=== PATIENT | male | born 1950 | race Caucasian/White ===

== ENCOUNTER 2016-10-14 14:24 | Inpatient (IN) | payer MEDICARE ==
[2016-10-14] MEDS ORDERED: NITROGLYCERIN SL TABS 0.4 MG TAB SUBLINGUAL STA ×3 (14:37)
[2016-10-14] MEDS ORDERED: ASPIRIN 81 MG CHEW PO STA (14:37)
--- NOTE | 2016-10-14 14:46 | ED ---
General Adult HPI - General Stated complaint: Chest Pain Time Seen by Provider: 10/14/16 14:26 Source: patient, EMS, RN notes reviewed Mode of arrival: EMS Limitations: no limitations - History of Present Illness Initial comments: Patient is a pleasant 58-year-old male presenting to the emergency department for chest discomfort. Onset of symptoms was during mowing the lawn. Patient has complaints of pressure in his chest without radiation. Patient does have some associated dyspnea and diaphoresis. No nausea vomiting. Symptoms are similar to previous cardiac problems. Discomfort was 9 or 10/10 and has improved to 7/10 with one nitroglycerin by EMS. - Related Data Home Medications Medication Instructions Recorded Confirmed Allopurinol [Zyloprim] 100 mg PO QAM 11/07/13 10/14/16 FLUoxetine HCL [PROzac] 20 mg PO QAM 11/07/13 10/14/16 Pantoprazole Sodium 40 mg PO QAM 11/07/13 10/14/16 Primidone [Mysoline] 50 mg PO TID 11/07/13 10/14/16 Topiramate [Topamax] 100 mg PO 11/07/13 10/14/16 Pioglitazone [Actos] 30 mg PO QAM 10/19/15 10/14/16 Isosorbide Mononitrate ER [Imdur] 30 mg PO QAM 01/02/16 10/14/16 Insulin NPH Hum/Reg Insulin Hm 10 unit SQ BID 01/24/16 10/14/16 [NovoLIN 70-30 100 UNIT/ML VIAL] Ascorbic Acid [Vitamin C] 1,000 mg PO QAM 05/25/16 10/14/16 [place]-3 Fatty Acids/Fish Oil [Fish 1 cap PO DAILY 05/25/16 10/14/16 Oil 1,000 mg Softgel] Clopidogrel [Plavix] 75 mg PO DAILY 10/14/16 10/14/16 Cyclobenzaprine [Flexeril] 5 mg PO BID 10/14/16 10/14/16 Famotidine [Pepcid] 20 mg PO HS 10/14/16 10/14/16 Gabapentin [Neurontin] 400 mg PO QID 10/14/16 10/14/16 Metoprolol Tartrate [Lopressor] 12.5 mg PO HS 10/14/16 10/14/16 Metoprolol Tartrate [Lopressor] 25 mg PO QAM 10/14/16 10/14/16 Multivitamins, Thera [Multivitamin 1 tab PO DAILY 10/14/16 10/14/16 (formulary)] buPROPion [Wellbutrin] 100 mg PO BID 10/14/16 10/14/16 metFORMIN HCL 1,000 mg PO BID 10/14/16 10/14/16 Previous Rx's Medication Instructions Recorded Aspirin EC [Ecotrin Low Dose] 81 mg PO DAILY #30 tablet. 10/21/15 Allergies Allergy/AdvReac Type Severity Reaction Status Date / Time No Known Allergies Allergy Verified 10/14/16 14:47 Review of Systems ROS Statement: Those systems with pertinent positive or pertinent negative responses have been documented in the HPI. ROS Other: All systems not noted in ROS Statement are negative. Constitutional: Denies: fever Eyes: Denies: eye pain ENT: Denies: ear pain Respiratory: Reports: dyspnea. Denies: cough Cardiovascular: Reports: chest pain Endocrine: Denies: fatigue Gastrointestinal: Denies: abdominal pain Genitourinary: Denies: dysuria Musculoskeletal: Denies: back pain Skin: Denies: rash Neurological: Denies: headache Past Medical History Past Medical History: Coronary Artery Disease (CAD), Chest Pain / Angina, Diabetes Mellitus, GERD/Reflux, GI Bleed, Hyperlipidemia, Hypertension, Myocardial Infarction ([place]), Musculoskeletal Disorder, Osteoarthritis (OA), Skin Disorder Additional Past Medical History / Comment(s): . HX OF BACK PROBLEMS. TREMORS RT ARM. SPINAL stenosis of lumbar region with radiculopathy.HIATAL HERNIA, SPORIASES, ,,GOUT Last Myocardial Infarction Date:: OCTOBER 2015 History of Any Multi-Drug Resistant Organisms: None Reported Past Surgical History: Back Surgery, Coronary Bypass/CABG, Heart Catheterization , Heart Catheterization With Stent, Hernia Repair, Orthopedic Surgery Additional Past Surgical History / Comment(s): REPAIR STOMACH ULCER 10/2012; ORIF LT ANKLE; REPAIR RT 5TH FINGER D/T TRAUMA; PAIN PROC X2; HERNIA SURG X5 - 1 UMB, 1 HIATAL, 3 INGUINAL; CABG X1, 6-2014 had posterior lateral decompression and fusion, transforaminal lumbar interbody fusion L4-L5.LT ROTATOR CUFF REPAIR,EGD/COLONOSCOPY,NERVE BLOCK. 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 Smoking Status: Former smoker Past Alcohol Use History: None Reported Additional Past Alcohol Use History / Comment(s): STARTED SMOKING AT AGE 14, SMOKED 1-2 PPD, QUIT 1989 Past Drug Use History: None Reported - Past Family History Father Additional Family Medical History / Comment(s): BRAIN TUMOR Mother Family Medical History: Myocardial Infarction ([place]) Additional Family Medical History / Comment(s): FROM [place] AGE 70 General Exam Limitations: no limitations General appearance: alert, in no apparent distress Head exam: Present: atraumatic Eye exam: Present: normal appearance, PERRL ENT exam: Present: normal oropharynx Neck exam: Present: normal inspection Respiratory exam: Present: normal lung sounds bilaterally. Absent: chest wall tenderness Cardiovascular Exam: Present: regular rate, normal rhythm Expanded Peripheral pulses: 2+: Radial (R), Radial (L), Dorsalis Pedis (R), Dorsalis Pedis (L) GI/Abdominal exam: Present: soft. Absent: tenderness Extremities exam: Present: normal inspection. Absent: pedal edema, calf tenderness Neurological exam: Present: alert Psychiatric exam: Present: normal affect, normal mood Skin exam: Absent: rash Course Vital Signs 10/14/16 10/14/16 14:32 15:05 Temperature 97.8 F Pulse Rate 68 64 Respiratory 18 16 Rate Blood Pressure 110/59 131/62 O2 Sat by Pulse 99 98 Oximetry EKG Findings - EKG Comments: EKG Findings:: Normal sinus rhythm at 65. NV 164. QRS 170. QT 452. QTC 470. Normal axis. Right bundle branch block. Nonspecific ST-T. Inferior T wave inversion. Previous EKG dated 05/26/2016 reviewed. Medical Decision Making - Medical Decision Making Patient reexamined and resting comfortably in bed. Patient states discomfort is starting to increase again and nitroglycerin drip will be provided. Case was discussed in detail with Dr. Tang who is familiar with this patient and will admit for Dr. Garza. Admission orders written. IV heparin started. Cardiology will be consult. - Lab Data Result diagrams: 10/14/16 14:44 10/14/16 14:44 Lab Results 10/14/16 10/14/1610/14/17 Range/Units 14:44 14:44 14:44 WBC 6.4 (3.8-10.6) k/uL RBC 4.37 (4.30-5.90) m/uL Hgb 13.2 (13.0-17.5) gm/dL Hct 40.1 (39.0-53.0) % MCV 91.9 (80.0-100.0) fL MCH 30.1 (25.0-35.0) pg MCHC 32.8 (31.0-37.0) g/dL RDW 13.4 (11.5-15.5) % Plt Count 175 (150-450) k/uL Neutrophils % 60 % Lymphocytes % 27 % Monocytes % 5 % Eosinophils % 4 % Basophils % 0 % Neutrophils # 3.8 (1.3-7.7) k/uL Lymphocytes # 1.7 (1.0-4.8) k/uL Monocytes # 0.3 (0-1.0) k/uL Eosinophils # 0.3 (0-0.7) k/uL Basophils # 0.0 (0-0.2) k/uL PT (9.0-12.0) sec INR (<1.1) APTT (22.0-30.0) sec Sodium 142 (137-145) mmol/L Potassium 3.7 (3.5-5.1) mmol/L Chloride 107 (98-107) mmol/L Carbon Dioxide 25 (22-30) mmol/L Anion Gap 10 mmol/L BUN 15 (9-20) mg/dL Creatinine 1.10 (0.66-1.25) mg/dL Est GFR (MDRD) Af Amer >60 (>60 ml/min/1.73 sqM) Est GFR (MDRD) Non-Af >60 (>60 ml/min/1.73 sqM) Glucose 72 L (74-99) mg/dL Calcium 9.0 (8.4-10.2) mg/dL Magnesium 1.7 (1.6-2.3) mg/dL Total Bilirubin 0.3 (0.2-1.3) mg/dL AST 21 (17-59) U/L ALT 23 (21-72) U/L Alkaline Phosphatase 55 (38-126) U/L Total Creatine Kinase 113 (55-170) U/L CK-MB (CK-2) 2.4 (0.0-2.4) ng/mL CK-MB (CK-2) Rel Index 2.1 Troponin I <0.012 (0.000-0.034) ng/mL Total Protein 6.8 (6.3-8.2) g/dL Albumin 4.0 (3.5-5.0) g/dL 10/14/16 Range/Units 14:44 WBC (3.8-10.6) k/uL RBC (4.30-5.90) m/uL Hgb (13.0-17.5) gm/dL Hct (39.0-53.0) % MCV (80.0-100.0) fL MCH (25.0-35.0) pg MCHC (31.0-37.0) g/dL RDW (11.5-15.5) % Plt Count (150-450) k/uL Neutrophils % % Lymphocytes % % Monocytes % % Eosinophils % % Basophils % % Neutrophils # (1.3-7.7) k/uL Lymphocytes # (1.0-4.8) k/uL Monocytes # (0-1.0) k/uL Eosinophils # (0-0.7) k/uL Basophils # (0-0.2) k/uL PT 10.7 (9.0-12.0) sec INR 1.1 (<1.1) APTT 23.7 (22.0-30.0) sec Sodium (137-145) mmol/L Potassium (3.5-5.1) mmol/L Chloride (98-107) mmol/L Carbon Dioxide (22-30) mmol/L Anion Gap mmol/L BUN (9-20) mg/dL Creatinine (0.66-1.25) mg/dL Est GFR (MDRD) Af Amer (>60 ml/min/1.73 sqM) Est GFR (MDRD) Non-Af (>60 ml/min/1.73 sqM) Glucose (74-99) mg/dL Calcium (8.4-10.2) mg/dL Magnesium (1.6-2.3) mg/dL Total Bilirubin (0.2-1.3) mg/dL AST (17-59) U/L ALT (21-72) U/L Alkaline Phosphatase (38-126) U/L Total Creatine Kinase (55-170) U/L CK-MB (CK-2) (0.0-2.4) ng/mL CK-MB (CK-2) Rel Index Troponin I (0.000-0.034) ng/mL Total Protein (6.3-8.2) g/dL Albumin (3.5-5.0) g/dL - Radiology Data Radiology results: image reviewed (Chest x-ray shows stable mild cardiomegaly and chronic changes.) Critical Care Time Critical Care Time: Yes Total Critical Care Time: 33 Disposition Clinical Impression: Unstable angina pectoris Disposition: ADMITTED IP TO THIS [facility] Condition: Serious Time of Disposition: 15:43
[2016-10-14 14:56] LABS: Basophils % (A) 0 %; CH 29.5; CHCM 32.2; Eosinophils # (A) 0.3 k/uL (0-0.7); Eosinophils % (A) 4 %; HCT 40.1 % (39.0-53.0); HDW 2.33; HGB 13.2 gm/dL (13.0-17.5); Luc # (Auto) 0.21; Luc % (Auto) 3; Lymphocytes # (A) 1.7 k/uL (1.0-4.8); Lymphocytes % (A) 27 %; MCH 30.1 pg (25.0-35.0); MCHC 32.8 g/dL (31.0-37.0); MCV 91.9 fL (80.0-100.0); Mean Platelet Volume 7.5; Monocytes # (A) 0.3 k/uL (0-1.0); Monocytes % (A) 5 %; Neutrophils # (A) 3.8 k/uL (1.3-7.7); Neutrophils % (A) 60 %; RBC 4.37 m/uL (4.30-5.90); RDW 13.4 % (11.5-15.5); WBC 6.4 k/uL (3.8-10.6); WBC (Perox) 6.63
[2016-10-14] MEDS ORDERED: MORPHINE SULFATE 4 MG/ML SYRINGE IVP STA (14:58)
[2016-10-14 15:07] LABS: INR 1.1 (<1.1); Partial Thromboplastin Time 23.7 sec (22.0-30.0); Prothrombin Time 10.7 sec (9.0-12.0)
[2016-10-14 15:11] LABS: ALT 23 U/L (21-72); AST 21 U/L (17-59); Alkaline Phosphatase 55 U/L (38-126); Anion Gap 10 mmol/L; Blood Urea Nitrogen 15 mg/dL (9-20); Carbon Dioxide 25 mmol/L (22-30); Chloride 107 mmol/L (98-107); Glucose 72 mg/dL (74-99); Magnesium 1.7 mg/dL (1.6-2.3); Non-African American GFR(MDRD) >60 (>60 ml/min/1.73 sqM); Potassium 3.7 mmol/L (3.5-5.1); Sodium 142 mmol/L (137-145); Total Bilirubin 0.3 mg/dL (0.2-1.3); Total Protein 6.8 g/dL (6.3-8.2)
[2016-10-14 15:21] LABS: Creatine Kinase 113 U/L (55-170)
--- NOTE | 2016-10-14 15:27 | XR ---
EXAMINATION TYPE: XR chest 1V portable DATE OF EXAM: 10/14/2016 3:17 PM Comparison: 05/25/2016 Clinical History: 66-year-old male with chest pain Findings: The heart is mildly enlarged. Median sternotomy wires are present with post-CABG clips in the mediast inum. Mild interstitial prominence likely chronic senescent change. No consolidation or pleural effus ion. Impression: Stable mild cardiomegaly and chronic changes. No acute process seen.
[2016-10-14 15:34] LABS: Creatine Kinase MB 2.4 ng/mL (0.0-2.4); Troponin I <0.012 ng/mL (0.000-0.034)
[2016-10-14] MEDS ORDERED: NITROGLYCERIN-D5W PMX 50 MG in DEXTROSE/WATER 1 250ML.BAG IV ONE (15:41)
[2016-10-14] MEDS ORDERED: HEPARIN SODIUM,PORCINE 5,000 UNIT/ML 1 ML VIAL IV ONE (15:44)
[2016-10-14] MEDS: HEPARIN SODIUM,PORCINE/D5W PMX 25,000 UNIT in DEXTROSE/WATER 1 500ML.BAG IV SCH (16:05)
[2016-10-14 20:52] LABS: Creatine Kinase 111 U/L (55-170)
[2016-10-14 20:59] LABS: Glucose,Whole Blood 180 mg/dL (75-99)
[2016-10-14 21:02] LABS: Creatine Kinase MB 2.3 ng/mL (0.0-2.4); Troponin I <0.012 ng/mL (0.000-0.034)
[2016-10-14] MEDS ORDERED: FAMOTIDINE 20 MG TAB PO SCH (21:15)
[2016-10-14] MEDS: MORPHINE SULFATE 2 MG/ML SYRINGE IVP PRN (21:31)
--- NOTE | 2016-10-14 21:49 | XR ---
EXAMINATION TYPE: XR chest 1V portable DATE OF EXAM: 10/14/2016 9:23 PM COMPARISON: 10/14/2016 HISTORY: Pain TECHNIQUE: Single frontal view of the chest is obtained. FINDINGS: Sternal sutures noted. EKG leads. There is no focal air space opacity, pleural effusion, o r pneumothorax seen. The cardiac silhouette size is within normal limits. The osseous structures a re intact. IMPRESSION: No acute process.
[2016-10-14 22:03] LABS: Anion Gap 12 mmol/L; Blood Urea Nitrogen 14 mg/dL (9-20); Calcium 9.3 mg/dL (8.4-10.2); Carbon Dioxide 25 mmol/L (22-30); Chloride 101 mmol/L (98-107); Glucose 169 mg/dL (74-99); Magnesium 1.8 mg/dL (1.6-2.3); Non-African American GFR(MDRD) >60 (>60 ml/min/1.73 sqM); Potassium 3.8 mmol/L (3.5-5.1); Sodium 138 mmol/L (137-145)
[2016-10-14] MEDS: CYCLOBENZAPRINE 5 MG TAB PO SCH (22:21)
[2016-10-14] MEDS: GABAPENTIN 400 MG CAP PO SCH (22:21)
[2016-10-14] MEDS: PRIMIDONE 50 MG TAB PO SCH (22:22)
[2016-10-14] MEDS: TOPIRAMATE 100 MG TAB PO SCH (22:22)
[2016-10-14] MEDS: METOPROLOL TARTRATE 25 MG TAB PO SCH (22:24)
[2016-10-14] MEDS ORDERED: ACETAMINOPHEN TAB 325 MG TAB PO PRN (22:28)
[2016-10-14] MEDS ORDERED: INSULIN NPH/REG INSULIN 70/30 300 UNIT/3 ML VIAL SQ SCH (22:30)
[2016-10-14] MEDS: HYDROmorphone 1 MG/ML 1 ML SYRINGE IVP PRN (23:35)
[2016-10-15] MEDS: HEPARIN SODIUM,PORCINE 5,000 UNIT/ML 1 ML VIAL IV PRN ×2 (01:47→14:04)
[2016-10-15 04:25] LABS: Mean Platelet Volume 7.4
[2016-10-15 04:35] LABS: Cholesterol 167 mg/dL (<200); HDL Cholesterol 51 mg/dL (40-60); Triglycerides 62 mg/dL (<150)
[2016-10-15 05:01] LABS: Creatine Kinase 101 U/L (55-170)
[2016-10-15 05:15] LABS: Creatine Kinase MB 2.1 ng/mL (0.0-2.4); Troponin I <0.012 ng/mL (0.000-0.034)
[2016-10-15] MEDS: MORPHINE SULFATE 2 MG/ML SYRINGE IVP PRN ×3 (05:50→16:10)
[2016-10-15 06:10] LABS: Glucose,Whole Blood 55 mg/dL (75-99)
[2016-10-15 06:26] LABS: Glucose,Whole Blood 74 mg/dL (75-99)
[2016-10-15] MEDS: PANTOPRAZOLE 40 MG TABLET PO SCH (06:31)
[2016-10-15] MEDS: INSULIN LISPRO (humaLOG) 300 UNIT/3 ML VIAL SQ SCH ×4 (06:31→21:21)
[2016-10-15 07:09] LABS: Glucose,Whole Blood 90 mg/dL (75-99)
[2016-10-15] MEDS ORDERED: metFORMIN 500 MG TAB PO SCH (07:30)
--- NOTE | 2016-10-15 08:27 | P.CRDCN ---
History of Present Illness Consult date: 10/15/16 Requesting physician: Tisha Tang Consult reason: chest pain Chief complaint: Chest pain History of present illness: This is a pleasant 58-year-old gentleman who follows with Dr. Taylor Jiménez in the office. He has a known history of coronary artery disease with prior bypass surgery, single vessel to the RCA. Subsequent to that patient also underwent angioplasty and stenting of the SVG to the RCA in October 2015 with multiple stents at that time, subsequent to that in May of the same year he again underwent stenting of the SVG to the RCA. She also has history of diabetes, hypertension, hyperlipidemia, family history of premature coronary artery disease. He presents to the hospital on this occasion with symptoms of midsternal chest pressure and heaviness. Patient states he had just cut his lawn when the symptoms started. It reminded him of his prior chest discomfort when he had his stents placed. Overall he states he's been doing fairly well at home. Blood pressure on arrival here 110/60 with a heart rate in the 60s. Temperature is 90.7 point 80s 99% on room air. White Blood cell count 6.4, hemoglobin 13.2, potassium 3.8, BUN 14, creatinine 1.0. Troponins 3 have been negative. EKG shows normal sinus rhythm with a right bundle branch block pattern and nonspecific ST-T wave changes, similar to prior EKGs. At the time of my examination this morning, patient is currently on IV heparin and nitroglycerin drips, denies any chest pain at present. Past Medical History Past Medical History: Coronary Artery Disease (CAD), Chest Pain / Angina, Diabetes Mellitus, GERD/Reflux, GI Bleed, Hyperlipidemia, Hypertension, Myocardial Infarction ([place]), Musculoskeletal Disorder, Osteoarthritis (OA), Skin Disorder Additional Past Medical History / Comment(s): . HX OF BACK PROBLEMS. TREMORS RT ARM. SPINAL stenosis of lumbar region with radiculopathy.HIATAL HERNIA, SPORIASES, ,,GOUT Last Myocardial Infarction Date:: OCTOBER 2015 History of Any Multi-Drug Resistant Organisms: None Reported Past Surgical History: Back Surgery, Coronary Bypass/CABG, Heart Catheterization , Heart Catheterization With Stent, Hernia Repair, Orthopedic Surgery Additional Past Surgical History / Comment(s): REPAIR STOMACH ULCER 10/2012; ORIF LT ANKLE; REPAIR RT 5TH FINGER D/T TRAUMA; PAIN PROC X2; HERNIA SURG X5 - 1 UMB, 1 HIATAL, 3 INGUINAL; CABG X1, 6-2014 had posterior lateral decompression and fusion, transforaminal lumbar interbody fusion L4-L5.LT ROTATOR CUFF REPAIR,EGD/COLONOSCOPY,NERVE BLOCK. 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 Smoking Status: Former smoker Past Alcohol Use History: None Reported Additional Past Alcohol Use History / Comment(s): STARTED SMOKING AT AGE 14, SMOKED 1-2 PPD, QUIT 1989 Past Drug Use History: None Reported - Past Family History Father Additional Family Medical History / Comment(s): BRAIN TUMOR Mother Family Medical History: Myocardial Infarction ([place]) Additional Family Medical History / Comment(s): FROM [place] AGE 70 Medications and Allergies Home Medications Medication Instructions Recorded Confirmed Type Allopurinol [Zyloprim] 100 mg PO QAM 11/07/13 10/14/16 History FLUoxetine HCL [PROzac] 20 mg PO QAM 11/07/13 10/14/16 History Pantoprazole Sodium 40 mg PO QAM 11/07/13 10/14/16 History Primidone [Mysoline] 50 mg PO TID 11/07/13 10/14/16 History Topiramate [Topamax] 100 mg PO HS 11/07/13 10/14/16 History Pioglitazone [Actos] 30 mg PO QAM 10/19/15 10/14/16 History Isosorbide Mononitrate ER [Imdur] 30 mg PO QAM 01/02/16 10/14/16 History Insulin NPH Hum/Reg Insulin Hm 10 unit SQ BID 01/24/16 10/14/16 History [NovoLIN 70-30 100 UNIT/ML VIAL] Ascorbic Acid [Vitamin C] 1,000 mg PO QAM 05/25/16 10/14/16 History [place]-3 Fatty Acids/Fish Oil [Fish 1 cap PO DAILY 05/25/16 10/14/16 History Oil 1,000 mg Softgel] Clopidogrel [Plavix] 75 mg PO DAILY 10/14/16 10/14/16 History Cyclobenzaprine [Flexeril] 5 mg PO BID 10/14/16 10/14/16 History Famotidine [Pepcid] 20 mg PO HS 10/14/16 10/14/16 History Gabapentin [Neurontin] 400 mg PO QID 10/14/16 10/14/16 History Isosorbide Mononitrate ER [Imdur] 60 mg PO HS 10/14/16 10/14/16 History Metoprolol Tartrate [Lopressor] 12.5 mg PO HS 10/14/16 10/14/16 History Metoprolol Tartrate [Lopressor] 25 mg PO QAM 10/14/16 10/14/16 History Multivitamins, Thera [Multivitamin 1 tab PO DAILY 10/14/16 10/14/16 History (formulary)] buPROPion [Wellbutrin] 100 mg PO BID 10/14/16 10/14/16 History metFORMIN HCL 1,000 mg PO BID 10/14/16 10/14/16 History Allergies Allergy/AdvReac Type Severity Reaction Status Date / Time No Known Allergies Allergy Verified 10/14/16 14:47 Physical Exam Vitals: Vital Signs Temp Pulse Pulse Resp BP BP Pulse Ox 10/15/16 07:40 97.5 F L 56 L 18 103/65 96 10/15/16 04:00 97.2 F L 55 L 16 101/57 96 10/14/16 23:45 61 115/53 97 10/14/16 23:30 64 18 117/69 97 10/14/16 22:56 61 20 147/76 97 10/14/16 22:36 67 20 140/85 97 10/14/16 22:16 62 22 148/77 98 10/14/16 21:46 67 22 161/81 99 10/14/16 21:36 65 22 159/85 100 10/14/16 21:26 64 24 153/88 99 10/14/16 21:16 62 22 141/79 100 10/14/16 21:06 28 H 180/92 100 10/14/16 20:56 181/128 10/14/16 20:22 97.1 F L 60 18 143/84 95 10/14/16 19:49 97.9 F 76 18 127/75 99 10/14/16 16:53 64 16 134/72 98 10/14/16 16:07 57 L 16 121/66 98 Intake and Output 10/14/16 10/15/16 10/15/16 22:59 06:59 14:59 Intake Total 418.553 Output Total 500 Balance -81.447 Intake: Intake, IV Titration 418.553 Amount Heparin Sodium,Porcine/ 298.553 D5w Pmx 25,000 unit In Dextrose/Water 1 500ml. bag @ 10 UNITS/KG/HR 19. 95 mls/hr IV .Q24H [facility] Rx #:[id number] Nitroglycerin-D5w Pmx 50 120 mg In Dextrose/Water 1 250ml.bag @ 20 MCG/MIN 6 mls/hr IV .Q24H ONE Rx#: [id number] Output: Urine 500 Other: Weight 100.3 kg 97.7 kg PHYSICAL EXAMINATION: HEENT: Head is atraumatic, normocephalic. Pupils equal, round. Neck is supple. There is no elevated jugular venous pressure. HEART EXAMINATION: Heart S1, S2 normal. No murmur or gallop heard. CHEST EXAMINATION: Lungs are clear to auscultation and precussion. No chest wall tenderness is noted on palpation or with deep breathing. ABDOMEN: Soft, nontender. Bowel sounds are heard. No organomegaly noted. EXTREMITIES: 2+ peripheral pulses with no evidence of peripheral edema and no calf tenderness noted. NEUROLOGIC patient is awake, alert and oriented -3. . Results 10/15/16 03:54 10/14/16 21:11 Cardiac Enzymes 10/14/16 10/14/16 10/15/16 Range/Units 20:11 21:11 03:54 CK-MB (CK-2) 2.3 2.1 (0.0-2.4) ng/mL Troponin I <0.012 <0.012 <0.012 (0.000-0.034) ng/mL Coagulation 10/14/16 10/15/16 Range/Units 21:11 03:54 APTT 37.1 H 129.8 H* (22.0-30.0) sec Lipids 10/15/16 Range/Units 03:54 Triglycerides 62 (<150) mg/dL Cholesterol 167 (<200) mg/dL HDL Cholesterol 51 (40-60) mg/dL CBC 10/15/16 Range/Units 03:54 Plt Count 171 (150-450) k/uL Comprehensive Metabolic Panel 10/14/16 Range/Units 21:11 Sodium 138 (137-145) mmol/L Potassium 3.8 (3.5-5.1) mmol/L Chloride 101 (98-107) mmol/L Carbon Dioxide 25 (22-30) mmol/L BUN 14 (9-20) mg/dL Creatinine 1.06 (0.66-1.25) mg/dL Glucose 169 H (74-99) mg/dL Calcium 9.3 (8.4-10.2) mg/dL Current Medications Generic Name Dose Route Start Last Admin Trade Name Freq PRN Reason Stop Dose Admin Acetaminophen 650 mg 10/14/16 22:28 10/15/16 05:00 Tylenol Tab PO 650 mg Q6HR PRN Administration Mild to Moderate Pain Allopurinol 100 mg 10/15/16 09:00 Zyloprim PO QAM [facility] Ascorbic Acid 1,000 mg 10/15/16 09:00 Vitamin C PO QAM [facility] Aspirin 325 mg 10/15/16 09:00 Aspirin PO DAILY [facility] Bupropion HCl 100 mg 10/15/16 09:00 Wellbutrin PO BID [facility] Clopidogrel Bisulfate 75 mg 10/15/16 09:00 Plavix PO DAILY [facility] Cyclobenzaprine HCl 5 mg 10/14/16 21:15 10/14/16 22:21 Flexeril PO 5 mg BID [facility] Administration Famotidine 20 mg 10/14/16 21:15 10/14/16 22:21 Pepcid PO 20 mg HS [facility] Administration Fluoxetine HCl 20 mg 10/15/16 09:00 Prozac PO QAM [facility] Gabapentin 400 mg 10/14/16 22:00 10/14/16 22:21 Neurontin PO 400 mg QID [facility] Administration Heparin Sodium (Porcine) 0 unit 10/14/16 15:44 10/15/16 01:47 Heparin IV 4,000 unit Q6HR PRN Administration Low PTT Protocol Hydromorphone HCl 0.5 mg 10/14/16 23:06 10/14/16 23:35 Dilaudid IVP 0.5 mg Q4HR PRN Administration Moderate to Severe Pain Nitroglycerin/Dextrose 50 mg/ 250 mls @ 6 mls/hr 10/14/16 15:41 10/14/16 16: 04 IV Solution IV 10/15/16 15:40 10 mcg/min .Q24H ONE 3 mls/hr Protocol Administration 20 MCG/MIN Heparin Sodium/Dextrose 25,000 500 mls @ 19.95 mls/hr 10/14/16 15:45 05:51 unit/ IV Solution IV 9.98 units/kg/hr .Q24H [facility] 19.91 mls/hr Protocol Titration 10 UNITS/KG/HR Insulin Human Isoph/Insulin Regular 30 unit 10/14/16 22:30 10/14/16 23:36 Humulin 70/30 Vial SQ 30 unit HS [facility] Administration Insulin Human Lispro 0 unit 10/15/16 07:30 10/15/16 06:31 Humalog SQ Not Given ACHS [facility] Protocol Isosorbide Mononitrate 30 mg 10/15/16 09:00 Imdur PO QAM [facility] Metformin HCl 1,000 mg 10/15/16 07:30 10/15/16 06:31 Glucophage PO Not Given BID-W/MEALS [facility] Metoprolol Tartrate 25 mg 10/14/16 21:15 10/14/16 22:24 Lopressor PO 25 mg BID [facility] Administration Morphine Sulfate 2 mg 10/14/16 20:20 10/15/16 05:50 Morphine Sulfate (Inj) IVP 2 mg Q2H PRN Administration Pain/Discomfort Multivitamins 1 each 10/15/16 09:00 Theragran PO DAILY [facility] Pantoprazole Sodium 40 mg 10/15/16 07:30 10/15/16 06:31 Protonix PO Not Given AC-BRKFST [facility] Pioglitazone HCl 30 mg 10/15/16 09:00 Actos PO QAM [facility] Primidone 50 mg 10/14/16 22:00 10/14/16 22:22 Mysoline PO 50 mg TID [facility] Administration Topiramate 100 mg 10/14/16 21:15 10/14/16 22:22 Topamax PO 100 mg HS [facility] Administration Intake and Output 10/14/16 10/15/16 10/15/16 22:59 06:59 14:59 Intake Total 418.553 Output Total 500 Balance -81.447 Intake: Intake, IV Titration 418.553 Amount Heparin Sodium,Porcine/ 298.553 D5w Pmx 25,000 unit In Dextrose/Water 1 500ml. bag @ 10 UNITS/KG/HR 19. 95 mls/hr IV .Q24H [facility] Rx #:[id number] Nitroglycerin-D5w Pmx 50 120 mg In Dextrose/Water 1 250ml.bag @ 20 MCG/MIN 6 mls/hr IV .Q24H ONE Rx#: [id number] Output: Urine 500 Other: Weight 100.3 kg 97.7 kg 10/15/16 03:54 10/14/16 21:11 EKG Interpretations (text) EEG shows normal sinus rhythm with a right bundle branch block pattern and nods ST-T wave changes. Assessment and Plan Plan: Assessment and plan #1 chest discomfort suggestive of unstable angina. Troponins 3 negative. EKG shows normal sinus rhythm with right bundle branch block pattern and nonspecific ST-T wave changes. #2 known history of coronary artery disease with prior single-vessel bypass to the right coronary artery. Subsequent to that in October of last year he underwent multiple stent placements of that vein graft and again in May underwent 2 stent placements of the vein graft to the RCA. #3 hypertension #4 hyperlipidemia Number 5 diabetes #6 family history of premature coronary artery disease Plan We will repeat an echocardiogram with Doppler study. Continue IV heparin and nitroglycerin along with aspirin, Plavix, metoprolol tartrate, we will also add a small dose of SHANE inhibitor to the patient's medication regime. Patient has been advised to undergo cardiac catheterization for more definitive diagnosis, the risks and the benefits were explained to the patient in detail. This will be performed by Dr. RAY Jiménez, further recommendations will be based on these findings and the patient's clinical course. DNP note has been reviewed, I agree with a documented findings and plan of care. Patient was seen and examined.
[2016-10-15] MEDS ORDERED: NITROGLYCERIN SL TABS 0.4 MG TAB SUBLINGUAL PRN (08:44)
[2016-10-15] MEDS ORDERED: ALPRAZolam 0.5 MG TAB PO PRN (08:44)
[2016-10-15] MEDS ORDERED: SODIUM CHLORIDE 0.9% 1,000 ML in EMPTY BAG 1 BAG IV ONE (08:44)
[2016-10-15] MEDS ORDERED: ALPRAZolam 0.25 MG TAB PO PRN (08:44)
[2016-10-15] MEDS ORDERED: NON-FORMULARY DRUG (Omega-3 Fatty Acids/Fish Oil [Fish Oil 1,000 Mg Softgel] 1 CAP) PO SCH (09:00)
[2016-10-15] MEDS ORDERED: ASPIRIN 81 MG CHEW PO SCH (09:00)
[2016-10-15] MEDS: CYCLOBENZAPRINE 5 MG TAB PO SCH ×2 (09:14→21:01)
[2016-10-15] MEDS: ASCORBIC ACID 500 MG TAB PO SCH (09:15)
[2016-10-15] MEDS: ALLOPURINOL 100 MG TAB PO SCH (09:15)
[2016-10-15] MEDS: METOPROLOL TARTRATE 25 MG TAB PO SCH ×2 (09:15→21:02)
[2016-10-15] MEDS: CLOPIDOGREL 75 MG TAB PO SCH (09:15)
[2016-10-15] MEDS: buPROPion 100 MG TAB PO SCH ×2 (09:16→21:01)
[2016-10-15] MEDS: FLUoxetine HCL 20 MG CAP PO SCH (09:16)
[2016-10-15] MEDS: PRIMIDONE 50 MG TAB PO SCH ×3 (09:16→21:02)
[2016-10-15] MEDS: ISOSORBIDE MONONITRATE ER 30 MG TAB.ER.24H PO SCH (09:17)
[2016-10-15] MEDS: GABAPENTIN 400 MG CAP PO SCH ×4 (09:17→21:01)
[2016-10-15] MEDS: ASPIRIN 325 MG TAB PO SCH (09:17)
[2016-10-15] MEDS: PIOGLITAZONE 30 MG TAB PO SCH (09:18)
[2016-10-15] MEDS: MULTIVITAMINS, THERA 1 EACH TAB PO SCH (09:18)
[2016-10-15] MEDS: HEPARIN SODIUM,PORCINE/D5W PMX 25,000 UNIT in DEXTROSE/WATER 1 500ML.BAG IV SCH (09:43)
[2016-10-15 10:44] LABS: Hemoglobin A1C 10.8 % (4.2-6.1)
--- NOTE | 2016-10-15 10:45 | P.HPIM ---
History of Present Illness H&P Date: 10/15/16 Chief Complaint: Chest pain This is a 66-year-old male, patient of [facility]. He has a known past medical history of myocardial infarction, coronary artery disease with previous cardiac stenting and CABG. Last cardiac stents were placed in May 2016. He also has a history of diabetes mellitus, hypertension, hyperlipidemia and depression. Patient reports that yesterday he was working out in the yard he was pulling down some blinds and started to cut his grass. He surgery experience chest pain in the center of his chest that radiated up into both shoulders and into his neck. He was also having shortness of breath and sweating. He became concerned that he was having another heart attack. He' s had symptoms similar to this in the past. Came into the emergency room for further evaluation. Troponins were negative 3 sets EKG showing a right bundle branch block and nonspecific ST changes. Chest x-ray was negative. He was admitted to telemetry floor. Cardiology consulted. And they're planning to proceed with heart catheterization tomorrow. Patient is currently on IV heparin and nitro glycerin drip. It appears patient did have an episode of unresponsiveness yesterday possibly related to the nitroglycerin drip. And recovered spontaneously. Patient is currently alert and awake. Review of Systems Please refer to HPI otherwise unremarkable Past Medical History Past Medical History: Coronary Artery Disease (CAD), Chest Pain / Angina, Diabetes Mellitus, GERD/Reflux, GI Bleed, Hyperlipidemia, Hypertension, Myocardial Infarction (ME), Musculoskeletal Disorder, Osteoarthritis (OA), Skin Disorder Additional Past Medical History / Comment(s): . HX OF BACK PROBLEMS. TREMORS RT ARM. SPINAL stenosis of lumbar region with radiculopathy.HIATAL HERNIA, SPORIASES, ,,GOUT Last Myocardial Infarction Date:: OCTOBER 2015 History of Any Multi-Drug Resistant Organisms: None Reported Past Surgical History: Back Surgery, Coronary Bypass/CABG, Heart Catheterization , Heart Catheterization With Stent, Hernia Repair, Orthopedic Surgery Additional Past Surgical History / Comment(s): REPAIR STOMACH ULCER 10/2012; ORIF LT ANKLE; REPAIR RT 5TH FINGER D/T TRAUMA; PAIN PROC X2; HERNIA SURG X5 - 1 UMB, 1 HIATAL, 3 INGUINAL; CABG X1, 6-2013 had posterior lateral decompression and fusion, transforaminal lumbar interbody fusion L4-L5.LT ROTATOR CUFF REPAIR,EGD/COLONOSCOPY,NERVE BLOCK. 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 Smoking Status: Former smoker Past Alcohol Use History: None Reported Additional Past Alcohol Use History / Comment(s): STARTED SMOKING AT AGE 14, SMOKED 1-2 PPD, QUIT 1989 Past Drug Use History: None Reported - Past Family History Father Additional Family Medical History / Comment(s): BRAIN TUMOR Mother Family Medical History: Myocardial Infarction (ME) Additional Family Medical History / Comment(s): FROM ME AGE 70 Medications and Allergies Home Medications Medication Instructions Recorded Confirmed Type Allopurinol [Zyloprim] 100 mg PO QAM 11/07/13 10/14/16 History FLUoxetine HCL [PROzac] 20 mg PO QAM 11/07/13 10/14/16 History Pantoprazole Sodium 40 mg PO QAM 11/07/13 10/14/16 History Primidone [Mysoline] 50 mg PO TID 11/07/13 10/14/16 History Topiramate [Topamax] 100 mg PO HS 11/07/13 10/14/16 History Pioglitazone [Actos] 30 mg PO QAM 10/19/15 10/14/16 History Isosorbide Mononitrate ER [Imdur] 30 mg PO QAM 01/02/16 10/14/16 History Insulin NPH Hum/Reg Insulin Hm 10 unit SQ BID 01/24/16 10/14/16 History [NovoLIN 70-30 100 UNIT/ML VIAL] Ascorbic Acid [Vitamin C] 1,000 mg PO QAM 05/25/16 10/14/16 History [place]-3 Fatty Acids/Fish Oil [Fish 1 cap PO DAILY 05/25/16 10/14/16 History Oil 1,000 mg Softgel] Clopidogrel [Plavix] 75 mg PO DAILY 10/14/16 10/14/16 History Cyclobenzaprine [Flexeril] 5 mg PO BID 10/14/16 10/14/16 History Famotidine [Pepcid] 20 mg PO HS 10/14/16 10/14/16 History Gabapentin [Neurontin] 400 mg PO QID 10/14/16 10/14/16 History Isosorbide Mononitrate ER [Imdur] 60 mg PO HS 10/14/16 10/14/16 History Metoprolol Tartrate [Lopressor] 12.5 mg PO HS 10/14/16 10/14/16 History Metoprolol Tartrate [Lopressor] 25 mg PO QAM 10/14/16 10/14/16 History Multivitamins, Thera [Multivitamin 1 tab PO DAILY 10/14/16 10/14/16 History (formulary)] buPROPion [Wellbutrin] 100 mg PO BID 10/14/16 10/14/16 History metFORMIN HCL 1,000 mg PO BID 10/14/16 10/14/16 History Allergies Allergy/AdvReac Type Severity Reaction Status Date / Time No Known Allergies Allergy Verified 10/14/16 14:47 Physical Exam Vitals: Vital Signs Temp Pulse Pulse Resp BP BP Pulse Ox 10/15/16 08:00 56 L 18 10/15/16 07:40 97.5 F L 56 L 18 103/65 96 10/15/16 04:00 97.2 F L 55 L 16 101/57 96 10/14/16 23:45 61 115/53 97 10/14/16 23:30 64 18 117/69 97 10/14/16 22:56 61 20 147/76 97 10/14/16 22:36 67 20 140/85 97 10/14/16 22:16 62 22 148/77 98 10/14/16 21:46 67 22 161/81 99 10/14/16 21:36 65 22 159/85 100 10/14/16 21:26 64 24 153/88 99 10/14/16 21:16 62 22 141/79 100 10/14/16 21:06 28 H 180/92 100 10/14/16 20:56 181/128 10/14/16 20:22 97.1 F L 60 18 143/84 95 10/14/16 19:49 97.9 F 76 18 127/75 99 10/14/16 16:53 64 16 134/72 98 10/14/16 16:07 57 L 16 121/66 98 Intake and Output 10/14/16 10/15/16 10/15/16 22:59 06:59 14:59 Intake Total 418.553 76.985 Output Total 500 Balance -81.447 76.985 Intake: Intake, IV Titration 418.553 76.985 Amount Heparin Sodium,Porcine/ 298.553 76.985 D5w Pmx 25,000 unit In Dextrose/Water 1 500ml. bag @ 10 UNITS/KG/HR 19. 95 mls/hr IV .Q24H [facility] Rx #:[id number] Nitroglycerin-D5w Pmx 50 120 mg In Dextrose/Water 1 250ml.bag @ 20 MCG/MIN 6 mls/hr IV .Q24H [facility] Rx#: [id number] Output: Urine 500 Other: Weight 100.3 kg 97.7 kg Head normocephalic Neck supple Lungs clear to auscultation bilaterally no wheezing or crackles Heart regular rate and rhythm S1-S2, no rub or gallop Abdomen is soft nontender nondistended positive bowel sounds no hepatosplenomegaly Extremities no edema Neuro alert and orientated to 3 Results CBC & Chem 7: 10/15/16 03:54 10/14/16 21:11 Labs: Abnormal Lab Results - Last 24 Hours (Table) 10/14/16 10/14/16 10/14/16 Range/Units 20:58 21:11 21:11 APTT 37.1 H (22.0-30.0) sec Glucose 169 H (74-99) mg/dL POC Glucose (mg/dL) 180 H (75-99) mg/dL LDL Cholesterol, Calc (0-99) mg/dL 10/15/16 10/15/16 10/15/16 Range/Units 03:54 03:54 06:08 APTT 129.8 H* (22.0-30.0) sec Glucose (74-99) mg/dL POC Glucose (mg/dL) 55 L (75-99) mg/dL LDL Cholesterol, Calc 104 H (0-99) mg/dL 10/15/16 Range/Units 06:25 APTT (22.0-30.0) sec Glucose (74-99) mg/dL POC Glucose (mg/dL) 74 L (75-99) mg/dL LDL Cholesterol, Calc (0-99) mg/dL Thrombosis Risk Factor Assmnt - Choose All That Apply Any of the Below Risk Factors Present?: Yes Each Factor Represents 1 point: Obesity (BMI >25) Other Risk Factors: Yes Each Risk Factor Represents 2 Points: Age 61-74 years Thrombosis Risk Factor Assessment Total Risk Factor Score: 3 Thrombosis Risk Factor Assessment Level: Moderate Risk Assessment and Plan Plan: 1. Chest pain: Troponins negative 3 sets. EKG showing a normal sinus rhythm with a right bundle branch block and nonspecific ST - T wave changes. Patient is currently on IV heparin and nitroglycerin drip. Evaluated by cardiology. They're planning to proceed with heart catheterization tomorrow. Cardiology is recommending continue with the aspirin, Plavix metoprolol and added an SHANE inhibitor. 2. History of coronary artery disease with prior coronary artery bypass graft 1 vessel. Recent stent placement in May 2016 had 2 stents placed 3. Essential hypertension 4. Hyperlipidemia 5. Diabetes mellitus type 2: Continue with home insulin and add sliding scale coverage. We'll hold metformin during hospital stay. Patient is usually on NovoLog 70/30 10 units in the morning and 30 units at night. He did have hypoglycemia with a blood sugar 55 this morning. He was nothing by mouth after midnight. We'll cut back on his evening insulin. Also discontinuing metformin. DVT prophylaxis IV heparin and GI prophylaxis Protonix Time with Patient: Greater than 30 (Greater than 50% of the total time spent in counseling and coordination of care.I performed an examination of the patient and discussed their management with the physician [employer] F[employer] Instructor. I have reviewed the Physician [employer] Instructor's notes and agree with the documented findings and plan of care)
[2016-10-15 11:39] LABS: Glucose,Whole Blood 147 mg/dL (75-99)
[2016-10-15 14:43] VITALS: BMI 35.8
[2016-10-15] MEDS: NITROGLYCERIN-D5W PMX 50 MG in DEXTROSE/WATER 1 250ML.BAG IV SCH ×2 (16:18→19:36)
[2016-10-15 16:36] LABS: Glucose,Whole Blood 158 mg/dL (75-99)
[2016-10-15] MEDS: TOPIRAMATE 100 MG TAB PO SCH (21:01)
[2016-10-15 21:14] LABS: Glucose,Whole Blood 222 mg/dL (75-99)
[2016-10-15] MEDS: HYDROmorphone 1 MG/ML 1 ML SYRINGE IVP PRN (21:20)
[2016-10-15] MEDS: INSULIN NPH/REG INSULIN 70/30 300 UNIT/3 ML VIAL SQ SCH (21:22)
[2016-10-16] MEDS: ISOSORBIDE MONONITRATE ER 30 MG TAB.ER.24H PO SCH ×2 (04:27→09:24)
[2016-10-16] MEDS: METOPROLOL TARTRATE 25 MG TAB PO SCH ×2 (04:27→20:35)
[2016-10-16] MEDS: ASPIRIN 325 MG TAB PO SCH (04:27)
[2016-10-16] MEDS: CLOPIDOGREL 75 MG TAB PO SCH (04:27)
[2016-10-16] MEDS: HYDROmorphone 1 MG/ML 1 ML SYRINGE IVP PRN ×5 (04:36→22:55)
[2016-10-16 04:44] LABS: Glucose,Whole Blood 68 mg/dL (75-99)
[2016-10-16] MEDS ORDERED: DEXTROSE 50%-WATER 50 ML SYRINGE IVP ONE (04:46)
[2016-10-16] MEDS: PANTOPRAZOLE 40 MG TABLET PO SCH (04:50)
[2016-10-16] MEDS: INSULIN LISPRO (humaLOG) 300 UNIT/3 ML VIAL SQ SCH ×4 (04:50→21:54)
[2016-10-16 05:01] LABS: Basophils % (A) 1 %; CH 29.1; CHCM 31.3; Eosinophils # (A) 0.4 k/uL (0-0.7); Eosinophils % (A) 8 %; HCT 40.3 % (39.0-53.0); HDW 2.23; HGB 12.7 gm/dL (13.0-17.5); Luc # (Auto) 0.13; Luc % (Auto) 3; Lymphocytes # (A) 1.4 k/uL (1.0-4.8); Lymphocytes % (A) 32 %; MCH 29.4 pg (25.0-35.0); MCHC 31.5 g/dL (31.0-37.0); MCV 93.5 fL (80.0-100.0); Mean Platelet Volume 7.6; Monocytes # (A) 0.3 k/uL (0-1.0); Monocytes % (A) 7 %; Neutrophils # (A) 2.2 k/uL (1.3-7.7); Neutrophils % (A) 50 %; RBC 4.31 m/uL (4.30-5.90); RDW 13.3 % (11.5-15.5); WBC 4.4 k/uL (3.8-10.6); WBC (Perox) 4.48
[2016-10-16 05:18] LABS: ALT 25 U/L (21-72); AST 19 U/L (17-59); Alkaline Phosphatase 51 U/L (38-126); Anion Gap 8 mmol/L; Blood Urea Nitrogen 15 mg/dL (9-20); Calcium 8.7 mg/dL (8.4-10.2); Carbon Dioxide 27 mmol/L (22-30); Chloride 106 mmol/L (98-107); Glucose 55 mg/dL (74-99); Non-African American GFR(MDRD) >60 (>60 ml/min/1.73 sqM); Potassium 4.2 mmol/L (3.5-5.1); Sodium 141 mmol/L (137-145); Total Bilirubin 0.4 mg/dL (0.2-1.3); Total Protein 6.8 g/dL (6.3-8.2)
[2016-10-16 05:30] LABS: Glucose,Whole Blood 86 mg/dL (75-99)
[2016-10-16 06:33] LABS: Glucose,Whole Blood 96 mg/dL (75-99)
[2016-10-16] MEDS ORDERED: MIDAZOLAM 2 MG/2 ML VIAL IVP ONE (07:32)
[2016-10-16] MEDS ORDERED: diphenhydrAMINE 50 MG/ML 1 ML VIAL IVP ONE (07:33)
[2016-10-16] MEDS ORDERED: IV FLUID CONTINUATION 200 ML IV ONE (07:33)
[2016-10-16] MEDS ORDERED: LIDOCAINE 2% INJ 20 MG/ML SQ ONE ×2 (07:36→13:07)
[2016-10-16] MEDS ORDERED: BIVALIRUDIN BOLUS 250 MG/50 ML IV ONE ×2 (07:48→13:07)
[2016-10-16] MEDS ORDERED: BIVALIRUDIN 250 MG in SODIUM CHLORIDE 0.9% 50 ML IV ONE ×3 (07:48→13:08)
[2016-10-16] MEDS ORDERED: IOHEXOL 350 MG/ML 125ML BOTTLE INJ ONE ×2 (08:39→13:29)
[2016-10-16] MEDS ORDERED: CLOPIDOGREL 75 MG TAB PO ONE (08:40)
[2016-10-16] MEDS ORDERED: NITROGLYCERIN SL TABS 0.4 MG TAB SUBLINGUAL PRN ×2 (08:44→13:32)
[2016-10-16] MEDS ORDERED: ZOLPIDEM 5 MG TAB PO PRN ×2 (08:44→13:32)
[2016-10-16] MEDS ORDERED: MAG HYDROX/AL HYDROX/SIMETH 30 ML CUP PO PRN ×2 (08:44→13:32)
[2016-10-16] MEDS ORDERED: ATROPINE SULFATE 0.1 MG/ML 10ML SYRINGE IV PRN ×2 (08:44→13:32)
[2016-10-16] MEDS ORDERED: RX INFO: IV CONTRAST WAS GIVEN 1 EACH MISC MISCELLANE PRN ×2 (08:44→13:32)
[2016-10-16] MEDS ORDERED: SODIUM CHLORIDE 0.9% 1,000 ML IV SCH ×2 (08:45→13:45)
[2016-10-16] MEDS ORDERED: ONDANSETRON 4 MG/2 ML VIAL IVP PRN (09:15)
[2016-10-16] MEDS: MULTIVITAMINS, THERA 1 EACH TAB PO SCH (09:22)
[2016-10-16] MEDS: ASCORBIC ACID 500 MG TAB PO SCH (09:22)
[2016-10-16] MEDS: PIOGLITAZONE 30 MG TAB PO SCH (09:22)
[2016-10-16] MEDS: ALLOPURINOL 100 MG TAB PO SCH (09:23)
[2016-10-16] MEDS: GABAPENTIN 400 MG CAP PO SCH ×4 (09:23→20:35)
[2016-10-16] MEDS: FLUoxetine HCL 20 MG CAP PO SCH (09:23)
[2016-10-16] MEDS: buPROPion 100 MG TAB PO SCH ×2 (09:23→20:35)
[2016-10-16] MEDS: CYCLOBENZAPRINE 5 MG TAB PO SCH ×2 (09:23→20:35)
[2016-10-16] MEDS: PRIMIDONE 50 MG TAB PO SCH ×3 (09:24→20:35)
--- NOTE | 2016-10-16 10:41 | P.PN ---
Subjective Principal diagnosis: Acute coronary syndrome Patient is a 66-year-old male presenting to [facility] with chest pain, patient has a known history of coronary artery disease with history of previous coronary artery bypass graft surgery Objective - Vital Signs Vital signs: Vital Signs Temp 97.0 F L 10/16/16 04:16 Pulse 53 L 10/16/16 04:16 Resp 16 10/16/16 09:28 BP 145/77 10/16/16 09:46 Pulse Ox 94 L 10/16/16 09:28 Intake & Output 10/15/16 10/16/16 10/16/16 18:59 06:59 18:59 Intake Total 487.253 760 50 Output Total 200 Balance 287.253 760 50 Weight 97.7 kg 99.5 kg Intake: IV 50 Intake, IV Titration 189.253 760 Amount Heparin Sodium,Porcine/ 165.253 D5w Pmx 25,000 unit In Dextrose/Water 1 500ml. bag @ 10 UNITS/KG/HR 19. 95 mls/hr IV .Q24H [facility] Rx #:[id number] Nitroglycerin-D5w Pmx 50 24 mg In Dextrose/Water 1 250ml.bag @ 20 MCG/MIN 6 mls/hr IV .Q24H [facility] Rx#: [id number] Nitroglycerin-D5w Pmx 50 160 mg In Dextrose/Water 1 250ml.bag @ 20 MCG/MIN 6 mls/hr IV .Q24H [facility] Rx#: [id number] Sodium Chloride 0.9% 1, 600 000 ml In Empty Bag 1 bag @ 1 ML/KG/HR 97.7 mls/hr IV .[id number] [facility] Rx#: [id number] Oral 298 0 Output: Urine 200 Other: # Voids 1 - Exam In general patient is alert and oriented 3 in no apparent distress HEENT head normocephalic and atraumatic Neck is supple no JVD no goiter no lymphadenopathy Chest exam reveals tachypnea with scattered crackles in both lung sierra no wheezing Cardiac exam reveals Regular S1 and S2 regular rhythm no gallops no murmurs Abdomen is soft nontender no organomegaly Extremity exam reveals no edema no cyanosis or clubbing Neurological examination reveals no focal deficit Skin exam reveals diffuse psoriasis changes on elbows back and scalp - Labs CBC & Chem 7: 10/16/16 04:40 10/16/16 04:40 Labs: Abnormal Lab Results - Last 24 Hours (Table) 10/15/16 10/15/16 10/15/16 Range/Units 03:54 11:35 12:03 Hgb (13.0-17.5) gm/dL APTT 40.8 H (22.0-30.0) sec Glucose (74-99) mg/dL POC Glucose (mg/dL) 147 H (75-99) mg/dL Hemoglobin A1c 10.8 H (4.2-6.1) % 10/15/16 10/15/16 10/15/16 Range/Units 16:33 20:52 21:13 Hgb (13.0-17.5) gm/dL APTT 46.0 H (22.0-30.0) sec Glucose (74-99) mg/dL POC Glucose (mg/dL) 158 H 222 H (75-99) mg/dL Hemoglobin A1c (4.2-6.1) % 10/16/16 10/16/16 10/16/16 Range/Units 04:40 04:40 04:42 Hgb 12.7 L (13.0-17.5) gm/dL APTT (22.0-30.0) sec Glucose 55 L (74-99) mg/dL POC Glucose (mg/dL) 68 L (75-99) mg/dL Hemoglobin A1c (4.2-6.1) % Assessment and Plan Plan: 1. Chest pain: Troponins negative 3 sets. EKG showing a normal sinus rhythm with a right bundle branch block and nonspecific ST - T wave changes. Patient is currently on IV heparin and nitroglycerin drip. Evaluated by cardiology. Patient had heart catheterization today, there was a lesion in one of the saphenous graft that was not amenable to angioplasty and stent placement plan for cardiology is to try again to proceed with angioplasty and stent placement of this lesion with a different administrative representative. Cardiology is recommending continue with the aspirin, Plavix metoprolol and added an SHANE inhibitor. 2. History of coronary artery disease with prior coronary artery bypass graft 1 vessel. Recent stent placement in May 2016 had 2 stents placed 3. Essential hypertension 4. Hyperlipidemia 5. Diabetes mellitus type 2: Continue with home insulin and add sliding scale coverage. We'll hold metformin during hospital stay. Patient is usually on NovoLog 70/30 10 units in the morning and 30 units at night. He did have hypoglycemia with a blood sugar 55 this morning. He was nothing by mouth after midnight. We'll cut back on his evening insulin. Also discontinuing metformin.
[2016-10-16 11:49] LABS: Glucose,Whole Blood 92 mg/dL (75-99)
[2016-10-16] MEDS: CLOBETASOL PROP 0.05% CR 15GM TOPICAL SCH ×2 (12:03→20:36)
[2016-10-16] MEDS ORDERED: LIDOCAINE 2% INJ 20 MG/ML (20 ML MDV) ONE (12:41)
[2016-10-16] MEDS ORDERED: MIDAZOLAM 2 MG/2 ML VIAL ONE (12:41)
--- NOTE | 2016-10-16 12:51 | CC ---
DATE OF SERVICE: 10/16/2016 PROCEDURE: Coronary angiography and selective injection of vein grafts. PERFORMED BY: Dr. Ina Jiménez. CLINICAL INFORMATION: Mr. Dontrell Raymond is a 66-year-old gentleman with a history of hypertension, hyperlipidemia, CAD, previous stenting of RCA and eventually in 2003 had a single vein graft to the RCA performed at [facility]. Since then, I had seen the patient on and off. About a year ago, I performed stenting of the vein graft to the RCA, which was totally occluded in the setting of an acute inferior IL. Subsequently, I performed a recent stenting in May of last year of mid portion of the body of this vein graft to RCA and also the ostium. Both the sites were stented with a 3.25 caliber drug-eluting Xience stents. However, he comes in with symptoms suggestive of angina without troponin elevation, but the patient had pain at rest and therefore was advised cardiac catheterization. He was seen and evaluated by Dr. Krueger. The risks, benefits, options and rationale were explained to the patient and brought in for the procedure. PROCEDURE NOTE: Under strict aseptic precautions and local anesthesia, a 6 Portuguese introducer was placed in the right femoral artery. I used a standard right Shen catheter to perform selective injection of the right coronary artery and also the vein graft to the RCA. A standard left Shen catheter was used to perform selective coronary angiography of the left system. I then proceeded to perform intervention of the vein graft to the RCA where there was restenosis in the midportion, but the ostium appeared to be patent. Patient tolerated the procedure well. CARDIAC CATHETERIZATION FINDINGS: RIGHT CORONARY ARTERY: This vessel a dominant one totally occluded in the midportion without antegrade flow. LEFT MAIN CORONARY ARTERY: Short patent vessel that bifurcates into LAD and circumflex. No significant disease in the left main coronary artery. LEFT ANTERIOR DESCENDING CORONARY ARTERY: Fair caliber vessel extends along the anterior wall and supplies a fair amount of myocardium; gives off septal and diagonal branches, has minor irregularities, but no significant disease. LEFT POSTERIOR CIRCUMFLEX CORONARY ARTERY: Nondominant vessel; gives off 2 branches, overall a fair distribution, fair caliber and no significant disease. SAPHENOUS VEIN GRAFT TO THE RCA: This graft was stented by me in May at the ostium and midportion. This graft is widely patent at the ostium, but in the midportion there is a 70% eccentric area of narrowing within the stented segment and just proximal to it. Distal flow appears to be good. FINAL IMPRESSION: This patient has a restenosis within the body of the vein graft. Ostium of the vein graft is open. The RCA is totally occluded. Left system is free of significant disease. RECOMMENDATIONS: I recommend intervention of the RCA and proceeded to perform this in the same setting.
--- NOTE | 2016-10-16 12:59 | PTCA ---
DATE OF SERVICE: 10/16/2016 PROCEDURE: PTCA and stenting of vein graft to the RCA. PERFORMED BY: Dr. Ina Jiménez. CLINICAL INFORMATION: Mr. Dontrell Raymond presented to the hospital with unstable angina. He had stenting of ostium and body of the vein graft performed by me sometime in May of last year. There was a restenosis the body of the graft and following coronary angiography, I recommended intervention and performed the procedure in the same setting. PROCEDURE NOTE: The existing 6 Indonesian introducer in the right femoral artery was used to perform the procedure. I used standard right Shen type guide catheter of 6 Indonesian caliber to cannulate the RCA. I was not able to get a very good coaxial seating. However, a whisper wire was used to cross the lesion. I tried to advance a 3.25 caliber, 12 mm stent and as I was making an effort to advance this drug-eluting stent. This stent got dislodged from the balloon and remained in the proximal portion off the RCA. I realized this and slowly took the stent balloon out and advanced under fluoroscopic guidance, a 2.0 caliber, NC Euphora balloon of 12 mm length and I deployed this stent right in the proximal portion and at the ostium. High pressures were used. I then tried to advance another larger balloon to further expand the stent, but I had considerable difficulty. After some deliberation I took the wire out and changed it to a right bypass guide catheter. With this I had somewhat of a better seating, I used the same BMW wire and crossed the lesion. Wire was kept distally. I eventually used a 3.0 caliber, 8 mm long NC Euphora balloon and with this, I fully expanded the drug-eluting stent that was located in the proximal portion. The patient did not have chest pain. There was excellent flow in the proximal portion, but the distal lesion persisted. I then tried to advance to see if I could at least dilate the distal lesion but I had considerable difficulty. At this time, I explained to the patient that because of the nature of the ostial stent I was having difficulty advancing even a balloon. I will therefore abandoned the procedure and request Pati Quiroz to try the procedure this afternoon. Final injections revealed that there was excellent flow and the proximal stent was fully expanded with good flow. There was an area of haziness in the proximal stent, but the flow was excellent and the mid lesion of 60% to 70% seemed to be somewhat better as well with improved flow. Patient was asymptomatic. The sheath was sutured. He was sent to the room. He received 150 mg of Plavix and also received Angiomax bolus and infusion. I explained to the patient and that Dr. Krueger would make another attempt this afternoon. If it is not successful then I will see if we can transfer him to a tertiary facility. This was explained to the patient and and I also requested Dr. Krueger to perform the procedure this afternoon.
--- NOTE | 2016-10-16 13:02 | LTR ---
October 16, 2016 SHRUTI GONZALES DO RE: Dontrell Raymond Safia Dear Dr. Gonzales: Thank you for the opportunity to participate in the care of Mr. Raymond. Please find enclosed my detailed procedure note. This gentleman has a restenotic lesion in the mid portion of the body of the vein graft and I could not reach that because of the ostial stent. However, I deployed another stent in the ostium with a good result and I have requested Dr. Krueger to see if he can perform the procedure and perform a fresh attempt to see if he will be successful. Prognosis remains guarded and as you recall the graft is at least to 12 to 13 years old. Thank you for your referral and please call for questions. With kindest regards. Sincerely yours, TYLER EDGAR MD
[2016-10-16] MEDS ORDERED: MIDAZOLAM 2 MG/2 ML VIAL IV ONE (13:03)
[2016-10-16] MEDS ORDERED: niCARdipine Syringe (1,000 mcg/10 mL) INTRACORON ONE (13:22)
[2016-10-16] MEDS ORDERED: IV FLUID CONTINUATION 1,000 ML IV ONE (13:25)
--- NOTE | 2016-10-16 14:15 | PTCA ---
DATE OF SERVICE: 10/16/2016 PERFORMING PHYSICIAN: Chai Krueger MD, cadd technician. PROCEDURE PERFORMED: 1. Successful stenting of the mid SVG graft to the right coronary artery using 3.25 x 15 mm Promus Premier PAWAN with a good angiographic results. 2. Successful stenting of the ostial and proximal SVG graft to right coronary artery using 3.5 x 15 mm Promus Premier PAWAN with a good angiographic results. INDICATION: This is a pleasant 66-year-old gentleman who presented to the hospital with chest discomfort and was ruled in for acute non-STEMI. He underwent a heart catheterization earlier and that showed severe disease involving severe in-stent restenosis involving the ostial and mid SVG to RCA. APPROACH: Right common femoral artery. COMPLICATIONS: None. LEVEL OF SEDATION: Moderate with sedation length of 24 minutes. PROCEDURE DESCRIPTION: Please refer to diagnostic heart catheterization and intervention was performed by Dr. Ina Jiménez. The patient was brought to the cardiac mini lab operator. I exchanged the sheath into a new 1/0.35 wire. Subsequently anticoagulation was initiated using Angiomax. Then I did engage the SVG using multipurpose A2 guiding catheter. Wire it using a whisper wire. I was able to do direct stenting on that lesion in the midportion using 3.25 x 15 mm Promus Premier PAWAN, where the stent was positioned under fluoroscopy guidance and deployed under 12 atmospheres for 20 seconds. The following angiogram showed good results. For the lesion in the proximal and ostial/proximal portion, I did deploy 3.5 x 15 mm another Promus Premier PAWAN, where the stent again was positioned under fluoroscopy guidance and deployed under 12 atmospheres for 20 seconds. The following angiogram showed good angiographic result without perforation and without dissection. POSTPROCEDURE MANAGEMENT: 1. Dual antiplatelet therapy. 2. Risk factor modifications. 3. Will follow up with the patient.
[2016-10-16 17:12] LABS: Glucose,Whole Blood 161 mg/dL (75-99)
[2016-10-16] MEDS: TOPIRAMATE 100 MG TAB PO SCH (20:35)
[2016-10-16 21:49] LABS: Glucose,Whole Blood 236 mg/dL (75-99)
[2016-10-16] MEDS: INSULIN NPH/REG INSULIN 70/30 300 UNIT/3 ML VIAL SQ SCH (21:54)
[2016-10-17 06:01] LABS: Glucose,Whole Blood 143 mg/dL (75-99)
[2016-10-17] MEDS: PANTOPRAZOLE 40 MG TABLET PO SCH (06:39)
[2016-10-17] MEDS: INSULIN LISPRO (humaLOG) 300 UNIT/3 ML VIAL SQ SCH ×2 (06:39→12:01)
[2016-10-17 06:46] LABS: Basophils % (A) 1 %; CH 29.2; CHCM 31.2; Eosinophils # (A) 0.2 k/uL (0-0.7); Eosinophils % (A) 4 %; HCT 40.8 % (39.0-53.0); HDW 2.25; HGB 13.1 gm/dL (13.0-17.5); Luc # (Auto) 0.11; Luc % (Auto) 2; Lymphocytes # (A) 0.9 k/uL (1.0-4.8); Lymphocytes % (A) 16 %; MCH 30.2 pg (25.0-35.0); MCHC 32.1 g/dL (31.0-37.0); MCV 93.9 fL (80.0-100.0); Mean Platelet Volume 7.6; Monocytes # (A) 0.3 k/uL (0-1.0); Monocytes % (A) 6 %; Neutrophils # (A) 3.9 k/uL (1.3-7.7); Neutrophils % (A) 72 %; RBC 4.34 m/uL (4.30-5.90); RDW 13.3 % (11.5-15.5); WBC 5.5 k/uL (3.8-10.6); WBC (Perox) 5.87
[2016-10-17 07:05] LABS: ALT 23 U/L (21-72); AST 19 U/L (17-59); Alkaline Phosphatase 51 U/L (38-126); Anion Gap 9 mmol/L; Blood Urea Nitrogen 11 mg/dL (9-20); Calcium 8.9 mg/dL (8.4-10.2); Carbon Dioxide 27 mmol/L (22-30); Chloride 103 mmol/L (98-107); Glucose 136 mg/dL (74-99); Non-African American GFR(MDRD) >60 (>60 ml/min/1.73 sqM); Potassium 4.5 mmol/L (3.5-5.1); Sodium 139 mmol/L (137-145); Total Bilirubin 0.4 mg/dL (0.2-1.3); Total Protein 6.5 g/dL (6.3-8.2)
[2016-10-17] MEDS: ASCORBIC ACID 500 MG TAB PO SCH (08:12)
[2016-10-17] MEDS: ALLOPURINOL 100 MG TAB PO SCH (08:13)
[2016-10-17] MEDS: buPROPion 100 MG TAB PO SCH (08:13)
[2016-10-17] MEDS: CLOPIDOGREL 75 MG TAB PO SCH (08:14)
[2016-10-17] MEDS: CLOBETASOL PROP 0.05% CR 15GM TOPICAL SCH (08:14)
[2016-10-17] MEDS: FLUoxetine HCL 20 MG CAP PO SCH (08:14)
[2016-10-17] MEDS: GABAPENTIN 400 MG CAP PO SCH ×2 (08:15→12:00)
[2016-10-17] MEDS: CYCLOBENZAPRINE 5 MG TAB PO SCH (08:15)
[2016-10-17] MEDS: ISOSORBIDE MONONITRATE ER 30 MG TAB.ER.24H PO SCH (08:16)
[2016-10-17] MEDS: PRIMIDONE 50 MG TAB PO SCH (08:16)
[2016-10-17] MEDS: PIOGLITAZONE 30 MG TAB PO SCH (08:17)
[2016-10-17] MEDS: METOPROLOL TARTRATE 25 MG TAB PO SCH (08:17)
[2016-10-17] MEDS: MULTIVITAMINS, THERA 1 EACH TAB PO SCH (08:17)
[2016-10-17 08:52] VITALS: RESP 18
[2016-10-17] MEDS: MORPHINE SULFATE 2 MG/ML SYRINGE IVP PRN ×3 (08:53→14:20)
[2016-10-17] MEDS ORDERED: CLOPIDOGREL 75 MG TAB PO SCH (09:00)
[2016-10-17] MEDS ORDERED: ASPIRIN 81 MG CHEW PO SCH (09:00)
[2016-10-17 12:02] LABS: Glucose,Whole Blood 177 mg/dL (75-99)
--- NOTE | 2016-10-17 12:08 | P.PN ---
Subjective Principal diagnosis: NON-STEMI This is A pleasant 58-year-old gentleman who follows with Dr. RAY Jiménez in the office. He has a known history of prior bypass surgery, diabetes, hypertension , hyperlipidemia and family history of premature coronary artery disease. He presented to the hospital with chest discomfort. He was found to be positive for a non-ST elevated [place]. He underwent heart catheterization with Dr. RAY Jiménez yesterday showed severe disease involving restenosis to the ostial and mid SVG to the RCA. He subsequently underwent stenting of this lesion by Dr. Krueger. On examination today, patient is resting comfortably in bed. Denies complaints of shortness of breath, dizziness, chest discomfort, palpitations or edema. Objective - Vital Signs Vital signs: Vital Signs Temp 97.3 F L 10/17/16 08:00 Pulse 69 10/17/16 08:00 Resp 18 10/17/16 08:00 BP 128/70 10/17/16 08:00 Pulse Ox 93 L 10/17/16 08:00 Intake & Output 10/16/16 10/17/16 10/17/16 18:59 06:59 18:59 Intake Total 937 150 360 Output Total 700 1850 Balance 237 -1700 360 Weight 98.4 kg Intake: IV 177 150 Sodium Chloride 0.9% 1, 150 000 ml @ 75 mls/hr IV . [id number] SANDY Rx#:[id number] Intake, IV Titration 400 Amount Sodium Chloride 0.9% 1, 400 000 ml @ 75 mls/hr IV . [id number] SANDY Rx#:[id number] Oral 360 360 Output: Urine 700 1850 Other: Voiding Method Toilet Toilet Urinal Urinal - Exam PHYSICAL EXAMINATION: HEENT: Head is atraumatic, normocephalic. Pupils equal, round. Neck is supple. There is no elevated jugular venous pressure. HEART EXAMINATION: Heart sounds regular, S1 and S2 normal. No murmur or gallop heard. CHEST EXAMINATION: Lungs are clear to auscultation and precussion. No chest wall tenderness is noted on palpation or with deep breathing. ABDOMEN: Soft, nontender. Bowel sounds are heard. No organomegaly noted. EXTREMITIES: 2+ peripheral pulses with no evidence of peripheral edema and no calf tenderness noted. Right groin puncture site is soft without ecchymosis or hematoma. NEUROLOGIC patient is awake, alert and oriented x3. . - Labs CBC & Chem 7: 10/17/16 05:45 10/17/16 05:45 Labs: Abnormal Lab Results - Last 24 Hours (Table) 10/16/16 10/16/16 10/17/16 Range/Units 17:09 21:29 05:45 Plt Count 146 L (150-450) k/uL Lymphocytes # 0.9 L (1.0-4.8) k/uL Glucose (74-99) mg/dL POC Glucose (mg/dL) 161 H 236 H (75-99) mg/dL 10/17/16 10/17/16 Range/Units 05:45 05:59 Plt Count (150-450) k/uL Lymphocytes # (1.0-4.8) k/uL Glucose 136 H (74-99) mg/dL POC Glucose (mg/dL) 143 H (75-99) mg/dL Assessment and Plan Plan: Assessment and plan 1 non-STEMI that his post-PCI 2 hypertension #3 hyperlipidemia #4 diabetes Cardiac standpoint, patient is stable for discharge home today. He will follow- up with Dr. Néstor Jiménez in the office. He'll continue dual antiplatelet therapy with aspirin and Plavix. Continue metoprolol 25 mg by mouth twice a day , Imdur 30 mg by mouth daily. DRAFTER (CAD) ELECTRONIC note has been reviewed, I agree with a documented findings and plan of care. Patient was seen and examined.
[2016-10-17 12:29] VITALS: BP 111/63; PULSE 63; TEMP 98
--- NOTE | 2016-10-17 13:27 | P.DS ---
Providers Date of admission: 10/14/16 15:44 Expected date of discharge: 10/17/16 Attending physician: Tisha Tang Consults: 10/16/16 08:44 Consult Physician Routine Consulting Provider: Rick Lizama Consult Reason/Comments: Post Interventional patient Do you want consulting provider notified?: Already Contacted 10/16/16 13:32 Consult Physician Routine Consulting Provider: Rick Lizama Consult Reason/Comments: Post Interventional patient Do you want consulting provider notified?: Already Contacted Primary care physician: Argentina Madison Hospital Course: This is a 66-year-old male, patient of [facility]. He has a known past medical history of myocardial infarction, coronary artery disease with previous cardiac stenting and CABG. Last cardiac stents were placed in May 2016. He also has a history of diabetes mellitus, hypertension, hyperlipidemia and depression. Patient reports that yesterday he was working out in the yard he was pulling down some blinds and started to cut his grass. He surgery experience chest pain in the center of his chest that radiated up into both shoulders and into his neck. He was also having shortness of breath and sweating. He became concerned that he was having another heart attack. He' s had symptoms similar to this in the past. Came into the emergency room for further evaluation. Troponins were negative 3 sets EKG showing a right bundle branch block and nonspecific ST changes. Chest x-ray was negative. He was admitted to telemetry floor. Cardiology consulted. Patient was seen by cardiology he underwent cardiac catheterization and had evidence of significant stenosis in his graft he underwent angioplasty and stent placement Patient improved significantly he did not have any recurrence of his chest pain Was discharged home on 10/17/2016 He should be followed by cardiology in 1-2 weeks he should also be followed by his primary care physician Patient Condition at Discharge: Serious Plan - Discharge Summary Discharge Medication List Allopurinol [Zyloprim] 100 mg PO QAM 11/07/13 [History] FLUoxetine HCL [PROzac] 20 mg PO QAM 11/07/13 [History] Pantoprazole Sodium 40 mg PO QAM 11/07/13 [History] Primidone [Mysoline] 50 mg PO TID 11/07/13 [History] Topiramate [Topamax] 100 mg PO HS 11/07/13 [History] Pioglitazone [Actos] 30 mg PO QAM 05/07/16 [History] Aspirin EC [Ecotrin Low Dose] 81 mg PO DAILY #30 tablet. 10/21/15 [Rx] Isosorbide Mononitrate ER [Imdur] 30 mg PO QAM 01/02/16 [History] Ascorbic Acid [Vitamin C] 1,000 mg PO QAM 05/25/16 [History] [place]-3 Fatty Acids/Fish Oil [Fish Oil 1,000 mg Softgel] 1 cap PO DAILY [History] Clopidogrel [Plavix] 75 mg PO DAILY 10/14/16 [History] Cyclobenzaprine [Flexeril] 5 mg PO BID 10/14/16 [History] Gabapentin [Neurontin] 400 mg PO QID 10/14/16 [History] Isosorbide Mononitrate ER [Imdur] 60 mg PO HS 10/14/16 [History] Metoprolol Tartrate [Lopressor] 25 mg PO QAM 10/14/16 [History] Multivitamins, Thera [Multivitamin (formulary)] 1 tab PO DAILY 10/14/16 [History ] buPROPion [Wellbutrin] 100 mg PO BID 10/14/16 [History] metFORMIN HCL 1,000 mg PO BID 10/14/16 [History] Clobetasol Propionate [Temovate] 1 applic TOPICAL BID applic 10/17/16 [Rx] Insulin NPH/Reg Insulin 70/30 [humuLIN 70/30 VIAL] 30 unit SQ HS vial 10/17/16 [Rx] Follow up Appointment(s)/Referral(s): Kinsey Jiménez MD [STAFF PHYSICIAN] - 1 Week Argentina Garza DO [Primary Care Provider] - 1-2 days
[2016-10-17] MEDS ORDERED: CLOBETASOL PROP 0.05% OINT 15GM TOPICAL SCH (21:00)
== END 2016-10-17 14:58 | disposition home or self-care (01) | DRG 247 ==
LOC: EC 14:24 → 6SEL 15:44
PROVIDERS: ADMIT Internal Medicine; ATTEND Internal Medicine
PROC: 4A023N7 Measurement of Cardiac Sampling and Pressure, Left Heart, Percutaneous Approach (ICD-10-PCS; 2016-10-16)
PROC: B2111ZZ Fluoroscopy of Multiple Coronary Arteries using Low Osmolar Contrast (ICD-10-PCS; 2016-10-16)
PROC: B2121ZZ Fluoroscopy of Single Coronary Artery Bypass Graft using Low Osmolar Contrast (ICD-10-PCS; 2016-10-16)
PROC: 027034Z Dilation of Coronary Artery, One Artery with Drug-eluting Intraluminal Device, Percutaneous Approach (ICD-10-PCS; principal; 2016-10-16 07:30)
PROC: 027135Z Dilation of Coronary Artery, Two Arteries with Two Drug-eluting Intraluminal Devices, Percutaneous Approach (ICD-10-PCS; 2016-10-16 07:30)
DX: I25.110 Atherosclerotic heart disease of native coronary artery with unstable angina pectoris (principal); T82.855A Stenosis of coronary artery stent, initial encounter; E11.649 Type 2 diabetes mellitus with hypoglycemia without coma; I25.82 Chronic total occlusion of coronary artery; I25.710 Atherosclerosis of autologous vein coronary artery bypass graft(s) with unstable angina pectoris; E78.5 Hyperlipidemia, unspecified; F32.9 Major depressive disorder, single episode, unspecified; I10 Essential (primary) hypertension; I25.2 Old myocardial infarction; I45.10 Unspecified right bundle-branch block; K21.9 Gastro-esophageal reflux disease without esophagitis; M10.9 Gout, unspecified; M19.90 Unspecified osteoarthritis, unspecified site; R25.1 Tremor, unspecified; L40.9 Psoriasis, unspecified; Z79.02 Long term (current) use of antithrombotics/antiplatelets; Z79.82 Long term (current) use of aspirin; Z79.899 Other long term (current) drug therapy; Z79.4 Long term (current) use of insulin; Z87.891 Personal history of nicotine dependence; Z98.1 Arthrodesis status; Z82.49 Family history of ischemic heart disease and other diseases of the circulatory system; Y83.1 Surgical operation with implant of artificial internal device as the cause of abnormal reaction of the patient, or of later complication, without mention of misadventure at the time of the procedure
CPT/HCPCS: 36415; 71010; 80048; 80053; 80061; 82550; 82553; 83036; 83735; 84484; 85025; 85049; 85610; 85730; 93005; 93455; 96365; 96366; 96368; 96375; 96376; 99291

== ENCOUNTER 2017-09-30 10:49 | Observation (INO) | payer MEDICARE ==
[2017-09-30] MEDS ORDERED: HEPARIN SODIUM,PORCINE 5,000 UNIT/ML 1 ML VIAL IV STA (11:00)
[2017-09-30] MEDS ORDERED: HEPARIN SOD,PORK IN 0.45% NACL 25,000 UNIT in 0.45% NACL 1 500ML.BAG IV SCH (11:00)
[2017-09-30] MEDS ORDERED: NITROGLYCERIN OINT 1 INCH/GM PACKET TOPICAL STA (11:00)
[2017-09-30 11:29] LABS: Basophils % (A) 0 %; Eosinophils # (A) 0.2 k/uL (0-0.7); Eosinophils % (A) 3 %; HCT 41.6 % (39.0-53.0); Lymphocytes # (A) 1.3 k/uL (1.0-4.8); Lymphocytes % (A) 23 %; MCH 28.4 pg (25.0-35.0); MCHC 31.4 g/dL (31.0-37.0); MCV 90.7 fL (80.0-100.0); Mean Platelet Volume 8.1; Monocytes # (A) 0.2 k/uL (0-1.0); Monocytes % (A) 4 %; Neutrophils % (A) 70 %; Platelet Count 168 k/uL (150-450); RBC 4.59 m/uL (4.30-5.90); RDW 13.7 % (11.5-15.5); WBC 5.8 k/uL (3.8-10.6)
--- NOTE | 2017-09-30 11:31 | ED ---
Chest Pain HPI - General Chief Complaint: Chest Pain Stated Complaint: chest pain Time Seen by Provider: 09/30/17 10:49 Source: patient, RN notes reviewed Mode of arrival: EMS Limitations: no limitations - History of Present Illness Initial Comments: This is a 67-year-old male with a history of known heart disease history of multiple cats and cardiac stents who states he had the onset this morning of his typical chest pain that he had before his stents. He states he was at rest pain was 8/10 severity sharp pressure-like midsternal and nonradiating. Took to his own nitroglycerin took his aspirin today was also given additional aspirin by paramedics. Not much relief in the pain. He does seem to get worse with standing and moving. No cough fevers chills nausea vomiting sweats. He was noted have a glucose of 346 per paramedics. He is on a history of diabetes. No other modifying factors at this time. MD Complaint: chest pain - Related Data Home Medications Medication Instructions Recorded Confirmed Allopurinol [Zyloprim] 100 mg PO QAM 11/07/13 09/30/17 FLUoxetine HCL [PROzac] 20 mg PO QAM 11/07/13 09/30/17 Pantoprazole Sodium 40 mg PO QAM 11/07/13 09/30/17 Primidone [Mysoline] 50 mg PO TID 11/07/13 09/30/17 Topiramate [Topamax] 100 mg PO HS 11/07/13 09/30/17 Isosorbide Mononitrate ER [Imdur] 30 mg PO QAM 01/02/16 09/30/17 Ascorbic Acid [Vitamin C] 1,000 mg PO QAM 05/25/16 09/30/17 [place]-3 Fatty Acids/Fish Oil [Fish 1 cap PO DAILY 05/25/16 09/30/17 Oil 1,000 mg Softgel] Clopidogrel [Plavix] 75 mg PO DAILY 10/14/16 09/30/17 Cyclobenzaprine [Flexeril] 5 mg PO BID 10/14/16 09/30/17 Gabapentin [Neurontin] 400 mg PO QID 10/14/16 09/30/17 Metoprolol Tartrate [Lopressor] 25 mg PO QAM 10/14/16 09/30/17 Multivitamins, Thera [Multivitamin 1 tab PO DAILY 10/14/16 09/30/17 (formulary)] buPROPion [Wellbutrin] 100 mg PO BID 10/14/16 09/30/17 metFORMIN HCL 1,000 mg PO BID 10/14/16 09/30/17 Insulin NPH Hum/Reg Insulin Hm 20 unit SQ DAILY 07/12/17 09/30/17 [NovoLIN 70-30 100 UNIT/ML VIAL] Insulin NPH Hum/Reg Insulin Hm 24 unit SQ HS 07/12/17 09/30/17 [NovoLIN 70-30 100 UNIT/ML VIAL] Metoprolol Tartrate [Lopressor] 12.5 mg PO HS 07/12/17 09/30/17 Repaglinide [Prandin] 1 mg PO W/SUPPER 07/12/17 09/30/17 Clobetasol Propionate [Temovate 1 applic TOPICAL BID 09/30/17 09/30/17 0.05% Cream] FLUoxetine HCL [PROzac] 20 mg PO DAILY 09/30/17 09/30/17 HYDROcodone/APAP 10-325MG [Maple 1 tab PO TID 09/30/17 09/30/17 10-325] Isosorbide Mononitrate ER [Imdur] 60 mg PO QAM 09/30/17 09/30/17 Previous Rx's Medication Instructions Recorded Aspirin EC [Ecotrin Low Dose] 81 mg PO DAILY #30 tablet. 10/21/15 Nitroglycerin Sl Tabs [Nitrostat] 0.4 mg SUBLINGUAL Q5M PRN tab 07/14/17 Allergies Allergy/AdvReac Type Severity Reaction Status Date / Time No Known Allergies Allergy Verified 09/30/17 11:45 Review of Systems ROS Statement: Those systems with pertinent positive or pertinent negative responses have been documented in the HPI. ROS Other: All systems not noted in ROS Statement are negative. EKG Findings - EKG Results: EKG: interpreted by OCTAVIO, sinus rhythm (Sinus rhythm with a rate of 68. Interval 162 QRS 172 QT since QTC of 442/469 red bundle-branch block old inferior changes this is compared with EKG dated 07/12/17 which shows a similar configuration.) Past Medical History Past Medical History: Coronary Artery Disease (CAD), Chest Pain / Angina, Diabetes Mellitus, GERD/Reflux, GI Bleed, Hyperlipidemia, Hypertension, Myocardial Infarction (GA), Musculoskeletal Disorder, Osteoarthritis (OA), Skin Disorder Additional Past Medical History / Comment(s): . HX OF BACK PROBLEMS. TREMORS RT ARM. SPINAL stenosis of lumbar region with radiculopathy.HIATAL HERNIA, PSORIASIS,GOUT Last Myocardial Infarction Date:: OCTOBER 2015 History of Any Multi-Drug Resistant Organisms: None Reported Past Surgical History: Back Surgery, Coronary Bypass/CABG, Heart Catheterization , Heart Catheterization With Stent, Hernia Repair, Orthopedic Surgery Additional Past Surgical History / Comment(s): REPAIR STOMACH ULCER 10/2012; ORIF LT ANKLE; REPAIR RT 5TH FINGER D/T TRAUMA; PAIN PROC X2; HERNIA SURG X5 - 1 UMB, 1 HIATAL, 3 INGUINAL; CABG X1, 6-2013 had posterior lateral decompression and fusion, transforaminal lumbar interbody fusion L4-L5.LT ROTATOR CUFF REPAIR,EGD/COLONOSCOPY,NERVE BLOCK. 10 cardiac stents placed October 2015 Past Anesthesia/Blood Transfusion Reactions: No Reported Reaction Additional Past Anesthesia/Blood Transfusion Reaction / Comment(s): no blood transfusions before Date of Last Stent Placement:: OCTOBER 2015 Past Psychological History: Depression Smoking Status: Former smoker Past Alcohol Use History: None Reported Past Drug Use History: None Reported - Past Family History Father Additional Family Medical History / Comment(s): BRAIN TUMOR Mother Family Medical History: Myocardial Infarction ([place]) Additional Family Medical History / Comment(s): FROM [place] AGE 70 General Exam - General Exam Comments Initial Comments: This is a well-developed well-nourished awake alert oriented 3 male Limitations: no limitations General appearance: alert, anxious Head exam: Present: atraumatic, normocephalic, normal inspection Eye exam: Present: normal appearance, PERRL, EOMI. Absent: scleral icterus, conjunctival injection, periorbital swelling ENT exam: Present: normal exam, mucous membranes moist Neck exam: Present: normal inspection. Absent: tenderness, meningismus, lymphadenopathy Respiratory exam: Present: normal lung sounds bilaterally. Absent: respiratory distress, wheezes, rales, rhonchi, stridor Cardiovascular Exam: Present: regular rate, normal rhythm, normal heart sounds. Absent: systolic murmur, diastolic murmur, rubs, gallop, clicks GI/Abdominal exam: Present: soft, normal bowel sounds. Absent: distended, tenderness, guarding, rebound, rigid Extremities exam: Present: normal inspection, full ROM, normal capillary refill. Absent: tenderness, pedal edema, joint swelling, calf tenderness Back exam: Present: normal inspection Neurological exam: Present: alert, oriented X3, CN II-XII intact Psychiatric exam: Present: normal affect, normal mood Skin exam: Present: warm, dry, intact, normal color. Absent: rash Course Vital Signs 09/30/17 09/30/17 09/30/17 10:59 12:03 12:38 Temperature 98.3 F Pulse Rate 69 63 59 L Respiratory 18 18 18 Rate Blood Pressure 162/76 113/59 109/57 O2 Sat by Pulse 96 99 97 Oximetry 09/30/17 12:59 Temperature Pulse Rate 60 Respiratory 18 Rate Blood Pressure 109/63 O2 Sat by Pulse 97 Oximetry - Reevaluation(s) Reevaluation #1: 09/30/17 14:12 The patient initially did not get much response to the initial treatment with heparin and nitroglycerin he did get IV morphine which did help the pain considerably. Repeat EKG was done the patient which showed a sinus rhythm a 63 appear of 01 66 QRS was 70 QT since QTC of 460/478 red bundle-branch block inferior changes this is unchanged from the one done upon admission. Chest Pain MDM - MDM Imaging shows no definite acute findings. Patient does finally had pain relief and I did discuss the findings with him and his family he will be admitted for evaluation of chest pain. Case was discussed with Dr. Tang. Critical Care Time Critical Care Time: Yes Critical Care Time: 32 minutes of critical care time which includes monitoring the EMS run and discussed with paramedics history physical labs x-rays several reevaluation the patient response to therapy discussion with the admitting physician admission orders and documentation of the above. Disposition Clinical Impression: Unstable angina pectoris Disposition: ADMITTED IP TO THIS [facility] Condition: Stable Is patient prescribed a controlled substance at d/c from ED?: No Referrals: Argentina Garza DO [Primary Care Provider] - 1-2 days
[2017-09-30 11:43] LABS: ALT 25 U/L (21-72); AST 27 U/L (17-59); Albumin 4.2 g/dL (3.5-5.0); Alkaline Phosphatase 55 U/L (38-126); Amylase 38 U/L (30-110); Anion Gap 15 mmol/L; Blood Urea Nitrogen 17 mg/dL (9-20); Calcium 9.1 mg/dL (8.4-10.2); Carbon Dioxide 21 mmol/L (22-30); Chloride 103 mmol/L (98-107); Glucose 318 mg/dL (74-99); Lipase 59 U/L (23-300); Magnesium 1.7 mg/dL (1.6-2.3); Sodium 139 mmol/L (137-145); Total Bilirubin 0.4 mg/dL (0.2-1.3); Total Protein 6.8 g/dL (6.3-8.2)
[2017-09-30 11:45] LABS: INR 1.1 (<1.2); Partial Thromboplastin Time 23.8 sec (22.0-30.0); Prothrombin Time 10.8 sec (9.0-12.0)
[2017-09-30 11:46] LABS: Potassium 5.1 mmol/L (3.5-5.1)
[2017-09-30 11:55] LABS: Creatine Kinase 88 U/L (55-170)
--- NOTE | 2017-09-30 11:55 | XR ---
EXAMINATION TYPE: XR chest 2V DATE OF EXAM: 09/30/2017 COMPARISON: 07/12/2017 HISTORY: Shortness of breath TECHNIQUE: Frontal and lateral views of the chest are obtained. FINDINGS: Scattered senescent parenchymal changes noted. Hyperinflation compatible with COPD. No evidence for infiltrate. No evidence for atelectasis. Heart size is stable. Mediastinal structures are stable and grossly unremarkable. No evidence for hilar prominence. Degenerative changes dorsal spine. IMPRESSION: 1. No evidence for acute pulmonary disease.
[2017-09-30 12:07] LABS: Creatine Kinase MB 1.4 ng/mL (0.0-2.4); Troponin I <0.012 ng/mL (0.000-0.034)
[2017-09-30] MEDS ORDERED: MORPHINE SULFATE 4MG/4ML SYRG IVP STA (12:42)
[2017-09-30] MEDS: SODIUM CHLORIDE 0.9% 1,000 ML IV SCH (14:56)
[2017-09-30 15:11] LABS: Glucose,Whole Blood 104 mg/dL (75-99)
[2017-09-30] MEDS: REPAGLINIDE 1 MG TAB PO SCH (16:54)
[2017-09-30] MEDS: metFORMIN 500 MG TAB PO SCH (16:58)
[2017-09-30] MEDS: PRIMIDONE 50 MG TAB PO SCH ×2 (17:00→21:09)
[2017-09-30] MEDS: HYDROcodone/APAP 10-325MG 1 EACH TAB PO SCH ×2 (17:00→21:19)
[2017-09-30] MEDS: GABAPENTIN 400 MG CAP PO SCH ×2 (17:00→21:09)
[2017-09-30] MEDS: NITROGLYCERIN SL TABS 0.4 MG TAB SUBLINGUAL PRN (17:11)
[2017-09-30 17:31] LABS: Glucose,Whole Blood 170 mg/dL (75-99)
[2017-09-30] MEDS: INSULIN ASPART 100 UNIT/ML 1 ML 10 ML VIAL SQ SCH ×2 (18:29→21:22)
[2017-09-30 19:08] LABS: Creatine Kinase 84 U/L (55-170)
[2017-09-30 19:21] LABS: Creatine Kinase MB 1.4 ng/mL (0.0-2.4); Troponin I <0.012 ng/mL (0.000-0.034)
[2017-09-30] MEDS ORDERED: HEPARIN SODIUM,PORCINE 5,000 UNIT/ML 1 ML VIAL IV PRN (20:55)
[2017-09-30] MEDS: CLOBETASOL PROP 0.05% CR 15GM TOPICAL SCH (21:09)
[2017-09-30] MEDS: buPROPion 100 MG TAB PO SCH (21:09)
[2017-09-30] MEDS: CYCLOBENZAPRINE 5 MG TAB PO SCH (21:09)
[2017-09-30] MEDS: METOPROLOL TARTRATE 12.5 MG TAB PO SCH (21:09)
[2017-09-30] MEDS: TOPIRAMATE 100 MG TAB PO SCH (21:09)
[2017-09-30 21:21] LABS: Glucose,Whole Blood 106 mg/dL (75-99)
[2017-09-30] MEDS: INSULIN NPH/REG INSULIN 70/30 300 UNIT/3 ML VIAL SQ SCH (22:47)
[2017-09-30 23:18] LABS: Creatine Kinase 84 U/L (55-170)
[2017-09-30 23:31] LABS: Creatine Kinase MB 1.5 ng/mL (0.0-2.4); Troponin I <0.012 ng/mL (0.000-0.034)
[2017-10-01 04:42] LABS: Cholesterol 119 mg/dL (<200); HDL Cholesterol 44 mg/dL (40-60); LDL Cholesterol,Calculated 51 mg/dL (0-99); Triglycerides 120 mg/dL (<150)
[2017-10-01 07:09] LABS: Glucose,Whole Blood 143 mg/dL (75-99)
[2017-10-01] MEDS ORDERED: NON-FORMULARY DRUG (Omega-3 Fatty Acids/Fish Oil [Fish Oil 1,000 Mg Softgel] 1 CAP) PO SCH (09:00)
[2017-10-01] MEDS: METOPROLOL TARTRATE 25 MG TAB PO SCH (09:03)
[2017-10-01] MEDS: ALLOPURINOL 100 MG TAB PO SCH (09:03)
[2017-10-01] MEDS: CLOPIDOGREL 75 MG TAB PO SCH (09:03)
[2017-10-01] MEDS: metFORMIN 500 MG TAB PO SCH ×2 (09:03→18:01)
[2017-10-01] MEDS: FLUoxetine HCL 20 MG CAP PO SCH (09:03)
[2017-10-01] MEDS: GABAPENTIN 400 MG CAP PO SCH ×4 (09:04→20:48)
[2017-10-01] MEDS: ISOSORBIDE MONONITRATE ER 60 MG TAB.ER.24H PO SCH (09:04)
[2017-10-01] MEDS: CYCLOBENZAPRINE 5 MG TAB PO SCH ×2 (09:04→20:48)
[2017-10-01] MEDS: buPROPion 100 MG TAB PO SCH ×2 (09:04→20:48)
[2017-10-01] MEDS: PANTOPRAZOLE 40 MG TABLET PO SCH (09:04)
[2017-10-01] MEDS: PRIMIDONE 50 MG TAB PO SCH ×3 (09:04→20:48)
[2017-10-01] MEDS: HYDROcodone/APAP 10-325MG 1 EACH TAB PO SCH ×3 (09:09→20:48)
[2017-10-01] MEDS: ASPIRIN 325 MG TAB PO SCH (09:10)
[2017-10-01] MEDS: CLOBETASOL PROP 0.05% CR 15GM TOPICAL SCH ×2 (10:04→20:57)
[2017-10-01] MEDS: INSULIN ASPART 100 UNIT/ML 1 ML 10 ML VIAL SQ SCH ×4 (10:05→20:45)
--- NOTE | 2017-10-01 10:35 | CONS ---
CONSULTATION CHIEF COMPLAINT: Chest pain. Dontrell is a 67-year-old gentleman with history of coronary artery disease, status post CABG with venous graft to the right coronary artery and stenting of the venous graft to the right coronary artery, who comes in complaining of chest pain. He describes it as a left precordial pain, mild to moderate intensity came on at rest without diaphoresis, dizziness or syncope without clear-cut relieving or exacerbating factors. At the time of my evaluation this morning, he appears comfortable at rest. EKG does not reveal acute ischemic changes and cardiac enzymes have been negative. The patient had a cardiac catheterization in June of because of recurrent and ongoing episodes of chest discomfort that revealed patent venous graft to the right coronary artery and no significant obstructive disease involving the [place] circumflex coronary artery or the LAD. The patient was advised medical therapy. His baseline EKG shows sinus rhythm with right bundle branch block and evidence of prior inferior wall myocardial infarction. PAST MEDICAL HISTORY: Significant for coronary artery disease, status post CABG, [id number] diabetes, hypertension. MEDICATIONS: Current medications include metformin 1000 b.i.d., Topamax, Prandin, Mysoline, Protonix, Lopressor, Imdur, insulin, Neurontin, Prozac, Flexeril, Plavix, aspirin, and Zyloprim. ALLERGIES: There are no known drug allergies. FAMILY HISTORY: Negative for premature coronary artery disease. SOCIAL HISTORY: Negative for smoking, EtOH abuse, or drug abuse. REVIEW OF SYSTEMS: HEENT is unremarkable. CARDIAC: As described above. RESPIRATORY: Negative. GI: Negative. : Negative. ALLERGY/IMMUNOLOGY: Negative. SKIN: Negative. MUSCULOSKELETAL: Significant for arthritis. PSYCHOSOCIAL: Negative. ENDOCRINE: Negative. HEMATOLOGICAL: Negative. DERM: Negative. CONSTITUTIONAL: Negative. ONCOLOGICAL: Negative. Rest of the system review is not relevant. PHYSICAL EXAM: On exam, comfortable at rest. Vital signs are stable. There is no jugular venous distention. Carotid upstroke is normal. There is no bruit. Chest exam reveals good air entry bilaterally. Heart exam reveals first and second heart sounds. No gallop. No murmur. No rub. Abdomen is soft, nontender. Examination of extremities did not reveal any edema. Peripheral pulses are felt. LAB: Labs show an LDL cholesterol of 51. Troponins are negative. EKGs are as described above. I reviewed prior angiographic data. ASSESSMENT: 1. Precordial chest pain. 2. Coronary artery disease, status post coronary artery bypass grafting. 3. Hypertension. 4. Diabetes. PLAN: Patient's chest discomfort does not seem anginal. The patient is ruled out for myocardial infarction. He just had a cardiac catheterization within the last few months. The patient does not require any further cardiac evaluation at this time. Please ambulate him and if he is feeling well discharge him home and arrange follow up with Dr. Ina Jiménez. MMODL / IJN: [id number] /
[2017-10-01] MEDS: INSULIN NPH/REG INSULIN 70/30 300 UNIT/3 ML VIAL SQ SCH ×2 (10:48→20:51)
[2017-10-01 12:09] LABS: Glucose,Whole Blood 197 mg/dL (75-99)
[2017-10-01] MEDS: ASCORBIC ACID 500 MG TAB PO SCH (13:13)
[2017-10-01] MEDS: MULTIVITAMINS, THERA 1 EACH TAB PO SCH (13:13)
[2017-10-01] MEDS: NITROGLYCERIN SL TABS 0.4 MG TAB SUBLINGUAL PRN ×3 (14:36→20:42)
--- NOTE | 2017-10-01 14:50 | P.HPIM ---
History of Present Illness H&P Date: 10/01/17 Chief Complaint: Chest pain This is a 67-year-old male with a known history of myocardial infarction, coronary artery disease with previous CABG and multiple cardiac stents. Last heart catheterization was in June 2017 which showed a severe single-vessel coronary artery disease with chronic total occlusion of the RCA. Patent SVG graft to the RCA. And cardiology had recommended medical management at that time. Patient presents to the emergency room with complaints of chest pain in the center of his chest radiating to the left arm. The pain has been intermittent over the last couple a days lasting about 20 minutes. Pain does improve with the nitro. He has been nauseous and diaphoretic and having some shortness of breath. He has been admitted to the observation floor. Seen and evaluated by cardiology. Troponins were negative 3 sets. EKG shows a normal sinus rhythm with a right bundle branch block. Cardiology has cleared patient for discharge. However patient is concerned because he is still having the chest pain. He denies any cough, fever or chills or sweats. Denies any vomiting or bowel movement changes or urinary symptoms. We'll keep patient overnight to further evaluate his chest pain Review of Systems Please refer to HPI otherwise unremarkable Past Medical History Past Medical History: Coronary Artery Disease (CAD), Chest Pain / Angina, Diabetes Mellitus, GERD/Reflux, GI Bleed, Hyperlipidemia, Hypertension, Myocardial Infarction (AL), Musculoskeletal Disorder, Osteoarthritis (OA), Skin Disorder, Sleep Apnea/CPAP/BIPAP Additional Past Medical History / Comment(s): HX OF BACK PROBLEMS. TREMORS RT ARM. SPINAL stenosis of lumbar region with radiculopathy.HIATAL HERNIA,PSORIASIS ,GOUT, uses cpap machine Last Myocardial Infarction Date:: OCTOBER 2015 History of Any Multi-Drug Resistant Organisms: None Reported Past Surgical History: Back Surgery, Coronary Bypass/CABG, Heart Catheterization , Heart Catheterization With Stent, Hernia Repair, Orthopedic Surgery Additional Past Surgical History / Comment(s): REPAIR STOMACH ULCER 10/2012; ORIF LT ANKLE; REPAIR RT 5TH FINGER D/T TRAUMA; PAIN PROC X2; HERNIA SURG X5 - 1 UMB, 1 HIATAL, 3 INGUINAL; CABG X1, 6-2013 had posterior lateral decompression and fusion, transforaminal lumbar interbody fusion L4-L5.LT ROTATOR CUFF REPAIR,EGD/COLONOSCOPY,NERVE BLOCK. 10 cardiac stents placed October 2015 Past Anesthesia/Blood Transfusion Reactions: No Reported Reaction Additional Past Anesthesia/Blood Transfusion Reaction / Comment(s): no blood transfusions before Date of Last Stent Placement:: OCTOBER 2015 Smoking Status: Former smoker - Past Family History Father Additional Family Medical History / Comment(s): BRAIN TUMOR Mother Family Medical History: Myocardial Infarction ([place]) Additional Family Medical History / Comment(s): FROM [place] AGE 70 Medications and Allergies Home Medications Medication Instructions Recorded Confirmed Type Allopurinol [Zyloprim] 100 mg PO QAM 11/07/13 09/30/17 History FLUoxetine HCL [PROzac] 20 mg PO QAM 11/07/13 09/30/17 History Pantoprazole Sodium 40 mg PO QAM 11/07/13 09/30/17 History Primidone [Mysoline] 50 mg PO TID 11/07/13 09/30/17 History Topiramate [Topamax] 100 mg PO HS 11/07/13 09/30/17 History Aspirin EC [Ecotrin Low Dose] 81 mg PO DAILY #30 tablet. 10/21/15 09/30/17 Rx Isosorbide Mononitrate ER [Imdur] 30 mg PO QAM 01/02/16 09/30/17 History Ascorbic Acid [Vitamin C] 1,000 mg PO QAM 05/25/16 09/30/17 History [place]-3 Fatty Acids/Fish Oil [Fish 1 cap PO DAILY 05/25/16 09/30/17 History Oil 1,000 mg Softgel] Clopidogrel [Plavix] 75 mg PO DAILY 10/14/16 09/30/17 History Cyclobenzaprine [Flexeril] 5 mg PO BID 10/14/16 09/30/17 History Gabapentin [Neurontin] 400 mg PO QID 10/14/16 09/30/17 History Metoprolol Tartrate [Lopressor] 25 mg PO QAM 10/14/16 09/30/17 History Multivitamins, Thera [Multivitamin 1 tab PO DAILY 10/14/16 09/30/17 History (formulary)] buPROPion [Wellbutrin] 100 mg PO BID 10/14/16 09/30/17 History metFORMIN HCL 1,000 mg PO BID 10/14/16 09/30/17 History Insulin NPH Hum/Reg Insulin Hm 20 unit SQ DAILY 07/12/17 09/30/17 History [NovoLIN 70-30 100 UNIT/ML VIAL] Insulin NPH Hum/Reg Insulin Hm 24 unit SQ HS 07/12/17 09/30/17 History [NovoLIN 70-30 100 UNIT/ML VIAL] Metoprolol Tartrate [Lopressor] 12.5 mg PO HS 07/12/17 09/30/17 History Repaglinide [Prandin] 1 mg PO W/SUPPER 07/12/17 09/30/17 History Nitroglycerin Sl Tabs [Nitrostat] 0.4 mg SUBLINGUAL Q5M PRN tab 07/14/17 Rx Clobetasol Propionate [Temovate 1 applic TOPICAL BID 09/30/17 09/30/17 History 0.05% Cream] FLUoxetine HCL [PROzac] 20 mg PO DAILY 09/30/17 09/30/17 History HYDROcodone/APAP 10-325MG [[place] 1 tab PO TID 09/30/17 09/30/17 History 10-325] Isosorbide Mononitrate ER [Imdur] 60 mg PO QAM 09/30/17 09/30/17 History Allergies Allergy/AdvReac Type Severity Reaction Status Date / Time No Known Allergies Allergy Verified 09/30/17 11:45 Physical Exam Vitals: Vital Signs Temp Pulse Pulse Pulse Pulse Resp BP 10/01/17 14:36 70 55 L 61 10/01/17 14:34 61 10/01/17 12:00 70 55 L 18 10/01/17 11:30 98.6 F 55 L 18 10/01/17 08:00 70 66 18 10/01/17 07:35 98.1 F 66 18 10/01/17 04:00 98.1 F 70 17 10/01/17 03:18 18 10/01/17 00:00 98.1 F 59 L 18 09/30/17 20:00 97.8 F 63 18 09/30/17 16:00 97.7 F 57 L 16 09/30/17 14:55 62 18 131/73 BP Pulse Ox 10/01/17 14:36 10/01/17 14:34 145/69 10/01/17 12:00 10/01/17 11:30 103/59 95 10/01/17 08:00 10/01/17 07:35 137/82 98 04/20/18 04:00 111/62 93 L 10/01/17 03:18 10/01/17 00:00 116/61 94 L 09/30/17 20:00 119/70 96 09/30/17 16:00 187/89 97 09/30/17 14:55 98 Intake and Output 09/30/17 10/01/17 10/01/17 22:59 06:59 14:59 Intake Total 184 180 222 Balance 184 180 222 Intake: IV 180 Heparin Sod,Pork in 0.45% 100 NaCl 25,000 unit In 0.45 % NaCl 1 500ml.bag @ 9.8 UNITS/KG/HR 20 mls/hr IV .Q24H SANDY Rx#:[id number] Sodium Chloride 0.9% 1, 80 000 ml @ 20 mls/hr IV . Q24H SANDY Rx#:[id number] Intake, IV Titration 184 Amount Heparin Sod,Pork in 0.45% 184 NaCl 25,000 unit In 0.45 % NaCl 1 500ml.bag @ 9.8 UNITS/KG/HR 20 mls/hr IV .Q24H SANDY Rx#:[id number] Oral 222 Other: Voiding Method Toilet Toilet Toilet # Voids 3 Weight 104.9 kg Head normocephalic Neck supple Lungs clear to auscultation bilaterally no wheezing or crackles Heart regular rate and rhythm S1-S2, no rub or gallop Abdomen is soft nontender nondistended positive bowel sounds no hepatosplenomegaly Extremities no edema Neuro alert and orientated to 3 Results CBC & Chem 7: 09/30/17 11:05 09/30/17 11:05 Labs: Abnormal Lab Results - Last 24 Hours (Table) 09/30/17 09/30/17 09/30/17 Range/Units 15:10 17:29 18:37 APTT 40.3 H (22.0-30.0) sec POC Glucose (mg/dL) 104 H 170 H (75-99) mg/dL 09/30/17 10/01/17 10/01/17 Range/Units 21:20 04:09 06:55 APTT 57.2 H (22.0-30.0) sec POC Glucose (mg/dL) 106 H 143 H (75-99) mg/dL 04/20/18 Range/Units 12:07 APTT (22.0-30.0) sec POC Glucose (mg/dL) 197 H (75-99) mg/dL Assessment and Plan Assessment: 1. Chest pain: Acute coronary syndrome ruled out. Troponins are negative 3 sets. No acute changes on EKG. Patient seen evaluated by cardiology. Recent heart catheterization in June 2017 and at that time cardiology recommended medical management 2. Insulin-dependent diabetes mellitus 3. History of myocardial infarction, coronary artery disease with previous cardiac stents and coronary artery bypass graft 4. Essential hypertension Patient continues to have chest pain. We will continue to monitor him for another 24 hours Time with Patient: Greater than 30 (Greater than 50% of the total time spent in counseling and coordination of care.I performed an examination of the patient and discussed their management with the physician Cognos Developer. I have reviewed the Physician Cognos Developer's notes and agree with the documented findings and plan of care)
[2017-10-01 17:40] LABS: Glucose,Whole Blood 66 mg/dL (75-99)
[2017-10-01 17:52] LABS: Glucose,Whole Blood 95 mg/dL (75-99)
[2017-10-01] MEDS: REPAGLINIDE 1 MG TAB PO SCH (17:55)
[2017-10-01] MEDS: ENOXAPARIN 40 MG/0.4 ML SYRINGE SQ SCH (18:01)
[2017-10-01] MEDS: SODIUM CHLORIDE 0.9% 1,000 ML IV SCH (20:27)
[2017-10-01 20:36] LABS: Glucose,Whole Blood 194 mg/dL (75-99)
[2017-10-01] MEDS: TOPIRAMATE 100 MG TAB PO SCH (20:48)
[2017-10-01] MEDS: METOPROLOL TARTRATE 12.5 MG TAB PO SCH (20:48)
[2017-10-02 07:27] LABS: Albumin 4.1 g/dL (3.5-5.0); Calcium 9.2 mg/dL (8.4-10.2); Potassium 4.3 mmol/L (3.5-5.1); Total Bilirubin 0.2 mg/dL (0.2-1.3); Total Protein 6.7 g/dL (6.3-8.2)
[2017-10-02 07:30] LABS: Glucose,Whole Blood 98 mg/dL (75-99)
[2017-10-02] MEDS: NITROGLYCERIN SL TABS 0.4 MG TAB SUBLINGUAL PRN ×5 (07:44→23:32)
[2017-10-02] MEDS: HYDROcodone/APAP 10-325MG 1 EACH TAB PO SCH ×3 (07:52→20:32)
[2017-10-02 07:58] LABS: Basophils % (A) 1 %; Eosinophils # (A) 0.3 k/uL (0-0.7); Eosinophils % (A) 5 %; HCT 43.4 % (39.0-53.0); HGB 14.1 gm/dL (13.0-17.5); Lymphocytes # (A) 1.3 k/uL (1.0-4.8); Lymphocytes % (A) 23 %; MCH 29.4 pg (25.0-35.0); MCHC 32.4 g/dL (31.0-37.0); MCV 90.6 fL (80.0-100.0); Mean Platelet Volume 7.8; Monocytes # (A) 0.3 k/uL (0-1.0); Monocytes % (A) 5 %; Neutrophils # (A) 3.5 k/uL (1.3-7.7); Neutrophils % (A) 63 %; Platelet Count 180 k/uL (150-450); RBC 4.79 m/uL (4.30-5.90); RDW 13.5 % (11.5-15.5); WBC 5.5 k/uL (3.8-10.6)
[2017-10-02] MEDS: INSULIN ASPART 100 UNIT/ML 1 ML 10 ML VIAL SQ SCH ×4 (08:01→21:13)
[2017-10-02] MEDS: PRIMIDONE 50 MG TAB PO SCH ×3 (09:08→20:58)
[2017-10-02] MEDS: ALLOPURINOL 100 MG TAB PO SCH (09:08)
[2017-10-02] MEDS: ASPIRIN 325 MG TAB PO SCH (09:08)
[2017-10-02] MEDS: PANTOPRAZOLE 40 MG TABLET PO SCH (09:08)
[2017-10-02] MEDS: GABAPENTIN 400 MG CAP PO SCH ×4 (09:08→20:58)
[2017-10-02] MEDS: METOPROLOL TARTRATE 25 MG TAB PO SCH (09:08)
[2017-10-02] MEDS: CLOPIDOGREL 75 MG TAB PO SCH (09:08)
[2017-10-02] MEDS: buPROPion 100 MG TAB PO SCH ×2 (09:09→20:58)
[2017-10-02] MEDS: metFORMIN 500 MG TAB PO SCH ×2 (09:09→17:38)
[2017-10-02] MEDS: CYCLOBENZAPRINE 5 MG TAB PO SCH ×2 (09:09→20:58)
[2017-10-02] MEDS: ISOSORBIDE MONONITRATE ER 60 MG TAB.ER.24H PO SCH (09:09)
[2017-10-02] MEDS: ENOXAPARIN 40 MG/0.4 ML SYRINGE SQ SCH (09:09)
[2017-10-02] MEDS: FLUoxetine HCL 20 MG CAP PO SCH (09:09)
[2017-10-02] MEDS: INSULIN NPH/REG INSULIN 70/30 300 UNIT/3 ML VIAL SQ SCH ×2 (09:13→21:05)
[2017-10-02] MEDS: CLOBETASOL PROP 0.05% CR 15GM TOPICAL SCH ×2 (09:20→21:07)
--- NOTE | 2017-10-02 09:36 | PN ---
PROGRESS NOTE HISTORY: Mr. Raymond is a 67-year-old male with a known history of coronary disease status post coronary artery bypass grafting, who presented with symptoms of chest discomfort. He had some discomfort earlier this morning laying down but not when he got up and walked. He has underwent cardiac catheterization in June of this year that revealed no evidence of progression of disease with patent saphenous vein graft to the right coronary artery. He denies any dizziness or palpitation. He denies any syncope. He continued to be on aspirin once a day, Plavix 75 mg daily, insulin, isosorbide mononitrate 60 mg daily, metformin 1 g twice a day, metoprolol tartrate 25 in the morning, 12.5 in the afternoon, Mysoline and Prandin. PHYSICAL EXAMINATION: Blood pressure 117/60 with a heart in the 70s. LUNGS: Clear. Heart regular rate and rhythm S1, S2. No S3 with a systolic murmur. No diastolic murmur. No rub. ABDOMEN: Soft, nontender. EXTREMITIES: No edema. LAB DATA: Hemoglobin 14.1, BUN and creatinine 15, 1.06, and potassium 4.3. IMPRESSION: 1. Chest discomfort, atypical pattern for ischemic heart disease. Patient has underwent cardiac catheterization in June for similar symptoms with no evidence of progression of disease. 2. Status post coronary artery bypass grafting. 3. Hyperlipidemia. RECOMMENDATION: From the cardiac standpoint, he should be able to be discharged home today and followed as an outpatient. MMODL / IJN: [id number] /
[2017-10-02 11:51] LABS: Glucose,Whole Blood 154 mg/dL (75-99)
[2017-10-02] MEDS: ASCORBIC ACID 500 MG TAB PO SCH (12:36)
[2017-10-02] MEDS: MULTIVITAMINS, THERA 1 EACH TAB PO SCH (12:36)
--- NOTE | 2017-10-02 15:44 | P.PN ---
Subjective Progress Note Date: 10/02/17 This is a 67-year-old male with a known history of myocardial infarction, coronary artery disease with previous CABG and multiple cardiac stents. Last heart catheterization was in June 2017 which showed a severe single-vessel coronary artery disease with chronic total occlusion of the RCA. Patent SVG graft to the RCA. And cardiology had recommended medical management at that time. Patient presents to the emergency room with complaints of chest pain in the center of his chest radiating to the left arm. The pain has been intermittent over the last couple a days lasting about 20 minutes. Pain does improve with the nitro. He has been nauseous and diaphoretic and having some shortness of breath. He has been admitted to the observation floor. Seen and evaluated by cardiology. Troponins were negative 3 sets. EKG shows a normal sinus rhythm with a right bundle branch block. Cardiology has cleared patient for discharge. However patient is concerned because he is still having the chest pain. He denies any cough, fever or chills or sweats. Denies any vomiting or bowel movement changes or urinary symptoms. We'll keep patient overnight to further evaluate his chest pain. On 10/02/2017 patient was seen and examined he is alert and oriented 3, he is still complaining of episodes of chest pain, he denies any shortness of breath there is no cough no nausea or vomiting no abdominal pain and no urinary symptoms Objective - Vital Signs Vital signs: Vital Signs Temp 98.7 F 10/02/17 12:00 Pulse 61 10/02/17 12:00 Resp 16 10/02/17 13:00 BP 105/59 10/02/17 13:02 Pulse Ox 93 L 10/02/17 12:00 Intake & Output 10/01/17 10/02/17 10/02/17 18:59 06:59 18:59 Intake Total 722 Balance 722 Intake: Oral 722 Other: Voiding Method Toilet Toilet Toilet # Voids 3 2 3 - Exam Head normocephalic and atraumatic Neck supple no JVD no goiter Lungs clear to auscultation bilaterally no wheezing or crackles Heart regular rate and rhythm S1-S2, no rub or gallop Abdomen is soft nontender nondistended positive bowel sounds no hepatosplenomegaly Extremities no edema Neuro alert and orientated to 3 - Labs CBC & Chem 7: 10/02/17 06:46 10/02/17 06:46 Labs: Abnormal Lab Results - Last 24 Hours (Table) 10/01/17 10/01/17 10/02/17 Range/Units 17:28 20:30 06:46 Glucose 115 H (74-99) mg/dL POC Glucose (mg/dL) 66 L 194 H (75-99) mg/dL 10/02/17 Range/Units 11:49 Glucose (74-99) mg/dL POC Glucose (mg/dL) 154 H (75-99) mg/dL Assessment and Plan Plan: 1. Chest pain: Acute coronary syndrome ruled out. Troponins are negative 3 sets. No acute changes on EKG. Patient seen evaluated by cardiology. Recent heart catheterization in June 2017 and at that time cardiology recommended medical management. At this time patient is still having episodes of chest pain Will monitor for 24 more hours will check d-dimer if stable possible discharge to home tomorrow 2. Insulin-dependent diabetes mellitus 3. History of myocardial infarction, coronary artery disease with previous cardiac stents and coronary artery bypass graft 4. Essential hypertension Patient continues to have chest pain. We will continue to monitor him for another 24 hours
[2017-10-02 16:40] LABS: Glucose,Whole Blood 95 mg/dL (75-99)
[2017-10-02] MEDS: SODIUM CHLORIDE 0.9% 1,000 ML IV SCH ×2 (17:40→20:32)
[2017-10-02] MEDS: REPAGLINIDE 1 MG TAB PO SCH (17:41)
[2017-10-02] MEDS: METOPROLOL TARTRATE 12.5 MG TAB PO SCH (20:57)
[2017-10-02] MEDS: TOPIRAMATE 100 MG TAB PO SCH (20:58)
[2017-10-02] MEDS: ENOXAPARIN 100 MG/ML SYRINGE SQ SCH (20:58)
[2017-10-02 21:16] LABS: Glucose,Whole Blood 139 mg/dL (75-99)
[2017-10-03 07:11] LABS: Glucose,Whole Blood 138 mg/dL (75-99)
[2017-10-03 07:18] LABS: Basophils % (A) 0 %; Eosinophils # (A) 0.3 k/uL (0-0.7); Eosinophils % (A) 6 %; HCT 45.1 % (39.0-53.0); HGB 14.1 gm/dL (13.0-17.5); Lymphocytes # (A) 1.5 k/uL (1.0-4.8); Lymphocytes % (A) 28 %; MCH 28.6 pg (25.0-35.0); MCHC 31.3 g/dL (31.0-37.0); MCV 91.4 fL (80.0-100.0); Mean Platelet Volume 7.7; Monocytes # (A) 0.4 k/uL (0-1.0); Monocytes % (A) 7 %; Neutrophils # (A) 3.1 k/uL (1.3-7.7); Neutrophils % (A) 57 %; Platelet Count 186 k/uL (150-450); RBC 4.93 m/uL (4.30-5.90); RDW 13.6 % (11.5-15.5); WBC 5.4 k/uL (3.8-10.6)
[2017-10-03 07:41] LABS: ALT 27 U/L (21-72); AST 18 U/L (17-59); Alkaline Phosphatase 56 U/L (38-126); Anion Gap 13 mmol/L; Blood Urea Nitrogen 17 mg/dL (9-20); Calcium 8.7 mg/dL (8.4-10.2); Carbon Dioxide 27 mmol/L (22-30); Chloride 104 mmol/L (98-107); Glucose 117 mg/dL (74-99); Potassium 4.5 mmol/L (3.5-5.1); Sodium 144 mmol/L (137-145); Total Bilirubin 0.2 mg/dL (0.2-1.3); Total Protein 6.7 g/dL (6.3-8.2)
[2017-10-03] MEDS: PANTOPRAZOLE 40 MG TABLET PO SCH (08:36)
[2017-10-03] MEDS: metFORMIN 500 MG TAB PO SCH (08:36)
[2017-10-03] MEDS: ISOSORBIDE MONONITRATE ER 60 MG TAB.ER.24H PO SCH (08:36)
[2017-10-03] MEDS: GABAPENTIN 400 MG CAP PO SCH ×2 (08:36→12:32)
[2017-10-03] MEDS: METOPROLOL TARTRATE 25 MG TAB PO SCH (08:36)
[2017-10-03] MEDS: CLOPIDOGREL 75 MG TAB PO SCH (08:36)
[2017-10-03] MEDS: ASPIRIN 325 MG TAB PO SCH (08:37)
[2017-10-03] MEDS: buPROPion 100 MG TAB PO SCH (08:37)
[2017-10-03] MEDS: FLUoxetine HCL 20 MG CAP PO SCH (08:37)
[2017-10-03] MEDS: CYCLOBENZAPRINE 5 MG TAB PO SCH (08:37)
[2017-10-03] MEDS: ALLOPURINOL 100 MG TAB PO SCH (08:37)
[2017-10-03] MEDS: INSULIN NPH/REG INSULIN 70/30 300 UNIT/3 ML VIAL SQ SCH (08:37)
[2017-10-03] MEDS: ENOXAPARIN 100 MG/ML SYRINGE SQ SCH (08:41)
[2017-10-03] MEDS: CLOBETASOL PROP 0.05% CR 15GM TOPICAL SCH (08:41)
[2017-10-03] MEDS: INSULIN ASPART 100 UNIT/ML 1 ML 10 ML VIAL SQ SCH ×2 (08:42→12:26)
[2017-10-03 09:55] VITALS: TEMP 98
[2017-10-03] MEDS: SODIUM CHLORIDE 0.9% 1,000 ML IV SCH ×2 (10:03→14:54)
[2017-10-03] MEDS: HYDROcodone/APAP 10-325MG 1 EACH TAB PO SCH (10:06)
[2017-10-03 12:07] LABS: Glucose,Whole Blood 120 mg/dL (75-99)
[2017-10-03] MEDS: NITROGLYCERIN SL TABS 0.4 MG TAB SUBLINGUAL PRN (12:32)
[2017-10-03] MEDS: MULTIVITAMINS, THERA 1 EACH TAB PO SCH (12:32)
[2017-10-03] MEDS: ASCORBIC ACID 500 MG TAB PO SCH (12:32)
[2017-10-03] MEDS ORDERED: RX INFO: IV CONTRAST WAS GIVEN 1 EACH MISC MISCELLANE PRN (13:16)
[2017-10-03] MEDS: PRIMIDONE 50 MG TAB PO SCH ×2 (13:54→16:22)
--- NOTE | 2017-10-03 14:36 | CT ---
EXAMINATION TYPE: CT chest angio for PE DATE OF EXAM: 10/03/2017 COMPARISON: NONE HISTORY: Chest pain CT DLP: 556.4 mGycm CONTRAST: CT chest with contrast and 3D reconstruction with MIP imaging is performed with IV Contrast, patient injected with 72 mL of Isovue 370. Contrast-enhanced CT of the chest was performed through the course of the pulmonary arteries with collin g and mediastinal window settings submitted. 3D reconstruction with MIP imaging was also performed. PULMONARY ARTERIES: The pulmonary arteries and their major tributaries are patent. I do not see brenna dence for sizable filling defect to suggest pulmonary embolic process. LUNGS: The lungs are clear and free of infiltrate. No evidence for atelectasis. No pulmonary nodule or mass is detected. No pleural effusion. Mild subpleural interstitial changes. MEDIASTINUM: Thoracic aorta is of normal caliber,however, evaluation is limited given timing of the contrast bolus. If there is concern for thoracic aortic pathology consider JANIA. Correlate clinicall y . The heart is not enlarged. No evidence for mediastinal mass. No mediastinal lymph nodes greater than 1cm. HILAR STRUCTURES: No evidence for mass. No hilar lymph nodes greater than 1 cm. UPPER ABDOMEN: No significant abnormality is seen. IMPRESSION: 1. No evidence for Pulmonary embolism at this time.
[2017-10-03 16:31] VITALS: BP 131/68; PULSE 67; RESP 18
--- NOTE | 2017-10-03 16:47 | P.DS ---
Providers Date of admission: 09/30/17 14:34 Expected date of discharge: 10/03/17 Attending physician: Tisha Tang Consults: 09/30/17 14:22 Consult Physician Urgent Consulting Provider: Kinsey Jiménez Consult Reason/Comments: [place] Do you want consulting provider notified?: Yes Primary care physician: [place] Garza [facility] Course: Diagnoses on discharge 1. Chest pain: Acute coronary syndrome ruled out. Troponins are negative 3 sets. No acute changes on EKG. Patient seen evaluated by cardiology. Recent heart catheterization in June 2017 and at that time cardiology recommended medical management. At this time patient is still having episodes of chest pain Will monitor for 24 more hours will check d-dimer if stable possible discharge to home tomorrow 2. Insulin-dependent diabetes mellitus 3. History of myocardial infarction, coronary artery disease with previous cardiac stents and coronary artery bypass graft 4. Essential hypertension 5. Mild elevation in d-dimer with negative CT scan angiogram of the chest for pulmonary embolism Hospital course This is a 67-year-old male with a known history of myocardial infarction, coronary artery disease with previous CABG and multiple cardiac stents. Last heart catheterization was in June 2017 which showed a severe single-vessel coronary artery disease with chronic total occlusion of the RCA. Patent SVG graft to the RCA. And cardiology had recommended medical management at that time. Patient presents to the emergency room with complaints of chest pain in the center of his chest radiating to the left arm. The pain has been intermittent over the last couple a days lasting about 20 minutes. Pain does improve with the nitro. He has been nauseous and diaphoretic and having some shortness of breath. He has been admitted to the observation floor. Seen and evaluated by cardiology. Troponins were negative 3 sets. EKG shows a normal sinus rhythm with a right bundle branch block. Cardiology has cleared patient for discharge. However patient is concerned because he is still having the chest pain. He denies any cough, fever or chills or sweats. Denies any vomiting or bowel movement changes or urinary symptoms. We'll keep patient overnight to further evaluate his chest pain. On 10/02/2017 patient was seen and examined he is alert and oriented 3, he is still complaining of episodes of chest pain, he denies any shortness of breath there is no cough no nausea or vomiting no abdominal pain and no urinary symptoms. On 10/03/2017, patient was seen and examined he is alert and oriented 3 no new episodes of chest pain at this time, patient had elevated d-dimer yesterday, creatinine was 1.06, he received IV hydration creatinine today is 0.94 computed tomography scan angiogram of the chest was done and was negative for pulmonary embolism. Patient was cleared for discharge by cardiology. Patient is feeling better and is agreeable for discharge at this time. He should hold metformin for 48 hours and then resume metformin Patient Condition at Discharge: Stable Plan - Discharge Summary Discharge Rx Participant: Yes New Discharge Prescriptions: Continue FLUoxetine HCL [PROzac] 20 mg PO QAM Pantoprazole Sodium 40 mg PO QAM Allopurinol [Zyloprim] 100 mg PO QAM Topiramate [Topamax] 100 mg PO HS Primidone [Mysoline] 50 mg PO TID Aspirin EC [Ecotrin Low Dose] 81 mg PO DAILY #30 tablet. Isosorbide Mononitrate ER [Imdur] 30 mg PO QAM Ascorbic Acid [Vitamin C] 1,000 mg PO QAM [place]-3 Fatty Acids/Fish Oil [Fish Oil 1,000 mg Softgel] 1 cap PO DAILY buPROPion [Wellbutrin] 100 mg PO BID Multivitamins, Thera [Multivitamin (formulary)] 1 tab PO DAILY Cyclobenzaprine [Flexeril] 5 mg PO BID Clopidogrel [Plavix] 75 mg PO DAILY Metoprolol Tartrate [Lopressor] 25 mg PO QAM Gabapentin [Neurontin] 400 mg PO QID Insulin NPH Hum/Reg Insulin Hm [NovoLIN 70-30 100 UNIT/ML VIAL] 20 unit SQ DAILY Metoprolol Tartrate [Lopressor] 12.5 mg PO HS Repaglinide [Prandin] 1 mg PO W/SUPPER Insulin NPH Hum/Reg Insulin Hm [NovoLIN 70-30 100 UNIT/ML VIAL] 24 unit SQ HS Nitroglycerin Sl Tabs [Nitrostat] 0.4 mg SUBLINGUAL Q5M PRN tab PRN Reason: Chest Pain Clobetasol Propionate [Temovate 0.05% Cream] 1 applic TOPICAL BID FLUoxetine HCL [PROzac] 20 mg PO DAILY HYDROcodone/APAP 10-325MG [[place] 10-325] 1 tab PO TID Isosorbide Mononitrate ER [Imdur] 60 mg PO QAM Discontinued metFORMIN HCL 1,000 mg PO BID Discharge Medication List Allopurinol [Zyloprim] 100 mg PO QAM 11/07/13 [History] FLUoxetine HCL [PROzac] 20 mg PO QAM 11/07/13 [History] Pantoprazole Sodium 40 mg PO QAM 11/07/13 [History] Primidone [Mysoline] 50 mg PO TID 11/07/13 [History] Topiramate [Topamax] 100 mg PO HS 11/07/13 [History] Aspirin EC [Ecotrin Low Dose] 81 mg PO DAILY #30 tablet. 10/21/15 [Rx] Isosorbide Mononitrate ER [Imdur] 30 mg PO QAM 01/02/16 [History] Ascorbic Acid [Vitamin C] 1,000 mg PO QAM 05/25/16 [History] [place]-3 Fatty Acids/Fish Oil [Fish Oil 1,000 mg Softgel] 1 cap PO DAILY [History] Clopidogrel [Plavix] 75 mg PO DAILY 10/14/16 [History] Cyclobenzaprine [Flexeril] 5 mg PO BID 10/14/16 [History] Gabapentin [Neurontin] 400 mg PO QID 10/14/16 [History] Metoprolol Tartrate [Lopressor] 25 mg PO QAM 10/14/16 [History] Multivitamins, Thera [Multivitamin (formulary)] 1 tab PO DAILY 10/14/16 [History ] buPROPion [Wellbutrin] 100 mg PO BID 10/14/16 [History] Insulin NPH Hum/Reg Insulin Hm [NovoLIN 70-30 100 UNIT/ML VIAL] 20 unit SQ DAILY 07/12/17 [History] Insulin NPH Hum/Reg Insulin Hm [NovoLIN 70-30 100 UNIT/ML VIAL] 24 unit SQ HS [History] Metoprolol Tartrate [Lopressor] 12.5 mg PO HS 07/12/17 [History] Repaglinide [Prandin] 1 mg PO W/SUPPER 07/12/17 [History] Nitroglycerin Sl Tabs [Nitrostat] 0.4 mg SUBLINGUAL Q5M PRN tab 07/14/17 [Rx] Clobetasol Propionate [Temovate 0.05% Cream] 1 applic TOPICAL BID 09/30/17 [ History] FLUoxetine HCL [PROzac] 20 mg PO DAILY 09/30/17 [History] HYDROcodone/APAP 10-325MG [[place] 10-325] 1 tab PO TID 09/30/17 [History] Isosorbide Mononitrate ER [Imdur] 60 mg PO QAM 09/30/17 [History] Follow up Appointment(s)/Referral(s): Kinsey Jiménez MD [STAFF PHYSICIAN] - 1 Week (office will call patient with appointmenet ) Argentina Garza DO [Primary Care Provider] - 1-2 days
== END 2017-10-03 17:24 | disposition home or self-care (01) ==
LOC: EC 10:49 → 3OBS 14:34 → 3SUR 10-02 18:59
PROVIDERS: ADMIT Internal Medicine; ATTEND Internal Medicine
DX: R07.89 Other chest pain (principal); R79.89 Other specified abnormal findings of blood chemistry; R61 Generalized hyperhidrosis; R06.02 Shortness of breath; R11.0 Nausea; E11.9 Type 2 diabetes mellitus without complications; I25.119 Atherosclerotic heart disease of native coronary artery with unspecified angina pectoris; I25.82 Chronic total occlusion of coronary artery; I10 Essential (primary) hypertension; E78.5 Hyperlipidemia, unspecified; K21.9 Gastro-esophageal reflux disease without esophagitis; M19.90 Unspecified osteoarthritis, unspecified site; L40.9 Psoriasis, unspecified; M48.061 Spinal stenosis, lumbar region without neurogenic claudication; M54.16 Radiculopathy, lumbar region; M10.9 Gout, unspecified; G47.30 Sleep apnea, unspecified; Z99.89 Dependence on other enabling machines and devices; F32.9 Major depressive disorder, single episode, unspecified; Z79.4 Long term (current) use of insulin; Z79.82 Long term (current) use of aspirin; Z79.02 Long term (current) use of antithrombotics/antiplatelets; Z79.899 Other long term (current) drug therapy; I25.2 Old myocardial infarction; Z95.5 Presence of coronary angioplasty implant and graft; Z95.1 Presence of aortocoronary bypass graft; Z87.19 Personal history of other diseases of the digestive system; Z87.891 Personal history of nicotine dependence; Z82.49 Family history of ischemic heart disease and other diseases of the circulatory system; Z82.0 Family history of epilepsy and other diseases of the nervous system
CPT/HCPCS: 99291 ×2; 96365 ×2; 96366 ×6; 96375 ×2; 96376 ×2; 96361; 96372 ×3; 36415; 94760; 93005; 85379; 83880; 80061; 80053 ×3; 82150; 82550; 82553; 83690; 83735; 84484; 85025 ×3; 85610; 85730 ×2; 71046; 71275; G0378 ×4; J1644 ×2; J1650 ×4; Q9967; J2270

== ENCOUNTER 2018-01-27 12:11 | Inpatient (IN) | payer MEDICARE ==
[2018-01-27] MEDS ORDERED: NITROGLYCERIN SL TABS 0.4 MG TAB SUBLINGUAL STA ×3 (12:36)
[2018-01-27] MEDS ORDERED: ASPIRIN 81 MG PO STA (12:36)
--- NOTE | 2018-01-27 12:44 | ED ---
General Adult HPI - General Chief complaint: Chest Pain Stated complaint: Chest Pain Time Seen by Provider: 01/27/18 12:33 Source: patient, RN notes reviewed Mode of arrival: EMS Limitations: no limitations - History of Present Illness Initial comments: Patient is a pleasant 67-year-old male presenting to the emergency department complaining of chest discomfort. Onset of symptoms was yesterday evening. Symptoms worsened today with exertion. Discomfort is currently 6/10. Discomfort feels like pressure with some radiation towards the neck. Patient has had some associated dyspnea and diaphoresis however none at this time. No nausea. Patient does have a history of similar symptoms previously associated with previous cardiac disease. - Related Data Home Medications Medication Instructions Recorded Confirmed Allopurinol [Zyloprim] 100 mg PO DAILY 11/07/13 01/27/18 Pantoprazole Sodium 40 mg PO DAILY 11/07/13 01/27/18 Primidone [Mysoline] 50 mg PO TID 11/07/13 01/27/18 Topiramate [Topamax] 100 mg PO HS 11/07/13 01/27/18 Isosorbide Mononitrate ER [Imdur] 30 mg PO DAILY 01/02/16 01/27/18 Ascorbic Acid [Vitamin C] 1,000 mg PO QAM 05/25/16 01/27/18 [place]-3 Fatty Acids/Fish Oil [Fish 1 cap PO DAILY 05/25/16 01/27/18 Oil 1,000 mg Softgel] Clopidogrel [Plavix] 75 mg PO DAILY 10/14/16 01/27/18 Cyclobenzaprine [Flexeril] 5 mg PO BID 10/14/16 01/27/18 Gabapentin [Neurontin] 400 mg PO QID 10/14/16 01/27/18 Metoprolol Tartrate [Lopressor] 25 mg PO QAM 10/14/16 01/27/18 Multivitamins, Thera [Multivitamin 1 tab PO DAILY 10/14/16 01/27/18 (formulary)] buPROPion [Wellbutrin] 100 mg PO BID 10/14/16 01/27/18 Insulin NPH Hum/Reg Insulin Hm 10 unit SQ DAILY 07/12/17 01/27/18 [NovoLIN 70-30 100 UNIT/ML VIAL] Insulin NPH Hum/Reg Insulin Hm 26 unit SQ HS 07/12/17 01/27/18 [NovoLIN 70-30 100 UNIT/ML VIAL] Metoprolol Tartrate [Lopressor] 12.5 mg PO HS 07/12/17 01/27/18 Atorvastatin Calcium [Lipitor] 80 mg PO HS 01/27/18 01/27/18 DULoxetine HCL [Cymbalta] 60 mg PO DAILY 01/27/18 01/27/18 FLUoxetine HCL [PROzac] 40 mg PO DAILY 01/27/18 01/27/18 Famotidine [Pepcid] 20 mg PO HS 01/27/18 01/27/18 Pioglitazone [Actos] 30 mg PO DAILY 01/27/18 01/27/18 metFORMIN HCL 1,000 mg PO BID 01/27/18 01/27/18 Previous Rx's Medication Instructions Recorded Aspirin EC [Ecotrin Low Dose] 81 mg PO DAILY #30 tablet. 10/21/15 Nitroglycerin Sl Tabs [Nitrostat] 0.4 mg SUBLINGUAL Q5M PRN tab 07/14/17 Allergies Allergy/AdvReac Type Severity Reaction Status Date / Time No Known Allergies Allergy Verified 01/27/18 13:22 Review of Systems ROS Statement: Those systems with pertinent positive or pertinent negative responses have been documented in the HPI. ROS Other: All systems not noted in ROS Statement are negative. Constitutional: Denies: fever Eyes: Denies: eye pain ENT: Denies: ear pain Respiratory: Denies: cough Cardiovascular: Reports: chest pain Endocrine: Reports: fatigue Gastrointestinal: Denies: abdominal pain Genitourinary: Denies: dysuria Musculoskeletal: Denies: back pain Skin: Denies: rash Neurological: Denies: weakness Past Medical History Past Medical History: Coronary Artery Disease (CAD), Chest Pain / Angina, Diabetes Mellitus, GERD/Reflux, GI Bleed, Hyperlipidemia, Hypertension, Myocardial Infarction ([place]), Musculoskeletal Disorder, Osteoarthritis (OA), Skin Disorder, Sleep Apnea/CPAP/BIPAP Additional Past Medical History / Comment(s): HX OF BACK PROBLEMS. TREMORS RT ARM. SPINAL stenosis of lumbar region with radiculopathy.HIATAL HERNIA,PSORIASIS ,GOUT, uses cpap machine Last Myocardial Infarction Date:: OCTOBER 2015 History of Any Multi-Drug Resistant Organisms: None Reported Past Surgical History: Back Surgery, Coronary Bypass/CABG, Heart Catheterization , Heart Catheterization With Stent, Hernia Repair, Orthopedic Surgery Additional Past Surgical History / Comment(s): REPAIR STOMACH ULCER 10/2012; ORIF LT ANKLE; REPAIR RT 5TH FINGER D/T TRAUMA; PAIN PROC X2; HERNIA SURG X5 - 1 UMB, 1 HIATAL, 3 INGUINAL; CABG X1, 6-2013 had posterior lateral decompression and fusion, transforaminal lumbar interbody fusion L4-L5.LT ROTATOR CUFF REPAIR,EGD/COLONOSCOPY,NERVE BLOCK. 10 cardiac stents placed October 2015 Past Anesthesia/Blood Transfusion Reactions: No Reported Reaction Additional Past Anesthesia/Blood Transfusion Reaction / Comment(s): no blood transfusions before Date of Last Stent Placement:: OCTOBER 2015 Past Psychological History: Depression Smoking Status: Former smoker - Past Family History Father Additional Family Medical History / Comment(s): BRAIN TUMOR Mother Family Medical History: Myocardial Infarction ([place]) Additional Family Medical History / Comment(s): FROM [place] AGE 70 General Exam Limitations: no limitations General appearance: alert, in no apparent distress Head exam: Present: atraumatic Eye exam: Present: normal appearance, PERRL ENT exam: Present: normal oropharynx Neck exam: Present: normal inspection Respiratory exam: Present: normal lung sounds bilaterally. Absent: chest wall tenderness Cardiovascular Exam: Present: regular rate, normal rhythm Expanded Peripheral pulses: 2+: Radial (R), Radial (L), Dorsalis Pedis (R), Dorsalis Pedis (L) GI/Abdominal exam: Present: soft. Absent: tenderness Extremities exam: Present: normal inspection. Absent: pedal edema, calf tenderness Neurological exam: Present: alert Psychiatric exam: Present: normal affect, normal mood Skin exam: Present: normal color Course Vital Signs 01/27/18 01/27/18 01/27/18 12:19 13:27 13:38 Temperature 98.8 F Pulse Rate 64 55 L 61 Respiratory 18 16 16 Rate Blood Pressure 133/70 129/65 107/55 O2 Sat by Pulse 96 97 95 Oximetry EKG Findings - EKG Comments: EKG Findings:: Normal sinus rhythm at 64. SD 164. QRS 162. QT 4:30. QTC 443. Normal axis. Right bundle branch block. Inferior Q waves. T-wave inversion V1 through V5. Medical Decision Making - Medical Decision Making Patient reevaluated and resting comfortably in bed. Patient and family updated on results and plan. Case discussed in detail with Dr. Tang, who will admit for Dr. Garaz. - Lab Data Result diagrams: 01/27/18 12:26 01/27/18 12:26 Lab Results 01/27/18 01/27/18 01/27/18 Range/Units 12:26 12:26 12:26 WBC 5.2 (3.8-10.6) k/uL RBC 4.13 L (4.30-5.90) m/uL Hgb 12.4 L (13.0-17.5) gm/dL Hct 38.1 L (39.0-53.0) % MCV 92.2 (80.0-100.0) fL MCH 30.0 (25.0-35.0) pg MCHC 32.5 (31.0-37.0) g/dL RDW 13.9 (11.5-15.5) % Plt Count 181 (150-450) k/uL Neutrophils % 57 % Lymphocytes % 30 % Monocytes % 6 % Eosinophils % 5 % Basophils % 1 % Neutrophils # 3.0 (1.3-7.7) k/uL Lymphocytes # 1.6 (1.0-4.8) k/uL Monocytes # 0.3 (0-1.0) k/uL Eosinophils # 0.3 (0-0.7) k/uL Basophils # 0.0 (0-0.2) k/uL PT (9.0-12.0) sec INR (<1.2) APTT (22.0-30.0) sec Sodium 140 (137-145) mmol/L Potassium 4.6 (3.5-5.1) mmol/L Chloride 107 (98-107) mmol/L Carbon Dioxide 23 (22-30) mmol/L Anion Gap 10 mmol/L BUN 19 (9-20) mg/dL Creatinine 1.00 (0.66-1.25) mg/dL Est GFR (CKD-EPI)AfAm 88 (>60 ml/min/1.73 sqM) Est GFR (CKD-EPI)NonAf 77 (>60 ml/min/1.73 sqM) Glucose 199 H (74-99) mg/dL Calcium 8.8 (8.4-10.2) mg/dL Magnesium 1.6 (1.6-2.3) mg/dL Total Bilirubin 0.2 (0.2-1.3) mg/dL AST 18 (17-59) U/L ALT 31 (21-72) U/L Alkaline Phosphatase 66 (38-126) U/L Total Creatine Kinase 75 (55-170) U/L CK-MB (CK-2) 1.3 (0.0-2.4) ng/mL CK-MB (CK-2) Rel Index 1.7 Troponin I <0.012 (0.000-0.034) ng/mL Total Protein 6.3 (6.3-8.2) g/dL Albumin 3.7 (3.5-5.0) g/dL 01/27/18 Range/Units 12:26 WBC (3.8-10.6) k/uL RBC (4.30-5.90) m/uL Hgb (13.0-17.5) gm/dL Hct (39.0-53.0) % MCV (80.0-100.0) fL MCH (25.0-35.0) pg MCHC (31.0-37.0) g/dL RDW (11.5-15.5) % Plt Count (150-450) k/uL Neutrophils % % Lymphocytes % % Monocytes % % Eosinophils % % Basophils % % Neutrophils # (1.3-7.7) k/uL Lymphocytes # (1.0-4.8) k/uL Monocytes # (0-1.0) k/uL Eosinophils # (0-0.7) k/uL Basophils # (0-0.2) k/uL PT 10.9 (9.0-12.0) sec INR 1.1 (<1.2) APTT 23.9 (22.0-30.0) sec Sodium (137-145) mmol/L Potassium (3.5-5.1) mmol/L Chloride (98-107) mmol/L Carbon Dioxide (22-30) mmol/L Anion Gap mmol/L BUN (9-20) mg/dL Creatinine (0.66-1.25) mg/dL Est GFR (CKD-EPI)AfAm (>60 ml/min/1.73 sqM) Est GFR (CKD-EPI)NonAf (>60 ml/min/1.73 sqM) Glucose (74-99) mg/dL Calcium (8.4-10.2) mg/dL Magnesium (1.6-2.3) mg/dL Total Bilirubin (0.2-1.3) mg/dL AST (17-59) U/L ALT (21-72) U/L Alkaline Phosphatase (38-126) U/L Total Creatine Kinase (55-170) U/L CK-MB (CK-2) (0.0-2.4) ng/mL CK-MB (CK-2) Rel Index Troponin I (0.000-0.034) ng/mL Total Protein (6.3-8.2) g/dL Albumin (3.5-5.0) g/dL - Radiology Data Radiology results: image reviewed (Chest x-ray shows no acute process) Disposition Clinical Impression: Chest pain Disposition: ADMITTED IP TO THIS HOSP Is patient prescribed a controlled substance at d/c from ED?: No Referrals: Argentina Garza DO [Primary Care Provider] - 1-2 days Decision Time: 13:47
[2018-01-27 12:46] LABS: Basophils % (A) 1 %; Eosinophils # (A) 0.3 k/uL (0-0.7); Eosinophils % (A) 5 %; HCT 38.1 % (39.0-53.0); HGB 12.4 gm/dL (13.0-17.5); Lymphocytes # (A) 1.6 k/uL (1.0-4.8); Lymphocytes % (A) 30 %; MCHC 32.5 g/dL (31.0-37.0); MCV 92.2 fL (80.0-100.0); Mean Platelet Volume 7.3; Monocytes # (A) 0.3 k/uL (0-1.0); Monocytes % (A) 6 %; Neutrophils % (A) 57 %; Platelet Count 181 k/uL (150-450); RBC 4.13 m/uL (4.30-5.90); RDW 13.9 % (11.5-15.5); WBC 5.2 k/uL (3.8-10.6)
[2018-01-27 12:54] LABS: Albumin 3.7 g/dL (3.5-5.0); Calcium 8.8 mg/dL (8.4-10.2); Magnesium 1.6 mg/dL (1.6-2.3); Potassium 4.6 mmol/L (3.5-5.1); Total Bilirubin 0.2 mg/dL (0.2-1.3); Total Protein 6.3 g/dL (6.3-8.2)
[2018-01-27 12:57] LABS: INR 1.1 (<1.2); Partial Thromboplastin Time 23.9 sec (22.0-30.0); Prothrombin Time 10.9 sec (9.0-12.0)
[2018-01-27 13:15] LABS: Creatine Kinase 75 U/L (55-170)
--- NOTE | 2018-01-27 13:18 | XR ---
EXAMINATION TYPE: XR chest 2V DATE OF EXAM: 01/27/2018 COMPARISON: 09/30/2017 HISTORY: Chest pain TECHNIQUE: Frontal and lateral views of the chest are obtained. FINDINGS: There is no focal air space opacity, pleural effusion, or pneumothorax seen. Post CABG yandel nges of the chest are noted The cardiac silhouette size is upper limits of normal. Pulmonary hyper inflation and flattening of the diaphragms relates underlying COPD. The osseous structures are intact . Mild degenerative changes of the thoracic spine are again seen. IMPRESSION: Chronic changes with no acute cardiopulmonary process.
[2018-01-27 13:27] LABS: Creatine Kinase MB 1.3 ng/mL (0.0-2.4); Troponin I <0.012 ng/mL (0.000-0.034)
[2018-01-27] MEDS ORDERED: NITROGLYCERIN SL TABS 0.4 MG TAB SUBLINGUAL PRN (13:47)
--- NOTE | 2018-01-27 15:08 | P.HPIM ---
History of Present Illness H&P Date: 01/27/18 Chief Complaint: chest pain This is a 67-year-old patient of Dr. Garza. Patient presented to the emergency room with complaints of chest pain that has been occurring on and off since last night. Patient has a known past medical history of multiple MIs patient states he has had 12 stents in the past. Patient also has a past medical history of coronary artery bypass, chest pain, diabetes mellitus, GERD, GI bleed, hyperlipidemia, hypertension, musculoskeletal disorder, osteoporosis, skin disorder, sleep apnea, back surgery, hernia repair and depression. EKG completed in emergency room showing normal sinus rhythm with right bundle branch block inferior infarct age undetermined. Initial troponin level negative. Chest x-ray completed showing chronic changes with no acute cardiopulmonary process. Cardiology services have been consulted and serial troponins cardiac enzymes have been ordered. Patient states with the chest pain he also felt short of breath. Will order d-dimer. Patient denies nausea vomiting or diarrhea. Denies urinary frequency or burning. Review of Systems Please refer to HPI otherwise unremarkable Past Medical History Past Medical History: Coronary Artery Disease (CAD), Chest Pain / Angina, Diabetes Mellitus, GERD/Reflux, GI Bleed, Hyperlipidemia, Hypertension, Myocardial Infarction ([place]), Musculoskeletal Disorder, Osteoarthritis (OA), Skin Disorder, Sleep Apnea/CPAP/BIPAP Additional Past Medical History / Comment(s): HX OF BACK PROBLEMS. TREMORS RT ARM. SPINAL stenosis of lumbar region with radiculopathy.HIATAL HERNIA,PSORIASIS ,GOUT, uses cpap machine Last Myocardial Infarction Date:: OCTOBER 2015 History of Any Multi-Drug Resistant Organisms: None Reported Past Surgical History: Back Surgery, Coronary Bypass/CABG, Heart Catheterization , Heart Catheterization With Stent, Hernia Repair, Orthopedic Surgery Additional Past Surgical History / Comment(s): REPAIR STOMACH ULCER 10/2012; ORIF LT ANKLE; REPAIR RT 5TH FINGER D/T TRAUMA; PAIN PROC X2; HERNIA SURG X5 - 1 UMB, 1 HIATAL, 3 INGUINAL; CABG X1, 6-2013 had posterior lateral decompression and fusion, transforaminal lumbar interbody fusion L4-L5.LT ROTATOR CUFF REPAIR,EGD/COLONOSCOPY,NERVE BLOCK. 10 cardiac stents placed October 2015 Past Anesthesia/Blood Transfusion Reactions: No Reported Reaction Additional Past Anesthesia/Blood Transfusion Reaction / Comment(s): no blood transfusions before Date of Last Stent Placement:: OCTOBER 2015 Smoking Status: Former smoker - Past Family History Father Additional Family Medical History / Comment(s): BRAIN TUMOR Mother Family Medical History: Myocardial Infarction ([place]) Additional Family Medical History / Comment(s): FROM [place] AGE 70 Medications and Allergies Home Medications Medication Instructions Recorded Confirmed Type Allopurinol [Zyloprim] 100 mg PO DAILY 11/07/13 01/27/18 History Pantoprazole Sodium 40 mg PO DAILY 11/07/13 01/27/18 History Primidone [Mysoline] 50 mg PO TID 11/07/13 01/27/18 History Topiramate [Topamax] 100 mg PO HS 11/07/13 01/27/18 History Aspirin EC [Ecotrin Low Dose] 81 mg PO DAILY #30 tablet. 10/21/15 01/27/18 Rx Isosorbide Mononitrate ER [Imdur] 30 mg PO DAILY 01/02/16 01/27/18 History Ascorbic Acid [Vitamin C] 1,000 mg PO QAM 05/25/16 01/27/18 History [place]-3 Fatty Acids/Fish Oil [Fish 1 cap PO DAILY 05/25/16 01/27/18 History Oil 1,000 mg Softgel] Clopidogrel [Plavix] 75 mg PO DAILY 10/14/16 01/27/18 History Cyclobenzaprine [Flexeril] 5 mg PO BID 10/14/16 01/27/18 History Gabapentin [Neurontin] 400 mg PO QID 10/14/16 01/27/18 History Metoprolol Tartrate [Lopressor] 25 mg PO QAM 10/14/16 01/27/18 History Multivitamins, Thera [Multivitamin 1 tab PO DAILY 10/14/16 01/27/18 History (formulary)] buPROPion [Wellbutrin] 100 mg PO BID 10/14/16 01/27/18 History Insulin NPH Hum/Reg Insulin Hm 10 unit SQ DAILY 07/12/17 01/27/18 History [NovoLIN 70-30 100 UNIT/ML VIAL] Insulin NPH Hum/Reg Insulin Hm 26 unit SQ HS 07/12/17 01/27/18 History [NovoLIN 70-30 100 UNIT/ML VIAL] Metoprolol Tartrate [Lopressor] 12.5 mg PO HS 07/12/17 01/27/18 History Nitroglycerin Sl Tabs [Nitrostat] 0.4 mg SUBLINGUAL Q5M PRN tab 07/14/17 Rx Atorvastatin Calcium [Lipitor] 80 mg PO HS 01/27/18 01/27/18 History DULoxetine HCL [Cymbalta] 60 mg PO DAILY 01/27/18 01/27/18 History FLUoxetine HCL [PROzac] 40 mg PO DAILY 01/27/18 01/27/18 History Famotidine [Pepcid] 20 mg PO HS 01/27/18 01/27/18 History Pioglitazone [Actos] 30 mg PO DAILY 01/27/18 01/27/18 History metFORMIN HCL 1,000 mg PO BID 01/27/18 01/27/18 History Allergies Allergy/AdvReac Type Severity Reaction Status Date / Time No Known Allergies Allergy Verified 01/27/18 13:22 Physical Exam Vitals: Vital Signs Temp Pulse Resp BP Pulse Ox 01/27/18 14:48 56 L 18 139/68 97 01/27/18 13:38 61 16 107/55 95 01/27/18 13:27 55 L 16 129/65 97 01/27/18 12:19 98.8 F 64 18 133/70 96 Intake and Output 01/26/18 01/27/18 01/27/18 22:59 06:59 14:59 Other: Weight 104.326 kg Head normocephalic Neck supple Lungs clear to auscultation bilaterally no wheezing or crackles Heart regular rate and rhythm S1-S2, no rub or gallop Abdomen is soft nontender nondistended positive bowel sounds no hepatosplenomegaly Extremities no edema Neuro alert and orientated to 3 Results CBC & Chem 7: 01/27/18 12:26 01/27/18 12:26 Labs: Abnormal Lab Results - Last 24 Hours (Table) 01/27/18 01/27/18 Range/Units 12:26 12:26 RBC 4.13 L (4.30-5.90) m/uL Hgb 12.4 L (13.0-17.5) gm/dL Hct 38.1 L (39.0-53.0) % Glucose 199 H (74-99) mg/dL Assessment and Plan Assessment: 1. Chest pain. Patient has a known past extensive cardiac history including 12 stents. EKG completed emergency room sinus rhythm right bundle branch. Inferior infarct, age undetermined. Initial Troponin level negative. Cardiology services have been requested. Serial Troponins and cardiac enzymes have been ordered. 2. Shortness of breath. Chest x-ray showing chronic changes no acute cardiopulmonary process. D-dimer has been ordered 3. Insulin dependent diabetes mellitus. Home medications reordered 4. History of myocardial infarction, coronary artery disease with previous cardiac stents and coronary artery bypass graft. Patient maintained on Plavix 75mg and aspirin 81 mg 5. Essential hypertension. Home medications reordered. Set with parameters due to heart rate in 50s 6. History of GERD 7. History of hyperlipidemia 8. Depression. Patient states he takes Cymbalta Prozac and Wellbutrin. discussed with pharmacy GI prophylaxis Pepcid. DVT prophylaxis Plavix Time with Patient: Greater than 30 (Greater than 60% of the total time spent in counseling and coordination of care. I performed an examination of the patient and discussed their management with the Nurse Practitioner. I have reviewed the Nurse Practitioner's notes and agree with the documented findings and plan of care)
[2018-01-27] MEDS: PRIMIDONE 50 MG TAB PO SCH ×2 (18:27→20:47)
[2018-01-27 18:28] LABS: Creatine Kinase 81 U/L (55-170)
[2018-01-27 18:41] LABS: Creatine Kinase MB 1.4 ng/mL (0.0-2.4); Troponin I <0.012 ng/mL (0.000-0.034)
[2018-01-27] MEDS: NITROGLYCERIN OINT 1 INCH/GM PACKET TOPICAL SCH (18:50)
[2018-01-27] MEDS: GABAPENTIN 400 MG CAP PO SCH ×2 (18:55→20:47)
[2018-01-27 20:24] LABS: Glucose,Whole Blood 138 mg/dL (75-99)
[2018-01-27] MEDS: ATORVASTATIN 80 MG TAB PO SCH (20:44)
[2018-01-27] MEDS: CYCLOBENZAPRINE 5 MG TAB PO SCH (20:44)
[2018-01-27] MEDS: FAMOTIDINE 20 MG TAB PO SCH (20:45)
[2018-01-27] MEDS: buPROPion 100 MG TAB PO SCH (20:45)
[2018-01-27] MEDS: METOPROLOL TARTRATE 12.5 MG TAB PO SCH (20:46)
[2018-01-27] MEDS: metFORMIN 500 MG TAB PO SCH (20:46)
[2018-01-27] MEDS: TOPIRAMATE 100 MG TAB PO SCH (20:47)
[2018-01-27] MEDS: INSULIN NPH/REG INSULIN 70/30 300 UNIT/3 ML VIAL SQ SCH (20:48)
[2018-01-27] MEDS: MORPHINE SULFATE 2 MG/ML SYRINGE IVP PRN (22:23)
[2018-01-28 01:20] LABS: Creatine Kinase 78 U/L (55-170)
[2018-01-28] MEDS: NITROGLYCERIN OINT 1 INCH/GM PACKET TOPICAL SCH ×2 (01:23→05:52)
[2018-01-28 01:33] LABS: Creatine Kinase MB 1.4 ng/mL (0.0-2.4); Troponin I <0.012 ng/mL (0.000-0.034)
[2018-01-28] MEDS: MORPHINE SULFATE 2 MG/ML SYRINGE IVP PRN ×6 (06:24→22:50)
[2018-01-28 06:52] LABS: Glucose,Whole Blood 103 mg/dL (75-99)
[2018-01-28 06:53] LABS: Basophils % (A) 0 %; Eosinophils # (A) 0.3 k/uL (0-0.7); Eosinophils % (A) 5 %; HCT 42.1 % (39.0-53.0); HGB 13.3 gm/dL (13.0-17.5); Lymphocytes # (A) 1.4 k/uL (1.0-4.8); Lymphocytes % (A) 25 %; MCH 29.2 pg (25.0-35.0); MCHC 31.6 g/dL (31.0-37.0); MCV 92.2 fL (80.0-100.0); Mean Platelet Volume 7.7; Monocytes # (A) 0.3 k/uL (0-1.0); Monocytes % (A) 6 %; Neutrophils # (A) 3.6 k/uL (1.3-7.7); Neutrophils % (A) 62 %; Platelet Count 179 k/uL (150-450); RBC 4.57 m/uL (4.30-5.90); RDW 13.9 % (11.5-15.5); WBC 5.8 k/uL (3.8-10.6)
[2018-01-28 07:07] LABS: Calcium 9.2 mg/dL (8.4-10.2); Potassium 4.9 mmol/L (3.5-5.1); Total Bilirubin 0.2 mg/dL (0.2-1.3); Total Protein 6.8 g/dL (6.3-8.2)
[2018-01-28 07:33] VITALS: RESP 18
[2018-01-28] MEDS ORDERED: NON-FORMULARY DRUG (Omega-3 Fatty Acids/Fish Oil [Fish Oil 1,000 Mg Softgel] 1 CAP) PO SCH (09:00)
[2018-01-28] MEDS ORDERED: ASPIRIN 325 MG TAB PO SCH (09:00)
[2018-01-28] MEDS ORDERED: ISOSORBIDE MONONITRATE ER 30 MG TAB.ER.24H PO SCH (09:00)
[2018-01-28] MEDS: ASCORBIC ACID 500 MG TAB PO SCH (09:15)
[2018-01-28] MEDS: PANTOPRAZOLE 40 MG TABLET PO SCH (09:15)
[2018-01-28] MEDS: ALLOPURINOL 100 MG TAB PO SCH (09:15)
[2018-01-28] MEDS: PRIMIDONE 50 MG TAB PO SCH ×3 (09:16→20:27)
[2018-01-28] MEDS: CLOPIDOGREL 75 MG TAB PO SCH (09:16)
[2018-01-28] MEDS: ASPIRIN 81 MG PO SCH (09:16)
[2018-01-28] MEDS: GABAPENTIN 400 MG CAP PO SCH ×4 (09:16→20:26)
[2018-01-28] MEDS: ISOSORBIDE MONONITRATE ER 60 MG TAB.ER.24H PO SCH (09:16)
[2018-01-28] MEDS: CYCLOBENZAPRINE 5 MG TAB PO SCH ×2 (09:16→20:27)
[2018-01-28] MEDS: buPROPion 100 MG TAB PO SCH ×2 (09:16→20:27)
[2018-01-28] MEDS: DULoxetine HCL 60 MG CAPSULE.DR PO SCH (09:16)
[2018-01-28] MEDS: FLUoxetine HCL 20 MG CAP PO SCH (09:43)
[2018-01-28] MEDS: METOPROLOL TARTRATE 25 MG TAB PO SCH (09:44)
[2018-01-28] MEDS ORDERED: ALPRAZolam 0.5 MG TAB PO PRN (09:54)
[2018-01-28] MEDS ORDERED: SODIUM CHLORIDE 0.9% 1,000 ML in EMPTY BAG 1 BAG IV ONE (09:54)
[2018-01-28] MEDS ORDERED: ASPIRIN 325 MG TAB PO STA (09:54)
[2018-01-28] MEDS ORDERED: NITROGLYCERIN SL TABS 0.4 MG TAB SUBLINGUAL PRN (09:54)
[2018-01-28] MEDS ORDERED: ATORVASTATIN 80 MG TAB PO STA (09:54)
[2018-01-28] MEDS ORDERED: ALPRAZolam 0.25 MG TAB PO PRN (09:54)
[2018-01-28] MEDS: metFORMIN 500 MG TAB PO SCH (09:56)
--- NOTE | 2018-01-28 10:07 | P.CRDCN ---
History of Present Illness History of present illness: Mr. Art is a pleasant 67-year-old male past medical history significant for coronary artery disease s/p single vessel bypass graft with SVG- RCA, diabetes mellitus, hypertension, dyslipidemia, gastroesophageal reflux disease and sleep apnea. He follows with Dr. RAY Jiménez in the office. Most recent cardiac catheterization performed June 2016 reveals PMI SVG to RCA, patent stent to the OM, normal LAD, normal circumflex and normal diagonal branch. Prior to that 10/2016 he underwent stenting of his bypass graft in the midportion. He complains of heavy pressure sensation in the left precordial region with radiation through to the back and up into the left neck associated with shortness of breath, nausea and diaphoresis. He states yesterday he was quite active in the yard doing weed whacking and then he went shopping. The heaviness in his chest was getting progressively worse throughout the day. He states his symptoms feel similar to how he has felt in the past when he has needed angioplasty. EKG reveals right bundle branch block pattern with inferior Q-waves and later ST depression. No changes from previous EKG. Chest xray negative for an acute cardiopulmonary process. Laboratory data reviewed, hemoglobin 13.3, platelets 179, sodium 144, potassium 4.9, magnesium 1.6, cardiac enzymes negative 3, LDL 62 and creatinine 1.05, d- dimer 0.76. Current cardiac medications include aspirin 81 mg daily, atorvastatin 80 mg daily, Plavix 75 mg daily, Imdur 30 mg daily, Lopressor 25 mg in the a.m. and 12.5 mg at bedtime. He also takes [place], metformin, Wellbutrin, Topamax, primidone, Actos, insulin, Neurontin, Pepcid, Prozac, Cymbalta, Flexeril and allopurinol. Review of Systems At the time of my exam: CONSTITUTIONAL: Denies fever. Denies chills. EYES: Denies blurred vision. Denies vision changes. Denies eye pain. EARS, NOSE, MOUTH & THROAT: Denies headache. Denies sore throat. Denies ear pain. CARDIOVASCULAR: Complains of chest pain with radiation to left arm and neck. Denies shortness of breath. Denies orthopnea. Denies PND. Denies palpitations. RESPIRATORY: Denies cough. GASTROINTESTINAL: Denies abdominal pain. Denies diarrhea. Denies constipation. Denies nausea. Denies vomiting. MUSCULOSKELETAL: Denies myalgias. INTEGUMENTARY: Denies pruitis. Denies rash. NEUROLOGIC: Denies numbness. Denies tingling. Denies weakness. PSYCHIATRIC: Denies anxiety. Denies depression. ENDOCRINE: Denies fatigue. Denies weight change. Denies polydipsia. Denies polyurina. GENITOURINARY: Denies burning, hematuria or urgency with micturation. HEMATOLOGIC: Denies history of anemia. Denies bleeding. Past Medical History Past Medical History: Coronary Artery Disease (CAD), Chest Pain / Angina, Diabetes Mellitus, GERD/Reflux, GI Bleed, Hyperlipidemia, Hypertension, Myocardial Infarction ([place]), Musculoskeletal Disorder, Osteoarthritis (OA), Skin Disorder, Sleep Apnea/CPAP/BIPAP Additional Past Medical History / Comment(s): HX OF BACK PROBLEMS. TREMORS RT ARM. SPINAL stenosis of lumbar region with radiculopathy.HIATAL HERNIA,PSORIASIS ,GOUT, uses cpap machine Last Myocardial Infarction Date:: OCTOBER 2015 History of Any Multi-Drug Resistant Organisms: None Reported Past Surgical History: Back Surgery, Coronary Bypass/CABG, Heart Catheterization , Heart Catheterization With Stent, Hernia Repair, Orthopedic Surgery Additional Past Surgical History / Comment(s): REPAIR STOMACH ULCER 10/2012; ORIF LT ANKLE; REPAIR RT 5TH FINGER D/T TRAUMA; PAIN PROC X2; HERNIA SURG X5 - 1 UMB, 1 HIATAL, 3 INGUINAL; CABG X1, 6-2014 had posterior lateral decompression and fusion, transforaminal lumbar interbody fusion L4-L5.LT ROTATOR CUFF REPAIR,EGD/COLONOSCOPY,NERVE BLOCK. 10 cardiac stents placed October 2015 Past Anesthesia/Blood Transfusion Reactions: No Reported Reaction Additional Past Anesthesia/Blood Transfusion Reaction / Comment(s): no blood transfusions before Date of Last Stent Placement:: OCTOBER 2015 Smoking Status: Former smoker - Past Family History Father Additional Family Medical History / Comment(s): BRAIN TUMOR Mother Family Medical History: Myocardial Infarction ([place]) Additional Family Medical History / Comment(s): FROM [place] AGE 70 Medications and Allergies Home Medications Medication Instructions Recorded Confirmed Type Allopurinol [Zyloprim] 100 mg PO DAILY 11/07/13 01/27/18 History Pantoprazole Sodium 40 mg PO DAILY 11/07/13 01/27/18 History Primidone [Mysoline] 50 mg PO TID 11/07/13 01/27/18 History Topiramate [Topamax] 100 mg PO HS 11/07/13 01/27/18 History Aspirin EC [Ecotrin Low Dose] 81 mg PO DAILY #30 tablet. 10/21/15 01/27/18 Rx Isosorbide Mononitrate ER [Imdur] 30 mg PO DAILY 01/02/16 01/27/18 History Ascorbic Acid [Vitamin C] 1,000 mg PO QAM 05/25/16 01/27/18 History [place]-3 Fatty Acids/Fish Oil [Fish 1 cap PO DAILY 05/25/16 01/27/18 History Oil 1,000 mg Softgel] Clopidogrel [Plavix] 75 mg PO DAILY 10/14/16 01/27/18 History Cyclobenzaprine [Flexeril] 5 mg PO BID 10/14/16 01/27/18 History Gabapentin [Neurontin] 400 mg PO QID 10/14/16 01/27/18 History Metoprolol Tartrate [Lopressor] 25 mg PO QAM 10/14/16 01/27/18 History Multivitamins, Thera [Multivitamin 1 tab PO DAILY 10/14/16 01/27/18 History (formulary)] buPROPion [Wellbutrin] 100 mg PO BID 10/14/16 01/27/18 History Insulin NPH Hum/Reg Insulin Hm 10 unit SQ DAILY 07/12/17 01/27/18 History [NovoLIN 70-30 100 UNIT/ML VIAL] Insulin NPH Hum/Reg Insulin Hm 26 unit SQ HS 07/12/17 01/27/18 History [NovoLIN 70-30 100 UNIT/ML VIAL] Metoprolol Tartrate [Lopressor] 12.5 mg PO HS 07/12/17 01/27/18 History Nitroglycerin Sl Tabs [Nitrostat] 0.4 mg SUBLINGUAL Q5M PRN tab 07/14/17 Rx Atorvastatin Calcium [Lipitor] 80 mg PO HS 01/27/18 01/27/18 History DULoxetine HCL [Cymbalta] 60 mg PO DAILY 01/27/18 01/27/18 History FLUoxetine HCL [PROzac] 40 mg PO DAILY 01/27/18 01/27/18 History Famotidine [Pepcid] 20 mg PO HS 01/27/18 01/27/18 History HYDROcodone/APAP 10-325MG [[place] 1 tab PO TID PRN 01/27/18 01/27/18 History 10-325] Pioglitazone [Actos] 30 mg PO DAILY 01/27/18 01/27/18 History metFORMIN HCL 1,000 mg PO BID 01/27/18 01/27/18 History Allergies Allergy/AdvReac Type Severity Reaction Status Date / Time No Known Allergies Allergy Verified 01/27/18 13:22 Physical Exam Vitals: Vital Signs Temp Pulse Pulse Resp BP BP Pulse Ox 01/28/18 04:00 98.1 F 74 16 136/76 93 L 01/28/18 03:19 16 01/27/18 23:55 97.6 F 60 16 128/72 93 L 01/27/18 23:12 16 01/27/18 20:00 16 01/27/18 19:45 97.6 F 58 L 16 140/67 93 L 01/27/18 18:55 18 01/27/18 17:38 98.1 F 65 18 105/57 97 01/27/18 16:41 56 L 16 138/74 97 01/27/18 15:31 60 18 125/60 98 01/27/18 14:48 56 L 18 139/68 97 01/27/18 13:38 61 16 107/55 95 01/27/18 13:27 55 L 16 129/65 97 01/27/18 12:19 98.8 F 64 18 133/70 96 Intake and Output 01/27/18 01/28/18 01/28/18 22:59 06:59 14:59 Intake Total 480 Balance 480 Intake: Oral 480 Other: Voiding Method Toilet Toilet # Voids 1 2 Blood pressure 132/79 heart rate 69 afebrile maintaining oxygen saturation on room air GENERAL: This is a 67-year-old male in no apparent distress at the time of my examination. HEENT: Head is atraumatic, normocephalic. Pupils are equal, round. Sclerae anicteric. Conjunctivae are clear. Mucous membranes of the mouth are moist. Neck is supple. There is no jugular venous distention. No carotid bruit is heard. LUNGS: Clear to auscultation no wheezes, rales or rhonchi. No chest wall tenderness is noted on palpation or with deep breathing. HEART: Regular rate and rhythm without murmurs, rubs or gallops. S1 and S2 heard. ABDOMEN: Soft, nontender. Bowel sounds are heard. No organomegaly noted. EXTREMITIES: No evidence of peripheral edema and no calf tenderness noted. VASCULAR: Radial and dorsalis pedis pulses palpated, no evidence of clubbing. NEUROLOGIC: Patient is awake, alert and oriented x3. Results 01/28/18 06:33 01/28/18 06:33 Cardiac Enzymes 01/27/18 01/27/18 01/27/18 Range/Units 12:26 12:26 17:58 AST 18 (17-59) U/L CK-MB (CK-2) 1.3 1.4 (0.0-2.4) ng/mL Troponin I <0.012 <0.012 (0.000-0.034) ng/mL 01/28/18 01/28/18 Range/Units 00:44 06:33 AST 20 (17-59) U/L CK-MB (CK-2) 1.4 (0.0-2.4) ng/mL Troponin I <0.012 (0.000-0.034) ng/mL Coagulation 01/27/18 Range/Units 12:26 PT 10.9 (9.0-12.0) sec APTT 23.9 (22.0-30.0) sec Lipids 01/28/18 Range/Units 06:33 Triglycerides 87 (<150) mg/dL Cholesterol 126 (<200) mg/dL HDL Cholesterol 47 (40-60) mg/dL CBC 01/27/18 01/28/18 Range/Units 12:26 06:33 WBC 5.2 5.8 (3.8-10.6) k/uL RBC 4.13 L 4.57 (4.30-5.90) m/uL Hgb 12.4 L 13.3 (13.0-17.5) gm/dL Hct 38.1 L 42.1 (39.0-53.0) % Plt Count 181 179 (150-450) k/uL Comprehensive Metabolic Panel 01/27/18 01/28/18 Range/Units 12:26 06:33 Sodium 140 144 (137-145) mmol/L Potassium 4.6 4.9 (3.5-5.1) mmol/L Chloride 107 108 H (98-107) mmol/L Carbon Dioxide 23 29 (22-30) mmol/L BUN 19 15 (9-20) mg/dL Creatinine 1.00 1.05 (0.66-1.25) mg/dL Glucose 199 H 101 H (74-99) mg/dL Calcium 8.8 9.2 (8.4-10.2) mg/dL AST 18 20 (17-59) U/L ALT 31 24 (21-72) U/L Alkaline Phosphatase 66 57 (38-126) U/L Total Protein 6.3 6.8 (6.3-8.2) g/dL Albumin 3.7 4.0 (3.5-5.0) g/dL Current Medications Generic Name Dose Route Start Last Admin Trade Name Freq PRN Reason Stop Dose Admin Allopurinol 100 mg 01/28/18 09:00 Zyloprim PO DAILY [facility] Ascorbic Acid 1,000 mg 01/28/18 09:00 Vitamin C PO QAM [facility] Aspirin 81 mg 01/28/18 09:00 Aspirin PO DAILY [facility] Atorvastatin Calcium 80 mg 01/27/18 21:00 01/27/18 20:44 Lipitor PO 80 mg HS SANDY Administration Bupropion HCl 100 mg 01/27/18 21:00 01/27/18 20:45 Wellbutrin PO 100 mg BID SANDY Administration Clopidogrel Bisulfate 75 mg 01/28/18 09:00 Plavix PO DAILY [facility] Cyclobenzaprine HCl 5 mg 01/27/18 21:00 01/27/18 20:44 Flexeril PO 5 mg BID SANDY Administration Duloxetine HCl 60 mg 01/28/18 09:00 Cymbalta PO DAILY [facility] Famotidine 20 mg 01/27/18 21:00 01/27/18 20:45 Pepcid PO 20 mg HS SANDY Administration Gabapentin 400 mg 01/27/18 18:00 01/27/18 20:47 Neurontin PO 400 mg QID SANDY Administration Insulin Human Isoph/Insulin Regular 10 unit 01/28/18 09:00 Humulin 70/30 Vial SQ DAILY SANDY Insulin Human Isoph/Insulin Regular 26 unit 01/27/18 21:00 01/27/18 20:48 Humulin 70/30 Vial SQ 26 unit HS SANDY Administration Isosorbide Mononitrate 30 mg 01/28/18 09:00 Imdur PO DAILY SANDY Metformin HCl 1,000 mg 01/27/18 21:00 01/27/18 20:46 Glucophage PO 1,000 mg BID SANDY Administration Metoprolol Tartrate 25 mg 01/28/18 09:00 Lopressor PO QAM SANDY Metoprolol Tartrate 12.5 mg 01/27/18 21:00 01/27/18 20:46 Lopressor PO 12.5 mg HS SANDY Administration Morphine Sulfate 1 mg 01/27/18 21:58 01/28/18 06:24 Morphine Sulfate (Inj) IVP 1 mg Q2H PRN Administration Pain Multivitamins 1 each 01/28/18 12:00 Theragran PO 1200 [facility] Nitroglycerin 0.4 mg 01/27/18 13:47 Nitrostat SUBLINGUAL Q5M PRN Chest Pain Non-Formulary Medication 40 mg 01/28/18 09:00 Fluoxetine Hcl [Prozac] PO DAILY [facility] Pantoprazole Sodium 40 mg 01/28/18 07:30 Protonix PO AC-BRKFST [facility] Pioglitazone HCl 30 mg 01/28/18 09:00 Actos PO DAILY [facility] Primidone 50 mg 01/27/18 16:00 01/27/18 20:47 Mysoline PO 50 mg TID SANDY Administration Topiramate 100 mg 01/27/18 21:00 01/27/18 20:47 Topamax PO 100 mg HS SANDY Administration Intake and Output 01/27/18 01/28/18 01/28/18 22:59 06:59 14:59 Intake Total 480 Balance 480 Intake: Oral 480 Other: Voiding Method Toilet Toilet # Voids 1 2 01/28/18 06:33 01/28/18 06:33 Assessment and Plan Assessment: ASSESSMENT Unstable angina with radiation to neck and arm with nausea and diaphoresis. History of coronary artery disease s/p bypass grafting SVG-RCA with subseqeunt stenting Hypertension Dyslipidemia Diabetes mellitus Obstructive sleep apnea PLAN Increase Imdur to 60 mg daily, give dose now and increase activity with walking in the halls. If he has ongoing progressive chest pain with activity we will proceed with cardiac catheterization. Further recommendations to follow based on clinical course. Thank you kindly for this consultation. Nurse Practitioner note has been reviewed, I agree with a documented findings and plan of care. Patient was seen and examined.
[2018-01-28] MEDS ORDERED: MULTIVITAMINS, THERA 1 EACH TAB PO SCH (12:00)
[2018-01-28 12:08] LABS: Glucose,Whole Blood 126 mg/dL (75-99)
--- NOTE | 2018-01-28 12:26 | P.PN ---
Subjective Progress Note Date: 01/28/18 This is a 67-year-old patient of Dr. Garza. Patient presented to the emergency room with complaints of chest pain that has been occurring on and off since last night. Patient has a known past medical history of multiple MIs patient states he has had 12 stents in the past. Patient also has a past medical history of coronary artery bypass, chest pain, diabetes mellitus, GERD, GI bleed, hyperlipidemia, hypertension, musculoskeletal disorder, osteoporosis, skin disorder, sleep apnea, back surgery, hernia repair and depression. EKG completed in emergency room showing normal sinus rhythm with right bundle branch block inferior infarct age undetermined. Initial troponin level negative. Chest x-ray completed showing chronic changes with no acute cardiopulmonary process. Cardiology services have been consulted and serial troponins cardiac enzymes have been ordered. Patient states with the chest pain he also felt short of breath. Will order d-dimer. Patient denies nausea vomiting or diarrhea. Denies urinary frequency or burning. 01/28/2018 patient is still reporting chest pain on the left side of his chest. Pain does worsen with exertion. But he does have chest pain at rest as well. Troponins were negative 3. Cardiology did increase the Imdur to 60 mg daily. Patient still reporting chest pain after medication changes. Cardiology is planning to proceed with heart catheterization today Objective - Vital Signs Vital signs: Vital Signs Temp 98.6 F 01/28/18 11:05 Pulse 57 L 01/28/18 11:05 Resp 18 01/28/18 11:05 BP 100/57 01/28/18 11:05 Pulse Ox 94 L 01/28/18 11:05 Intake & Output 01/27/18 01/28/18 01/28/18 18:59 06:59 18:59 Intake Total 480 Balance 480 Weight 104.326 kg Intake: Oral 480 Other: Voiding Method Toilet Toilet # Voids 1 2 2 - Exam Head normocephalic Neck supple Lungs clear to auscultation bilaterally no wheezing or crackles Heart regular rate and rhythm S1-S2, no rub or gallop Abdomen is soft nontender nondistended positive bowel sounds no hepatosplenomegaly Extremities no edema Neuro alert and orientated to 3 - Labs CBC & Chem 7: 01/28/18 06:33 01/28/18 06:33 Labs: Abnormal Lab Results - Last 24 Hours (Table) 01/27/18 01/27/1801/27/18 Range/Units 12:26 12:26 12:26 RBC 4.13 L (4.30-5.90) m/uL Hgb 12.4 L (13.0-17.5) gm/dL Hct 38.1 L (39.0-53.0) % D-Dimer 0.76 H (<0.60) mg/L FEU Chloride (98-107) mmol/L Glucose 199 H (74-99) mg/dL POC Glucose (mg/dL) (75-99) mg/dL 01/27/18 01/28/18 01/28/18 Range/Units 20:11 06:33 06:50 RBC (4.30-5.90) m/uL Hgb (13.0-17.5) gm/dL Hct (39.0-53.0) % D-Dimer (<0.60) mg/L FEU Chloride 108 H (98-107) mmol/L Glucose 101 H (74-99) mg/dL POC Glucose (mg/dL) 138 H 103 H (75-99) mg/dL 01/28/18 Range/Units 11:57 RBC (4.30-5.90) m/uL Hgb (13.0-17.5) gm/dL Hct (39.0-53.0) % D-Dimer (<0.60) mg/L FEU Chloride (98-107) mmol/L Glucose (74-99) mg/dL POC Glucose (mg/dL) 126 H (75-99) mg/dL Assessment and Plan Assessment: 1. Chest pain. Patient has a known past extensive cardiac history including 12 stents. EKG completed emergency room sinus rhythm right bundle branch. Inferior infarct, age undetermined. Troponins negative 3 sets. Cardiology increased 160 mg daily. Patient is scheduled for heart catheterization this afternoon 2. Shortness of breath. Chest x-ray showing chronic changes no acute cardiopulmonary process. D-dimer elevated at 0.76. Discussed with cardiology service. They will review the echo and make further decisions on treatment 3. Insulin dependent diabetes mellitus. Home medications reordered 4. History of myocardial infarction, coronary artery disease with previous cardiac stents and coronary artery bypass graft. Patient maintained on Plavix 75mg and aspirin 81 mg 5. Essential hypertension. Home medications reordered. Set with parameters due to heart rate in 50s 6. History of GERD 7. History of hyperlipidemia 8. Depression. Continue home medications Cymbalta Prozac and Wellbutrin I performed an examination of the patient and discussed their management with the physician Cabin Supervisor. I have reviewed the Physician Cabin Supervisor's notes and agree with the documented findings and plan of care
[2018-01-28] MEDS ORDERED: LIDOCAINE 1% INJ 10MG/ML (20 ML MDV) ONE (14:17)
[2018-01-28] MEDS ORDERED: MIDAZOLAM 2 MG/2 ML VIAL ONE (14:17)
[2018-01-28] MEDS ORDERED: diphenhydrAMINE 50 MG/ML 1 ML VIAL ONE (14:17)
[2018-01-28] MEDS ORDERED: IV FLUID CONTINUATION 1,000 ML IV ONE (14:56)
[2018-01-28] MEDS ORDERED: MIDAZOLAM 2 MG/2 ML VIAL IVP ONE (15:01)
[2018-01-28] MEDS ORDERED: diphenhydrAMINE 50 MG/ML 1 ML VIAL IVP ONE (15:01)
[2018-01-28] MEDS ORDERED: LIDOCAINE 1% INJ 10MG/ML (20 ML MDV) SQ ONE (15:03)
[2018-01-28] MEDS ORDERED: IOPAMIDOL-370 125ML BTL INJ ONE (15:19)
[2018-01-28] MEDS ORDERED: RX INFO: IV CONTRAST WAS GIVEN 1 EACH MISC MISCELLANE PRN (15:30)
[2018-01-28] MEDS: SODIUM CHLORIDE 0.9% 1,000 ML IV SCH (15:30)
[2018-01-28 17:31] LABS: Glucose,Whole Blood 192 mg/dL (75-99)
[2018-01-28] MEDS: INSULIN NPH/REG INSULIN 70/30 300 UNIT/3 ML VIAL SQ SCH ×2 (17:56→20:27)
[2018-01-28] MEDS: PIOGLITAZONE 30 MG TAB PO SCH (18:00)
[2018-01-28] MEDS: FAMOTIDINE 20 MG TAB PO SCH (20:26)
[2018-01-28] MEDS: ATORVASTATIN 80 MG TAB PO SCH (20:26)
[2018-01-28] MEDS: TOPIRAMATE 100 MG TAB PO SCH (20:27)
[2018-01-28] MEDS: METOPROLOL TARTRATE 12.5 MG TAB PO SCH (20:27)
[2018-01-28 20:36] LABS: Glucose,Whole Blood 222 mg/dL (75-99)
--- NOTE | 2018-01-28 22:28 | CC ---
CARDIAC CATHETERIZATION REPORT DATE OF SERVICE: 01/28/2018 PROCEDURE: Left heart catheterization and coronary angiography. PERFORMED BY: Dr. Ina Jiménez. SEDATION: Moderate conscious sedation time was 21 minutes. Patient was administered Benadryl, Versed and his oxygen saturation, hemodynamics and EKG were monitored closely. CLINICAL INFORMATION: Mr. Raymond is a 67-year-old gentleman history of hypertension, type 2 diabetes and hyperlipidemia and CAD. He underwent multivessel PCI in the past. Several years ago, he had multiple stents placed in the RCA and eventually the RCA occluded. Then he went on to have a single-vessel bypass performed at [facility]. He also had a stenting of circumflex marginal performed several years ago. In October of last year, he had stenting of the RCA graft performed, which was probably the 3rd or 4th time he had stents to this vessel. This was performed in [facility]. Since then, he has been doing well and in June, he presented with chest pain and had a patent vein graft to the RCA. No significant disease in other vessels. He presented to the hospital yesterday with chest pain with a troponin negative, but continued to have pain while he was here in the hospital. He was evaluated by Dr. Krueger and advised coronary angiography. I spoke to the patient regarding the procedure, risks, benefits, and options and he understood all details and wished to proceed with the procedure. PROCEDURE NOTE: Under local anesthesia and strict aseptic precautions, a 6-Gambian introducer was placed in the right femoral artery. Because of scar tissue, I had to use the dilators to advance the sheath. Using standard Shen catheters, I performed coronary angiography in the same right Shen catheter was used to check LV pressure but LV gram was not performed. The sheath was taken out and Angio-Seal device used to secure hemostasis and he was sent to the room in a stable condition. CARDIAC CATHETERIZATION FINDINGS: The left ventricular end-diastolic pressure was 12 mmHg without any gradient across aortic valve. CORONARY ANGIOGRAPHY FINDINGS: RIGHT CORONARY ARTERY : This vessel is totally occluded in the proximal portion without antegrade flow. LEFT MAIN CORONARY ARTERY: This is a short, patent, disease-free vessel that bifurcates into LAD and circumflex. LEFT ANTERIOR DESCENDING CORONARY ARTERY: Good caliber vessel extends along the anterior wall gives off septal and diagonal branches, runs towards the apex, has minor irregularities but no significant disease. The angiographic appearance is unchanged compared to June of this year. LEFT POSTERIOR CIRCUMFLEX CORONARY ARTERY: Technically nondominant vessel gives off a high first obtuse marginal and a second obtuse marginal is noted which has a patent stent within it with good flow and then the circumflex continues in the AV groove, gives off distal smaller branches. There is no significant disease other than minor irregularities in the circumflex system which is a nondominant system. Saphenous vein graft to RCA: This graft is widely patent at its origin, course and insertion site. The graft seems to opacify the PDA branch of RCA. The white earth PDA has minor irregularities but the graft itself is widely patent with multiple stents in it. LV-gram was not performed. FINAL IMPRESSION: This patient has no significant progression of disease in the left system. The stent in the circumflex marginal is patent. LAD has minor irregularities and circumflex has no significant obstructive disease. RCA is totally occluded. The vein graft to RCA is widely patent with good flow and seems to opacify the entire PDA. Filling pressures are normal without any gradient across aortic valve. LV gram was not performed. RECOMMENDATIONS: Findings were reviewed with the patient and . I am recommending continued medical therapy with risk factor modification. Patient can be discharged tomorrow if he remains stable. MMODL / IJN: [id number] /
[2018-01-29] MEDS: MORPHINE SULFATE 2 MG/ML SYRINGE IVP PRN ×3 (01:43→06:20)
[2018-01-29] MEDS: SODIUM CHLORIDE 0.9% 1,000 ML IV SCH (04:54)
[2018-01-29 07:27] LABS: Basophils % (A) 1 %; Eosinophils # (A) 0.4 k/uL (0-0.7); Eosinophils % (A) 6 %; HCT 41.6 % (39.0-53.0); HGB 13.2 gm/dL (13.0-17.5); Lymphocytes # (A) 1.8 k/uL (1.0-4.8); Lymphocytes % (A) 29 %; MCH 29.4 pg (25.0-35.0); MCHC 31.8 g/dL (31.0-37.0); MCV 92.5 fL (80.0-100.0); Mean Platelet Volume 7.3; Monocytes # (A) 0.4 k/uL (0-1.0); Monocytes % (A) 6 %; Neutrophils # (A) 3.5 k/uL (1.3-7.7); Neutrophils % (A) 57 %; Platelet Count 178 k/uL (150-450); RDW 13.9 % (11.5-15.5); WBC 6.2 k/uL (3.8-10.6)
[2018-01-29 07:39] LABS: Potassium 4.5 mmol/L (3.5-5.1); Total Bilirubin 0.3 mg/dL (0.2-1.3); Total Protein 6.8 g/dL (6.3-8.2)
[2018-01-29 07:44] VITALS: BP 139/81; PULSE 55; TEMP 98.4
[2018-01-29 07:47] LABS: Glucose,Whole Blood 114 mg/dL (75-99)
--- NOTE | 2018-01-29 09:11 | P.PN ---
Subjective Progress Note Date: 01/29/18 Principal diagnosis: Unstable angina Patient is admitted to the hospital with unstable angina. Patient had a cardiac catheterization by Dr. RAY Jiménez. No Sigmund progression of the disease is noted. Patient's groin is soft. Patient is being discharged home to Continue home medications except increase the dose of Imdur to 60 mg . Patient to avoid any heavy exertional activities. Follow-up with Dr. RAY Jiménez in one week Objective - Vital Signs Vital signs: Vital Signs Temp 98.4 F 01/29/18 07:43 Pulse 55 L 01/29/18 07:43 Resp 18 01/29/18 07:43 BP 139/81 01/29/18 07:43 Pulse Ox 94 L 01/29/18 07:43 Intake & Output 01/28/18 01/29/18 01/29/18 18:59 06:59 18:59 Intake Total 440 480 Balance 440 480 Intake: IV 200 Oral 240 480 Other: Voiding Method Toilet Toilet # Voids 2 1 # Emeses 1 - Labs CBC & Chem 7: 01/29/18 06:29 01/29/18 06:29 Labs: Abnormal Lab Results - Last 24 Hours (Table) 01/28/18 01/28/18 01/28/18 Range/Units 11:57 17:13 20:09 Glucose (74-99) mg/dL POC Glucose (mg/dL) 126 H 192 H 222 H (75-99) mg/dL 01/29/18 01/29/18 Range/Units 06:29 07:32 Glucose 104 H (74-99) mg/dL POC Glucose (mg/dL) 114 H (75-99) mg/dL Assessment and Plan (1) Chest pain Current Visit: Yes Status: Acute Code(s): R07.9 - CHEST PAIN, UNSPECIFIED SNOMED Code(s): 03703257 (2) Cerebellar stroke syndrome Current Visit: No Status: Acute Code(s): G46.4 - CEREBELLAR STROKE SYNDROME SNOMED Code(s): 667625518 (3) Chronic pain syndrome Current Visit: No Status: Acute Code(s): G89.4 - CHRONIC PAIN SYNDROME SNOMED Code(s): 091266177 (4) Dysmetria Current Visit: No Status: Acute Code(s): R27.8 - OTHER LACK OF COORDINATION SNOMED Code(s): 25358669 Plan: Patient is have follow-up with Dr. RAY Jiménez in one week.
[2018-01-29] MEDS: PRIMIDONE 50 MG TAB PO SCH (10:26)
[2018-01-29] MEDS: METOPROLOL TARTRATE 25 MG TAB PO SCH (10:26)
[2018-01-29] MEDS: ASCORBIC ACID 500 MG TAB PO SCH (10:26)
[2018-01-29] MEDS: FLUoxetine HCL 20 MG CAP PO SCH (10:26)
[2018-01-29] MEDS: PANTOPRAZOLE 40 MG TABLET PO SCH (10:26)
[2018-01-29] MEDS: ALLOPURINOL 100 MG TAB PO SCH (10:27)
[2018-01-29] MEDS: CYCLOBENZAPRINE 5 MG TAB PO SCH (10:27)
[2018-01-29] MEDS: ASPIRIN 81 MG PO SCH (10:27)
[2018-01-29] MEDS: DULoxetine HCL 60 MG CAPSULE.DR PO SCH (10:27)
[2018-01-29] MEDS: CLOPIDOGREL 75 MG TAB PO SCH (10:27)
[2018-01-29] MEDS: PIOGLITAZONE 30 MG TAB PO SCH (10:27)
[2018-01-29] MEDS: GABAPENTIN 400 MG CAP PO SCH (10:27)
[2018-01-29] MEDS: ISOSORBIDE MONONITRATE ER 60 MG TAB.ER.24H PO SCH (10:27)
[2018-01-29] MEDS: buPROPion 100 MG TAB PO SCH (10:28)
--- NOTE | 2018-01-29 10:35 | P.DS ---
Providers Date of admission: 01/28/18 20:06 Expected date of discharge: 01/29/18 Attending physician: Tisha Tang Consults: 01/27/18 13:48 Consult Physician Urgent Consulting Provider: Jose Alfredo Bearden Consult Reason/Comments: cp Do you want consulting provider notified?: Yes Primary care physician: Argentina Garza [facility] Course: Diagnoses on Disharge: 1. Chest pain. Patient has a known past extensive cardiac history including 12 stents. EKG completed emergency room sinus rhythm right bundle branch. Inferior infarct, age undetermined. Troponins negative 3 sets. Cardiology increased 160 mg daily. Patient is scheduled for heart catheterization this afternoon 2. Shortness of breath. Chest x-ray showing chronic changes no acute cardiopulmonary process. D-dimer elevated at 0.76. Discussed with cardiology service. They will review the echo and make further decisions on treatment 3. Insulin dependent diabetes mellitus. Home medications reordered 4. History of myocardial infarction, coronary artery disease with previous cardiac stents and coronary artery bypass graft. Patient maintained on Plavix 75mg and aspirin 81 mg 5. Essential hypertension. Home medications reordered. Set with parameters due to heart rate in 50s 6. History of GERD 7. History of hyperlipidemia 8. Depression. Continue home medications Cymbalta Prozac and Wellbutrin Hospital course: This is a 67-year-old patient of Dr. Garza. Patient presented to the emergency room with complaints of chest pain that has been occurring on and off since last night. Patient has a known past medical history of multiple MIs patient states he has had 12 stents in the past. Patient also has a past medical history of coronary artery bypass, chest pain, diabetes mellitus, GERD, GI bleed, hyperlipidemia, hypertension, musculoskeletal disorder, osteoporosis, skin disorder, sleep apnea, back surgery, hernia repair and depression. EKG completed in emergency room showing normal sinus rhythm with right bundle branch block inferior infarct age undetermined. Initial troponin level negative. Chest x-ray completed showing chronic changes with no acute cardiopulmonary process. Cardiology services have been consulted and serial troponins cardiac enzymes have been ordered. Patient states with the chest pain he also felt short of breath. Will order d-dimer. Patient denies nausea vomiting or diarrhea. Denies urinary frequency or burning. 01/28/2018 patient is still reporting chest pain on the left side of his chest. Pain does worsen with exertion. But he does have chest pain at rest as well. Troponins were negative 3. Cardiology did increase the Imdur to 60 mg daily. Patient still reporting chest pain after medication changes. Cardiology is planning to proceed with heart catheterization today 01/29/2018 patient is alert and oriented 3 in no apparent distress no new episodes of chest pain no shortness of breath patient was seen by cardiology and was cleared for discharge he had cardiac catheterization yesterday which revealed no significant progression of his coronary artery disease no new intervention was recommended or time. Cardiology recommended increase indoor from 30 mg daily to 60 mg daily however patient stated that he was taking 60 mg in a.m. and 30 mg in p.m. this was cleared with cardiology and they recommended increase dose to 60 mg twice daily patient given a prescription for indoor otherwise continue same home medication as prior to admission follow-up with primary care physician and with cardiology within 1 week Patient Condition at Discharge: Serious Plan - Discharge Summary Discharge Rx Participant: Yes New Discharge Prescriptions: Continue Pantoprazole Sodium 40 mg PO DAILY Allopurinol [Zyloprim] 100 mg PO DAILY Topiramate [Topamax] 100 mg PO HS Primidone [Mysoline] 50 mg PO TID Aspirin EC [Ecotrin Low Dose] 81 mg PO DAILY #30 tablet. Isosorbide Mononitrate ER [Imdur] 30 mg PO DAILY Ascorbic Acid [Vitamin C] 1,000 mg PO QAM [place]-3 Fatty Acids/Fish Oil [Fish Oil 1,000 mg Softgel] 1 cap PO DAILY buPROPion [Wellbutrin] 100 mg PO BID Multivitamins, Thera [Multivitamin (formulary)] 1 tab PO DAILY Cyclobenzaprine [Flexeril] 5 mg PO BID Clopidogrel [Plavix] 75 mg PO DAILY Metoprolol Tartrate [Lopressor] 25 mg PO QAM Gabapentin [Neurontin] 400 mg PO QID Insulin NPH Hum/Reg Insulin Hm [NovoLIN 70-30 100 UNIT/ML VIAL] 10 unit SQ DAILY Metoprolol Tartrate [Lopressor] 12.5 mg PO HS Insulin NPH Hum/Reg Insulin Hm [NovoLIN 70-30 100 UNIT/ML VIAL] 26 unit SQ HS Nitroglycerin Sl Tabs [Nitrostat] 0.4 mg SUBLINGUAL Q5M PRN tab PRN Reason: Chest Pain Atorvastatin Calcium [Lipitor] 80 mg PO HS DULoxetine HCL [Cymbalta] 60 mg PO DAILY Famotidine [Pepcid] 20 mg PO HS FLUoxetine HCL [PROzac] 40 mg PO DAILY metFORMIN HCL 1,000 mg PO BID Pioglitazone [Actos] 30 mg PO DAILY HYDROcodone/APAP 10-325MG [[place] 10-325] 1 tab PO TID PRN PRN Reason: Pain Discharge Medication List Allopurinol [Zyloprim] 100 mg PO DAILY 11/07/13 [History] Pantoprazole Sodium 40 mg PO DAILY 11/07/13 [History] Primidone [Mysoline] 50 mg PO TID 11/07/13 [History] Topiramate [Topamax] 100 mg PO HS 11/07/13 [History] Aspirin EC [Ecotrin Low Dose] 81 mg PO DAILY #30 tablet.dr 10/21/15 [Rx] Isosorbide Mononitrate ER [Imdur] 30 mg PO DAILY 01/02/16 [History] Ascorbic Acid [Vitamin C] 1,000 mg PO QAM 05/25/16 [History] [place]-3 Fatty Acids/Fish Oil [Fish Oil 1,000 mg Softgel] 1 cap PO DAILY [History] Clopidogrel [Plavix] 75 mg PO DAILY 10/14/16 [History] Cyclobenzaprine [Flexeril] 5 mg PO BID 10/14/16 [History] Gabapentin [Neurontin] 400 mg PO QID 10/14/16 [History] Metoprolol Tartrate [Lopressor] 25 mg PO QAM 10/14/16 [History] Multivitamins, Thera [Multivitamin (formulary)] 1 tab PO DAILY 10/14/16 [History ] buPROPion [Wellbutrin] 100 mg PO BID 10/14/16 [History] Insulin NPH Hum/Reg Insulin Hm [NovoLIN 70-30 100 UNIT/ML VIAL] 10 unit SQ DAILY 07/12/17 [History] Insulin NPH Hum/Reg Insulin Hm [NovoLIN 70-30 100 UNIT/ML VIAL] 26 unit SQ HS [History] Metoprolol Tartrate [Lopressor] 12.5 mg PO HS 07/12/17 [History] Nitroglycerin Sl Tabs [Nitrostat] 0.4 mg SUBLINGUAL Q5M PRN tab 07/14/17 [Rx] Atorvastatin Calcium [Lipitor] 80 mg PO HS 01/27/18 [History] DULoxetine HCL [Cymbalta] 60 mg PO DAILY 01/27/18 [History] FLUoxetine HCL [PROzac] 40 mg PO DAILY 01/27/18 [History] Famotidine [Pepcid] 20 mg PO HS 01/27/18 [History] HYDROcodone/APAP 10-325MG [[place] 10-325] 1 tab PO TID PRN 01/27/18 [History] Pioglitazone [Actos] 30 mg PO DAILY 01/27/18 [History] metFORMIN HCL 1,000 mg PO BID 01/27/18 [History] Follow up Appointment(s)/Referral(s): Kinsey Jiménez MD [STAFF PHYSICIAN] - 01/31/18 3:30 pm (@ [facility] next to [facility]. ) Argentina Garza DO [Primary Care Provider] - 1-2 days Discharge Disposition: HOME SELF-CARE
[2018-01-29] MEDS: INSULIN NPH/REG INSULIN 70/30 300 UNIT/3 ML VIAL SQ SCH (11:05)
--- NOTE | 2018-01-30 09:39 | ECHOF ---
Referral Reason:cp MEASUREMENTS -------- HEIGHT: 165.1 cm WEIGHT: 104.3 kg BP: RVIDd: 3.9 cm (< 3.3) IVSd: 1.5 cm (0.6 - 1.1) LVIDd: 4.7 cm (3.9 - 5.3) LVPWd: 1.6 cm (0.6 - 1.1) IVSs: 2.0 cm LVIDs: 2.7 cm LVPWs: 1.9 cm Ao Diam: 3.5 cm (2.0 - 3.7) AV Cusp: 2.4 cm (1.5 - 2.6) LA Diam: 3.4 cm (2.7 - 3.8) MV EXCURSION: 21.518 mm (> 18.000) MV EF SLOPE: 89 mm/s (70 - 150) EPSS: 0.2 cm MV E Horace: 0.80 m/s MV DecT: 182 ms MV A Horace: 0.61 m/s MV E/A Ratio: 1.32 FINDINGS -------- Sinus rhythm. This was a technically good study. The left ventricular size is normal. There is moderate concentric left ventricular hypertrophy. O verall left ventricular systolic function is normal with, an EF between 55 - 60 %. There is paradox ical/dysynergic septal motion consistent with post-operative status. The right ventricle is mildly enlarged. The left atrium is normal in size. The right atrium is normal in size. Aortic valve is trileaflet and is mildly thickened. The mitral valve leaflets are mildly thickened. Mild mitral regurgitation is present. Mild tricuspid regurgitation present. The right ventricular systolic pressure, as measured by Doppl er, is {RVSP}. Pulmonic valve appears structurally normal. The aortic root size is normal. Normal inferior vena cava with normal inspiratory collapse consistent with estimated right atrial pre ssure of 5 mmHg. The pericardium is normal. CONCLUSIONS -------- 1. Sinus rhythm. 2. This was a technically good study. 3. The left ventricular size is normal. 4. There is moderate concentric left ventricular hypertrophy. 5. Overall left ventricular systolic function is normal with, an EF between 55 - 60 %. 6. There is paradoxical/dysynergic septal motion consistent with post-operative status. 7. The right ventricle is mildly enlarged. 8. The left atrium is normal in size. 9. The right atrium is normal in size. 10. Aortic valve is trileaflet and is mildly thickened. 11. The mitral valve leaflets are mildly thickened. 12. Mild mitral regurgitation is present. 13. Mild tricuspid regurgitation present. 14. The right ventricular systolic pressure, as measured by Doppler, is {RVSP}. 15. Pulmonic valve appears structurally normal. 16. The aortic root size is normal. 17. Normal inferior vena cava with normal inspiratory collapse consistent with estimated right atrial pressure of 5 mmHg. 18. The pericardium is normal. COMPUTER PERIPHERAL EQUIPMENT OPERATOR: Ivania Lopez RDCS
[2018-01-30] MEDS ORDERED: metFORMIN 500 MG TAB PO SCH (17:30)
== END 2018-01-29 11:25 | disposition home or self-care (01) | DRG 287 ==
LOC: EC 12:11 → 3OBS 13:48 → 3SUR 01-28 18:53 → OBSVTOIN 01-28 20:06 → 3SUR 01-28 23:52
PROVIDERS: ADMIT Internal Medicine; ATTEND Internal Medicine
PROC: B2111ZZ Fluoroscopy of Multiple Coronary Arteries using Low Osmolar Contrast (ICD-10-PCS; 2018-01-28)
PROC: B2131ZZ Fluoroscopy of Multiple Coronary Artery Bypass Grafts using Low Osmolar Contrast (ICD-10-PCS; 2018-01-28)
PROC: 4A023N7 Measurement of Cardiac Sampling and Pressure, Left Heart, Percutaneous Approach (ICD-10-PCS; principal; 2018-01-28 14:05)
DX: R07.9 Chest pain, unspecified (principal); I25.82 Chronic total occlusion of coronary artery; E11.9 Type 2 diabetes mellitus without complications; E78.5 Hyperlipidemia, unspecified; F32.9 Major depressive disorder, single episode, unspecified; G47.33 Obstructive sleep apnea (adult) (pediatric); G89.4 Chronic pain syndrome; I10 Essential (primary) hypertension; I25.2 Old myocardial infarction; I45.10 Unspecified right bundle-branch block; K21.9 Gastro-esophageal reflux disease without esophagitis; M81.0 Age-related osteoporosis without current pathological fracture; L40.9 Psoriasis, unspecified; M10.9 Gout, unspecified; M19.90 Unspecified osteoarthritis, unspecified site; R25.1 Tremor, unspecified; I25.10 Atherosclerotic heart disease of native coronary artery without angina pectoris; Z79.02 Long term (current) use of antithrombotics/antiplatelets; Z79.4 Long term (current) use of insulin; Z79.82 Long term (current) use of aspirin; Z79.899 Other long term (current) drug therapy; Z95.5 Presence of coronary angioplasty implant and graft; Z95.1 Presence of aortocoronary bypass graft; Z87.891 Personal history of nicotine dependence; Z87.11 Personal history of peptic ulcer disease; Z98.1 Arthrodesis status; Z82.49 Family history of ischemic heart disease and other diseases of the circulatory system
CPT/HCPCS: 36415; 71046; 80053; 80061; 82550; 82553; 83735; 84484; 85025; 85379; 85610; 85730; 93005; 93306; 93458; 99285

== ENCOUNTER 2018-04-28 11:20 | Inpatient (IN) | payer MEDICARE ==
[2018-04-28] MEDS ORDERED: MORPHINE SULFATE 4 MG/ML SYRINGE IVP STA (11:29)
[2018-04-28] MEDS ORDERED: NITROGLYCERIN SL TABS 0.4 MG TAB SUBLINGUAL STA (11:29)
--- NOTE | 2018-04-28 11:51 | ED ---
Chest Pain HPI - General Stated Complaint: Chest Pain Time Seen by Provider: 04/28/18 11:20 Source: patient, EMS, RN notes reviewed Mode of arrival: EMS Limitations: no limitations - History of Present Illness Initial Comments: This is a 67-year-old male history of coronary artery bypass many years ago as well as multiple stents who states he had the onset one half hour ago of retrosternal chest pain was initially 6/10 and later went up to 9008. He was given nitroglycerin at home was old EMS gave him 324 aspirin as well as nitro with some improvement. He denies any cough phlegm production fevers chills nausea vomiting sweats or other symptoms. MD Complaint: chest pain - Related Data Home Medications Medication Instructions Recorded Confirmed Allopurinol [Zyloprim] 100 mg PO DAILY 11/07/13 04/28/18 Pantoprazole Sodium 40 mg PO DAILY 11/07/13 04/28/18 Primidone [Mysoline] 50 mg PO TID 11/07/13 04/28/18 Topiramate [Topamax] 100 mg PO HS 11/07/13 04/28/18 Ascorbic Acid [Vitamin C] 1,000 mg PO QAM 05/25/16 04/28/18 [place]-3 Fatty Acids/Fish Oil [Fish 1 cap PO W/SUPPER 05/25/16 04/28/18 Oil 1,000 mg Softgel] Clopidogrel [Plavix] 75 mg PO DAILY 10/14/16 04/28/18 Gabapentin [Neurontin] 400 mg PO QID 10/14/16 04/28/18 Multivitamins, Thera [Multivitamin 1 tab PO DAILY 10/14/16 04/28/18 (formulary)] Insulin NPH Hum/Reg Insulin Hm 10 unit SQ DAILY 07/12/17 04/28/18 [NovoLIN 70-30 100 UNIT/ML VIAL] Insulin NPH Hum/Reg Insulin Hm 26 unit SQ HS 07/12/17 04/28/18 [NovoLIN 70-30 100 UNIT/ML VIAL] Metoprolol Tartrate [Lopressor] 12.5 mg PO BID 07/12/17 04/28/18 Atorvastatin Calcium [Lipitor] 80 mg PO HS 01/27/18 04/28/18 FLUoxetine HCL [PROzac] 40 mg PO DAILY 01/27/18 04/28/18 Famotidine [Pepcid] 20 mg PO HS 01/27/18 04/28/18 Pioglitazone [Actos] 30 mg PO DAILY 01/27/18 04/28/18 metFORMIN HCL 1,000 mg PO BID 01/27/18 04/28/18 Previous Rx's Medication Instructions Recorded Aspirin EC [Ecotrin Low Dose] 81 mg PO DAILY #30 tablet. 10/21/15 Nitroglycerin Sl Tabs [Nitrostat] 0.4 mg SUBLINGUAL Q5M PRN tab 07/14/17 Allergies Allergy/AdvReac Type Severity Reaction Status Date / Time No Known Allergies Allergy Verified 04/28/18 12:11 Review of Systems ROS Statement: Those systems with pertinent positive or pertinent negative responses have been documented in the HPI. ROS Other: All systems not noted in ROS Statement are negative. EKG Findings - EKG Results: EKG: interpreted by OCTAVIO, sinus rhythm (Sinus rhythm of 81 OK interval 138 QRS duration 154 QT since QTC 420/497 right bundle-branch block nonspecific inferior changes this is compared with previous EKG dated 01/27/18 showing summer configuration. This was also compared with the EKG sent by EMS) Past Medical History Past Medical History: Coronary Artery Disease (CAD), Chest Pain / Angina, Diabetes Mellitus, GERD/Reflux, GI Bleed, Hyperlipidemia, Hypertension, Myocardial Infarction ([place]), Musculoskeletal Disorder, Osteoarthritis (OA), Skin Disorder, Sleep Apnea/CPAP/BIPAP Additional Past Medical History / Comment(s): HX OF BACK PROBLEMS. TREMORS RT ARM. SPINAL stenosis of lumbar region with radiculopathy.HIATAL HERNIA,PSORIASIS ,GOUT, uses cpap machine Last Myocardial Infarction Date:: OCTOBER 2015 History of Any Multi-Drug Resistant Organisms: None Reported Past Surgical History: Back Surgery, Coronary Bypass/CABG, Heart Catheterization , Heart Catheterization With Stent, Hernia Repair, Orthopedic Surgery Additional Past Surgical History / Comment(s): REPAIR STOMACH ULCER 10/2012; ORIF LT ANKLE; REPAIR RT 5TH FINGER D/T TRAUMA; PAIN PROC X2; HERNIA SURG X5 - 1 UMB, 1 HIATAL, 3 INGUINAL; CABG X1, 6-2013 had posterior lateral decompression and fusion, transforaminal lumbar interbody fusion L4-L5.LT ROTATOR CUFF REPAIR,EGD/COLONOSCOPY,NERVE BLOCK. 10 cardiac stents placed October 2015 Past Anesthesia/Blood Transfusion Reactions: No Reported Reaction Additional Past Anesthesia/Blood Transfusion Reaction / Comment(s): no blood transfusions before Date of Last Stent Placement:: OCTOBER 2015 Past Psychological History: Depression Smoking Status: Former smoker Past Alcohol Use History: None Reported Past Drug Use History: None Reported - Past Family History Father Additional Family Medical History / Comment(s): BRAIN TUMOR Mother Family Medical History: Myocardial Infarction ([place]) Additional Family Medical History / Comment(s): FROM [place] AGE 70 General Exam - General Exam Comments Initial Comments: This a well-developed molars awake alert oriented 3 male Limitations: no limitations General appearance: alert, in no apparent distress Head exam: Present: atraumatic, normocephalic, normal inspection Eye exam: Present: normal appearance, PERRL, EOMI. Absent: scleral icterus, conjunctival injection, periorbital swelling ENT exam: Present: normal exam, mucous membranes moist Neck exam: Present: normal inspection. Absent: tenderness, meningismus, lymphadenopathy Respiratory exam: Present: normal lung sounds bilaterally. Absent: respiratory distress, wheezes, rales, rhonchi, stridor Cardiovascular Exam: Present: regular rate, normal rhythm, normal heart sounds. Absent: systolic murmur, diastolic murmur, rubs, gallop, clicks GI/Abdominal exam: Present: soft, normal bowel sounds. Absent: distended, tenderness, guarding, rebound, rigid Extremities exam: Present: normal inspection, full ROM, normal capillary refill. Absent: tenderness, pedal edema, joint swelling, calf tenderness Back exam: Present: normal inspection Neurological exam: Present: alert, oriented X3, CN II-XII intact Psychiatric exam: Present: normal affect, normal mood Skin exam: Present: warm, dry, intact, normal color. Absent: rash Course Vital Signs 04/28/18 04/28/18 04/28/18 11:30 11:34 12:17 Temperature 98.6 F 98.7 F Pulse Rate 75 76 71 Respiratory 20 20 16 Rate Blood Pressure 144/76 119/77 136/87 O2 Sat by Pulse 99 96 97 Oximetry 04/28/18 13:40 Temperature Pulse Rate 57 L Respiratory 18 Rate Blood Pressure 129/71 O2 Sat by Pulse 96 Oximetry - Reevaluation(s) Reevaluation #1: 04/28/18 14:35 Reevaluation patient reveals some improvement in his pain. Chest Pain MDM - MDM Imaging was reviewed no acute findings. I did discuss case the patient and with Dr. Tang. Patient will be admitted for evaluation by cardiology. Critical Care Time Critical Care Time: Yes Critical Care Time: 31 minutes of critical care time which includes the discussion with paramedics upon arrival sec to the treatment the patient history physical labs x-rays reevaluation patient several occasions review old charting discussion with the admitting physician admission orders and documentation of the above. Disposition Clinical Impression: Chest pain, Unstable angina Disposition: ADMITTED IP TO THIS HOSP Referrals: Argentina Garza DO [Primary Care Provider] - 1-2 days
--- NOTE | 2018-04-28 12:01 | XR ---
EXAMINATION TYPE: XR chest 2V DATE OF EXAM: 04/28/2018 COMPARISON: 01/27/2018 TECHNIQUE: PA and lateral views submitted. HISTORY: Shortness of breath FINDINGS: The lungs are clear and there is no pneumothorax, pleural effusion, or focal pneumonia. Postoperati ve change and mild cardiomegaly. Correlate for previous coronary stenting. No overt failure. Hypertro phic and degenerative change of the spine. Mild hyperinflation correlate for COPD. IMPRESSION: 1. No acute process.
[2018-04-28 12:19] LABS: Basophils % (A) 0 %; Eosinophils # (A) 0.1 k/uL (0-0.7); Eosinophils % (A) 2 %; HCT 42.2 % (39.0-53.0); HGB 13.3 gm/dL (13.0-17.5); Lymphocytes # (A) 1.2 k/uL (1.0-4.8); Lymphocytes % (A) 20 %; MCH 29.7 pg (25.0-35.0); MCHC 31.6 g/dL (31.0-37.0); MCV 94.1 fL (80.0-100.0); Mean Platelet Volume 7.5; Monocytes # (A) 0.3 k/uL (0-1.0); Monocytes % (A) 4 %; Neutrophils # (A) 4.4 k/uL (1.3-7.7); Neutrophils % (A) 71 %; Platelet Count 179 k/uL (150-450); RBC 4.49 m/uL (4.30-5.90); RDW 13.6 % (11.5-15.5); WBC 6.2 k/uL (3.8-10.6)
[2018-04-28 12:31] LABS: ALT 26 U/L (21-72); AST 22 U/L (17-59); Albumin 4.1 g/dL (3.5-5.0); Alkaline Phosphatase 57 U/L (38-126); Amylase 39 U/L (30-110); Anion Gap 13 mmol/L; Blood Urea Nitrogen 17 mg/dL (9-20); Calcium 9.2 mg/dL (8.4-10.2); Carbon Dioxide 20 mmol/L (22-30); Chloride 105 mmol/L (98-107); Glucose 359 mg/dL (74-99); Lipase 69 U/L (23-300); Magnesium 1.7 mg/dL (1.6-2.3); Potassium 4.7 mmol/L (3.5-5.1); Sodium 138 mmol/L (137-145); Total Bilirubin 0.3 mg/dL (0.2-1.3); Total Protein 6.8 g/dL (6.3-8.2)
[2018-04-28 12:44] LABS: INR 1.1 (<1.2); Partial Thromboplastin Time 24.1 sec (22.0-30.0); Prothrombin Time 10.5 sec (9.0-12.0)
[2018-04-28 12:45] LABS: Creatine Kinase 84 U/L (55-170)
[2018-04-28 12:58] LABS: Creatine Kinase MB 1.5 ng/mL (0.0-2.4); Troponin I <0.012 ng/mL (0.000-0.034)
[2018-04-28] MEDS ORDERED: NITROGLYCERIN SL TABS 0.4 MG TAB SUBLINGUAL PRN (14:07)
--- NOTE | 2018-04-28 14:27 | P.HPIM ---
History of Present Illness H&P Date: 04/28/18 Chief Complaint: Chest pain This is a 67-year-old male, patient [facility]. He has a known past medical history of myocardial infarction, coronary artery disease with CABG and multiple cardiac stents, also history of diabetes, hypertension and depression. Patient reports she had been in his normal state of health. This morning he was moving furniture trying to reach under couch for cat toys. He started having intense chest pain in the left side of his chest was moved to the center of his chest. He took 2 nitro which she felt may have been old without any relief. He then drove to his 's work. And from there EMS was called. Patient reports that his chest pain did reach a 9 out of 10. He was also having some shortness of breath. EMS did give patient aspirin and nitro. He had some improvement in his chest pain. He is concerned because chest pain did feel like his previous heart attacks. Patient also has been having nausea for the past 2 weeks with dry heaves. Patient reports that food does not seem to call cause the symptoms. He is on Protonix for his acid reflux. LFTs amylase and lipase are normal. First troponin is negative. EKG showing normal sinus rhythm with a right bundle branch block. Chest x-ray was negative. Patient was given morphine and nitro in the ER. Cardiology will be consulted. Patient's last heart catheterization was January 2018 at that time per cardiology there is no significant progression of disease in the recommended medical management. Patient denies any cough, fever, chills, sweats, vomiting, bowel movement changes or urinary symptoms. Patient seen and examined in the ER Review of Systems Please refer to HPI otherwise unremarkable Past Medical History Past Medical History: Coronary Artery Disease (CAD), Chest Pain / Angina, Diabetes Mellitus, GERD/Reflux, GI Bleed, Hyperlipidemia, Hypertension, Myocardial Infarction ([place]), Musculoskeletal Disorder, Osteoarthritis ([place]), Skin Disorder, Sleep Apnea/CPAP/BIPAP Additional Past Medical History / Comment(s): HX OF BACK PROBLEMS. TREMORS RT ARM. SPINAL stenosis of lumbar region with radiculopathy.HIATAL HERNIA,PSORIASIS ,GOUT, uses cpap machine Last Myocardial Infarction Date:: OCTOBER 2015 History of Any Multi-Drug Resistant Organisms: None Reported Past Surgical History: Back Surgery, Coronary Bypass/CABG, Heart Catheterization , Heart Catheterization With Stent, Hernia Repair, Orthopedic Surgery Additional Past Surgical History / Comment(s): REPAIR STOMACH ULCER 10/2012; ORIF LT ANKLE; REPAIR RT 5TH FINGER D/T TRAUMA; PAIN PROC X2; HERNIA SURG X5 - 1 UMB, 1 HIATAL, 3 INGUINAL; CABG X1, 6-2013 had posterior lateral decompression and fusion, transforaminal lumbar interbody fusion L4-L5.LT ROTATOR CUFF REPAIR,EGD/COLONOSCOPY,NERVE BLOCK. 10 cardiac stents placed October 2015 Past Anesthesia/Blood Transfusion Reactions: No Reported Reaction Additional Past Anesthesia/Blood Transfusion Reaction / Comment(s): no blood transfusions before Date of Last Stent Placement:: OCTOBER 2015 Past Psychological History: Depression Smoking Status: Former smoker Past Alcohol Use History: None Reported Past Drug Use History: None Reported - Past Family History Father Additional Family Medical History / Comment(s): BRAIN TUMOR Mother Family Medical History: Myocardial Infarction ([place]) Additional Family Medical History / Comment(s): FROM [place] AGE 70 Medications and Allergies Home Medications Medication Instructions Recorded Confirmed Type Allopurinol [Zyloprim] 100 mg PO DAILY 11/07/13 04/28/18 History Pantoprazole Sodium 40 mg PO DAILY 11/07/13 04/28/18 History Primidone [Mysoline] 50 mg PO TID 11/07/13 04/28/18 History Topiramate [Topamax] 100 mg PO HS 11/07/13 04/28/18 History Aspirin EC [Ecotrin Low Dose] 81 mg PO DAILY #30 tablet. 10/21/15 04/28/18 Rx Ascorbic Acid [Vitamin C] 1,000 mg PO QAM 05/25/16 04/28/18 History [place]-3 Fatty Acids/Fish Oil [Fish 1 cap PO W/SUPPER 05/25/16 04/28/18 History Oil 1,000 mg Softgel] Clopidogrel [Plavix] 75 mg PO DAILY 10/14/16 04/28/18 History Gabapentin [Neurontin] 400 mg PO QID 10/14/16 04/28/18 History Multivitamins, Thera [Multivitamin 1 tab PO DAILY 10/14/16 04/28/18 History (formulary)] Insulin NPH Hum/Reg Insulin Hm 10 unit SQ DAILY 07/12/17 04/28/18 History [NovoLIN 70-30 100 UNIT/ML VIAL] Insulin NPH Hum/Reg Insulin Hm 26 unit SQ HS 07/12/17 04/28/18 History [NovoLIN 70-30 100 UNIT/ML VIAL] Metoprolol Tartrate [Lopressor] 12.5 mg PO BID 07/12/17 04/28/18 History Nitroglycerin Sl Tabs [Nitrostat] 0.4 mg SUBLINGUAL Q5M PRN tab 07/14/17 Rx Atorvastatin Calcium [Lipitor] 80 mg PO HS 01/27/18 04/28/18 History FLUoxetine HCL [PROzac] 40 mg PO DAILY 01/27/18 04/28/18 History Famotidine [Pepcid] 20 mg PO HS 01/27/18 04/28/18 History Pioglitazone [Actos] 30 mg PO DAILY 01/27/18 04/28/18 History metFORMIN HCL 1,000 mg PO BID 01/27/18 04/28/18 History Allergies Allergy/AdvReac Type Severity Reaction Status Date / Time No Known Allergies Allergy Verified 04/28/18 12:11 Physical Exam Vitals: Vital Signs Temp Pulse Resp BP Pulse Ox 04/28/18 13:40 57 L 18 129/71 96 04/28/18 12:17 98.7 F 71 16 136/87 97 04/28/18 11:34 76 20 119/77 96 04/28/18 11:30 98.6 F 75 20 144/76 99 Intake and Output 04/27/18 04/28/18 04/28/18 22:59 06:59 14:59 Other: Weight 104.326 kg Head normocephalic Neck supple Lungs clear to auscultation bilaterally no wheezing or crackles Heart regular rate and rhythm S1-S2, no rub or gallop Abdomen is soft nondistended right upper quadrant and epigastric tenderness positive bowel sounds no hepatosplenomegaly Extremities no edema Neuro alert and orientated to 3 Results CBC & Chem 7: 04/28/18 11:35 04/28/18 11:35 Labs: Abnormal Lab Results - Last 24 Hours (Table) 04/28/18 Range/Units 11:35 Carbon Dioxide 20 L (22-30) mmol/L Glucose 359 H (74-99) mg/dL Assessment and Plan Assessment: 1. Chest pain: First set of cardiac enzymes negative. EKG normal sinus rhythm with a right bundle branch block. Consult cardiology service. Continue monitoring serial cardiac enzymes. 2. Diabetes mellitus type 2 with elevated blood sugar 359 on admission. Patient reports taking his insulin at home. He does report eating cereal with banana for breakfast. We'll consult elementary educator for education on diabetes diet. Resume patient's home insulin and Actos. Hold metformin during patient's hospitalization. Add sliding scale coverage. Check A1c 3. Nausea with dry heaves over the last 2 weeks. Check abdominal ultrasound. LFTs and amylase and lipase are normal. Continue Protonix 4. History of myocardial infarction, coronary artery disease, CABG and multiple cardiac stents 5. Essential hypertension 6. Hyperlipidemia 7. GERD 8. Depression GI prophylaxis Protonix and DVT prophylaxis subcu heparin Time with Patient: Greater than 30 (Greater than 60% of the total time spent in counseling and coordination of care.I performed an examination of the patient and discussed their management with the physician Olive Grader. I have reviewed the Physician Olive Grader's notes and agree with the documented findings and plan of care)
--- NOTE | 2018-04-28 15:50 | US ---
EXAMINATION TYPE: US abdomen complete DATE OF EXAM: 04/28/2018 COMPARISON: NONE CLINICAL HISTORY: nausea, abdominal pain. EXAM MEASUREMENTS: Liver Length: 16.4 cm Gallbladder Wall: 0.2 cm CBD: 0.3 cm Spleen: 12.3 cm Right Kidney: 9.3 x 6.0 x 4.7 cm Left Kidney: 9.3 x 5.0 x 4.5 cm Patient of large body habitus with large abdomen and extensive overlying bowel gas. Technically diffi cult, limited study. Pancreas: Obscured by bowel gas Liver: very limited visualization Gallbladder: wnl Evidence for sonographic De Los Santos's sign: No CBD: wnl Spleen: wnl Right Kidney: Inferior pole obscured by bowel gas Left Kidney: wnl Upper IVC: wnl Abd Aorta: Obscured by overlying bowel gas The liver is homogenous. The intrahepatic portion of the IVC and proximal abdominal aorta are within normal limits. There is no evidence of cholelithiasis. Common bile duct is unremarkable. The visu alized portions of the pancreas are homogenous. The spleen is unremarkable. Kidneys are symmetric a nd free of hydronephrosis. No renal lesions are seen. IMPRESSION: No distinct abnormality seen.
[2018-04-28 18:22] VITALS: BMI 38.2
[2018-04-28 18:27] LABS: Creatine Kinase 81 U/L (55-170)
[2018-04-28 18:40] LABS: Creatine Kinase MB 1.5 ng/mL (0.0-2.4); Troponin I <0.012 ng/mL (0.000-0.034)
[2018-04-28] MEDS: FISH OIL 1000MG PO SCH (18:50)
[2018-04-28] MEDS: GABAPENTIN 400 MG CAP PO SCH ×2 (18:52→23:02)
[2018-04-28] MEDS: INSULIN ASPART 100 UNIT/ML 1 ML 10 ML VIAL SQ SCH ×2 (18:59→21:15)
[2018-04-28 19:00] LABS: Glucose,Whole Blood 311 mg/dL (75-99)
[2018-04-28 20:38] LABS: Glucose,Whole Blood 212 mg/dL (75-99)
[2018-04-28] MEDS: MORPHINE SULFATE 2 MG/ML SYRINGE IVP PRN (21:11)
[2018-04-28] MEDS: PRIMIDONE 50 MG TAB PO SCH ×2 (21:14→22:58)
[2018-04-28] MEDS: ATORVASTATIN 80 MG TAB PO SCH (21:14)
[2018-04-28] MEDS: FAMOTIDINE 20 MG TAB PO SCH (21:14)
[2018-04-28] MEDS: HEPARIN SODIUM,PORCINE 5,000 UNIT/ML 1 ML VIAL SQ SCH (21:15)
[2018-04-28] MEDS: METOPROLOL TARTRATE 12.5 MG TAB PO SCH (21:19)
[2018-04-28] MEDS ORDERED: diphenhydrAMINE 50 MG/ML 1 ML VIAL IVP STA (21:47)
[2018-04-28] MEDS: TOPIRAMATE 100 MG TAB PO SCH (23:02)
[2018-04-28] MEDS: NITROGLYCERIN SL TABS 0.4 MG TAB SUBLINGUAL PRN ×2 (23:03→23:10)
[2018-04-29] MEDS: INSULN ASP PRT/INSULIN ASPART 100 UNIT/ML 10 ML VIAL SQ SCH ×3 (00:15→20:37)
[2018-04-29] MEDS: MORPHINE SULFATE 2 MG/ML SYRINGE IVP PRN ×5 (00:15→23:12)
[2018-04-29 00:41] LABS: Creatine Kinase 85 U/L (55-170)
[2018-04-29 00:55] LABS: Creatine Kinase MB 1.4 ng/mL (0.0-2.4); Troponin I <0.012 ng/mL (0.000-0.034)
[2018-04-29 03:16] LABS: Hemoglobin A1C 8.7 % (4.0-6.0)
[2018-04-29 06:45] LABS: Glucose,Whole Blood 139 mg/dL (75-99)
[2018-04-29 07:47] LABS: Basophils % (A) 0 %; Eosinophils # (A) 0.3 k/uL (0-0.7); Eosinophils % (A) 5 %; HCT 41.8 % (39.0-53.0); HGB 13.4 gm/dL (13.0-17.5); Lymphocytes # (A) 1.6 k/uL (1.0-4.8); Lymphocytes % (A) 29 %; MCH 29.9 pg (25.0-35.0); MCHC 32.1 g/dL (31.0-37.0); MCV 93.1 fL (80.0-100.0); Mean Platelet Volume 7.6; Monocytes # (A) 0.4 k/uL (0-1.0); Monocytes % (A) 6 %; Neutrophils # (A) 3.3 k/uL (1.3-7.7); Neutrophils % (A) 58 %; Platelet Count 173 k/uL (150-450); RBC 4.49 m/uL (4.30-5.90); RDW 13.5 % (11.5-15.5); WBC 5.7 k/uL (3.8-10.6)
[2018-04-29 07:56] LABS: Calcium 8.8 mg/dL (8.4-10.2); Potassium 4.3 mmol/L (3.5-5.1); Total Bilirubin 0.3 mg/dL (0.2-1.3); Total Protein 6.8 g/dL (6.3-8.2)
[2018-04-29] MEDS ORDERED: ASPIRIN 325 MG TAB PO SCH (09:00)
[2018-04-29] MEDS: METOPROLOL TARTRATE 12.5 MG TAB PO SCH ×2 (09:42→19:31)
[2018-04-29] MEDS: ASCORBIC ACID 500 MG TAB PO SCH (09:42)
[2018-04-29] MEDS: FLUoxetine HCL 20 MG CAP PO SCH (09:42)
[2018-04-29] MEDS: CLOPIDOGREL 75 MG TAB PO SCH (09:42)
[2018-04-29] MEDS: PIOGLITAZONE 30 MG TAB PO SCH (09:42)
[2018-04-29] MEDS: ISOSORBIDE MONONITRATE ER 60 MG TAB.ER.24H PO SCH (09:43)
[2018-04-29] MEDS: ALLOPURINOL 100 MG TAB PO SCH (09:43)
[2018-04-29] MEDS: PANTOPRAZOLE 40 MG TABLET PO SCH (09:43)
[2018-04-29] MEDS: GABAPENTIN 400 MG CAP PO SCH ×4 (09:43→20:36)
[2018-04-29] MEDS: MULTIVITAMINS, THERA 1 EACH TAB PO SCH (09:43)
[2018-04-29] MEDS: ASPIRIN 81 MG PO SCH (09:43)
[2018-04-29] MEDS: INSULIN ASPART 100 UNIT/ML 1 ML 10 ML VIAL SQ SCH ×4 (09:44→20:36)
[2018-04-29] MEDS: HEPARIN SODIUM,PORCINE 5,000 UNIT/ML 1 ML VIAL SQ SCH ×2 (09:44→19:31)
[2018-04-29] MEDS ORDERED: RANOLAZINE 500 MG TAB.ER.12H PO SCH (09:45)
--- NOTE | 2018-04-29 10:07 | ECHOF ---
Referral Reason: MEASUREMENTS -------- HEIGHT: 165.1 cm WEIGHT: 104.8 kg BP: 127/71 RVIDd: 3.7 cm (< 3.3) IVSd: 1.1 cm (0.6 - 1.1) LVIDd: 4.7 cm (3.9 - 5.3) LVPWd: 1.1 cm (0.6 - 1.1) IVSs: 2.0 cm LVIDs: 3.1 cm LVPWs: 2.0 cm LA Diam: 4.3 cm (2.7 - 3.8) LAESV Index (A-L): 27.74 ml/m Ao Diam: 4.3 cm (2.0 - 3.7) AV Cusp: 2.3 cm (1.5 - 2.6) MV EXCURSION: 17.701 mm (> 18.000) MV EF SLOPE: 108 mm/s (70 - 150) EPSS: 0.5 cm MV E Horace: 0.77 m/s MV DecT: 217 ms MV A Horace: 0.82 m/s MV E/A Ratio: 0.94 RAP: 5.00 mmHg RVSP: 16.77 mmHg FINDINGS -------- Sinus rhythm. This was a technically adequate study. The left ventricular size is normal. There is borderline concentric left ventricular hypertrophy. Overall left ventricular systolic function is low-normal with, an EF between 50 - 55 %. The right ventricle is mildly enlarged. Normal LA size by volume 22+/-6 ml/m2. The right atrium is normal in size. The aortic valve is trileaflet and appears structurally normal. The mitral valve leaflets are mildly thickened. Mild mitral annular calcification present. Trace tricuspid regurgitation present. Right ventricular systolic pressure is normal at < 35 mmHg. Trace/mild (physiologic) pulmonic regurgitation. The aortic root is dilated measuring 4.3cm. IVC Not well visulized. There is no pericardial effusion. CONCLUSIONS -------- 1. Sinus rhythm. 2. This was a technically adequate study. 3. The left ventricular size is normal. 4. There is borderline concentric left ventricular hypertrophy. 5. Overall left ventricular systolic function is low-normal with, an EF between 50 - 55 %. 6. The right ventricle is mildly enlarged. 7. Normal LA size by volume 22+/-6 ml/m2. 8. The right atrium is normal in size. 9. The aortic valve is trileaflet and appears structurally normal. 10. The mitral valve leaflets are mildly thickened. 11. Mild mitral annular calcification present. 12. Trace tricuspid regurgitation present. 13. Right ventricular systolic pressure is normal at < 35 mmHg. 14. Trace/mild (physiologic) pulmonic regurgitation. 15. The aortic root is dilated measuring 4.3cm. 16. IVC Not well visulized. 17. There is no pericardial effusion. BIOCHEMISTRY PROFESSOR: Robyn Ramirez RDCS
--- NOTE | 2018-04-29 11:11 | P.CRDCN ---
History of Present Illness History of present illness: This is a pleasant 67-year-old male past medical history significant for coronary artery disease s/p bypass grafting with SVG-RCA, hypertension, dyslipidemia, sleep apnea, gastroesophageal reflux disease, diabetes mellitus and former nicotine dependence. He follows with Dr. Jiménez in the office. We have been asked to see him in consultation for chest pain. He states yesterday while he was up moving around the house he was complaining of heavy pressure in the left precordial region with radiation to the right anterior chest wall. He denies radiation to the arm, back, neck or jaw. He denies shortness of breath, dizziness, palpitations, nausea, vomiting or diaphoresis. He attempted to take a nitorlgycerin at that time and achieved no relief of his pain. He decided to go see his at work because he was concerned. She called EMS and he was brought in for evaluation. This has been going off and on intermittently for the last few weeks however he can typically achieve relief with SL nitroglycerin. He also has had intermittent nausea with dry heaves over the last few weeks but none yesterday. He has continued to feel chest discomfort through the night and is currently experiencing mild pain. He continues to deny associated symptoms or radiation of the pain. Most recently in January 2018 he underwent cardiac catheterization that revealed RCA totally occluded in the proximal portion with no antegrade flow, LAD short disease-free with minor irregularities, unchanged from catheterization performed in June 2017, circumflex artery gives off a high first OM and a second OM with a patent stent as well as no significant disease with a 9 year irregularities within the circumflex system, SVG to RCA is widely patent through the multiple stents throughout. EKG reveals sinus mechanism with incomplete right bundle branch block. No acute ST or T wave abnormalities noted. Chest x-ray reveals minimal strand-like right basilar subsegmental atelectasis. Laboratory data reviewed, hemoglobin 13.4, 3TC 5.7, platelets 173, sodium 141, potassium 4.3, creatinine 1.05, magnesium 1.7, cardiac enzymes negative 3, LDL 55, NT proBNP 97. Current cardiac medications include metoprolol 12.5 mg twice a day, Plavix 75 mg daily, aspirin 81 mg daily, atorvastatin 80 mg daily, , Imdur 120 mg daily. He states his primary care physician increased his Imdur from 6220 mg one week ago. Echocardiogram obtained reveals preserved left ventricular systolic function with ejection fraction 50-55%. At the time of my exam: CONSTITUTIONAL: Denies fever. Denies chills. EYES: Denies blurred vision. Denies vision changes. Denies eye pain. EARS, NOSE, MOUTH & THROAT: Denies headache. Denies sore throat. Denies ear pain. CARDIOVASCULAR: Denies chest pain. Denies shortness of breath. Denies orthopnea. Denies PND. Denies palpitations. RESPIRATORY: Denies cough. GASTROINTESTINAL: Denies abdominal pain. Denies diarrhea. Denies constipation. Denies nausea. Denies vomiting. MUSCULOSKELETAL: Denies myalgias. INTEGUMENTARY: Denies pruitis. Denies rash. NEUROLOGIC: Denies numbness. Denies tingling. Denies weakness. PSYCHIATRIC: Denies anxiety. Denies depression. ENDOCRINE: Denies fatigue. Denies weight change. Denies polydipsia. Denies polyurina. GENITOURINARY: Denies burning, hematuria or urgency with micturation. HEMATOLOGIC: Denies history of anemia. Denies bleeding. Blood pressure 149/79 heart rate 66 afebrile maintaining oxygen saturation on room air GENERAL: This is a 67-year-old male in no apparent distress at the time of my examination. Obese. HEENT: Head is atraumatic, normocephalic. Pupils are equal, round. Sclerae anicteric. Conjunctivae are clear. Mucous membranes of the mouth are moist. Neck is supple. There is no jugular venous distention. No carotid bruit is heard. LUNGS: Clear to auscultation no wheezes, rales or rhonchi. No chest wall tenderness is noted on palpation or with deep breathing. HEART: Regular rate and rhythm without murmurs, rubs or gallops. S1 and S2 heard. ABDOMEN: Soft, nontender. Bowel sounds are heard. No organomegaly noted. EXTREMITIES: No evidence of peripheral edema and no calf tenderness noted. VASCULAR: Radial and dorsalis pedis pulses palpated, no evidence of clubbing. NEUROLOGIC: Patient is awake, alert and oriented x3. ASSESSMENT Chronic stable angina, recent catheterization revealing no progression of coronary artery disease History of coronary artery disease s/p single vessel bypass grafting Hypertension Dyslipdiemia Diabetes mellitus GERD PLAN An acute coronary event has been ruled out with no EKG evidence of ischemia and negative cardiac enzymes. Obtain 2D echocardiogram and doppler study to assess cardiac structure and function. Add Ranexa 500mg BID to his daily regimen, first dose now. There is a contraindication with primidone and ranexa. Patient states he takes this for a tremor in his right hand for the last few years. However he continues to have the tremor and states the mediations has never seemed to achieve relief. We will recommend he stop the primidone prior to starting the ranexa. This has been discussed with MIRELA Kumar for Dr. Tang. We will await their recommendations. Increase activity and ambulation in the halls. Thank you kindly for this consultation. Nurse Practitioner note has been reviewed, I agree with a documented findings and plan of care. Patient was seen and examined. Past Medical History Past Medical History: Coronary Artery Disease (CAD), Chest Pain / Angina, Diabetes Mellitus, GERD/Reflux, GI Bleed, Hyperlipidemia, Hypertension, Myocardial Infarction (PR), Musculoskeletal Disorder, Osteoarthritis (OA), Skin Disorder, Sleep Apnea/CPAP/BIPAP Additional Past Medical History / Comment(s): HX OF BACK PROBLEMS. TREMORS RT ARM. SPINAL stenosis of lumbar region with radiculopathy.HIATAL HERNIA,PSORIASIS ,GOUT, uses cpap machine Last Myocardial Infarction Date:: OCTOBER 2015 History of Any Multi-Drug Resistant Organisms: None Reported Past Surgical History: Back Surgery, Coronary Bypass/CABG, Heart Catheterization , Heart Catheterization With Stent, Hernia Repair, Orthopedic Surgery Additional Past Surgical History / Comment(s): REPAIR STOMACH ULCER 10/2012; ORIF LT ANKLE; REPAIR RT 5TH FINGER D/T TRAUMA; PAIN PROC X2; HERNIA SURG X5 - 1 UMB, 1 HIATAL, 3 INGUINAL; CABG X1, 6-2013 had posterior lateral decompression and fusion, transforaminal lumbar interbody fusion L4-L5.LT ROTATOR CUFF REPAIR,EGD/COLONOSCOPY,NERVE BLOCK. 10 cardiac stents placed October 2015 Past Anesthesia/Blood Transfusion Reactions: No Reported Reaction Additional Past Anesthesia/Blood Transfusion Reaction / Comment(s): no blood transfusions before Date of Last Stent Placement:: OCTOBER 2015 Smoking Status: Former smoker - Past Family History Father Additional Family Medical History / Comment(s): BRAIN TUMOR Mother Family Medical History: Myocardial Infarction (PR) Additional Family Medical History / Comment(s): FROM [place] AGE 70 Medications and Allergies Home Medications Medication Instructions Recorded Confirmed Type Allopurinol [Zyloprim] 100 mg PO DAILY 11/07/13 04/28/18 History Pantoprazole Sodium 40 mg PO DAILY 11/07/13 04/28/18 History Topiramate [Topamax] 100 mg PO HS 11/07/13 04/28/18 History Aspirin EC [Ecotrin Low Dose] 81 mg PO DAILY #30 tablet. 10/21/15 04/28/18 Rx Ascorbic Acid [Vitamin C] 1,000 mg PO QAM 05/25/16 04/28/18 History Riva-3 Fatty Acids/Fish Oil [Fish 1 cap PO W/SUPPER 05/25/16 04/28/18 History Oil 1,000 mg Softgel] Clopidogrel [Plavix] 75 mg PO DAILY 10/14/16 04/28/18 History Gabapentin [Neurontin] 400 mg PO QID 10/14/16 04/28/18 History Multivitamins, Thera [Multivitamin 1 tab PO DAILY 10/14/16 04/28/18 History (formulary)] Insulin NPH Hum/Reg Insulin Hm 10 unit SQ DAILY 07/12/17 04/28/18 History [NovoLIN 70-30 100 UNIT/ML VIAL] Insulin NPH Hum/Reg Insulin Hm 26 unit SQ HS 07/12/17 04/28/18 History [NovoLIN 70-30 100 UNIT/ML VIAL] Metoprolol Tartrate [Lopressor] 12.5 mg PO BID 07/12/17 04/28/18 History Nitroglycerin Sl Tabs [Nitrostat] 0.4 mg SUBLINGUAL Q5M PRN tab 07/14/17 Rx Atorvastatin Calcium [Lipitor] 80 mg PO HS 01/27/18 04/28/18 History FLUoxetine HCL [PROzac] 40 mg PO DAILY 01/27/18 04/28/18 History Famotidine [Pepcid] 20 mg PO HS 01/27/18 04/28/18 History Pioglitazone [Actos] 30 mg PO DAILY 01/27/18 04/28/18 History metFORMIN HCL 1,000 mg PO BID 01/27/18 04/28/18 History Allergies Allergy/AdvReac Type Severity Reaction Status Date / Time No Known Allergies Allergy Verified 04/28/18 12:11 Physical Exam Vitals: Vital Signs Temp Pulse Pulse Resp BP BP Pulse Ox 04/29/18 04:00 98.3 F 69 16 127/71 96 04/29/18 00:00 18 04/28/18 23:14 64 129/69 04/28/18 23:09 66 135/70 04/28/18 23:00 71 150/75 04/28/18 20:00 18 04/28/18 19:48 98.0 F 61 18 148/74 96 04/28/18 18:02 57 L 18 157/86 97 04/28/18 18:00 97.9 F 74 20 178/68 92 L 04/28/18 16:17 97.8 F 63 16 154/91 97 04/28/18 14:45 55 L 18 118/65 96 04/28/18 13:40 57 L 18 129/71 96 04/28/18 12:17 98.7 F 71 16 136/87 97 04/28/18 11:34 76 20 119/77 96 04/28/18 11:30 98.6 F 75 20 144/76 99 Intake and Output 04/28/18 04/29/18 04/29/18 22:59 06:59 14:59 Other: # Voids 2 Weight 104.326 kg 105.2 kg Results 04/29/18 07:08 04/29/18 07:08 Cardiac Enzymes 04/28/18 04/28/18 04/28/18 Range/Units 11:35 11:35 17:50 AST 22 (17-59) U/L CK-MB (CK-2) 1.5 1.5 (0.0-2.4) ng/mL Troponin I <0.012 <0.012 (0.000-0.034) ng/mL 04/28/18 04/29/18 Range/Units 23:46 07:08 AST 22 (17-59) U/L CK-MB (CK-2) 1.4 (0.0-2.4) ng/mL Troponin I <0.012 (0.000-0.034) ng/mL Coagulation 04/28/18 Range/Units 11:35 PT 10.5 (9.0-12.0) sec APTT 24.1 (22.0-30.0) sec Lipids 04/29/18 Range/Units 07:08 Triglycerides 92 (<150) mg/dL Cholesterol 120 (<200) mg/dL HDL Cholesterol 47 (40-60) mg/dL CBC 04/28/18 04/29/18 Range/Units 11:35 07:08 WBC 6.2 5.7 (3.8-10.6) k/uL RBC 4.49 4.49 (4.30-5.90) m/uL Hgb 13.3 13.4 (13.0-17.5) gm/dL Hct 42.2 41.8 (39.0-53.0) % Plt Count 179 173 (150-450) k/uL Comprehensive Metabolic Panel 04/28/18 04/29/18 Range/Units 11:35 07:08 Sodium 138 141 (137-145) mmol/L Potassium 4.7 4.3 (3.5-5.1) mmol/L Chloride 105 105 (98-107) mmol/L Carbon Dioxide 20 L 29 (22-30) mmol/L BUN 17 14 (9-20) mg/dL Creatinine 0.83 1.05 (0.66-1.25) mg/dL Glucose 359 H 135 H (74-99) mg/dL Calcium 9.2 8.8 (8.4-10.2) mg/dL AST 22 22 (17-59) U/L ALT 26 31 (21-72) U/L Alkaline Phosphatase 57 54 (38-126) U/L Total Protein 6.8 6.8 (6.3-8.2) g/dL Albumin 4.1 4.0 (3.5-5.0) g/dL Current Medications Generic Name Dose Route Start Last Admin Trade Name Freq PRN Reason Stop Dose Admin Allopurinol 100 mg 04/29/18 09:00 Zyloprim PO DAILY [facility] Ascorbic Acid 1,000 mg 04/29/18 09:00 Vitamin C PO QAM [facility] Aspirin 81 mg 04/29/18 09:00 Aspirin PO DAILY [facility] Atorvastatin Calcium 80 mg 04/28/18 21:00 04/28/18 21:14 Lipitor PO 80 mg HS SANDY Administration Clopidogrel Bisulfate 75 mg 04/29/18 09:00 Plavix PO DAILY [facility] Famotidine 20 mg 04/28/18 21:00 04/28/18 21:14 Pepcid PO 20 mg HS SANDY Administration Fluoxetine HCl 40 mg 04/29/18 09:00 Prozac PO DAILY [facility] Gabapentin 400 mg 04/28/18 18:00 04/28/18 23:02 Neurontin PO 400 mg QID [facility] Administration Heparin Sodium (Porcine) 5,000 unit 04/28/18 21:00 04/28/18 21:15 Heparin SQ 5,000 unit Q12HR SANDY Administration Insulin Aspart 0 unit 04/28/18 17:30 04/28/18 21:15 Novolog SQ 4 unit ACHS [facility] Administration Protocol Insulin Aspart 10 unit 04/29/18 07:30 Novolog Mix 70-30 Vial SQ [id number] [facility] Insulin Aspart 26 unit 04/28/18 21:00 04/29/18 00:15 Novolog Mix 70-30 Vial SQ 26 unit HS [facility] Administration Metoprolol Tartrate 12.5 mg 04/28/18 21:00 04/28/18 21:19 Lopressor PO 12.5 mg BID SANDY Administration Morphine Sulfate 2 mg 04/28/18 21:01 04/29/18 06:30 Morphine Sulfate (Inj) IVP 2 mg Q4HR PRN Administration Pain Multivitamins 1 each 04/29/18 09:00 Theragran PO DAILY [facility] Nitroglycerin 0.4 mg 04/28/18 14:38 04/28/18 23:10 Nitrostat SUBLINGUAL 0.4 mg Q5M PRN Administration Chest Pain Fish Oil 1000mg 1 cap 04/28/18 17:30 04/28/18 18:50 PO Not Given W/SUPPER [facility] Pantoprazole Sodium 40 mg 04/29/18 07:30 Protonix PO AC-KT [facility] Pioglitazone HCl 30 mg 04/29/18 09:00 Actos PO DAILY [facility] Primidone 50 mg 04/28/18 16:00 04/28/18 22:58 Mysoline PO Not Given TID [facility] Topiramate 100 mg 04/28/18 21:00 04/28/18 23:02 Topamax PO 100 mg HS [facility] Administration Intake and Output 04/28/18 04/29/18 04/29/18 22:59 06:59 14:59 Other: # Voids 2 Weight 104.326 kg 105.2 kg 04/29/18 07:08 04/29/18 07:08
[2018-04-29] MEDS: NITROGLYCERIN SL TABS 0.4 MG TAB SUBLINGUAL PRN ×3 (11:36→21:47)
[2018-04-29 11:38] LABS: Glucose,Whole Blood 285 mg/dL (75-99)
--- NOTE | 2018-04-29 12:28 | P.PN ---
Subjective Progress Note Date: 04/29/18 This is a 67-year-old male, patient [facility]. He has a known past medical history of myocardial infarction, coronary artery disease with CABG and multiple cardiac stents, also history of diabetes, hypertension and depression. Patient reports she had been in his normal state of health. This morning he was moving furniture trying to reach under couch for cat toys. He started having intense chest pain in the left side of his chest was moved to the center of his chest. He took 2 nitro which she felt may have been old without any relief. He then drove to his 's work. And from there EMS was called. Patient reports that his chest pain did reach a 9 out of 10. He was also having some shortness of breath. EMS did give patient aspirin and nitro. He had some improvement in his chest pain. He is concerned because chest pain did feel like his previous heart attacks. Patient also has been having nausea for the past 2 weeks with dry heaves. Patient reports that food does not seem to call cause the symptoms. He is on Protonix for his acid reflux. LFTs amylase and lipase are normal. First troponin is negative. EKG showing normal sinus rhythm with a right bundle branch block. Chest x-ray was negative. Patient was given morphine and nitro in the ER. Cardiology will be consulted. Patient's last heart catheterization was January 2018 at that time per cardiology there is no significant progression of disease in the recommended medical management. Patient denies any cough, fever, chills, sweats, vomiting, bowel movement changes or urinary symptoms. Patient seen and examined in the ER 04/29/2018 patient is still having episodes of chest pain in the center of his chest. He had another episode of chest pain this morning with walking in the hallway. Nursing staff to administer nitro. Patient did have some improvement with the chest pains. Cardiology is following patient closely. They've ordered a 2-D echo. Again, he had a recent heart catheterization which had shown no significant progression of disease. Cardiology would like to try Ranexa. It does interact with the primidone. Patient takes the Provigil for his fine tremors in his hands. Reports that he's been on it for a few years without any improvement. At this time agree with discontinuing the primidone and try Ranexa for patient's angina-type chest pain. Troponins were negative 3 sets. Patient has had no further nausea or dry heaves. Abdominal ultrasound was negative. Objective - Vital Signs Vital signs: Vital Signs Temp 97.9 F 04/29/18 08:00 Pulse 69 04/29/18 08:00 Resp 16 04/29/18 08:00 BP 149/79 04/29/18 08:00 Pulse Ox 97 04/29/18 08:00 Intake & Output 04/28/18 04/29/18 04/29/18 18:59 06:59 18:59 Weight 104.326 kg 105.2 kg Other: # Voids 2 - Exam Head normocephalic Neck supple Lungs clear to auscultation bilaterally no wheezing or crackles Heart regular rate and rhythm S1-S2, no rub or gallop Abdomen is soft mild epigastric right upper quadrant tenderness nondistended positive bowel sounds no hepatosplenomegaly Extremities no edema Neuro alert and orientated to 3 - Labs CBC & Chem 7: 04/29/18 07:08 04/29/18 07:08 Labs: Abnormal Lab Results - Last 24 Hours (Table) 04/28/18 04/28/18 04/28/18 Range/Units 11:35 17:50 18:57 Carbon Dioxide 20 L (22-30) mmol/L Glucose 359 H (74-99) mg/dL POC Glucose (mg/dL) 311 H (75-99) mg/dL Hemoglobin A1c 8.7 H (4.0-6.0) % 04/28/18 04/29/18 04/29/18 Range/Units 20:30 06:38 07:08 Carbon Dioxide (22-30) mmol/L Glucose 135 H (74-99) mg/dL POC Glucose (mg/dL) 212 H 139 H (75-99) mg/dL Hemoglobin A1c (4.0-6.0) % 04/29/18 Range/Units 11:36 Carbon Dioxide (22-30) mmol/L Glucose (74-99) mg/dL POC Glucose (mg/dL) 285 H (75-99) mg/dL Hemoglobin A1c (4.0-6.0) % Assessment and Plan Assessment: 1. Chronic stable angina: Cardiac enzymes negative 3. EKG normal sinus rhythm with a right bundle branch block. Consult cardiology service. Cardiology has added Ranexa. They're recommending to monitor patient for another 24 hours. Ranexa interacts with the primidone. At this time it is okay to discontinue the primidone and start Lovenox. Echo pending. 2. Diabetes mellitus type 2 with elevated blood sugar 359 on admission. Patient reports taking his insulin at home. He does report eating cereal with banana for breakfast. We'll consult elementary educator for education on diabetes diet. Resume patient's home insulin and Actos. Hold metformin during patient's hospitalization. Add sliding scale coverage. A1c 8.7. Blood sugars showing improvement. Blood pressure is morning 135. Continue to monitor 3. Nausea with dry heaves over the last 2 weeks. Abdominal ultrasound negative. LFTs and amylase and lipase are normal. Continue Protonix 4. History of myocardial infarction, coronary artery disease, CABG and multiple cardiac stents 5. Essential hypertension 6. Hyperlipidemia 7. GERD 8. Depression GI prophylaxis Protonix and DVT prophylaxis subcu heparin I performed an examination of the patient and discussed their management with the physician Matrix Plater. I have reviewed the Physician Matrix Plater's notes and agree with the documented findings and plan of care
[2018-04-29] MEDS: RANOLAZINE 500 MG TAB.ER.12H PO SCH ×2 (14:27→19:31)
[2018-04-29 17:15] LABS: Glucose,Whole Blood 134 mg/dL (75-99)
[2018-04-29] MEDS: FISH OIL 1000MG PO SCH (17:20)
[2018-04-29] MEDS: FAMOTIDINE 20 MG TAB PO SCH (19:31)
[2018-04-29] MEDS: ATORVASTATIN 80 MG TAB PO SCH (19:39)
[2018-04-29 20:33] LABS: Glucose,Whole Blood 225 mg/dL (75-99)
[2018-04-29] MEDS: TOPIRAMATE 100 MG TAB PO SCH (20:36)
[2018-04-29] MEDS ORDERED: ACETAMINOPHEN TAB 325 MG TAB PO STA (21:47)
[2018-04-30] MEDS: MORPHINE SULFATE 2 MG/ML SYRINGE IVP PRN ×6 (03:27→23:39)
[2018-04-30 06:49] LABS: Glucose,Whole Blood 145 mg/dL (75-99)
[2018-04-30] MEDS: INSULN ASP PRT/INSULIN ASPART 100 UNIT/ML 10 ML VIAL SQ SCH ×2 (08:13→20:28)
[2018-04-30] MEDS: PANTOPRAZOLE 40 MG TABLET PO SCH (08:13)
[2018-04-30] MEDS: INSULIN ASPART 100 UNIT/ML 1 ML 10 ML VIAL SQ SCH ×4 (08:14→20:27)
[2018-04-30 08:23] LABS: Basophils % (A) 0 %; Eosinophils # (A) 0.3 k/uL (0-0.7); Eosinophils % (A) 4 %; HCT 43.9 % (39.0-53.0); HGB 14.3 gm/dL (13.0-17.5); Lymphocytes # (A) 1.6 k/uL (1.0-4.8); Lymphocytes % (A) 25 %; MCH 30.4 pg (25.0-35.0); MCHC 32.6 g/dL (31.0-37.0); MCV 93.4 fL (80.0-100.0); Mean Platelet Volume 7.4; Monocytes # (A) 0.4 k/uL (0-1.0); Monocytes % (A) 6 %; Neutrophils % (A) 62 %; Platelet Count 174 k/uL (150-450); RDW 13.6 % (11.5-15.5); WBC 6.5 k/uL (3.8-10.6)
[2018-04-30 08:51] LABS: Albumin 4.1 g/dL (3.5-5.0); Calcium 9.3 mg/dL (8.4-10.2); Potassium 4.9 mmol/L (3.5-5.1); Total Bilirubin 0.2 mg/dL (0.2-1.3); Total Protein 7.1 g/dL (6.3-8.2)
[2018-04-30] MEDS: ASCORBIC ACID 500 MG TAB PO SCH (10:17)
[2018-04-30] MEDS: CLOPIDOGREL 75 MG TAB PO SCH (10:18)
[2018-04-30] MEDS: ASPIRIN 81 MG PO SCH (10:18)
[2018-04-30] MEDS: FLUoxetine HCL 20 MG CAP PO SCH (10:18)
[2018-04-30] MEDS: METOPROLOL TARTRATE 12.5 MG TAB PO SCH ×2 (10:19→20:28)
[2018-04-30] MEDS: HEPARIN SODIUM,PORCINE 5,000 UNIT/ML 1 ML VIAL SQ SCH ×2 (10:19→20:29)
[2018-04-30] MEDS: GABAPENTIN 400 MG CAP PO SCH ×4 (10:19→20:28)
[2018-04-30] MEDS: MULTIVITAMINS, THERA 1 EACH TAB PO SCH (10:19)
[2018-04-30] MEDS: PIOGLITAZONE 30 MG TAB PO SCH (10:19)
[2018-04-30] MEDS: ISOSORBIDE MONONITRATE ER 60 MG TAB.ER.24H PO SCH (10:19)
[2018-04-30] MEDS: RANOLAZINE 500 MG TAB.ER.12H PO SCH ×2 (10:20→20:28)
[2018-04-30] MEDS: ALLOPURINOL 100 MG TAB PO SCH (10:24)
[2018-04-30 11:58] LABS: Glucose,Whole Blood 233 mg/dL (75-99)
--- NOTE | 2018-04-30 12:54 | P.PN ---
Subjective Progress Note Date: 04/30/18 This is a 67-year-old male, patient [facility]. He has a known past medical history of myocardial infarction, coronary artery disease with CABG and multiple cardiac stents, also history of diabetes, hypertension and depression. Patient reports she had been in his normal state of health. This morning he was moving furniture trying to reach under couch for cat toys. He started having intense chest pain in the left side of his chest was moved to the center of his chest. He took 2 nitro which she felt may have been old without any relief. He then drove to his 's work. And from there EMS was called. Patient reports that his chest pain did reach a 9 out of 10. He was also having some shortness of breath. EMS did give patient aspirin and nitro. He had some improvement in his chest pain. He is concerned because chest pain did feel like his previous heart attacks. Patient also has been having nausea for the past 2 weeks with dry heaves. Patient reports that food does not seem to call cause the symptoms. He is on Protonix for his acid reflux. LFTs amylase and lipase are normal. First troponin is negative. EKG showing normal sinus rhythm with a right bundle branch block. Chest x-ray was negative. Patient was given morphine and nitro in the ER. Cardiology will be consulted. Patient's last heart catheterization was January 2018 at that time per cardiology there is no significant progression of disease in the recommended medical management. Patient denies any cough, fever, chills, sweats, vomiting, bowel movement changes or urinary symptoms. Patient seen and examined in the ER 04/29/2018 patient is still having episodes of chest pain in the center of his chest. He had another episode of chest pain this morning with walking in the hallway. Nursing staff to administer nitro. Patient did have some improvement with the chest pains. Cardiology is following patient closely. They've ordered a 2-D echo. Again, he had a recent heart catheterization which had shown no significant progression of disease. Cardiology would like to try Ranexa. It does interact with the primidone. Patient takes the Provigil for his fine tremors in his hands. Reports that he's been on it for a few years without any improvement. At this time agree with discontinuing the primidone and try Ranexa for patient's angina-type chest pain. Troponins were negative 3 sets. Patient has had no further nausea or dry heaves. Abdominal ultrasound was negative. On 04/30/2018 patient is alert and oriented 3 in no apparent distress he is still having episodes of chest pain he was evaluated by cardiology as this morning, otherwise he denies any complaints there is no fever or chills no headache or dizziness no chest pain no shortness of breath no nausea or vomiting no abdominal pain no diarrhea and no urinary symptoms. Objective - Vital Signs Vital signs: Vital Signs Temp 98.3 F 04/30/18 12:00 Pulse 64 04/30/18 12:00 Resp 18 04/30/18 12:00 BP 163/91 04/30/18 12:00 Pulse Ox 98 04/30/18 12:00 Intake & Output 04/29/18 04/30/18 04/30/18 18:59 06:59 18:59 Intake Total 600 Balance 600 Intake: Oral 600 Other: Voiding Method Toilet # Voids 2 - Exam Head normocephalic and atraumatic Neck supple no JVD no goiter Lungs clear to auscultation bilaterally no wheezing or crackles Heart regular rate and rhythm S1-S2, no rub or gallop Abdomen is soft mild epigastric right upper quadrant tenderness nondistended positive bowel sounds no hepatosplenomegaly Extremities no edema no cyanosis or clubbing Neuro alert and orientated to 3 no gross focal deficit - Labs CBC & Chem 7: 04/30/18 07:26 04/30/18 07:26 Labs: Abnormal Lab Results - Last 24 Hours (Table) 04/29/18 04/29/18 04/30/18 Range/Units 16:56 20:32 06:48 Glucose (74-99) mg/dL POC Glucose (mg/dL) 134 H 225 H 145 H (75-99) mg/dL 04/30/18 04/30/18 Range/Units 07:26 11:57 Glucose 193 H (74-99) mg/dL POC Glucose (mg/dL) 233 H (75-99) mg/dL Assessment and Plan Plan: 1. Chronic stable angina: Cardiac enzymes negative 3. EKG normal sinus rhythm with a right bundle branch block. Consult cardiology service. Cardiology has added Ranexa. They're recommending to monitor patient for another 24 hours. Ranexa interacts with the primidone. At this time it is okay to discontinue the primidone and start Lovenox. Echo pending. Patient is still having episodes of chest pain case was discussed with cardiology on 04/30/2018 plan at this time is to increase his Ranexa dose and monitor for 24 more hours 2. Diabetes mellitus type 2 with elevated blood sugar 359 on admission. Patient reports taking his insulin at home. He does report eating cereal with banana for breakfast. We'll consult diesel service apprentice for education on diabetes diet. Resume patient's home insulin and Actos. Hold metformin during patient's hospitalization. Add sliding scale coverage. A1c 8.7. Blood sugars showing improvement. Blood pressure is morning 135. Continue to monitor 3. Nausea with dry heaves over the last 2 weeks. Abdominal ultrasound negative. LFTs and amylase and lipase are normal. Continue Protonix 4. History of myocardial infarction, coronary artery disease, CABG and multiple cardiac stents 5. Essential hypertension 6. Hyperlipidemia 7. GERD 8. Depression GI prophylaxis Protonix and DVT prophylaxis subcu heparin
--- NOTE | 2018-04-30 15:44 | P.PN ---
Subjective This is a pleasant 67-year-old male past medical history significant for coronary artery disease s/p bypass grafting with SVG-RCA, hypertension, dyslipidemia, sleep apnea, gastroesophageal reflux disease, diabetes mellitus and former nicotine dependence. He follows with Dr. Jiménez in the office. We have been asked to see him in consultation for chest pain. He states yesterday while he was up moving around the house he was complaining of heavy pressure in the left precordial region with radiation to the right anterior chest wall. He denies radiation to the arm, back, neck or jaw. He denies shortness of breath, dizziness, palpitations, nausea, vomiting or diaphoresis. He attempted to take a nitorlgycerin at that time and achieved no relief of his pain. He decided to go see his at work because he was concerned. She called EMS and he was brought in for evaluation. This has been going off and on intermittently for the last few weeks however he can typically achieve relief with SL nitroglycerin. He also has had intermittent nausea with dry heaves over the last few weeks but none yesterday. He has continued to feel chest discomfort through the night and is currently experiencing mild pain. He continues to deny associated symptoms or radiation of the pain. Most recently in January 2018 he underwent cardiac catheterization that revealed RCA totally occluded in the proximal portion with no antegrade flow, LAD short disease-free with minor irregularities, unchanged from catheterization performed in June 2017, circumflex artery gives off a high first OM and a second OM with a patent stent as well as no significant disease with a 9 year irregularities within the circumflex system, SVG to RCA is widely patent through the multiple stents throughout. EKG reveals sinus mechanism with incomplete right bundle branch block. No acute ST or T wave abnormalities noted. Chest x-ray reveals minimal strand-like right basilar subsegmental atelectasis. Laboratory data reviewed, hemoglobin 13.4, 3TC 5.7, platelets 173, sodium 141, potassium 4.3, creatinine 1.05, magnesium 1.7, cardiac enzymes negative 3, LDL 55, NT proBNP 97. Current cardiac medications include metoprolol 12.5 mg twice a day, Plavix 75 mg daily, aspirin 81 mg daily, atorvastatin 80 mg daily, , Imdur 120 mg daily. He states his primary care physician increased his Imdur from 6220 mg one week ago. Echocardiogram obtained reveals preserved left ventricular systolic function with ejection fraction 50-55%. 04/30/2017 He continues to have symptoms of chest discomfort. He states last night while he was laying in bed he started feeling a heavy pressure sensation in his chest with radiation to the left shoulder. He was given sublingual nitroglycerin per nursing staff and the symptoms went away. He states that episode lasted approximately 20 minutes. Again this morning while sitting in the chair he started feeling chest discomfort at rest. Blood pressure 163/91 heart rate 64 afebrile maintaining oxygen saturation on room air. GENERAL: This is a 67-year-old male in no apparent distress at the time of my examination. Obese. HEENT: Head is atraumatic, normocephalic. Pupils are equal, round. Sclerae anicteric. Conjunctivae are clear. Mucous membranes of the mouth are moist. Neck is supple. There is no jugular venous distention. No carotid bruit is heard. LUNGS: Clear to auscultation no wheezes, rales or rhonchi. No chest wall tenderness is noted on palpation or with deep breathing. HEART: Regular rate and rhythm without murmurs, rubs or gallops. S1 and S2 heard. EXTREMITIES: No evidence of peripheral edema and no calf tenderness noted. ASSESSMENT Chronic stable angina, recent catheterization revealing no progression of coronary artery disease History of coronary artery disease s/p single vessel bypass grafting Hypertension Dyslipdiemia Diabetes mellitus GERD PLAN Increase ranexa to 1,000 mg BID. Continue to monitor and make recommendations accordingly. Increase activity and ambulation in the halls. Nurse Practitioner note has been reviewed, I agree with a documented findings and plan of care. Patient was seen and examined. Objective - Vital Signs Vital signs: Vital Signs Temp 98.3 F 04/30/18 12:00 Pulse 64 04/30/18 12:00 Resp 18 04/30/18 12:00 BP 163/91 04/30/18 12:00 Pulse Ox 98 04/30/18 12:00 Intake & Output 04/29/18 04/30/18 04/30/18 18:59 06:59 18:59 Intake Total 600 Balance 600 Intake: Oral 600 Other: Voiding Method Toilet # Voids 2 - Labs CBC & Chem 7: 04/30/18 07:26 04/30/18 07:26 Labs: Abnormal Lab Results - Last 24 Hours (Table) 04/29/18 04/29/18 04/30/18 Range/Units 16:56 20:32 06:48 Glucose (74-99) mg/dL POC Glucose (mg/dL) 134 H 225 H 145 H (75-99) mg/dL 04/30/18 04/30/18 Range/Units 07:26 11:57 Glucose 193 H (74-99) mg/dL POC Glucose (mg/dL) 233 H (75-99) mg/dL
[2018-04-30 16:35] LABS: Glucose,Whole Blood 260 mg/dL (75-99)
[2018-04-30] MEDS: FISH OIL 1000MG PO SCH (17:03)
[2018-04-30] MEDS ORDERED: HYDROCORTISONE 1% CREAM 30 GM TUBE TOPICAL PRN (19:24)
[2018-04-30] MEDS: TOPIRAMATE 100 MG TAB PO SCH (20:28)
[2018-04-30] MEDS: FAMOTIDINE 20 MG TAB PO SCH (20:29)
[2018-04-30] MEDS: ATORVASTATIN 80 MG TAB PO SCH (20:29)
[2018-04-30 20:32] LABS: Glucose,Whole Blood 183 mg/dL (75-99)
[2018-04-30] MEDS: NITROGLYCERIN SL TABS 0.4 MG TAB SUBLINGUAL PRN ×2 (22:04→22:09)
[2018-04-30] MEDS ORDERED: ACETAMINOPHEN TAB 325 MG TAB PO STA (22:14)
[2018-05-01] MEDS: MORPHINE SULFATE 2 MG/ML SYRINGE IVP PRN ×2 (03:35→08:04)
[2018-05-01 04:09] VITALS: RESP 16
[2018-05-01 06:37] LABS: Glucose,Whole Blood 205 mg/dL (75-99)
[2018-05-01 07:47] LABS: Basophils % (A) 0 %; Eosinophils # (A) 0.2 k/uL (0-0.7); Eosinophils % (A) 4 %; HCT 44.9 % (39.0-53.0); HGB 14.2 gm/dL (13.0-17.5); Lymphocytes # (A) 1.5 k/uL (1.0-4.8); Lymphocytes % (A) 27 %; MCH 29.5 pg (25.0-35.0); MCHC 31.6 g/dL (31.0-37.0); MCV 93.4 fL (80.0-100.0); Mean Platelet Volume 7.4; Monocytes # (A) 0.3 k/uL (0-1.0); Monocytes % (A) 5 %; Neutrophils # (A) 3.4 k/uL (1.3-7.7); Neutrophils % (A) 62 %; Platelet Count 189 k/uL (150-450); RBC 4.81 m/uL (4.30-5.90); RDW 13.6 % (11.5-15.5); WBC 5.5 k/uL (3.8-10.6)
[2018-05-01] MEDS: ISOSORBIDE MONONITRATE ER 60 MG TAB.ER.24H PO SCH (07:55)
[2018-05-01] MEDS: ASPIRIN 81 MG PO SCH (07:56)
[2018-05-01] MEDS: RANOLAZINE 500 MG TAB.ER.12H PO SCH (07:56)
[2018-05-01] MEDS: MULTIVITAMINS, THERA 1 EACH TAB PO SCH (07:56)
[2018-05-01] MEDS: CLOPIDOGREL 75 MG TAB PO SCH (07:56)
[2018-05-01] MEDS: PIOGLITAZONE 30 MG TAB PO SCH (07:56)
[2018-05-01] MEDS: FLUoxetine HCL 20 MG CAP PO SCH (07:56)
[2018-05-01] MEDS: METOPROLOL TARTRATE 12.5 MG TAB PO SCH (07:56)
[2018-05-01] MEDS: GABAPENTIN 400 MG CAP PO SCH (07:56)
[2018-05-01] MEDS: PANTOPRAZOLE 40 MG TABLET PO SCH (07:56)
[2018-05-01] MEDS: INSULIN ASPART 100 UNIT/ML 1 ML 10 ML VIAL SQ SCH (07:57)
[2018-05-01] MEDS: ASCORBIC ACID 500 MG TAB PO SCH (07:57)
[2018-05-01] MEDS: ALLOPURINOL 100 MG TAB PO SCH (07:57)
[2018-05-01] MEDS: HEPARIN SODIUM,PORCINE 5,000 UNIT/ML 1 ML VIAL SQ SCH (07:57)
[2018-05-01 08:08] VITALS: BP 125/79; PULSE 69; TEMP 98.8
[2018-05-01 08:13] LABS: Calcium 9.2 mg/dL (8.4-10.2); Potassium 4.9 mmol/L (3.5-5.1); Total Bilirubin 0.3 mg/dL (0.2-1.3)
--- NOTE | 2018-05-01 08:29 | P.PN ---
Subjective Progress Note Date: 05/01/18 This is a 67-year-old male, patient [facility]. He has a known past medical history of myocardial infarction, coronary artery disease with CABG and multiple cardiac stents, also history of diabetes, hypertension and depression. Patient reports she had been in his normal state of health. This morning he was moving furniture trying to reach under couch for cat toys. He started having intense chest pain in the left side of his chest was moved to the center of his chest. He took 2 nitro which she felt may have been old without any relief. He then drove to his 's work. And from there EMS was called. Patient reports that his chest pain did reach a 9 out of 10. He was also having some shortness of breath. EMS did give patient aspirin and nitro. He had some improvement in his chest pain. He is concerned because chest pain did feel like his previous heart attacks. Patient also has been having nausea for the past 2 weeks with dry heaves. Patient reports that food does not seem to call cause the symptoms. He is on Protonix for his acid reflux. LFTs amylase and lipase are normal. First troponin is negative. EKG showing normal sinus rhythm with a right bundle branch block. Chest x-ray was negative. Patient was given morphine and nitro in the ER. Cardiology will be consulted. Patient's last heart catheterization was January 2018 at that time per cardiology there is no significant progression of disease in the recommended medical management. Patient denies any cough, fever, chills, sweats, vomiting, bowel movement changes or urinary symptoms. Patient seen and examined in the ER 04/29/2018 patient is still having episodes of chest pain in the center of his chest. He had another episode of chest pain this morning with walking in the hallway. Nursing staff to administer nitro. Patient did have some improvement with the chest pains. Cardiology is following patient closely. They've ordered a 2-D echo. Again, he had a recent heart catheterization which had shown no significant progression of disease. Cardiology would like to try Ranexa. It does interact with the primidone. Patient takes the Provigil for his fine tremors in his hands. Reports that he's been on it for a few years without any improvement. At this time agree with discontinuing the primidone and try Ranexa for patient's angina-type chest pain. Troponins were negative 3 sets. Patient has had no further nausea or dry heaves. Abdominal ultrasound was negative. On 04/30/2018 patient is alert and oriented 3 in no apparent distress he is still having episodes of chest pain he was evaluated by cardiology as this morning, otherwise he denies any complaints there is no fever or chills no headache or dizziness no chest pain no shortness of breath no nausea or vomiting no abdominal pain no diarrhea and no urinary symptoms. On 05/01/2018 patient is alert and oriented 3 currently sitting up in chair. Reports that he is still having chest pain but is starting to ease up. Cardiology has increased his Ranexa and advised patient to increase activity. At this time patient denies nausea vomiting or diarrhea. Patient denies any urinary burning frequency Objective - Vital Signs Vital signs: Vital Signs Temp 98.8 F 05/01/18 08:00 Pulse 69 05/01/18 08:00 Resp 16 05/01/18 08:00 BP 125/79 05/01/18 08:00 Pulse Ox 96 05/01/18 08:00 Intake & Output 04/30/18 05/01/18 05/01/18 18:59 06:59 18:59 Other: Voiding Method Toilet # Voids 1 - Exam Head normocephalic and atraumatic Neck supple no JVD no goiter Lungs clear to auscultation bilaterally no wheezing or crackles Heart regular rate and rhythm S1-S2, no rub or gallop Abdomen is soft mild epigastric right upper quadrant tenderness nondistended positive bowel sounds no hepatosplenomegaly Extremities no edema no cyanosis or clubbing Neuro alert and orientated to 3 no gross focal deficit - Labs CBC & Chem 7: 05/01/18 06:44 05/01/18 06:44 Labs: Abnormal Lab Results - Last 24 Hours (Table) 04/30/18 04/30/18 04/30/18 Range/Units 07:26 11:57 16:34 Carbon Dioxide (22-30) mmol/L Glucose 193 H (74-99) mg/dL POC Glucose (mg/dL) 233 H 260 H (75-99) mg/dL 04/30/18 05/01/18 05/01/18 Range/Units 20:23 06:36 06:44 Carbon Dioxide 31 H (22-30) mmol/L Glucose 211 H (74-99) mg/dL POC Glucose (mg/dL) 183 H 205 H (75-99) mg/dL Assessment and Plan Assessment: 1. Chronic stable angina: Cardiac enzymes negative 3. EKG normal sinus rhythm with a right bundle branch block. Consult cardiology service. Cardiology has added Ranexa. They're recommending to monitor patient for another 24 hours. Ranexa interacts with the primidone. At this time it is okay to discontinue the primidone and start Lovenox. Echo pending. Patient is still having episodes of chest pain case was discussed with cardiology on 04/30/2018 plan at this time is to increase his Ranexa dose and monitor for 24 more hours 2. Diabetes mellitus type 2 with elevated blood sugar 359 on admission. Patient reports taking his insulin at home. He does report eating cereal with banana for breakfast. We'll consult certified lactation educator for education on diabetes diet. Resume patient's home insulin and Actos. Hold metformin during patient's hospitalization. Add sliding scale coverage. A1c 8.7. Blood sugars showing improvement. Blood pressure is morning 135. Continue to monitor 3. Nausea with dry heaves over the last 2 weeks. Abdominal ultrasound negative. LFTs and amylase and lipase are normal. Continue Protonix 4. History of myocardial infarction, coronary artery disease, CABG and multiple cardiac stents 5. Essential hypertension 6. Hyperlipidemia 7. GERD 8. Depression GI prophylaxis Protonix and DVT prophylaxis subcu heparin I performed an examination of the patient and discussed their management with the Nurse Practitioner. I have reviewed the Nurse Practitioner's notes and agree with the documented findings and plan of care
--- NOTE | 2018-05-01 09:42 | P.DS ---
Providers Date of admission: 04/30/18 14:37 Expected date of discharge: 05/01/18 Attending physician: Tisha Tang Consults: 04/28/18 14:05 Consult Physician Routine Consulting Provider: Yeni Raygoza Consult Reason/Comments: chest pain Do you want consulting provider notified?: Yes Primary care physician: [place] [facility] Course: Discharge diagnosis 1. Chronic stable angina: Cardiac enzymes negative 3. EKG normal sinus rhythm with a right bundle branch block. Consult cardiology service. Cardiology has added Ranexa. They're recommending to monitor patient for another 24 hours. Ranexa interacts with the primidone. At this time it is okay to discontinue the primidone and start Lovenox. 2-D echo completed showing EF of 50-55%. Discussed case cardiology services patient has been cleared for discharge. Patient will be DC'd on Ranexa thousand milligrams every 12 hours and Imdur 120 daily. 2. Diabetes mellitus type 2 with elevated blood sugar 359 on admission. Patient reports taking his insulin at home. He does report eating cereal with banana for breakfast. We'll consult telehealth nurse educator for education on diabetes diet. Resume patient's home insulin and Actos. Hold metformin during patient's hospitalization. Add sliding scale coverage. A1c 8.7. Blood sugars showing improvement. Blood pressure is morning 135. Continue to monitor 3. Nausea with dry heaves over the last 2 weeks. Abdominal ultrasound negative. LFTs and amylase and lipase are normal. Continue Protonix 4. History of myocardial infarction, coronary artery disease, CABG and multiple cardiac stents 5. Essential hypertension 6. Hyperlipidemia 7. GERD 8. Depression Hospital Course This is a 67-year-old male, patient [facility]. He has a known past medical history of myocardial infarction, coronary artery disease with CABG and multiple cardiac stents, also history of diabetes, hypertension and depression. Patient reports she had been in his normal state of health. This morning he was moving furniture trying to reach under couch for cat toys. He started having intense chest pain in the left side of his chest was moved to the center of his chest. He took 2 nitro which she felt may have been old without any relief. He then drove to his 's work. And from there EMS was called. Patient reports that his chest pain did reach a 9 out of 10. He was also having some shortness of breath. EMS did give patient aspirin and nitro. He had some improvement in his chest pain. He is concerned because chest pain did feel like his previous heart attacks. Patient also has been having nausea for the past 2 weeks with dry heaves. Patient reports that food does not seem to call cause the symptoms. He is on Protonix for his acid reflux. LFTs amylase and lipase are normal. First troponin is negative. EKG showing normal sinus rhythm with a right bundle branch block. Chest x-ray was negative. Patient was given morphine and nitro in the ER. Cardiology will be consulted. Patient's last heart catheterization was January 2018 at that time per cardiology there is no significant progression of disease in the recommended medical management. Patient denies any cough, fever, chills, sweats, vomiting, bowel movement changes or urinary symptoms. Patient seen and examined in the ER 04/29/2018 patient is still having episodes of chest pain in the center of his chest. He had another episode of chest pain this morning with walking in the hallway. Nursing staff to administer nitro. Patient did have some improvement with the chest pains. Cardiology is following patient closely. They've ordered a 2-D echo. Again, he had a recent heart catheterization which had shown no significant progression of disease. Cardiology would like to try Ranexa. It does interact with the primidone. Patient takes the Provigil for his fine tremors in his hands. Reports that he's been on it for a few years without any improvement. At this time agree with discontinuing the primidone and try Ranexa for patient's angina-type chest pain. Troponins were negative 3 sets. Patient has had no further nausea or dry heaves. Abdominal ultrasound was negative. On 04/30/2018 patient is alert and oriented 3 in no apparent distress he is still having episodes of chest pain he was evaluated by cardiology as this morning, otherwise he denies any complaints there is no fever or chills no headache or dizziness no chest pain no shortness of breath no nausea or vomiting no abdominal pain no diarrhea and no urinary symptoms. On 05/01/2018 patient is alert and oriented 3 currently sitting up in chair. Patient has been cleared for discharge from cardiology standpoint. Patient will be DC'd home on Ranexa and Imdur. I performed an examination of the patient and discussed their management with the Nurse Practitioner. I have reviewed the Nurse Practitioner's notes and agree with the documented findings and plan of care Patient Condition at Discharge: Stable Plan - Discharge Summary Discharge Rx Participant: No New Discharge Prescriptions: New Hydrocortisone Cream [Hydrocortisone 1% Cream] 1 applic TOPICAL BID PRN applic PRN Reason: Skin Irritation Isosorbide Mononitrate ER [Imdur] 120 mg PO DAILY tab.er.24h Ranolazine [Ranexa] 1,000 mg PO Q12HR tab.er.12h Continue Pantoprazole Sodium 40 mg PO DAILY Allopurinol [Zyloprim] 100 mg PO DAILY Topiramate [Topamax] 100 mg PO HS Aspirin EC [Ecotrin Low Dose] 81 mg PO DAILY #30 tablet. Ascorbic Acid [Vitamin C] 1,000 mg PO QAM Elmo-3 Fatty Acids/Fish Oil [Fish Oil 1,000 mg Softgel] 1 cap PO W/SUPPER Multivitamins, Thera [Multivitamin (formulary)] 1 tab PO DAILY Clopidogrel [Plavix] 75 mg PO DAILY Gabapentin [Neurontin] 400 mg PO QID Insulin NPH Hum/Reg Insulin Hm [NovoLIN 70-30 100 UNIT/ML VIAL] 10 unit SQ DAILY Metoprolol Tartrate [Lopressor] 12.5 mg PO BID Insulin NPH Hum/Reg Insulin Hm [NovoLIN 70-30 100 UNIT/ML VIAL] 26 unit SQ HS Nitroglycerin Sl Tabs [Nitrostat] 0.4 mg SUBLINGUAL Q5M PRN tab PRN Reason: Chest Pain Atorvastatin Calcium [Lipitor] 80 mg PO HS Famotidine [Pepcid] 20 mg PO HS FLUoxetine HCL [PROzac] 40 mg PO DAILY metFORMIN HCL 1,000 mg PO BID Pioglitazone [Actos] 30 mg PO DAILY Discontinued Primidone [Mysoline] 50 mg PO TID Discharge Medication List Allopurinol [Zyloprim] 100 mg PO DAILY 11/07/13 [History] Pantoprazole Sodium 40 mg PO DAILY 11/07/13 [History] Topiramate [Topamax] 100 mg PO HS 11/07/13 [History] Aspirin EC [Ecotrin Low Dose] 81 mg PO DAILY #30 tablet. 10/21/15 [Rx] Ascorbic Acid [Vitamin C] 1,000 mg PO QAM 05/25/16 [History] Elmo-3 Fatty Acids/Fish Oil [Fish Oil 1,000 mg Softgel] 1 cap PO W/SUPPER 05/25 [History] Clopidogrel [Plavix] 75 mg PO DAILY 10/14/16 [History] Gabapentin [Neurontin] 400 mg PO QID 10/14/16 [History] Multivitamins, Thera [Multivitamin (formulary)] 1 tab PO DAILY 10/14/16 [History ] Insulin NPH Hum/Reg Insulin Hm [NovoLIN 70-30 100 UNIT/ML VIAL] 10 unit SQ DAILY 07/12/17 [History] Insulin NPH Hum/Reg Insulin Hm [NovoLIN 70-30 100 UNIT/ML VIAL] 26 unit SQ HS [History] Metoprolol Tartrate [Lopressor] 12.5 mg PO BID 07/12/17 [History] Nitroglycerin Sl Tabs [Nitrostat] 0.4 mg SUBLINGUAL Q5M PRN tab 07/14/17 [Rx] Atorvastatin Calcium [Lipitor] 80 mg PO HS 01/27/18 [History] FLUoxetine HCL [PROzac] 40 mg PO DAILY 01/27/18 [History] Famotidine [Pepcid] 20 mg PO HS 01/27/18 [History] Pioglitazone [Actos] 30 mg PO DAILY 01/27/18 [History] metFORMIN HCL 1,000 mg PO BID 01/27/18 [History] Hydrocortisone Cream [Hydrocortisone 1% Cream] 1 applic TOPICAL BID PRN applic 05/01/18 [Rx] Isosorbide Mononitrate ER [Imdur] 120 mg PO DAILY tab.er.24h 05/01/18 [Rx] Ranolazine [Ranexa] 1,000 mg PO Q12HR tab.er.12h 05/01/18 [Rx] Follow up Appointment(s)/Referral(s): [place] Garza DO [Primary Care Provider] - 1-2 days
[2018-05-01] MEDS: INSULN ASP PRT/INSULIN ASPART 100 UNIT/ML 10 ML VIAL SQ SCH (10:22)
== END 2018-05-01 10:24 | disposition home or self-care (01) | DRG 303 ==
LOC: EC 11:20 → 1SOBS 14:40 → OBSVTOIN 04-30 14:37
PROVIDERS: ADMIT Internal Medicine; ATTEND Internal Medicine
DX: I25.118 Atherosclerotic heart disease of native coronary artery with other forms of angina pectoris (principal); E11.65 Type 2 diabetes mellitus with hyperglycemia; E66.9 Obesity, unspecified; E78.5 Hyperlipidemia, unspecified; F32.9 Major depressive disorder, single episode, unspecified; G47.30 Sleep apnea, unspecified; I10 Essential (primary) hypertension; I25.2 Old myocardial infarction; I25.82 Chronic total occlusion of coronary artery; I45.10 Unspecified right bundle-branch block; K21.9 Gastro-esophageal reflux disease without esophagitis; K44.9 Diaphragmatic hernia without obstruction or gangrene; L40.9 Psoriasis, unspecified; M10.9 Gout, unspecified; M19.90 Unspecified osteoarthritis, unspecified site; R25.1 Tremor, unspecified; M48.061 Spinal stenosis, lumbar region without neurogenic claudication; M54.16 Radiculopathy, lumbar region; R11.0 Nausea; Z79.02 Long term (current) use of antithrombotics/antiplatelets; Z79.4 Long term (current) use of insulin; Z79.82 Long term (current) use of aspirin; Z79.899 Other long term (current) drug therapy; Z87.891 Personal history of nicotine dependence; Z95.5 Presence of coronary angioplasty implant and graft; Z95.1 Presence of aortocoronary bypass graft; Z87.11 Personal history of peptic ulcer disease; Z68.38 Body mass index [BMI] 38.0-38.9, adult; Z82.49 Family history of ischemic heart disease and other diseases of the circulatory system
CPT/HCPCS: 36415; 71046; 76700; 80053; 80061; 82150; 82550; 82553; 83036; 83690; 83735; 83880; 84484; 85025; 85610; 85730; 93005; 93306; 96374; 99291

== ENCOUNTER 2018-05-02 23:56 | Observation (INO) | payer MEDICARE ==
[2018-05-03] MEDS ORDERED: SODIUM CHLORIDE 0.9% 1,000 ML IV STA (00:11)
[2018-05-03] MEDS ORDERED: ASPIRIN 81 MG PO STA (00:11)
--- NOTE | 2018-05-03 00:13 | ED ---
Chest Pain HPI - General Chief Complaint: Chest Pain Stated Complaint: Chest Pain Time Seen by Provider: 05/03/18 00:11 Source: patient Mode of arrival: wheelchair Limitations: no limitations - History of Present Illness Initial Comments: Dontrell is a 67-year-old male with extensive cardiac history who returns the emergency department today for reevaluation of chest pain. Patient was recently admitted to this hospital for chest pain, evaluated by cardiology and subsequently discharged. Patient reports he felt fine for a few hours by throughout the day today has been having left-sided chest pressure. Patient reports the pain is been persistent throughout the afternoon, not associated with any diaphoresis or lightheadedness. Patient does report some mild shortness of breath with this chest pain. Pain is similar to previous episodes of chest pain. Patient reports he's been compliant with his home medications. Patient reports he is taken for nitro prior to arrival with no improvement in his chest pain. - Related Data Home Medications Medication Instructions Recorded Confirmed Allopurinol [Zyloprim] 100 mg PO DAILY 11/07/13 04/28/18 Pantoprazole Sodium 40 mg PO DAILY 11/07/13 04/28/18 Topiramate [Topamax] 100 mg PO HS 11/07/13 04/28/18 Ascorbic Acid [Vitamin C] 1,000 mg PO QAM 05/25/16 04/28/18 [place]-3 Fatty Acids/Fish Oil [Fish 1 cap PO W/SUPPER 05/25/16 04/28/18 Oil 1,000 mg Softgel] Clopidogrel [Plavix] 75 mg PO DAILY 10/14/16 04/28/18 Gabapentin [Neurontin] 400 mg PO QID 10/14/16 04/28/18 Multivitamins, Thera [Multivitamin 1 tab PO DAILY 10/14/16 04/28/18 (formulary)] Insulin NPH Hum/Reg Insulin Hm 10 unit SQ DAILY 07/12/17 04/28/18 [NovoLIN 70-30 100 UNIT/ML VIAL] Insulin NPH Hum/Reg Insulin Hm 26 unit SQ HS 07/12/17 04/28/18 [NovoLIN 70-30 100 UNIT/ML VIAL] Metoprolol Tartrate [Lopressor] 12.5 mg PO BID 07/12/17 04/28/18 Atorvastatin Calcium [Lipitor] 80 mg PO HS 01/27/18 04/28/18 FLUoxetine HCL [PROzac] 40 mg PO DAILY 01/27/18 04/28/18 Famotidine [Pepcid] 20 mg PO HS 01/27/18 04/28/18 Pioglitazone [Actos] 30 mg PO DAILY 01/27/18 04/28/18 metFORMIN HCL 1,000 mg PO BID 01/27/18 04/28/18 Previous Rx's Medication Instructions Recorded Aspirin EC [Ecotrin Low Dose] 81 mg PO DAILY #30 tablet. 10/21/15 Nitroglycerin Sl Tabs [Nitrostat] 0.4 mg SUBLINGUAL Q5M PRN tab 07/14/17 Hydrocortisone Cream 1 applic TOPICAL BID PRN applic 05/01/18 [Hydrocortisone 1% Cream] Isosorbide Mononitrate ER [Imdur] 120 mg PO DAILY tab.er.24h 05/01/18 Ranolazine [Ranexa] 1,000 mg PO Q12HR tab.er.12h 05/01/18 Allergies Allergy/AdvReac Type Severity Reaction Status Date / Time No Known Allergies Allergy Verified 05/03/18 00:01 Review of Systems ROS Statement: Those systems with pertinent positive or pertinent negative responses have been documented in the HPI. ROS Other: All systems not noted in ROS Statement are negative. EKG Findings - EKG Comments: EKG Findings:: EKG obtained at 20 1 AM, rate is 60, rhythm is sinus, there is a right bundle branch block, there are no acute ST elevations or depressions no evidence of acute ischemia or infarction. When compared to EKG from 4 days ago there is no significant change in morphology. Past Medical History Past Medical History: Coronary Artery Disease (CAD), Chest Pain / Angina, Diabetes Mellitus, GERD/Reflux, GI Bleed, Hyperlipidemia, Hypertension, Myocardial Infarction (HI), Musculoskeletal Disorder, Osteoarthritis (OA), Skin Disorder, Sleep Apnea/CPAP/BIPAP Additional Past Medical History / Comment(s): HX OF BACK PROBLEMS. TREMORS RT ARM. SPINAL stenosis of lumbar region with radiculopathy.HIATAL HERNIA,PSORIASIS ,GOUT, uses cpap machine Last Myocardial Infarction Date:: OCTOBER 2015 History of Any Multi-Drug Resistant Organisms: None Reported Past Surgical History: Back Surgery, Coronary Bypass/CABG, Heart Catheterization , Heart Catheterization With Stent, Hernia Repair, Orthopedic Surgery Additional Past Surgical History / Comment(s): REPAIR STOMACH ULCER 10/2012; ORIF LT ANKLE; REPAIR RT 5TH FINGER D/T TRAUMA; PAIN PROC X2; HERNIA SURG X5 - 1 UMB, 1 HIATAL, 3 INGUINAL; CABG X1, 6-2013 had posterior lateral decompression and fusion, transforaminal lumbar interbody fusion L4-L5.LT ROTATOR CUFF REPAIR,EGD/COLONOSCOPY,NERVE BLOCK. 10 cardiac stents placed October 2015 Past Anesthesia/Blood Transfusion Reactions: No Reported Reaction Additional Past Anesthesia/Blood Transfusion Reaction / Comment(s): no blood transfusions before Date of Last Stent Placement:: OCTOBER 2015 Past Psychological History: Depression Smoking Status: Former smoker Past Alcohol Use History: None Reported Past Drug Use History: None Reported - Past Family History Father Additional Family Medical History / Comment(s): BRAIN TUMOR Mother Family Medical History: Myocardial Infarction ([place]) Additional Family Medical History / Comment(s): FROM [place] AGE 70 General Exam - General Exam Comments Initial Comments: Physical Exam GENERAL: Patient is well-developed and well-nourished. Patient is nontoxic and well- hydrated and is in no distress. HENT: Normocephalic, Atraumatic. EYES: PERRL, EOMI PULMONARY: Unlabored respirations. No audible rales rhonchi or wheezing was noted. CARDIOVASCULAR: There is a regular rate and rhythm without any murmurs gallops or rubs. ABDOMEN: Soft and nontender with normal bowel sounds. SKIN: Skin is clear with no lesions or rashes and otherwise unremarkable. : Deferred NEUROLOGIC: Patient is alert and oriented x3. Moving all extremities spontaneously MUSCULOSKELETAL: Normal extremities with adequate strength and full range of motion. No lower extremity swelling or edema. No calf tenderness. PSYCHIATRIC: Normal psychiatric evaluation. Limitations: no limitations Limitations: no limitations Course Vital Signs 05/03/18 05/03/18 05/03/18 00:01 02:17 02:22 Temperature 98.0 F Pulse Rate 66 85 Respiratory 18 19 18 Rate Blood Pressure 154/82 O2 Sat by Pulse 99 97 Oximetry 05/03/18 05/03/18 02:33 05:50 Temperature Pulse Rate 53 L 64 Respiratory 18 19 Rate Blood Pressure 139/80 150/61 O2 Sat by Pulse 97 98 Oximetry Chest Pain MDM - MDM The patient was seen and evaluated immediately upon arrival Patient received aspirin prior to arrival patient also had 4 nitro prior to arrival with no improvement in pain EKG with no acute changes Cardiac workup was ordered Morphine ordered for pain Troponin negative Patient with persistent chest pain and only responded to morphine throughout his stay in the ER Patient care was discussed with the admitting physician Dr. Sharp who accepts the admission with a consult to cardiology Admission orders placed Disposition Clinical Impression: Angina pectoris Disposition: ADMITTED IP TO THIS HOSP Referrals: Argentina Garza DO [Primary Care Provider] - 1-2 days
[2018-05-03 01:04] LABS: Albumin 4.1 g/dL (3.5-5.0); Calcium 9.1 mg/dL (8.4-10.2); Potassium 4.3 mmol/L (3.5-5.1); Total Bilirubin 0.3 mg/dL (0.2-1.3)
--- NOTE | 2018-05-03 01:12 | XR ---
EXAMINATION TYPE: XR chest 2V DATE OF EXAM: 05/03/2018 COMPARISON: 04/28/2018 HISTORY: Chest pain TECHNIQUE: Frontal and lateral views of the chest are obtained. FINDINGS: There is no heart failure nor confluent pneumonic infiltrate. Costophrenic angles are steph r. There are sternal wires. Thoracic aorta is atheromatous. IMPRESSION: No active cardiopulmonary disease. No change.
[2018-05-03 01:17] LABS: Partial Thromboplastin Time 23.5 sec (22.0-30.0)
[2018-05-03 01:27] LABS: Basophils % (A) 0 %; Eosinophils # (A) 0.2 k/uL (0-0.7); Eosinophils % (A) 3 %; HGB 13.5 gm/dL (13.0-17.5); Lymphocytes # (A) 1.7 k/uL (1.0-4.8); Lymphocytes % (A) 31 %; MCH 30.3 pg (25.0-35.0); MCHC 32.9 g/dL (31.0-37.0); MCV 92.2 fL (80.0-100.0); Mean Platelet Volume 7.6; Monocytes # (A) 0.4 k/uL (0-1.0); Monocytes % (A) 6 %; Neutrophils # (A) 3.2 k/uL (1.3-7.7); Neutrophils % (A) 57 %; Platelet Count 179 k/uL (150-450); RBC 4.44 m/uL (4.30-5.90); RDW 13.8 % (11.5-15.5); WBC 5.7 k/uL (3.8-10.6)
[2018-05-03 01:31] LABS: Creatine Kinase 95 U/L (55-170)
[2018-05-03 01:43] LABS: Creatine Kinase MB 1.4 ng/mL (0.0-2.4); Troponin I <0.012 ng/mL (0.000-0.034)
[2018-05-03] MEDS ORDERED: KETOROLAC 30 MG/ML 1 ML VIAL IVP STA (01:44)
[2018-05-03] MEDS ORDERED: MORPHINE SULFATE 4 MG/ML SYRINGE IVP STA (05:49)
[2018-05-03] MEDS ORDERED: NITROGLYCERIN SL TABS 0.4 MG TAB SUBLINGUAL PRN (06:58)
[2018-05-03 07:37] LABS: Creatine Kinase 85 U/L (55-170)
[2018-05-03 07:50] LABS: Creatine Kinase MB 1.3 ng/mL (0.0-2.4); Troponin I <0.012 ng/mL (0.000-0.034)
[2018-05-03] MEDS ORDERED: HYDROCORTISONE 1% CREAM 30 GM TUBE TOPICAL PRN (09:41)
[2018-05-03] MEDS ORDERED: metFORMIN 500 MG TAB PO SCH (09:45)
[2018-05-03] MEDS: RANOLAZINE 500 MG TAB.ER.12H PO SCH ×2 (11:04→21:07)
[2018-05-03] MEDS: ALLOPURINOL 100 MG TAB PO SCH (11:04)
[2018-05-03] MEDS: MULTIVITAMINS, THERA 1 EACH TAB PO SCH (11:04)
[2018-05-03] MEDS: METOPROLOL TARTRATE 12.5 MG TAB PO SCH ×2 (11:04→21:07)
[2018-05-03] MEDS: FLUoxetine HCL 20 MG CAP PO SCH (11:04)
[2018-05-03] MEDS: CLOPIDOGREL 75 MG TAB PO SCH (11:04)
[2018-05-03] MEDS: GABAPENTIN 400 MG CAP PO SCH ×4 (11:04→21:07)
[2018-05-03] MEDS: PANTOPRAZOLE 40 MG TABLET PO SCH (11:04)
[2018-05-03] MEDS: PIOGLITAZONE 30 MG TAB PO SCH ×2 (11:05→13:36)
[2018-05-03] MEDS: ISOSORBIDE MONONITRATE ER 60 MG TAB.ER.24H PO SCH (11:05)
[2018-05-03] MEDS: ASCORBIC ACID 500 MG TAB PO SCH (11:06)
[2018-05-03] MEDS: TOPIRAMATE 100 MG TAB PO SCH ×2 (11:06→21:07)
[2018-05-03] MEDS: HYDROcodone/APAP 10-325MG 1 EACH TAB PO PRN ×2 (11:06→21:15)
[2018-05-03 11:33] LABS: Glucose,Whole Blood 173 mg/dL (75-99)
[2018-05-03] MEDS: INSULIN ASPART 100 UNIT/ML 1 ML 10 ML VIAL SQ SCH ×3 (13:26→21:08)
--- NOTE | 2018-05-03 13:31 | P.HPIM ---
History of Present Illness H&P Date: 05/03/18 Chief Complaint: Chest pain This is a 67-year-old male, patient of [facility]. He has a known past medical history of myocardial infarction, coronary artery disease with multiple cardiac stents and previous CABG, diabetes mellitus, hypertension and depression. Patient was just discharged from the hospital on 05/01/2018 at that time he presented to the hospital with chest pains. He was seen evaluated by cardiology there is no evidence of an acute coronary syndrome their concerns of chronic unstable angina and they placed him on Ranexa thousand milligrams every 12 hours. And recommended to continue the Imdur 120 mg daily. Patient reports that he was still having chest pains upon discharge. And as he went home chest pains continued to worsen and become every 30 minutes east scar some as a start sharp stabbing chest pain in the center of his chest. Also is having some shortness of breath and diaphoresis during that time. Patient was unable to get the Ranexa prescription because it was $200 a month. At this time patient was seen and examined in the ER and still requiring IV morphine for his chest pain. Cardiology has been consulted. Troponins are negative 2. EKG normal sinus rhythm with a right bundle branch block. Chest x-rays negative. Patient's last heart catheterization was in January 2018 and at that time per cardiology oncology there is no significant progression of disease and he recommended medical management. Echo completed which showed an EF of 50-55% on 04/29/2018. Patient denies any cough, fever, chills, sweats, nausea or vomiting, bowel movement changes or urinary symptoms. Chest pain occurs at rest or with activity. Review of Systems Please refer to HPI otherwise unremarkable Past Medical History Past Medical History: Coronary Artery Disease (CAD), Chest Pain / Angina, Diabetes Mellitus, GERD/Reflux, GI Bleed, Hyperlipidemia, Hypertension, Myocardial Infarction ([place]), Musculoskeletal Disorder, Osteoarthritis (OA), Skin Disorder, Sleep Apnea/CPAP/BIPAP Additional Past Medical History / Comment(s): Pt recently admitted to [facility] on with chest pain, echo showed EF of 50-55%, nausea and vomiting past 2 weeks, discharged on Renexa. Other hx: NIDDM type II, chronic back pain, spinal lumbar stenosis with radiculopathy, R arm tremors, gout, hiatal hernia, BIANCA with Cpap, psoriasis. Last Myocardial Infarction Date:: OCTOBER 2015 History of Any Multi-Drug Resistant Organisms: None Reported Past Surgical History: Back Surgery, Coronary Bypass/CABG, Heart Catheterization , Heart Catheterization With Stent, Hernia Repair, Orthopedic Surgery Additional Past Surgical History / Comment(s): REPAIR STOMACH ULCER 10/2012; ORIF LT ANKLE; REPAIR RT 5TH FINGER D/T TRAUMA; PAIN PROC X2; HERNIA SURG X5 - 1 UMB, 1 HIATAL, 3 INGUINAL; CABG X1, 6-2013 had posterior lateral decompression and fusion, transforaminal lumbar interbody fusion L4-L5.LT ROTATOR CUFF REPAIR,EGD/COLONOSCOPY,NERVE BLOCK. 12 cardiac stents. Past Anesthesia/Blood Transfusion Reactions: No Reported Reaction Additional Past Anesthesia/Blood Transfusion Reaction / Comment(s): no blood transfusions before Date of Last Stent Placement:: OCTOBER 2015 Smoking Status: Former smoker - Past Family History Father Additional Family Medical History / Comment(s): BRAIN TUMOR Mother Family Medical History: Myocardial Infarction ([place]) Additional Family Medical History / Comment(s): FROM [place] AGE 70 Medications and Allergies Home Medications Medication Instructions Recorded Confirmed Type Allopurinol [Zyloprim] 100 mg PO DAILY 11/07/13 05/03/18 History Pantoprazole Sodium 40 mg PO DAILY 11/07/13 05/03/18 History Topiramate [Topamax] 100 mg PO HS 11/07/13 05/03/18 History Aspirin EC [Ecotrin Low Dose] 81 mg PO DAILY #30 tablet. 10/21/15 05/03/18 Rx Ascorbic Acid [Vitamin C] 1,000 mg PO QAM 05/25/16 05/03/18 History [place]-3 Fatty Acids/Fish Oil [Fish 1 cap PO W/SUPPER 05/25/16 05/03/18 History Oil 1,000 mg Softgel] Clopidogrel [Plavix] 75 mg PO DAILY 10/14/16 05/03/18 History Gabapentin [Neurontin] 400 mg PO QID 10/14/16 05/03/18 History Multivitamins, Thera [Multivitamin 1 tab PO DAILY 10/14/16 05/03/18 History (formulary)] Insulin NPH Hum/Reg Insulin Hm 10 unit SQ DAILY 07/12/17 05/03/18 History [NovoLIN 70-30 100 UNIT/ML VIAL] Insulin NPH Hum/Reg Insulin Hm 26 unit SQ HS 07/12/17 05/03/18 History [NovoLIN 70-30 100 UNIT/ML VIAL] Metoprolol Tartrate [Lopressor] 12.5 mg PO BID 07/12/17 05/03/18 History Nitroglycerin Sl Tabs [Nitrostat] 0.4 mg SUBLINGUAL Q5M PRN tab 07/14/17 Rx Atorvastatin Calcium [Lipitor] 80 mg PO HS 01/27/18 05/03/18 History FLUoxetine HCL [PROzac] 40 mg PO DAILY 01/27/18 05/03/18 History Famotidine [Pepcid] 20 mg PO HS 01/27/18 05/03/18 History Pioglitazone [Actos] 30 mg PO DAILY 01/27/18 05/03/18 History metFORMIN HCL 1,000 mg PO BID 01/27/18 05/03/18 History Hydrocortisone Cream 1 applic TOPICAL BID PRN applic 05/01/18 05/03/18 Rx [Hydrocortisone 1% Cream] Isosorbide Mononitrate ER [Imdur] 120 mg PO DAILY tab.er.24h 05/01/18 05/03/18 Rx Ranolazine [Ranexa] 1,000 mg PO Q12HR tab.er.12h 05/01/18 05/03/18 Rx Allergies Allergy/AdvReac Type Severity Reaction Status Date / Time No Known Allergies Allergy Verified 05/03/18 07:21 Physical Exam Vitals: Vital Signs Temp Pulse Resp BP Pulse Ox 05/03/18 09:50 97 05/03/18 05:50 64 19 150/61 98 05/03/18 02:33 53 L 18 139/80 97 05/03/18 02:22 85 18 97 05/03/18 02:17 19 05/03/18 00:01 98.0 F 66 18 154/82 99 Intake and Output 05/02/18 05/03/18 05/03/18 22:59 06:59 14:59 Other: Voiding Method Toilet # Voids 1 Weight 104.326 kg Head normocephalic Neck supple Lungs clear to auscultation bilaterally no wheezing or crackles Heart regular rate and rhythm S1-S2, no rub or gallop Abdomen is soft mild right upper quadrant tenderness nondistended positive bowel sounds no hepatosplenomegaly Extremities no edema Neuro alert and orientated to 3 Results CBC & Chem 7: 05/03/18 00:35 05/03/18 00:35 Labs: Abnormal Lab Results - Last 24 Hours (Table) 05/03/18 05/03/18 Range/Units 00:35 11:31 Chloride 109 H (98-107) mmol/L BUN 21 H (9-20) mg/dL Glucose 184 H (74-99) mg/dL POC Glucose (mg/dL) 173 H (75-99) mg/dL Thrombosis Risk Factor Assmnt - Choose All That Apply Any of the Below Risk Factors Present?: Yes Each Factor Represents 1 point: Obesity (BMI >25) Other Risk Factors: Yes Each Risk Factor Represents 2 Points: Age 61-74 years Other congenital or acquired thrombophilia - If yes, enter type in comment: No Thrombosis Risk Factor Assessment Total Risk Factor Score: 3 Thrombosis Risk Factor Assessment Level: Moderate Risk Assessment and Plan Assessment: 1. Chest pain: First 2 troponins negative. EKG normal sinus rhythm with right bundle branch block. Chest x-ray negative. Recent heart cath in January 2018 and at that time per cardiology there is no significant progression of disease and they had recommended medical management. Ranexa was added on this recent admission that he was discharged on 05/01/2018. Patient was unable to get prescription because it cost $200 a month. Patient continues to have chest pain. Will await cardiology evaluation. 2. Diabetes mellitus type 2. Last A1c was 8.7. Resume home insulin. Continue sliding scale coverage. Continue Actos. We'll hold metformin during hospitalization 3. History of myocardial infarction, coronary artery disease, multiple cardiac stents and CABG 4. Essential hypertension 5. Hyperlipidemia 6. GERD 7. Depression GI prophylaxis Protonix and DVT prophylaxis Time with Patient: Greater than 30 (Greater than 60% of the total time spent in counseling and coordination of care.I performed an examination of the patient and discussed their management with the physician [employer] Supervisor. I have reviewed the Physician [employer] Supervisor's notes and agree with the documented findings and plan of care)
[2018-05-03 13:39] LABS: Glucose,Whole Blood 179 mg/dL (75-99)
[2018-05-03 13:55] LABS: Creatine Kinase 79 U/L (55-170)
[2018-05-03 14:09] LABS: Creatine Kinase MB 1.1 ng/mL (0.0-2.4); Troponin I <0.012 ng/mL (0.000-0.034)
[2018-05-03 16:50] LABS: Glucose,Whole Blood 251 mg/dL (75-99)
[2018-05-03] MEDS ORDERED: NON-FORMULARY DRUG (Omega-3 Fatty Acids/Fish Oil [Fish Oil 1,000 Mg Softgel] 1 CAP) PO SCH (17:30)
[2018-05-03] MEDS: MORPHINE SULFATE 4 MG/ML SYRINGE IVP PRN (17:37)
[2018-05-03 20:12] LABS: Glucose,Whole Blood 279 mg/dL (75-99)
[2018-05-03] MEDS ORDERED: INSULN ASP PRT/INSULIN ASPART 100 UNIT/ML 10 ML VIAL SQ SCH (21:00)
[2018-05-03] MEDS ORDERED: ATORVASTATIN 80 MG TAB PO SCH (21:00)
[2018-05-03] MEDS ORDERED: FAMOTIDINE 20 MG TAB PO SCH (21:00)
[2018-05-03] MEDS: HEPARIN SODIUM,PORCINE 5,000 UNIT/ML 1 ML VIAL SQ SCH (21:08)
[2018-05-03 21:23] LABS: Hemoglobin A1C 8.6 % (4.0-6.0)
[2018-05-04] MEDS: MORPHINE SULFATE 4 MG/ML SYRINGE IVP PRN (02:37)
[2018-05-04 06:43] LABS: Glucose,Whole Blood 236 mg/dL (75-99)
[2018-05-04] MEDS: INSULIN ASPART 100 UNIT/ML 1 ML 10 ML VIAL SQ SCH ×2 (08:01→13:22)
[2018-05-04] MEDS: PANTOPRAZOLE 40 MG TABLET PO SCH (08:02)
[2018-05-04] MEDS: ASCORBIC ACID 500 MG TAB PO SCH (08:02)
[2018-05-04] MEDS: CLOPIDOGREL 75 MG TAB PO SCH (08:03)
[2018-05-04] MEDS: HEPARIN SODIUM,PORCINE 5,000 UNIT/ML 1 ML VIAL SQ SCH (08:03)
[2018-05-04] MEDS: ISOSORBIDE MONONITRATE ER 60 MG TAB.ER.24H PO SCH (08:03)
[2018-05-04] MEDS: GABAPENTIN 400 MG CAP PO SCH ×2 (08:03→13:22)
[2018-05-04] MEDS: FLUoxetine HCL 20 MG CAP PO SCH (08:03)
[2018-05-04] MEDS: METOPROLOL TARTRATE 12.5 MG TAB PO SCH (08:04)
[2018-05-04] MEDS: PIOGLITAZONE 30 MG TAB PO SCH (08:04)
[2018-05-04] MEDS: ALLOPURINOL 100 MG TAB PO SCH (08:04)
[2018-05-04] MEDS: RANOLAZINE 500 MG TAB.ER.12H PO SCH (08:04)
[2018-05-04 08:16] VITALS: RESP 18
[2018-05-04] MEDS ORDERED: ASPIRIN 325 MG TAB PO SCH (09:00)
[2018-05-04] MEDS ORDERED: INSULN ASP PRT/INSULIN ASPART 100 UNIT/ML 10 ML VIAL SQ SCH (09:00)
[2018-05-04] MEDS: HYDROcodone/APAP 10-325MG 1 EACH TAB PO PRN (09:20)
[2018-05-04 10:13] LABS: Basophils % (A) 1 %; Eosinophils # (A) 0.2 k/uL (0-0.7); Eosinophils % (A) 4 %; HCT 43.4 % (39.0-53.0); HGB 13.9 gm/dL (13.0-17.5); Lymphocytes # (A) 1.1 k/uL (1.0-4.8); Lymphocytes % (A) 24 %; MCH 30.4 pg (25.0-35.0); MCHC 31.9 g/dL (31.0-37.0); MCV 95.1 fL (80.0-100.0); Mean Platelet Volume 7.5; Monocytes # (A) 0.2 k/uL (0-1.0); Monocytes % (A) 5 %; Neutrophils % (A) 64 %; Platelet Count 179 k/uL (150-450); RBC 4.56 m/uL (4.30-5.90); RDW 13.7 % (11.5-15.5); WBC 4.7 k/uL (3.8-10.6)
[2018-05-04 10:14] LABS: Albumin 4.2 g/dL (3.5-5.0); Calcium 9.4 mg/dL (8.4-10.2); Potassium 4.7 mmol/L (3.5-5.1); Total Bilirubin 0.4 mg/dL (0.2-1.3); Total Protein 7.2 g/dL (6.3-8.2)
[2018-05-04] MEDS ORDERED: MAG HYDROX/AL HYDROX/SIMETH 30 ML CUP PO PRN (11:16)
--- NOTE | 2018-05-04 11:18 | P.CRDCN ---
History of Present Illness History of present illness: This is a pleasant 67-year-old male past medical history significant for coronary artery disease s/p bypass grafting with SVG-RCA, hypertension, dyslipidemia, sleep apnea, gastroesophageal reflux disease, diabetes mellitus and former nicotine dependence. He follows with Dr. Jiménez in the office. We have been asked to see him in consultation for chest pain. He was here last week for similar symptoms of chest pain described as a pressure in the precordial region with radiation to the right anterior chest wall. He states the pain started a few hours after leaving here Wednesday. He took a SL nitro at home and achieved no relief of his pain. When he gets the pain it lasts approximately 2-30 minutes at at time and ultimately goes away on its own. He was started on Ranexa on last admission prior to discharge but was unable to fill the prescription due to the cost. He feels mildly short of breath with his pain but denies any significant exertional dyspnea. Denies dizziness, palpitations, nausea, vomiting or diaphoresis. He most recently underwent catheterization in January 2018 that revealed RCA totally occluded in the proximal portion with no antegrade flow with SVG to RCA widely patent with multiple patent stents, LAD a short vessel that is disease-free with minor irregularities, unchanged from catheterization performed in June 2017, circumflex artery gives off a high first OM and a second OM with a patent stent as well as no significant disease with minor irregularities within the circumflex system. In October 2016 he underwent stenting of SVG-RCA in the mid portion as well as the ostium. EKG reveals sinus mechanism with incomplete right bundle branch block. No acute ST or T wave abnormalities noted. Chest x-ray negative for an acute cardiopulmonary process. Laboratory data reviewed, hemoglobin 13.9, plt 179, sodium 143, potassium 4.7, creatinine 1.02, magnesium 2.0, cardiac enzymes negative x3 and NTproBNP 78. Current cardiac medications include metoprolol 12.5 mg twice a day, Plavix 75 mg daily, aspirin 81 mg daily, atorvastatin 80 mg daily, Imdur 120 mg daily and ranexa 1,000 mg BID. Echocardiogram obtained 04/29/2018 reveals preserved left ventricular systolic function with ejection fraction 50-55%. At the time of my exam: CONSTITUTIONAL: Denies fever. Denies chills. EYES: Denies blurred vision. Denies vision changes. Denies eye pain. EARS, NOSE, MOUTH & THROAT: Denies headache. Denies sore throat. Denies ear pain. CARDIOVASCULAR: Complains of chest pain. Denies shortness of breath. Denies orthopnea. Denies PND. Denies palpitations. RESPIRATORY: Denies cough. GASTROINTESTINAL: Denies abdominal pain. Denies diarrhea. Denies constipation. Denies nausea. Denies vomiting. MUSCULOSKELETAL: Denies myalgias. INTEGUMENTARY: Denies pruitis. Denies rash. NEUROLOGIC: Denies numbness. Denies tingling. Denies weakness. PSYCHIATRIC: Denies anxiety. Denies depression. ENDOCRINE: Denies fatigue. Denies weight change. Denies polydipsia. Denies polyurina. GENITOURINARY: Denies burning, hematuria or urgency with micturation. HEMATOLOGIC: Denies history of anemia. Denies bleeding. Blood pressure 152/90 heart rate 63 afebrile maintaining oxygen saturation on room air GENERAL: This is a 67-year-old male in no apparent distress at the time of my examination. Obese. HEENT: Head is atraumatic, normocephalic. Pupils are equal, round. Sclerae anicteric. Conjunctivae are clear. Mucous membranes of the mouth are moist. Neck is supple. There is no jugular venous distention. No carotid bruit is heard. LUNGS: Clear to auscultation no wheezes, rales or rhonchi. No chest wall tenderness is noted on palpation or with deep breathing. HEART: Regular rate and rhythm without murmurs, rubs or gallops. S1 and S2 heard. ABDOMEN: Soft, nontender. Bowel sounds are heard. No organomegaly noted. EXTREMITIES: No evidence of peripheral edema and no calf tenderness noted. VASCULAR: Radial and dorsalis pedis pulses palpated, no evidence of clubbing. NEUROLOGIC: Patient is awake, alert and oriented x3. ASSESSMENT Chest pain, atypical for angina. An acute coronary event has been ruled out. History of coronary artery disease s/p single vessel bypass grafting Hypertension Dyslipdiemia Diabetes mellitus GERD PLAN An acute coronary event has been ruled out with no EKG evidence of ischemia and negative cardiac enzymes. Resume ranexa. Will discuss with case management to try and get him a supply of medications. Pain is atypical and not relieved with SL nitro. Possibility of another source of pain should be considered. Progression of disease since January is very unlikely. Ongoing medical management. Follow up with Dr. Jiménez upon discharge. Nurse Practitioner note has been reviewed, I agree with a documented findings and plan of care. Patient was seen and examined. Past Medical History Past Medical History: Coronary Artery Disease (CAD), Chest Pain / Angina, Diabetes Mellitus, GERD/Reflux, GI Bleed, Hyperlipidemia, Hypertension, Myocardial Infarction ([place]), Musculoskeletal Disorder, Osteoarthritis (OA), Skin Disorder, Sleep Apnea/CPAP/BIPAP Additional Past Medical History / Comment(s): Pt recently admitted to [facility] on with chest pain, echo showed EF of 50-55%, nausea and vomiting past 2 weeks, discharged on Renexa. Other hx: NIDDM type II, chronic back pain, spinal lumbar stenosis with radiculopathy, R arm tremors, gout, hiatal hernia, BIANCA with Cpap, psoriasis. Last Myocardial Infarction Date:: OCTOBER 2015 History of Any Multi-Drug Resistant Organisms: None Reported Past Surgical History: Back Surgery, Coronary Bypass/CABG, Heart Catheterization , Heart Catheterization With Stent, Hernia Repair, Orthopedic Surgery Additional Past Surgical History / Comment(s): REPAIR STOMACH ULCER 10/2012; ORIF LT ANKLE; REPAIR RT 5TH FINGER D/T TRAUMA; PAIN PROC X2; HERNIA SURG X5 - 1 UMB, 1 HIATAL, 3 INGUINAL; CABG X1, 6-2013 had posterior lateral decompression and fusion, transforaminal lumbar interbody fusion L4-L5.LT ROTATOR CUFF REPAIR,EGD/COLONOSCOPY,NERVE BLOCK. 12 cardiac stents. Past Anesthesia/Blood Transfusion Reactions: No Reported Reaction Additional Past Anesthesia/Blood Transfusion Reaction / Comment(s): no blood transfusions before Date of Last Stent Placement:: OCTOBER 2015 Smoking Status: Former smoker - Past Family History Father Additional Family Medical History / Comment(s): BRAIN TUMOR Mother Family Medical History: Myocardial Infarction ([place]) Additional Family Medical History / Comment(s): FROM [place] AGE 70 Medications and Allergies Home Medications Medication Instructions Recorded Confirmed Type Allopurinol [Zyloprim] 100 mg PO DAILY 11/07/13 05/03/18 History Pantoprazole Sodium 40 mg PO DAILY 11/07/13 05/03/18 History Topiramate [Topamax] 100 mg PO HS 11/07/13 05/03/18 History Aspirin EC [Ecotrin Low Dose] 81 mg PO DAILY #30 tablet. 10/21/15 05/03/18 Rx Ascorbic Acid [Vitamin C] 1,000 mg PO QAM 05/25/16 05/03/18 History Nolan-3 Fatty Acids/Fish Oil [Fish 1 cap PO W/SUPPER 05/25/16 05/03/18 History Oil 1,000 mg Softgel] Clopidogrel [Plavix] 75 mg PO DAILY 10/14/16 05/03/18 History Gabapentin [Neurontin] 400 mg PO QID 10/14/16 05/03/18 History Multivitamins, Thera [Multivitamin 1 tab PO DAILY 10/14/16 05/03/18 History (formulary)] Insulin NPH Hum/Reg Insulin Hm 10 unit SQ DAILY 07/12/17 05/03/18 History [NovoLIN 70-30 100 UNIT/ML VIAL] Insulin NPH Hum/Reg Insulin Hm 26 unit SQ HS 07/12/17 05/03/18 History [NovoLIN 70-30 100 UNIT/ML VIAL] Metoprolol Tartrate [Lopressor] 12.5 mg PO BID 07/12/17 05/03/18 History Nitroglycerin Sl Tabs [Nitrostat] 0.4 mg SUBLINGUAL Q5M PRN tab 07/14/17 Rx Atorvastatin Calcium [Lipitor] 80 mg PO HS 01/27/18 05/03/18 History FLUoxetine HCL [PROzac] 40 mg PO DAILY 01/27/18 05/03/18 History Famotidine [Pepcid] 20 mg PO HS 01/27/18 05/03/18 History Pioglitazone [Actos] 30 mg PO DAILY 01/27/18 05/03/18 History metFORMIN HCL 1,000 mg PO BID 01/27/18 05/03/18 History Hydrocortisone Cream 1 applic TOPICAL BID PRN applic 05/01/18 05/03/18 Rx [Hydrocortisone 1% Cream] Isosorbide Mononitrate ER [Imdur] 120 mg PO DAILY tab.er.24h 05/01/18 05/03/18 Rx Ranolazine [Ranexa] 1,000 mg PO Q12HR tab.er.12h 05/01/18 05/03/18 Rx Allergies Allergy/AdvReac Type Severity Reaction Status Date / Time No Known Allergies Allergy Verified 05/03/18 07:21 Physical Exam Vitals: Vital Signs Temp Pulse Pulse Pulse Resp BP BP 05/04/18 09:00 05/04/18 08:00 97.7 F 63 18 152/90 05/04/18 03:59 97.9 F 62 16 142/88 05/04/18 03:34 16 05/04/18 00:00 65 16 05/03/18 23:54 97.8 F 65 16 158/76 05/03/18 20:00 16 05/03/18 19:56 98.2 F 59 L 16 138/75 05/03/18 16:00 57 L 18 05/03/18 14:08 97.6 F 57 L 18 138/71 05/03/18 13:46 52 L 18 136/77 05/03/18 13:45 57 L 18 Pulse Ox 05/04/18 09:00 93 L 05/04/18 08:00 93 L 05/04/18 03:59 95 05/04/18 03:34 05/04/18 00:00 05/03/18 23:54 95 05/03/18 20:00 05/03/18 19:56 94 L 05/03/18 16:00 05/03/18 14:08 95 05/03/18 13:46 96 05/03/18 13:45 Intake and Output 05/03/18 05/04/18 05/04/18 22:59 06:59 14:59 Intake Total 240 Balance 240 Intake: Oral 240 Other: Voiding Method Toilet Toilet # Voids 2 Weight 104.6 kg Results 05/04/18 09:38 05/04/18 09:38 Cardiac Enzymes 05/03/18 05/04/18 Range/Units 13:15 09:38 AST 21 (17-59) U/L CK-MB (CK-2) 1.1 (0.0-2.4) ng/mL Troponin I <0.012 (0.000-0.034) ng/mL Lipids 05/04/18 Range/Units 09:38 Triglycerides 74 (<150) mg/dL Cholesterol 134 (<200) mg/dL HDL Cholesterol 48 (40-60) mg/dL CBC 05/04/18 Range/Units 09:38 WBC 4.7 (3.8-10.6) k/uL RBC 4.56 (4.30-5.90) m/uL Hgb 13.9 (13.0-17.5) gm/dL Hct 43.4 (39.0-53.0) % Plt Count 179 (150-450) k/uL Comprehensive Metabolic Panel 05/04/18 Range/Units 09:38 Sodium 143 (137-145) mmol/L Potassium 4.7 (3.5-5.1) mmol/L Chloride 107 (98-107) mmol/L Carbon Dioxide 28 (22-30) mmol/L BUN 17 (9-20) mg/dL Creatinine 1.02 (0.66-1.25) mg/dL Glucose 239 H (74-99) mg/dL Calcium 9.4 (8.4-10.2) mg/dL AST 21 (17-59) U/L ALT 23 (21-72) U/L Alkaline Phosphatase 58 (38-126) U/L Total Protein 7.2 (6.3-8.2) g/dL Albumin 4.2 (3.5-5.0) g/dL Current Medications Generic Name Dose Route Start Last Admin Trade Name Freq PRN Reason Stop Dose Admin Hydrocodone Bitart/Acetaminophen 1 each 05/03/18 09:46 05/04/18 09:20 [place] 10 PO 1 each Q6H PRN Administration MODERATE Pain Allopurinol 100 mg 05/03/18 09:45 05/04/18 08:04 Zyloprim PO 100 mg DAILY SANDY Administration Ascorbic Acid 1,000 mg 05/03/18 09:45 05/04/18 08:02 Vitamin C PO 1,000 mg QAM SANDY Administration Aspirin 325 mg 05/04/18 09:00 05/04/18 08:03 Aspirin PO 325 mg DAILY SANDY Administration Atorvastatin Calcium 80 mg 05/03/18 21:00 05/03/18 21:07 Lipitor PO 80 mg HS SANDY Administration Clopidogrel Bisulfate 75 mg 05/03/18 09:45 05/04/18 08:03 Plavix PO 75 mg DAILY SANDY Administration Famotidine 20 mg 05/03/18 21:00 05/03/18 21:07 Pepcid PO 20 mg HS SANDY Administration Fluoxetine HCl 40 mg 05/03/18 09:45 05/04/18 08:03 Prozac PO 40 mg DAILY SANDY Administration Gabapentin 400 mg 05/03/18 09:45 05/04/18 08:03 Neurontin PO 400 mg QID SANDY Administration Heparin Sodium (Porcine) 5,000 unit 05/03/18 21:00 05/04/18 08:03 Heparin SQ 5,000 unit Q12HR SANDY Administration Hydrocortisone 1 applic 05/03/18 09:41 Hydrocortisone 1% Cream TOPICAL BID PRN Skin Irritation Insulin Aspart 0 unit 05/03/18 12:30 05/04/18 08:01 Novolog SQ 5 unit ACHS SANDY Administration Protocol Insulin Aspart 10 unit 05/04/18 09:00 05/04/18 09:20 Novolog Mix 70-30 Vial SQ 10 unit DAILY SANDY Administration Insulin Aspart 26 unit 05/03/18 21:00 05/03/18 22:58 Novolog Mix 70-30 Vial SQ Not Given HS SANDY Isosorbide Mononitrate 120 mg 05/03/18 09:45 05/04/18 08:03 Imdur PO 120 mg DAILY SANDY Administration Metoprolol Tartrate 12.5 mg 05/03/18 09:45 05/04/18 08:04 Lopressor PO 12.5 mg BID SANDY Administration Morphine Sulfate 4 mg 05/03/18 15:41 05/04/18 02:37 Morphine Sulfate (Inj) IVP 4 mg Q6HR PRN Administration SEVERE Pain Multivitamins 1 each 05/03/18 12:00 05/03/18 11:04 Theragran PO 1 each DAILY@1200 SANDY Administration Nitroglycerin 0.4 mg 05/03/18 06:58 Nitrostat SUBLINGUAL Q5M PRN Chest Pain Pantoprazole Sodium 40 mg 05/03/18 09:45 05/04/18 08:02 Protonix PO 40 mg AC-[id number] SANDY Administration Pioglitazone HCl 30 mg 05/03/18 09:45 05/04/18 08:04 Actos PO 30 mg DAILY SANDY Administration Ranolazine 1,000 mg 05/03/18 09:45 05/04/18 08:04 Ranexa PO 1,000 mg Q12HR SANDY Administration Topiramate 100 mg 05/03/18 21:00 05/03/18 21:07 Topamax PO 100 mg HS SANDY Administration Intake and Output 05/03/18 05/04/18 05/04/18 22:59 06:59 14:59 Intake Total 240 Balance 240 Intake: Oral 240 Other: Voiding Method Toilet Toilet # Voids 2 Weight 104.6 kg 05/04/18 09:38 05/04/18 09:38
[2018-05-04 12:02] LABS: Glucose,Whole Blood 213 mg/dL (75-99)
[2018-05-04 12:17] VITALS: BP 126/61; PULSE 56; TEMP 98.4
[2018-05-04] MEDS: MULTIVITAMINS, THERA 1 EACH TAB PO SCH (13:22)
--- NOTE | 2018-05-04 14:49 | P.DS ---
Providers Date of admission: 05/03/18 06:58 Expected date of discharge: 05/04/18 Attending physician: Tisha Tang Consults: 05/03/18 06:58 Consult Physician Urgent Consulting Provider: [facility] Reason/Comments: chest pain Do you want consulting provider notified?: Yes Primary care physician: Argentina Garza [facility] Course: Discharge diagnosis 1. Chest pain: First 2 troponins negative. EKG normal sinus rhythm with right bundle branch block. Chest x-ray negative. Recent heart cath in January 2018 and at that time per cardiology there is no significant progression of disease and they had recommended medical management. Ranexa was added on this recent admission that he was discharged on 05/01/2018. Patient was unable to get prescription because it cost $200 a month. Patient continues to have chest pain. Cardiology services acute coronary event has been ruled out with no EKG evidence of ischemia negative cardiac enzymes. Ranexa will be resumed. Patient will be sent home with one week of free Ranexa. Patient is to come pick pulling machine tender the remainder of the prescription on Wednesday pharmacy. After 1 week patient may pick pulling machine tender the remainder of the medication from [facility] office. 2. Diabetes mellitus type 2. Last A1c was 8.7. Resume home insulin. Continue sliding scale coverage. Continue Actos. We'll hold metformin during hospitalization 3. History of myocardial infarction, coronary artery disease, multiple cardiac stents and CABG 4. Essential hypertension 5. Hyperlipidemia 6. GERD 7. Depression Hospital Course This is a 67-year-old male, patient of [facility]. He has a known past medical history of myocardial infarction, coronary artery disease with multiple cardiac stents and previous CABG, diabetes mellitus, hypertension and depression. Patient was just discharged from the hospital on 05/01/2018 at that time he presented to the hospital with chest pains. He was seen evaluated by cardiology there is no evidence of an acute coronary syndrome their concerns of chronic unstable angina and they placed him on Ranexa thousand milligrams every 12 hours. And recommended to continue the Imdur 120 mg daily. Patient reports that he was still having chest pains upon discharge. And as he went home chest pains continued to worsen and become every 30 minutes east scar some as a start sharp stabbing chest pain in the center of his chest. Also is having some shortness of breath and diaphoresis during that time. Patient was unable to get the Ranexa prescription because it was $200 a month. At this time patient was seen and examined in the ER and still requiring IV morphine for his chest pain. Cardiology has been consulted. Troponins are negative 2. EKG normal sinus rhythm with a right bundle branch block. Chest x-rays negative. Patient's last heart catheterization was in January 2018 and at that time per cardiology oncology there is no significant progression of disease and he recommended medical management. Echo completed which showed an EF of 50-55% on 04/29/2018. Patient denies any cough, fever, chills, sweats, nausea or vomiting, bowel movement changes or urinary symptoms. Chest pain occurs at rest or with activity. On 05/04/2018 patient has been cleared for discharge from cardiology standpoint acute coronary event has been ruled out. Patient will be given 1 week of free Ranexa and then patient is to report cardiology office for continuing supply. Patient is to follow-up closely with cardiac services in PCP. At this time patient is pain has subsided. Patient denies any nausea vomiting or diarrhea. Patient denies any urinary burning or frequency I performed an examination of the patient and discussed their management with the Nurse Practitioner. I have reviewed the Nurse Practitioner's notes and agree with the documented findings and plan of care Patient Condition at Discharge: Stable Plan - Discharge Summary Discharge Rx Participant: No New Discharge Prescriptions: Continue Pantoprazole Sodium 40 mg PO DAILY Allopurinol [Zyloprim] 100 mg PO DAILY Topiramate [Topamax] 100 mg PO HS Aspirin EC [Ecotrin Low Dose] 81 mg PO DAILY #30 tablet. Ascorbic Acid [Vitamin C] 1,000 mg PO QAM Diamond-3 Fatty Acids/Fish Oil [Fish Oil 1,000 mg Softgel] 1 cap PO W/SUPPER Multivitamins, Thera [Multivitamin (formulary)] 1 tab PO DAILY Clopidogrel [Plavix] 75 mg PO DAILY Gabapentin [Neurontin] 400 mg PO QID Insulin NPH Hum/Reg Insulin Hm [NovoLIN 70-30 100 UNIT/ML VIAL] 10 unit SQ DAILY Metoprolol Tartrate [Lopressor] 12.5 mg PO BID Insulin NPH Hum/Reg Insulin Hm [NovoLIN 70-30 100 UNIT/ML VIAL] 26 unit SQ HS Nitroglycerin Sl Tabs [Nitrostat] 0.4 mg SUBLINGUAL Q5M PRN tab PRN Reason: Chest Pain Atorvastatin Calcium [Lipitor] 80 mg PO HS Famotidine [Pepcid] 20 mg PO HS FLUoxetine HCL [PROzac] 40 mg PO DAILY metFORMIN HCL 1,000 mg PO BID Pioglitazone [Actos] 30 mg PO DAILY Hydrocortisone Cream [Hydrocortisone 1% Cream] 1 applic TOPICAL BID PRN applic PRN Reason: Skin Irritation Isosorbide Mononitrate ER [Imdur] 120 mg PO DAILY tab.er.24h Ranolazine [Ranexa] 1,000 mg PO Q12HR tab.er.12h Discharge Medication List Allopurinol [Zyloprim] 100 mg PO DAILY 11/07/13 [History] Pantoprazole Sodium 40 mg PO DAILY 11/07/13 [History] Topiramate [Topamax] 100 mg PO HS 11/07/13 [History] Aspirin EC [Ecotrin Low Dose] 81 mg PO DAILY #30 tablet. 10/21/15 [Rx] Ascorbic Acid [Vitamin C] 1,000 mg PO QAM 05/25/16 [History] Diamond-3 Fatty Acids/Fish Oil [Fish Oil 1,000 mg Softgel] 1 cap PO W/SUPPER 05/25 [History] Clopidogrel [Plavix] 75 mg PO DAILY 10/14/16 [History] Gabapentin [Neurontin] 400 mg PO QID 10/14/16 [History] Multivitamins, Thera [Multivitamin (formulary)] 1 tab PO DAILY 10/14/16 [History ] Insulin NPH Hum/Reg Insulin Hm [NovoLIN 70-30 100 UNIT/ML VIAL] 10 unit SQ DAILY 07/12/17 [History] Insulin NPH Hum/Reg Insulin Hm [NovoLIN 70-30 100 UNIT/ML VIAL] 26 unit SQ HS [History] Metoprolol Tartrate [Lopressor] 12.5 mg PO BID 07/12/17 [History] Nitroglycerin Sl Tabs [Nitrostat] 0.4 mg SUBLINGUAL Q5M PRN tab 07/14/17 [Rx] Atorvastatin Calcium [Lipitor] 80 mg PO HS 01/27/18 [History] FLUoxetine HCL [PROzac] 40 mg PO DAILY 01/27/18 [History] Famotidine [Pepcid] 20 mg PO HS 01/27/18 [History] Pioglitazone [Actos] 30 mg PO DAILY 01/27/18 [History] metFORMIN HCL 1,000 mg PO BID 01/27/18 [History] Hydrocortisone Cream [Hydrocortisone 1% Cream] 1 applic TOPICAL BID PRN applic 05/01/18 [Rx] Isosorbide Mononitrate ER [Imdur] 120 mg PO DAILY tab.er.24h 05/01/18 [Rx] Ranolazine [Ranexa] 1,000 mg PO Q12HR tab.er.12h 05/01/18 [Rx] Follow up Appointment(s)/Referral(s): Argentina Garza DO [Primary Care Provider] - 1-2 days Kinsey Jiménez MD [STAFF PHYSICIAN] - 1 Week Patient Instructions/Handouts: Angina (DC) Activity/Diet/Wound Care/Special Instructions: Pharmacy had a shortage of Renexa for your prescription this visit, please come pick pulling machine tender the remainder of the prescription on Wednesday. This prescription will be at no cost to you. After your one week prescription is finished you may pick pulling machine tender more of the medication from the cardiologists office. Diet heart healthy Activity as tolerated Discharge Disposition: HOME SELF-CARE
== END 2018-05-04 16:00 | disposition home or self-care (01) ==
LOC: EC 23:56 → 1SOBS 05-03 06:58
PROVIDERS: ADMIT Internal Medicine; ATTEND Internal Medicine
DX: R07.89 Other chest pain (principal); I25.119 Atherosclerotic heart disease of native coronary artery with unspecified angina pectoris; I45.10 Unspecified right bundle-branch block; I25.82 Chronic total occlusion of coronary artery; K21.9 Gastro-esophageal reflux disease without esophagitis; I10 Essential (primary) hypertension; G47.33 Obstructive sleep apnea (adult) (pediatric); E78.5 Hyperlipidemia, unspecified; E11.9 Type 2 diabetes mellitus without complications; M19.90 Unspecified osteoarthritis, unspecified site; L40.9 Psoriasis, unspecified; M10.9 Gout, unspecified; K44.9 Diaphragmatic hernia without obstruction or gangrene; M48.061 Spinal stenosis, lumbar region without neurogenic claudication; M54.16 Radiculopathy, lumbar region; F32.9 Major depressive disorder, single episode, unspecified; G89.29 Other chronic pain; M54.9 Dorsalgia, unspecified; R25.1 Tremor, unspecified; Z99.89 Dependence on other enabling machines and devices; Z91.14 Patient's other noncompliance with medication regimen; E66.9 Obesity, unspecified; Z68.38 Body mass index [BMI] 38.0-38.9, adult; Z79.02 Long term (current) use of antithrombotics/antiplatelets; Z79.4 Long term (current) use of insulin; Z79.899 Other long term (current) drug therapy; Z79.82 Long term (current) use of aspirin; I25.2 Old myocardial infarction; Z87.891 Personal history of nicotine dependence; Z95.5 Presence of coronary angioplasty implant and graft; Z95.1 Presence of aortocoronary bypass graft; Z87.11 Personal history of peptic ulcer disease; Z98.1 Arthrodesis status; Z82.49 Family history of ischemic heart disease and other diseases of the circulatory system; Z84.89 Family history of other specified conditions
CPT/HCPCS: 96372 ×2; 96376 ×2; 96361; 96374; 96375; 99285; 36415; 93005; 83880; 80061; 80053 ×2; 82550; 82553; 83735; 84484; 85025 ×2; 85610; 85730; 83036; 71046; G0378 ×2; J2270 ×2; J1644 ×2; J1885

== ENCOUNTER 2018-06-14 09:35 | Observation (INO) | payer MEDICARE ==
[2018-06-14] MEDS ORDERED: DEXAMETHASONE SOD PHOSPHATE 10 MG/ML 1 ML VIAL IV STA (10:15)
[2018-06-14] MEDS ORDERED: IPRATROPIUM-ALBUTEROL 3 ML NEB INHALATION STA (10:15)
[2018-06-14 10:19] LABS: Basophils % (A) 0 %; Eosinophils # (A) 0.2 k/uL (0-0.7); Eosinophils % (A) 4 %; HCT 41.1 % (39.0-53.0); HGB 12.9 gm/dL (13.0-17.5); Lymphocytes # (A) 0.9 k/uL (1.0-4.8); Lymphocytes % (A) 17 %; MCH 29.4 pg (25.0-35.0); MCHC 31.4 g/dL (31.0-37.0); MCV 93.6 fL (80.0-100.0); Mean Platelet Volume 7.6; Monocytes # (A) 0.2 k/uL (0-1.0); Monocytes % (A) 5 %; Neutrophils # (A) 3.5 k/uL (1.3-7.7); Neutrophils % (A) 71 %; Platelet Count 188 k/uL (150-450); RBC 4.39 m/uL (4.30-5.90); RDW 14.2 % (11.5-15.5)
--- NOTE | 2018-06-14 10:26 | XR ---
EXAMINATION TYPE: XR chest 2V DATE OF EXAM: 06/14/2018 COMPARISON: 05/03/2018 INDICATION: Chest pain short of breath TECHNIQUE: Frontal and lateral views of the chest are obtained. FINDINGS: The heart size is normal. The pulmonary vasculature is normal. The lungs are clear. Hyperinflation flattening the diaphragms is present. Correlate for COPD. Sternot jaycee wires are present. IMPRESSION: 1. No acute pulmonary process. 2. Correlate for COPD.
[2018-06-14 10:29] LABS: Partial Thromboplastin Time 24.1 sec (22.0-30.0); Prothrombin Time 10.6 sec (9.0-12.0)
--- NOTE | 2018-06-14 10:35 | ED ---
General Adult HPI - General Chief complaint: Chest Pain Stated complaint: chest pain Time Seen by Provider: 06/14/18 09:44 Source: patient, RN notes reviewed, old records reviewed Mode of arrival: wheelchair Limitations: no limitations - History of Present Illness Initial comments: 68-year-old male presents for evaluation of cough, dyspnea, chest pain. Patient 's symptoms began 3 days prior to arrival. He said productive cough with green sputum, he's had chills, no reported fever. His had central chest pain. He has history of CAD status post CABG. Chest pain is nonradiating. Worse with cough. Patient denies nausea vomiting diarrhea. Denies diaphoresis. He does report some URI symptoms. No history of COPD, but he was a previous smoker. - Related Data Home Medications Medication Instructions Recorded Confirmed Allopurinol [Zyloprim] 100 mg PO DAILY 11/07/13 06/14/18 Pantoprazole Sodium 40 mg PO DAILY 11/07/13 06/14/18 Topiramate [Topamax] 100 mg PO HS 11/07/13 06/14/18 Ascorbic Acid [Vitamin C] 1,000 mg PO QAM 05/25/16 06/14/18 [place]-3 Fatty Acids/Fish Oil [Fish 1 cap PO W/SUPPER 05/25/16 06/14/18 Oil 1,000 mg Softgel] Clopidogrel [Plavix] 75 mg PO DAILY 10/14/16 06/14/18 Gabapentin [Neurontin] 400 mg PO QID 10/14/16 06/14/18 Multivitamins, Thera [Multivitamin 1 tab PO DAILY 10/14/16 06/14/18 (formulary)] Insulin NPH Hum/Reg Insulin Hm 10 unit SQ DAILY 07/12/17 06/14/18 [NovoLIN 70-30 100 UNIT/ML VIAL] Insulin NPH Hum/Reg Insulin Hm 26 unit SQ HS 07/12/17 06/14/18 [NovoLIN 70-30 100 UNIT/ML VIAL] Metoprolol Tartrate [Lopressor] 12.5 mg PO BID 07/12/17 06/14/18 Atorvastatin Calcium [Lipitor] 80 mg PO HS 01/27/18 06/14/18 FLUoxetine HCL [PROzac] 80 mg PO DAILY 01/27/18 06/14/18 Famotidine [Pepcid] 20 mg PO HS 01/27/18 06/14/18 Pioglitazone [Actos] 30 mg PO DAILY 01/27/18 06/14/18 metFORMIN HCL 1,000 mg PO BID 01/27/18 06/14/18 HYDROcodone/APAP 10-325MG [[place] 1 tab PO TID PRN 06/14/18 06/14/18 10-325] Previous Rx's Medication Instructions Recorded Aspirin EC [Ecotrin Low Dose] 81 mg PO DAILY #30 tablet. 10/21/15 Nitroglycerin Sl Tabs [Nitrostat] 0.4 mg SUBLINGUAL Q5M PRN tab 07/14/17 Hydrocortisone Cream 1 applic TOPICAL BID PRN applic 05/01/18 [Hydrocortisone 1% Cream] Isosorbide Mononitrate ER [Imdur] 120 mg PO DAILY tab.er.24h 05/01/18 Ranolazine [Ranexa] 1,000 mg PO Q12HR tab.er.12h 05/01/18 Allergies Allergy/AdvReac Type Severity Reaction Status Date / Time No Known Allergies Allergy Verified 06/14/18 10:22 Review of Systems ROS Statement: Those systems with pertinent positive or pertinent negative responses have been documented in the HPI. ROS Other: All systems not noted in ROS Statement are negative. Past Medical History Past Medical History: Coronary Artery Disease (CAD), Chest Pain / Angina, Diabetes Mellitus, GERD/Reflux, GI Bleed, Hyperlipidemia, Hypertension, Myocardial Infarction ([place]), Musculoskeletal Disorder, Osteoarthritis (OA), Skin Disorder, Sleep Apnea/CPAP/BIPAP Additional Past Medical History / Comment(s): Pt recently admitted to [facility] on with chest pain, echo showed EF of 50-55%, nausea and vomiting past 2 weeks, discharged on Renexa. Other hx: NIDDM type II, chronic back pain, spinal lumbar stenosis with radiculopathy, R arm tremors, gout, hiatal hernia, BIANCA with Cpap, psoriasis. Last Myocardial Infarction Date:: OCTOBER 2015 History of Any Multi-Drug Resistant Organisms: None Reported Past Surgical History: Back Surgery, Coronary Bypass/CABG, Heart Catheterization , Heart Catheterization With Stent, Hernia Repair, Orthopedic Surgery Additional Past Surgical History / Comment(s): REPAIR STOMACH ULCER 10/2012; ORIF LT ANKLE; REPAIR RT 5TH FINGER D/T TRAUMA; PAIN PROC X2; HERNIA SURG X5 - 1 UMB, 1 HIATAL, 3 INGUINAL; CABG X1, 6-2014 had posterior lateral decompression and fusion, transforaminal lumbar interbody fusion L4-L5.LT ROTATOR CUFF REPAIR,EGD/COLONOSCOPY,NERVE BLOCK. 12 cardiac stents. Past Anesthesia/Blood Transfusion Reactions: No Reported Reaction Additional Past Anesthesia/Blood Transfusion Reaction / Comment(s): no blood transfusions before Date of Last Stent Placement:: OCTOBER 2015 Past Psychological History: Depression Smoking Status: Former smoker Past Alcohol Use History: None Reported Past Drug Use History: None Reported - Past Family History Father Additional Family Medical History / Comment(s): BRAIN TUMOR Mother Family Medical History: Myocardial Infarction ([place]) Additional Family Medical History / Comment(s): FROM [place] AGE 70 General Exam Limitations: no limitations General appearance: alert, in no apparent distress Head exam: Present: atraumatic, normocephalic Eye exam: Present: normal appearance, PERRL ENT exam: Present: mucous membranes dry Neck exam: Absent: tenderness, meningismus Respiratory exam: Present: wheezes, decreased breath sounds. Absent: respiratory distress Cardiovascular Exam: Present: regular rate, normal rhythm GI/Abdominal exam: Present: soft. Absent: distended, tenderness, guarding Extremities exam: Present: normal inspection, normal capillary refill. Absent: pedal edema, calf tenderness Neurological exam: Present: alert, oriented X3, CN II-XII intact. Absent: motor sensory deficit Psychiatric exam: Present: normal affect, normal mood Skin exam: Present: warm, dry, intact. Absent: cyanosis, diaphoretic Course Vital Signs 06/14/18 06/14/18 06/14/18 09:40 10:51 11:02 Temperature 98.2 F Pulse Rate 60 56 L 60 Respiratory 18 Rate Blood Pressure 143/75 O2 Sat by Pulse 98 Oximetry 06/14/18 11:50 Temperature 98.1 F Pulse Rate 70 Respiratory 18 Rate Blood Pressure 151/84 O2 Sat by Pulse 98 Oximetry EKG Findings - EKG Comments: EKG Findings:: EKG: Sinus bradycardia, rate 59, right bundle branch block NH interval 132, QRS duration 154, QTC 485, no ST segment elevation, there is no significant change compared to multiple previous EKGs. Medical Decision Making - Medical Decision Making 68-year-old male presenting with productive cough, dyspnea, central chest pain. Chest pain is reproducible, low suspicion for ischemia however patient does have history of CAD and is status post CABG in the past. He has scattered wheezing with decreased breath sounds, no formal diagnosis of COPD, however I suspect this patient has a component of chronic obstructive pulmonary disease. Patient has chest x-ray showed hyperinflation consistent with COPD, no focal pneumonia. Normal white blood cell count, stable hemoglobin, negative troponin and BNP and fluids and is negative. Patient will be admitted for treatment of dyspnea likely secondary to COPD, repeat troponin will be obtained to ensure there is not an ischemic component to his chest pain. Case discussed with admitting physician. - Lab Data Result diagrams: 06/14/18 10:06/14/18 10: Lab Results 06/14/18 06/14/18 06/14/18 Range/Units 10: 10: 10: WBC 5.0 (3.8-10.6) k/uL RBC 4.39 (4.30-5.90) m/uL Hgb 12.9 L (13.0-17.5) gm/dL Hct 41.1 (39.0-53.0) % MCV 93.6 (80.0-100.0) fL MCH 29.4 (25.0-35.0) pg MCHC 31.4 (31.0-37.0) g/dL RDW 14.2 (11.5-15.5) % Plt Count 188 (150-450) k/uL Neutrophils % 71 % Lymphocytes % 17 % Monocytes % 5 % Eosinophils % 4 % Basophils % 0 % Neutrophils # 3.5 (1.3-7.7) k/uL Lymphocytes # 0.9 L (1.0-4.8) k/uL Monocytes # 0.2 (0-1.0) k/uL Eosinophils # 0.2 (0-0.7) k/uL Basophils # 0.0 (0-0.2) k/uL PT (9.0-12.0) sec INR (<1.2) APTT (22.0-30.0) sec Sodium 142 (137-145) mmol/L Potassium 4.3 (3.5-5.1) mmol/L Chloride 108 H (98-107) mmol/L Carbon Dioxide 24 (22-30) mmol/L Anion Gap 10 mmol/L BUN 13 (9-20) mg/dL Creatinine 0.87 (0.66-1.25) mg/dL Est GFR (CKD-EPI)AfAm >90 (>60 ml/min/1.73 sqM) Est GFR (CKD-EPI)NonAf 88 (>60 ml/min/1.73 sqM) Glucose 164 H (74-99) mg/dL Plasma Lactic Acid Yung (0.7-2.0) mmol/L Calcium 8.9 (8.4-10.2) mg/dL Magnesium 1.8 (1.6-2.3) mg/dL Total Bilirubin 0.5 (0.2-1.3) mg/dL AST 23 (17-59) U/L ALT 26 (21-72) U/L Alkaline Phosphatase 50 (38-126) U/L Total Creatine Kinase 81 (55-170) U/L CK-MB (CK-2) 1.2 (0.0-2.4) ng/mL CK-MB (CK-2) Rel Index 1.5 Troponin I <0.012 (0.000-0.034) ng/mL NT-Pro-B Natriuret Pep pg/mL Total Protein 6.6 (6.3-8.2) g/dL Albumin 3.8 (3.5-5.0) g/dL Influenza Type A RNA (Not Detectd) Influenza Type B (PCR) (Not Detectd) 06/14/18 06/14/18 06/14/18 Range/Units 10:01 10:01 10:01 WBC (3.8-10.6) k/uL RBC (4.30-5.90) m/uL Hgb (13.0-17.5) gm/dL Hct (39.0-53.0) % MCV (80.0-100.0) fL MCH (25.0-35.0) pg MCHC (31.0-37.0) g/dL RDW (11.5-15.5) % Plt Count (150-450) k/uL Neutrophils % % Lymphocytes % % Monocytes % % Eosinophils % % Basophils % % Neutrophils # (1.3-7.7) k/uL Lymphocytes # (1.0-4.8) k/uL Monocytes # (0-1.0) k/uL Eosinophils # (0-0.7) k/uL Basophils # (0-0.2) k/uL PT 10.6 (9.0-12.0) sec INR 1.0 (<1.2) APTT 24.1 (22.0-30.0) sec Sodium (137-145) mmol/L Potassium (3.5-5.1) mmol/L Chloride (98-107) mmol/L Carbon Dioxide (22-30) mmol/L Anion Gap mmol/L BUN (9-20) mg/dL Creatinine (0.66-1.25) mg/dL Est GFR (CKD-EPI)AfAm (>60 ml/min/1.73 sqM) Est GFR (CKD-EPI)NonAf (>60 ml/min/1.73 sqM) Glucose (74-99) mg/dL Plasma Lactic Acid Yung 1.3 (0.7-2.0) mmol/L Calcium (8.4-10.2) mg/dL Magnesium (1.6-2.3) mg/dL Total Bilirubin (0.2-1.3) mg/dL AST (17-59) U/L ALT (21-72) U/L Alkaline Phosphatase (38-126) U/L Total Creatine Kinase (55-170) U/L CK-MB (CK-2) (0.0-2.4) ng/mL CK-MB (CK-2) Rel Index Troponin I (0.000-0.034) ng/mL NT-Pro-B Natriuret Pep 157 pg/mL Total Protein (6.3-8.2) g/dL Albumin (3.5-5.0) g/dL Influenza Type A RNA (Not Detectd) Influenza Type B (PCR) (Not Detectd) 06/14/18 Range/Units 10:09 WBC (3.8-10.6) k/uL RBC (4.30-5.90) m/uL Hgb (13.0-17.5) gm/dL Hct (39.0-53.0) % MCV (80.0-100.0) fL MCH (25.0-35.0) pg MCHC (31.0-37.0) g/dL RDW (11.5-15.5) % Plt Count (150-450) k/uL Neutrophils % % Lymphocytes % % Monocytes % % Eosinophils % % Basophils % % Neutrophils # (1.3-7.7) k/uL Lymphocytes # (1.0-4.8) k/uL Monocytes # (0-1.0) k/uL Eosinophils # (0-0.7) k/uL Basophils # (0-0.2) k/uL PT (9.0-12.0) sec INR (<1.2) APTT (22.0-30.0) sec Sodium (137-145) mmol/L Potassium (3.5-5.1) mmol/L Chloride (98-107) mmol/L Carbon Dioxide (22-30) mmol/L Anion Gap mmol/L BUN (9-20) mg/dL Creatinine (0.66-1.25) mg/dL Est GFR (CKD-EPI)AfAm (>60 ml/min/1.73 sqM) Est GFR (CKD-EPI)NonAf (>60 ml/min/1.73 sqM) Glucose (74-99) mg/dL Plasma Lactic Acid Yung (0.7-2.0) mmol/L Calcium (8.4-10.2) mg/dL Magnesium (1.6-2.3) mg/dL Total Bilirubin (0.2-1.3) mg/dL AST (17-59) U/L ALT (21-72) U/L Alkaline Phosphatase (38-126) U/L Total Creatine Kinase (55-170) U/L CK-MB (CK-2) (0.0-2.4) ng/mL CK-MB (CK-2) Rel Index Troponin I (0.000-0.034) ng/mL NT-Pro-B Natriuret Pep pg/mL Total Protein (6.3-8.2) g/dL Albumin (3.5-5.0) g/dL Influenza Type A RNA Not Detected (Not Detectd) Influenza Type B (PCR) Not Detected (Not Detectd) Disposition Clinical Impression: Chest pain, COPD exacerbation Disposition: ADMITTED IP TO THIS HOSP Condition: Stable Is patient prescribed a controlled substance at d/c from ED?: No Referrals: Dima Garza DO [REFERRING] - 1-2 days Time of Disposition: 12:28
[2018-06-14 10:39] LABS: ALT 26 U/L (21-72); AST 23 U/L (17-59); Albumin 3.8 g/dL (3.5-5.0); Alkaline Phosphatase 50 U/L (38-126); Anion Gap 10 mmol/L; Blood Urea Nitrogen 13 mg/dL (9-20); Calcium 8.9 mg/dL (8.4-10.2); Carbon Dioxide 24 mmol/L (22-30); Chloride 108 mmol/L (98-107); Glucose 164 mg/dL (74-99); Magnesium 1.8 mg/dL (1.6-2.3); Potassium 4.3 mmol/L (3.5-5.1); Sodium 142 mmol/L (137-145); Total Bilirubin 0.5 mg/dL (0.2-1.3); Total Protein 6.6 g/dL (6.3-8.2)
[2018-06-14 10:45] LABS: Creatine Kinase 81 U/L (55-170)
[2018-06-14 10:56] LABS: Creatine Kinase MB 1.2 ng/mL (0.0-2.4)
[2018-06-14 10:59] LABS: Troponin I <0.012 ng/mL (0.000-0.034)
[2018-06-14] MEDS ORDERED: IPRATROPIUM-ALBUTEROL 3 ML NEB INHALATION PRN (12:23)
[2018-06-14] MEDS ORDERED: HYDROcodone/APAP 10-325MG 1 EACH TAB PO PRN (13:49)
[2018-06-14] MEDS ORDERED: HYDROCORTISONE 1% CREAM 30 GM TUBE TOPICAL PRN (15:16)
[2018-06-14] MEDS ORDERED: NITROGLYCERIN SL TABS 0.4 MG TAB SUBLINGUAL PRN (15:16)
[2018-06-14 15:24] VITALS: BMI 36.5
[2018-06-14] MEDS: IPRATROPIUM-ALBUTEROL 3 ML NEB INHALATION SCH ×2 (15:32→19:09)
--- NOTE | 2018-06-14 15:59 | P.HPIM ---
History of Present Illness H&P Date: 06/14/18 This 68-year-old male patient of Dr. Garza who presented to emergency room with complaints of chest pain and cough. Patient states for the past 3 days he has had a productive cough that she had in chest pain that occurs with coughing. She has known past medical history of myocardial infarction, coronary artery disease with multiple cardiac stents and previous CABG, diabetes mellitus, hypertension and depression patient was recently discharged from the hospital and started on Ranexa. Patient does report Ranexa has been helping with his chest pain. Chest x-ray completed in emergency room showing no acute pulmonary process. Correlate for a COPD. CT completed showing sinus bradycardia with right bundle branch block. Cardiology services have been consulted. Initial troponin negative. Pulmonary services Dr. Henao consulted. Blood and sputum culture ordered. Patient started on Zithromax and Solu-Medrol. At this time patient denies chest pain. Patient shortness breath with cough. Patient denies any urinary burning or frequency. Patient denies nausea vomiting or diarrhea Review of Systems please refer to HPI otherwise unremarkable Past Medical History Past Medical History: Coronary Artery Disease (CAD), Chest Pain / Angina, Diabetes Mellitus, GERD/Reflux, GI Bleed, Hyperlipidemia, Hypertension, Myocardial Infarction ([place]), Musculoskeletal Disorder, Osteoarthritis (OA), Skin Disorder, Sleep Apnea/CPAP/BIPAP Additional Past Medical History / Comment(s): Pt recently admitted to [facility] on with chest pain, echo showed EF of 50-55%, nausea and vomiting past 2 weeks, discharged on Renexa. Other hx: NIDDM type II, chronic back pain, spinal lumbar stenosis with radiculopathy, R arm tremors, gout, hiatal hernia, BIANCA with Cpap, psoriasis. Last Myocardial Infarction Date:: OCTOBER 2015 History of Any Multi-Drug Resistant Organisms: None Reported Past Surgical History: Back Surgery, Coronary Bypass/CABG, Heart Catheterization , Heart Catheterization With Stent, Hernia Repair, Orthopedic Surgery Additional Past Surgical History / Comment(s): REPAIR STOMACH ULCER 10/2012; ORIF LT ANKLE; REPAIR RT 5TH FINGER D/T TRAUMA; PAIN PROC X2; HERNIA SURG X5 - 1 UMB, 1 HIATAL, 3 INGUINAL; CABG X1, 6-2003 had posterior lateral decompression and fusion, transforaminal lumbar interbody fusion L4-L5.LT ROTATOR CUFF REPAIR,EGD/COLONOSCOPY,NERVE BLOCK. 12 cardiac stents. Past Anesthesia/Blood Transfusion Reactions: No Reported Reaction Additional Past Anesthesia/Blood Transfusion Reaction / Comment(s): no blood transfusions before Date of Last Stent Placement:: November 2017 Past Psychological History: Depression Additional Psychological History / Comment(s): PT LIVES AT HOME WITH HIS . 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 pt uses glucometer Smoking Status: Former smoker Past Alcohol Use History: None Reported Additional Past Alcohol Use History / Comment(s): STARTED SMOKING AT AGE 14, SMOKED 2 PPD, QUIT 1989. pt stated quit drinking alcohol 1997 used to drink 6-8 or more beer per day. Past Drug Use History: None Reported - Past Family History Father Additional Family Medical History / Comment(s): BRAIN TUMOR Mother Family Medical History: Myocardial Infarction ([place]) Additional Family Medical History / Comment(s): FROM [place] AGE 70 Medications and Allergies Home Medications Medication Instructions Recorded Confirmed Type Allopurinol [Zyloprim] 100 mg PO DAILY 11/07/13 06/14/18 History Pantoprazole Sodium 40 mg PO DAILY 11/07/13 06/14/18 History Topiramate [Topamax] 100 mg PO HS 11/07/13 06/14/18 History Aspirin EC [Ecotrin Low Dose] 81 mg PO DAILY #30 tablet. 10/21/15 06/14/18 Rx Ascorbic Acid [Vitamin C] 1,000 mg PO QAM 05/25/16 06/14/18 History [place]-3 Fatty Acids/Fish Oil [Fish 1 cap PO W/SUPPER 05/25/16 06/14/18 History Oil 1,000 mg Softgel] Clopidogrel [Plavix] 75 mg PO DAILY 10/14/16 06/14/18 History Gabapentin [Neurontin] 400 mg PO QID 10/14/16 06/14/18 History Multivitamins, Thera [Multivitamin 1 tab PO DAILY 10/14/16 06/14/18 History (formulary)] Insulin NPH Hum/Reg Insulin Hm 10 unit SQ DAILY 07/12/17 06/14/18 History [NovoLIN 70-30 100 UNIT/ML VIAL] Insulin NPH Hum/Reg Insulin Hm 26 unit SQ HS 07/12/17 06/14/18 History [NovoLIN 70-30 100 UNIT/ML VIAL] Metoprolol Tartrate [Lopressor] 12.5 mg PO BID 07/12/17 06/14/18 History Nitroglycerin Sl Tabs [Nitrostat] 0.4 mg SUBLINGUAL Q5M PRN tab 07/14/17 Rx Atorvastatin Calcium [Lipitor] 80 mg PO HS 01/27/18 06/14/18 History FLUoxetine HCL [PROzac] 80 mg PO DAILY 01/27/18 06/14/18 History Famotidine [Pepcid] 20 mg PO HS 01/27/18 06/14/18 History Pioglitazone [Actos] 30 mg PO DAILY 01/27/18 06/14/18 History metFORMIN HCL 1,000 mg PO BID 01/27/18 06/14/18 History Hydrocortisone Cream 1 applic TOPICAL BID PRN applic 05/01/18 06/14/18 Rx [Hydrocortisone 1% Cream] Isosorbide Mononitrate ER [Imdur] 120 mg PO DAILY tab.er.24h 05/01/18 06/14/18 Rx Ranolazine [Ranexa] 1,000 mg PO Q12HR tab.er.12h 05/01/18 06/14/18 Rx HYDROcodone/APAP 10-325MG [[place] 1 tab PO TID PRN 06/14/18 06/14/18 History 10-325] Allergies Allergy/AdvReac Type Severity Reaction Status Date / Time No Known Allergies Allergy Verified 06/14/18 10:22 Physical Exam Vitals: Vital Signs Temp Pulse Pulse Resp BP BP Pulse Ox 06/14/18 15:32 63 16 97 06/14/18 14:36 97.7 F 74 16 129/85 96 06/14/18 13:54 98.1 F 68 18 130/85 96 06/14/18 11:50 98.1 F 70 18 151/84 98 06/14/18 11:02 60 06/14/18 10:51 56 L 06/14/18 09:40 98.2 F 60 18 143/75 98 Intake and Output 06/14/18 06/14/18 06/14/18 06:59 14:59 22:59 Other: Weight 99.6 kg Head normocephalic Neck supple Lungs diminished bilaterally Heart regular rate and rhythm S1-S2, no rub or gallop Abdomen is soft nontender nondistended positive bowel sounds no hepatosplenomegaly Extremities no edema Neuro alert and orientated to 3 Results CBC & Chem 7: 06/14/18 10:01 06/14/18 10:01 Labs: Abnormal Lab Results - Last 24 Hours (Table) 06/14/18 06/14/18 Range/Units 10: 10: Hgb 12.9 L (13.0-17.5) gm/dL Lymphocytes # 0.9 L (1.0-4.8) k/uL Chloride 108 H (98-107) mmol/L Glucose 164 H (74-99) mg/dL Thrombosis Risk Factor Assmnt - Choose All That Apply Any of the Below Risk Factors Present?: Yes Each Factor Represents 1 point: Abnormal pulmonary function (COPD), Obesity ( BMI >25) Other Risk Factors: Yes Each Risk Factor Represents 2 Points: Age 61-74 years Each Risk Factor Represents 3 Points: Family history of DVT/PE Thrombosis Risk Factor Assessment Total Risk Factor Score: 7 Thrombosis Risk Factor Assessment Level: High Risk Assessment and Plan Assessment: 1. Chest pain. Troponin negative. EKG showing sinus bradycardia with right bundle branch block. Cardiology services have been consulted. 2. COPD exacerbation. Chest x-ray completed showing no acute pulmonary process. Correlate for COPD. Patient started on IV steroids, DuoNeb breathing treatments and azithromycin. Dr. Henao has been consulted for pulmonary services. Sputum culture ordered 3. History of heart disease with coronary artery bypass graft surgery. 4. Angina. Patient recently started on Ranexa. Ranexa currently on hold due to interaction with azithromycin 5. Diabetes mellitus. Home oral medications currently on hold 6. Essential hypertension 7. Hyperlipidemia 8. History of GI bleed 9. History of sleep apnea 10. History of myocardial infections with multiple stents Time with Patient: Greater than 30 (Greater than 60% of the total time spent in counseling and coordination of care.I performed an examination of the patient and discussed their management with the Nurse Practitioner. I have reviewed the Nurse Practitioner's notes and agree with the documented findings and plan of care)
[2018-06-14] MEDS ORDERED: NON-FORMULARY DRUG (Omega-3 Fatty Acids/Fish Oil [Fish Oil 1,000 Mg Softgel] 1 CAP) PO SCH (17:30)
[2018-06-14] MEDS: GABAPENTIN 400 MG CAP PO SCH ×2 (17:50→20:16)
[2018-06-14] MEDS: methylPREDNISolone SOD SUCCI 125 MG/2 ML VIAL IV SCH (17:50)
[2018-06-14 18:16] LABS: Glucose,Whole Blood 223 mg/dL (75-99)
[2018-06-14 20:14] LABS: Glucose,Whole Blood 227 mg/dL (75-99)
[2018-06-14] MEDS: FAMOTIDINE 20 MG TAB PO SCH (20:14)
[2018-06-14] MEDS: HYDROcodone/APAP 10-325MG 1 EACH TAB PO PRN (20:14)
[2018-06-14] MEDS: ATORVASTATIN 80 MG TAB PO SCH (20:14)
[2018-06-14] MEDS: METOPROLOL TARTRATE 12.5 MG TAB PO SCH (20:15)
[2018-06-14] MEDS: RANOLAZINE 500 MG TAB.ER.12H PO SCH (20:15)
[2018-06-14] MEDS: TOPIRAMATE 100 MG TAB PO SCH (20:15)
[2018-06-14] MEDS: INSULN ASP PRT/INSULIN ASPART 100 UNIT/ML 10 ML VIAL SQ SCH (20:15)
[2018-06-14] MEDS ORDERED: RANOLAZINE 500 MG TAB.ER.12H PO SCH (21:00)
[2018-06-15] MEDS: methylPREDNISolone SOD SUCCI 125 MG/2 ML VIAL IV SCH ×4 (00:01→17:54)
[2018-06-15 01:48] VITALS: RESP 18
[2018-06-15] MEDS: MORPHINE SULFATE 2 MG/ML SYRINGE IVP PRN ×4 (02:41→20:43)
[2018-06-15] MEDS: guaiFENesin SYRUP 100MG/5ML 200 MG/10 ML CUP PO PRN (02:57)
[2018-06-15 05:40] LABS: Basophils % (A) 0 %; Eosinophils % (A) 0 %; HCT 45.4 % (39.0-53.0); HGB 14.4 gm/dL (13.0-17.5); Lymphocytes # (A) 0.6 k/uL (1.0-4.8); Lymphocytes % (A) 7 %; MCH 30.3 pg (25.0-35.0); MCHC 31.7 g/dL (31.0-37.0); MCV 95.6 fL (80.0-100.0); Mean Platelet Volume 7.6; Monocytes # (A) 0.1 k/uL (0-1.0); Monocytes % (A) 2 %; Neutrophils # (A) 7.2 k/uL (1.3-7.7); Neutrophils % (A) 91 %; Platelet Count 192 k/uL (150-450); RBC 4.75 m/uL (4.30-5.90); RDW 14.3 % (11.5-15.5)
[2018-06-15 05:51] LABS: ALT 32 U/L (21-72); AST 22 U/L (17-59); Albumin 4.4 g/dL (3.5-5.0); Alkaline Phosphatase 52 U/L (38-126); Anion Gap 8 mmol/L; Blood Urea Nitrogen 13 mg/dL (9-20); Calcium 9.5 mg/dL (8.4-10.2); Carbon Dioxide 25 mmol/L (22-30); Chloride 107 mmol/L (98-107); Glucose 219 mg/dL (74-99); Potassium 4.8 mmol/L (3.5-5.1); Sodium 140 mmol/L (137-145); Total Bilirubin 0.5 mg/dL (0.2-1.3); Total Protein 7.2 g/dL (6.3-8.2)
[2018-06-15 06:47] LABS: Glucose,Whole Blood 204 mg/dL (75-99)
[2018-06-15] MEDS: IPRATROPIUM-ALBUTEROL 3 ML NEB INHALATION SCH ×4 (07:37→20:33)
--- NOTE | 2018-06-15 08:56 | P.CNPUL ---
History of Present Illness Consult date: 06/15/18 Requesting physician: Tisha Tang Reason for consult: dyspnea, cough, chest pain, COPD Chief complaint: Acute exacerbation of COPD, chest pain History of present illness: This is a 68-year-old white male patient of Dr. Argentina Garza with past medical history of diabetes mellitus type 2, hypertension, hyperlipidemia, coronary artery disease with previous bypass grafting in 2004, previous PR in 2016, and history of 12 coronary stent placements, who presents to the emergency department on 06/14/2017 at 9:30 in the morning for evaluation of cough, dyspnea, and chest discomfort in the mid sternum, and on the left side of the chest anteriorly. Patient states he has had the symptoms for last 4 days , his cough has been productive with green colored sputum, patient had some subjective chills but no fevers. His chest pain was worse with deep breathing and coughing. He states he was a little diaphoretic at times, but denies any radiating pain. Patient is a former smoker, he quit smoking in June 1989, prior to that smoked a pack a day for 25 years. Has never seen a yard associate before, he does not wear oxygen, he has never been officially diagnosed with COPD. Other medical history includes GERD/reflux, previous history of GI bleeding, sleep apnea on CPAP, spinal lumbar stenosis with radiculopathy, chronic back pain, depression. Chest x-ray did not show any acute pulmonary process, it showed hyperinflation and flattening of the diaphragms consistent with COPD. No leukocytosis, WBC is 5.0, hemoglobin is 12.9, electrolytes and renal profile unremarkable, troponins are negative 3, proBNP within normal limits at 157, influenza screen was negative, EKG showed sinus bradycardia with right bundle branch block, and a possible inferior infarct of undetermined age. Last echocardiogram was on 04/29/2018 and showed EF between 50-55%, no pulmonary hypertension, trace tricuspid regurg. Last cardiac catheterization was in January 2018 and showed a patent vein graft to the RCA, disease free left main, no significant disease in LAD, posterior circumflex. Review of Systems All systems: negative Constitutional: Reports chills, Denies fever Eyes: denies blurred vision, denies pain Ears, nose, mouth and throat: Reports nasal congestion, Reports nasal discharge , Denies headache, Denies sore throat Cardiovascular: Reports chest pain, Denies shortness of breath Respiratory: Reports cough with sputum, Reports dyspnea, Reports pain on inspiration, Denies cough Gastrointestinal: Denies abdominal pain, Denies diarrhea, Denies nausea, Denies vomiting Musculoskeletal: Denies myalgias Integumentary: Denies pruritus, Denies rash Neurological: Denies numbness, Denies weakness Psychiatric: Denies anxiety, Denies depression Endocrine: Denies fatigue, Denies weight change Past Medical History Past Medical History: Coronary Artery Disease (CAD), Chest Pain / Angina, Diabetes Mellitus, GERD/Reflux, GI Bleed, Hyperlipidemia, Hypertension, Myocardial Infarction (PR), Musculoskeletal Disorder, Osteoarthritis (OA), Skin Disorder, Sleep Apnea/CPAP/BIPAP Additional Past Medical History / Comment(s): Pt recently admitted to [facility] on with chest pain, echo showed EF of 50-55%, nausea and vomiting past 2 weeks, discharged on Renexa. Other hx: NIDDM type II, chronic back pain, spinal lumbar stenosis with radiculopathy, R arm tremors, gout, hiatal hernia, BIANCA with Cpap, psoriasis. Last Myocardial Infarction Date:: OCTOBER 2015 History of Any Multi-Drug Resistant Organisms: None Reported Past Surgical History: Back Surgery, Coronary Bypass/CABG, Heart Catheterization , Heart Catheterization With Stent, Hernia Repair, Orthopedic Surgery Additional Past Surgical History / Comment(s): REPAIR STOMACH ULCER 10/2012; ORIF LT ANKLE; REPAIR RT 5TH FINGER D/T TRAUMA; PAIN PROC X2; HERNIA SURG X5 - 1 UMB, 1 HIATAL, 3 INGUINAL; CABG X1, 6-2004 had posterior lateral decompression and fusion, transforaminal lumbar interbody fusion L4-L5.LT ROTATOR CUFF REPAIR,EGD/COLONOSCOPY,NERVE BLOCK. 12 cardiac stents. Past Anesthesia/Blood Transfusion Reactions: No Reported Reaction Additional Past Anesthesia/Blood Transfusion Reaction / Comment(s): no blood transfusions before Date of Last Stent Placement:: November 2017 Past Psychological History: Depression Additional Psychological History / Comment(s): PT LIVES AT HOME WITH HIS . 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 pt uses glucometer Smoking Status: Former smoker Past Alcohol Use History: None Reported Additional Past Alcohol Use History / Comment(s): STARTED SMOKING AT AGE 14, SMOKED 2 PPD, QUIT 1989. pt stated quit drinking alcohol 1996 used to drink 6-8 or more beer per day. Past Drug Use History: None Reported - Past Family History Father Additional Family Medical History / Comment(s): BRAIN TUMOR Mother Family Medical History: Myocardial Infarction (PR) Additional Family Medical History / Comment(s): FROM PR AGE 70 Medications and Allergies Home Medications Medication Instructions Recorded Confirmed Type Allopurinol [Zyloprim] 100 mg PO DAILY 11/07/13 06/14/18 History Pantoprazole Sodium 40 mg PO DAILY 11/07/13 06/14/18 History Topiramate [Topamax] 100 mg PO HS 11/07/13 06/14/18 History Aspirin EC [Ecotrin Low Dose] 81 mg PO DAILY #30 tablet. 10/21/15 06/14/18 Rx Ascorbic Acid [Vitamin C] 1,000 mg PO QAM 05/25/16 06/14/18 History [place]-3 Fatty Acids/Fish Oil [Fish 1 cap PO W/SUPPER 05/25/16 06/14/18 History Oil 1,000 mg Softgel] Clopidogrel [Plavix] 75 mg PO DAILY 10/14/16 06/14/18 History Gabapentin [Neurontin] 400 mg PO QID 10/14/16 06/14/18 History Multivitamins, Thera [Multivitamin 1 tab PO DAILY 10/14/16 06/14/18 History (formulary)] Insulin NPH Hum/Reg Insulin Hm 10 unit SQ DAILY 07/12/17 06/14/18 History [NovoLIN 70-30 100 UNIT/ML VIAL] Insulin NPH Hum/Reg Insulin Hm 26 unit SQ HS 07/12/17 06/14/18 History [NovoLIN 70-30 100 UNIT/ML VIAL] Metoprolol Tartrate [Lopressor] 12.5 mg PO BID 07/12/17 06/14/18 History Nitroglycerin Sl Tabs [Nitrostat] 0.4 mg SUBLINGUAL Q5M PRN tab 07/14/17 Rx Atorvastatin Calcium [Lipitor] 80 mg PO HS 01/27/18 06/14/18 History FLUoxetine HCL [PROzac] 80 mg PO DAILY 01/27/18 06/14/18 History Famotidine [Pepcid] 20 mg PO HS 01/27/18 06/14/18 History Pioglitazone [Actos] 30 mg PO DAILY 01/27/18 06/14/18 History metFORMIN HCL 1,000 mg PO BID 01/27/18 06/14/18 History Hydrocortisone Cream 1 applic TOPICAL BID PRN applic 05/01/18 06/14/18 Rx [Hydrocortisone 1% Cream] Isosorbide Mononitrate ER [Imdur] 120 mg PO DAILY tab.er.24h 05/01/18 06/14/18 Rx Ranolazine [Ranexa] 1,000 mg PO Q12HR tab.er.12h 05/01/18 06/14/18 Rx HYDROcodone/APAP 10-325MG [[place] 1 tab PO TID PRN 06/14/18 06/14/18 History 10-325] Allergies Allergy/AdvReac Type Severity Reaction Status Date / Time No Known Allergies Allergy Verified 06/14/18 10:22 Physical Exam Vitals: Vital Signs Temp Pulse Pulse Resp BP BP Pulse Ox 06/15/18 08:00 97.7 F 67 18 132/75 93 L 06/15/18 07:51 72 06/15/18 07:37 72 06/15/18 04:00 98.2 F 71 18 159/85 92 L 06/15/18 00:00 97.9 F 74 18 126/71 96 06/14/18 20:00 97.7 F 91 16 149/71 95 06/14/18 19:15 75 06/14/18 19:11 95 06/14/18 19:10 74 06/14/18 15:45 68 06/14/18 15:32 63 16 97 06/14/18 14:36 97.7 F 74 16 129/85 96 06/14/18 13:54 98.1 F 68 18 130/85 96 06/14/18 11:50 98.1 F 70 18 151/84 98 06/14/18 11:02 60 06/14/18 10:51 56 L 06/14/18 09:40 98.2 F 60 18 143/75 98 Intake and Output 06/14/18 06/15/18 06/15/18 22:59 06:59 14:59 Other: Voiding Method Toilet Toilet # Voids 1 1 GENERAL EXAM: Alert, pleasant 68-year-old white male comfortable in no apparent distress. HEAD: Normocephalic/atraumatic. EYES: Normal reaction of pupils, equal size. Conjunctiva pink, sclera white. NOSE: Clear with pink turbinates. THROAT: No erythema or exudates. NECK: No masses, no JVD, no thyroid enlargement, no adenopathy. CHEST: No chest wall deformity. Symmetrical expansion. LUNGS: Markedly diminished breath sounds bilaterally CVS: Regular rate and rhythm, normal S1 and S2, no gallops, no murmurs, no rubs ABDOMEN: Soft, nontender. No hepatosplenomegaly, normal bowel sounds, no guarding or rigidity. EXTREMITIES: No clubbing, no edema, no cyanosis, 2+ pulses and upper and lower extremities. MUSCULOSKELETAL: Muscle strength and tone normal. SPINE: No scoliosis or deformity SKIN: No rashes CENTRAL NERVOUS SYSTEM: Alert and oriented -3. No focal deficits, tone is normal in all 4 extremities. PSYCHIATRIC: Alert and oriented -3. Appropriate affect. Intact judgment and insight. Results - Laboratory Findings CBC and BMP: 06/15/18 05:26 06/15/18 05:26 PT/INR, D-dimer PT 10.6 sec (9.0-12.0) 06/14/18 10:01 INR 1.0 (<1.2) 06/14/18 10:01 Abnormal lab findings: Abnormal Labs 06/14/18 06/14/18 06/14/18 10:01 10:01 18:14 Hgb 12.9 L Lymphocytes # 0.9 L Chloride 108 H Glucose 164 H POC Glucose (mg/dL) 223 H 06/14/18 06/15/18 06/15/18 20:13 05:26 05:26 Hgb Lymphocytes # 0.6 L Chloride Glucose 219 H POC Glucose (mg/dL) 227 H 06/15/18 06:45 Hgb Lymphocytes # Chloride Glucose POC Glucose (mg/dL) 204 H - Diagnostic Findings Chest x-ray: report reviewed, image reviewed Additional studies: EKG, last echocardiogram, and last heart catheterization results reviewed Assessment and Plan Plan: Assessment: #1. Acute exacerbation of chronic obstructive pulmonary disease, chest x-ray is negative for any acute pulmonary process #2. Dyspnea, cough, phlegm production related to the above #3. Left-sided and midsternal chest discomfort worse with coughing, with negative troponins, EKG was negative for any acute ischemic changes. This may be related to coughing #4. Coronary artery disease, with history of one-vessel bypass grafting, with vein graft to the RCA in 2003, and multiple PCI's and stent placements #5. Diabetes mellitus type 2, on insulin #6. Hypertension, hyperlipidemia #7. Previous episode of myocardial infarction in 2016 #8. Chronic back pain, history of spinal lumbar stenosis and back surgeries #9. Osteoarthritis #10. Obstructive sleep apnea, on CPAP therapy #11. Nicotine dependence, currently in remission, patient quit smoking in 1989 , carries [id number] smoking history Plan: Continue the IV steroids, nebulized bronchodilators, and antibiotics. Chest x- ray was reviewed by Dr. Cordero, did not show any acute pulmonary process. Patient is still having some chest discomfort with deep breathing and coughing. Awaiting evaluation by cardiology. We'll continue to follow I performed a history & physical examination of the patient and discussed their management with my nurse practitioner, Ina Leach. I reviewed the nurse practitioner's note and agree with the documented findings and plan of care. Lung sounds are markedly diminished breath sounds bilaterally. The findings and the impression was discussed with the patient. I attest to the documentation by the nurse practitioner. Time with Patient: Greater than 30
[2018-06-15] MEDS ORDERED: AZITHROMYCIN 500 MG TAB PO SCH (09:00)
[2018-06-15] MEDS: FLUoxetine HCL 20 MG CAP PO SCH (09:17)
[2018-06-15] MEDS: GABAPENTIN 400 MG CAP PO SCH ×4 (09:17→20:42)
[2018-06-15] MEDS: ASPIRIN 81 MG PO SCH (09:17)
[2018-06-15] MEDS: CLOPIDOGREL 75 MG TAB PO SCH (09:17)
[2018-06-15] MEDS: ALLOPURINOL 100 MG TAB PO SCH (09:17)
[2018-06-15] MEDS: ISOSORBIDE MONONITRATE ER 60 MG TAB.ER.24H PO SCH (09:18)
[2018-06-15] MEDS: ASCORBIC ACID 500 MG TAB PO SCH (09:18)
[2018-06-15] MEDS: INSULN ASP PRT/INSULIN ASPART 100 UNIT/ML 10 ML VIAL SQ SCH ×2 (09:18→20:43)
[2018-06-15] MEDS: RANOLAZINE 500 MG TAB.ER.12H PO SCH ×2 (09:25→20:41)
[2018-06-15] MEDS: PANTOPRAZOLE 40 MG TABLET PO SCH (09:25)
[2018-06-15] MEDS: METOPROLOL TARTRATE 12.5 MG TAB PO SCH ×2 (09:25→20:42)
[2018-06-15 09:55] LABS: Hemoglobin A1C 8.1 % (4.0-6.0)
[2018-06-15] MEDS: HYDROcodone/APAP 10-325MG 1 EACH TAB PO PRN (11:43)
[2018-06-15] MEDS: MULTIVITAMINS, THERA 1 EACH TAB PO SCH (11:43)
[2018-06-15 12:29] LABS: Glucose,Whole Blood 226 mg/dL (75-99)
--- NOTE | 2018-06-15 12:51 | P.PN ---
Subjective Progress Note Date: 06/15/18 This 68-year-old male patient of Dr. Garza who presented to emergency room with complaints of chest pain and cough. Patient states for the past 3 days he has had a productive cough that she had in chest pain that occurs with coughing. She has known past medical history of myocardial infarction, coronary artery disease with multiple cardiac stents and previous CABG, diabetes mellitus, hypertension and depression patient was recently discharged from the hospital and started on Ranexa. Patient does report Ranexa has been helping with his chest pain. Chest x-ray completed in emergency room showing no acute pulmonary process. Correlate for a COPD. CT completed showing sinus bradycardia with right bundle branch block. Cardiology services have been consulted. Initial troponin negative. Pulmonary services Dr. Henao consulted. Blood and sputum culture ordered. Patient started on Zithromax and Solu-Medrol. At this time patient denies chest pain. Patient shortness breath with cough. Patient denies any urinary burning or frequency. Patient denies nausea vomiting or diarrhea On 06/15/2018 patient is currently resting in bed. Patient does report he feels slightly improved from yesterday. At this time patient does report chest pain with coughing. Patient denies nausea vomiting or diarrhea. Patient denies any urinary burning or frequency. Pulmonary and cardiology services have been consulted Objective - Vital Signs Vital signs: Vital Signs Temp 98.0 F 06/15/18 12:00 Pulse 72 06/15/18 12:02 Resp 18 06/15/18 12:00 BP 124/70 06/15/18 12:00 Pulse Ox 94 L 06/15/18 12:00 Intake & Output 06/14/18 06/15/18 06/15/18 18:59 06:59 18:59 Intake Total 400 Balance 400 Weight 99.6 kg Intake: Oral 400 Other: Voiding Method Toilet Toilet Toilet # Voids 1 - Exam Head normocephalic Neck supple Lungs clear to auscultation bilaterally no wheezing or crackles Heart regular rate and rhythm S1-S2, no rub or gallop Abdomen is soft nontender nondistended positive bowel sounds no hepatosplenomegaly Extremities no edema Neuro alert and orientated to 3 - Labs CBC & Chem 7: 06/15/18 05:26 06/15/18 05:26 Labs: Abnormal Lab Results - Last 24 Hours (Table) 06/14/18 06/14/18 06/14/18 Range/Units 18:14 19:01 20:13 Lymphocytes # (1.0-4.8) k/uL Glucose (74-99) mg/dL POC Glucose (mg/dL) 223 H 227 H (75-99) mg/dL Hemoglobin A1c 8.1 H (4.0-6.0) % 06/15/18 06/15/18 06/15/18 Range/Units 05:26 05:26 06:45 Lymphocytes # 0.6 L (1.0-4.8) k/uL Glucose 219 H (74-99) mg/dL POC Glucose (mg/dL) 204 H (75-99) mg/dL Hemoglobin A1c (4.0-6.0) % 06/15/18 Range/Units 12:05 Lymphocytes # (1.0-4.8) k/uL Glucose (74-99) mg/dL POC Glucose (mg/dL) 226 H (75-99) mg/dL Hemoglobin A1c (4.0-6.0) % Microbiology - Last 24 Hours (Table) 06/14/18 10:01 Blood Culture - Preliminary Blood No Growth after 24 hours Assessment and Plan Assessment: 1. Chest pain. Troponin negative. EKG showing sinus bradycardia with right bundle branch block. Cardiology services have been consulted. 2. Acute exacerbation of COPD with dyspnea cough and phlegm production. Chest x-ray completed showing no acute pulmonary process. Correlate for COPD. Patient started on IV steroids, DuoNeb breathing treatments and Rocephin Sputum culture ordered. Per pulmonary services continue with IV steroids, bronchodilators and antibiotics at this time 3. History of heart disease with coronary artery bypass graft surgery. 4. Angina. Patient recently started on Ranexa. Ranexa resumed. Antibiotic switched to Rocephin 5. Diabetes mellitus. Home oral medications currently on hold. 9 scale insulin ordered 6. Essential hypertension 7. Hyperlipidemia 8. History of GI bleed 9. History of sleep apnea 10. History of myocardial infections with multiple stents DVT prophylaxis Lovenox. GI prophylaxis Pepcid I performed an examination of the patient and discussed their management with the Nurse Practitioner. I have reviewed the Nurse Practitioner's notes and agree with the documented findings and plan of care
--- NOTE | 2018-06-15 13:18 | P.CRDCN ---
History of Present Illness History of present illness: This is a pleasant 68-year-old male past medical history significant for coronary artery disease status post bypass grafting and SVG to the RCA, hypertension, dyslipidemia, obstructive sleep apnea, gastroesophageal reflux disease, diabetes mellitus and former nicotine dependence. He follows with Dr. Jiménez in the office. We've been asked to see him in consultation for chest pain. He states for the previous 4 days he has been coughing and bringing up yellow/greenish sputum. Starting yesterday he was feeling pain in his chest every time he coughed or took a deep breath. He has also noticed increasing shortness of breath over the previous 4 days. He denies palpitations, dizziness , nausea, vomiting or diaphoresis. He also describes fever or chills at home as well as a runny nose. He recently underwent cardiac catheterization in January 2018 that revealed RCA totally occluded in the proximal portion with no a to K flow, SVG to RCA widely patent with multiple patent stents throughout, LAD short vessel disease free with minor irregularities unchanged from catheterization in June 2007, circumflex artery gives off a high first OM and second OM with patent stents with no significant disease and minor irregularities within the circumflex system. EKG reveals right bundle branch block pattern. No acute ST or T wave abnormalities noted. Chest x-ray reveals evidence of COPD. Laboratory data reviewed, hemoglobin 14.4, platelets 192, sodium 140, potassium 4.8, creatinine 0.89, NT proBNP 157, cardiac enzymes negative 3, magnesium 1.8. Current cardiac medications include aspirin 81 mg daily, atorvastatin 80 mg daily, Plavix 75 mg daily, Imdur 120 mg daily, Lopressor 12.5 mg twice a day and Ranexa 1000 mg twice a day. Most recent echocardiogram obtained in April 2018 reveals preserved left ventricular systolic function with ejection fraction 50-55%. At the time of my exam: CONSTITUTIONAL: Denies fever. Denies chills. EYES: Denies blurred vision. Denies vision changes. Denies eye pain. EARS, NOSE, MOUTH & THROAT: Denies headache. Denies sore throat. Denies ear pain. CARDIOVASCULAR: Denies chest pain. Denies shortness of breath. Denies orthopnea. Denies PND. Denies palpitations. RESPIRATORY: Denies cough. GASTROINTESTINAL: Denies abdominal pain. Denies diarrhea. Denies constipation. Denies nausea. Denies vomiting. MUSCULOSKELETAL: Denies myalgias. INTEGUMENTARY: Denies pruitis. Denies rash. NEUROLOGIC: Denies numbness. Denies tingling. Denies weakness. PSYCHIATRIC: Denies anxiety. Denies depression. ENDOCRINE: Denies fatigue. Denies weight change. Denies polydipsia. Denies polyurina. GENITOURINARY: Denies burning, hematuria or urgency with micturation. HEMATOLOGIC: Denies history of anemia. Denies bleeding. Blood pressure 124/70 heart rate 82 afebrile maintaining oxygen saturation on room air GENERAL: This is a 68-year-old male in no apparent distress at the time of my examination. HEENT: Head is atraumatic, normocephalic. Pupils are equal, round. Sclerae anicteric. Conjunctivae are clear. Mucous membranes of the mouth are moist. Neck is supple. There is no jugular venous distention. No carotid bruit is heard. LUNGS: Clear to auscultation no wheezes, rales or rhonchi. No chest wall tenderness is noted on palpation or with deep breathing. HEART: Regular rate and rhythm without murmurs, rubs or gallops. S1 and S2 heard. ABDOMEN: Soft, nontender. Bowel sounds are heard. No organomegaly noted. EXTREMITIES: No evidence of peripheral edema and no calf tenderness noted. VASCULAR: Radial and dorsalis pedis pulses palpated, no evidence of clubbing. NEUROLOGIC: Patient is awake, alert and oriented x3. ASSESSMENT Pleuritic chest pain, not indicative of an acute coronary event. No evidence of angina. An acute coronary event has been ruled out. Acute exacerbation of COPD History of coronary artery disease status post single-vessel bypass grafting with multiple stents Hypertension Dyslipidemia Diabetes mellitus PLAN Symptoms are not suggestive of an acute coronary syndrome. Chest discomfort is associated with coughing and deep breathing. An acute coronary event has been ruled out. Ongoing medical management for acute exacerbation of COPD. Follow-up with Dr. Jiménez upon discharge. Thank you kindly for this consultation. Nurse Practitioner note has been reviewed, I agree with a documented findings and plan of care. Patient was seen and examined. Past Medical History Past Medical History: Coronary Artery Disease (CAD), Chest Pain / Angina, Diabetes Mellitus, GERD/Reflux, GI Bleed, Hyperlipidemia, Hypertension, Myocardial Infarction ([place]), Musculoskeletal Disorder, Osteoarthritis (OA), Skin Disorder, Sleep Apnea/CPAP/BIPAP Additional Past Medical History / Comment(s): Pt recently admitted to [facility] on with chest pain, echo showed EF of 50-55%, nausea and vomiting past 2 weeks, discharged on Renexa. Other hx: NIDDM type II, chronic back pain, spinal lumbar stenosis with radiculopathy, R arm tremors, gout, hiatal hernia, BIANCA with Cpap, psoriasis. Last Myocardial Infarction Date:: OCTOBER 2015 History of Any Multi-Drug Resistant Organisms: None Reported Past Surgical History: Back Surgery, Coronary Bypass/CABG, Heart Catheterization , Heart Catheterization With Stent, Hernia Repair, Orthopedic Surgery Additional Past Surgical History / Comment(s): REPAIR STOMACH ULCER 10/2012; ORIF LT ANKLE; REPAIR RT 5TH FINGER D/T TRAUMA; PAIN PROC X2; HERNIA SURG X5 - 1 UMB, 1 HIATAL, 3 INGUINAL; CABG X1, 6-2003 had posterior lateral decompression and fusion, transforaminal lumbar interbody fusion L4-L5.LT ROTATOR CUFF REPAIR,EGD/COLONOSCOPY,NERVE BLOCK. 12 cardiac stents. Past Anesthesia/Blood Transfusion Reactions: No Reported Reaction Additional Past Anesthesia/Blood Transfusion Reaction / Comment(s): no blood transfusions before Date of Last Stent Placement:: November 2017 Past Psychological History: Depression Additional Psychological History / Comment(s): PT LIVES AT HOME WITH HIS . 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 pt uses glucometer Smoking Status: Former smoker Past Alcohol Use History: None Reported Additional Past Alcohol Use History / Comment(s): STARTED SMOKING AT AGE 14, SMOKED 2 PPD, QUIT 1989. pt stated quit drinking alcohol 1997 used to drink 6-8 or more beer per day. Past Drug Use History: None Reported - Past Family History Father Additional Family Medical History / Comment(s): BRAIN TUMOR Mother Family Medical History: Myocardial Infarction ([place]) Additional Family Medical History / Comment(s): FROM [place] AGE 70 Medications and Allergies Home Medications Medication Instructions Recorded Confirmed Type Allopurinol [Zyloprim] 100 mg PO DAILY 11/07/13 06/14/18 History Pantoprazole Sodium 40 mg PO DAILY 11/07/13 06/14/18 History Topiramate [Topamax] 100 mg PO HS 11/07/13 06/14/18 History Aspirin EC [Ecotrin Low Dose] 81 mg PO DAILY #30 tablet. 10/21/15 06/14/18 Rx Ascorbic Acid [Vitamin C] 1,000 mg PO QAM 05/25/16 06/14/18 History [place]-3 Fatty Acids/Fish Oil [Fish 1 cap PO W/SUPPER 05/25/16 06/14/18 History Oil 1,000 mg Softgel] Clopidogrel [Plavix] 75 mg PO DAILY 10/14/16 06/14/18 History Gabapentin [Neurontin] 400 mg PO QID 10/14/16 06/14/18 History Multivitamins, Thera [Multivitamin 1 tab PO DAILY 10/14/16 06/14/18 History (formulary)] Insulin NPH Hum/Reg Insulin Hm 10 unit SQ DAILY 07/12/17 06/14/18 History [NovoLIN 70-30 100 UNIT/ML VIAL] Insulin NPH Hum/Reg Insulin Hm 26 unit SQ HS 07/12/17 06/14/18 History [NovoLIN 70-30 100 UNIT/ML VIAL] Metoprolol Tartrate [Lopressor] 12.5 mg PO BID 07/12/17 06/14/18 History Nitroglycerin Sl Tabs [Nitrostat] 0.4 mg SUBLINGUAL Q5M PRN tab 07/14/17 Rx Atorvastatin Calcium [Lipitor] 80 mg PO HS 01/27/18 06/14/18 History FLUoxetine HCL [PROzac] 80 mg PO DAILY 01/27/18 06/14/18 History Famotidine [Pepcid] 20 mg PO HS 01/27/18 06/14/18 History Pioglitazone [Actos] 30 mg PO DAILY 01/27/18 06/14/18 History metFORMIN HCL 1,000 mg PO BID 01/27/18 06/14/18 History Hydrocortisone Cream 1 applic TOPICAL BID PRN applic 05/01/18 06/14/18 Rx [Hydrocortisone 1% Cream] Isosorbide Mononitrate ER [Imdur] 120 mg PO DAILY tab.er.24h 05/01/18 06/14/18 Rx Ranolazine [Ranexa] 1,000 mg PO Q12HR tab.er.12h 05/01/18 06/14/18 Rx HYDROcodone/APAP 10-325MG [[place] 1 tab PO TID PRN 06/14/18 06/14/18 History 10-325] Allergies Allergy/AdvReac Type Severity Reaction Status Date / Time No Known Allergies Allergy Verified 06/14/18 10:22 Physical Exam Vitals: Vital Signs Temp Pulse Pulse Resp BP BP Pulse Ox 06/15/18 08:00 97.7 F 67 18 132/75 93 L 06/15/18 07:51 72 06/15/18 07:37 72 06/15/18 04:00 98.2 F 71 18 159/85 92 L 06/15/18 00:00 97.9 F 74 18 126/71 96 06/14/18 20:00 97.7 F 91 16 149/71 95 06/14/18 19:15 75 06/14/18 19:11 95 06/14/18 19:10 74 06/14/18 15:45 68 06/14/18 15:32 63 16 97 06/14/18 14:36 97.7 F 74 16 129/85 96 06/14/18 13:54 98.1 F 68 18 130/85 96 06/14/18 11:50 98.1 F 70 18 151/84 98 06/14/18 11:02 60 06/14/18 10:51 56 L 06/14/18 09:40 98.2 F 60 18 143/75 98 Intake and Output 06/14/18 06/15/18 06/15/18 22:59 06:59 14:59 Other: Voiding Method Toilet Toilet # Voids 1 1 Results 06/15/18 05:26 06/15/18 05:26 Cardiac Enzymes 06/14/18 06/14/18 06/14/18 Range/Units 10:01 10:01 19:01 AST 23 (17-59) U/L CK-MB (CK-2) 1.2 (0.0-2.4) ng/mL Troponin I <0.012 <0.012 (0.000-0.034) ng/mL 06/15/18 06/15/18 Range/Units 05:26 05:26 AST 22 (17-59) U/L CK-MB (CK-2) (0.0-2.4) ng/mL Troponin I <0.012 (0.000-0.034) ng/mL Coagulation 06/14/18 Range/Units 10:01 PT 10.6 (9.0-12.0) sec APTT 24.1 (22.0-30.0) sec CBC 06/14/18 06/15/18 Range/Units 10: 05:26 WBC 5.0 8.0 (3.8-10.6) k/uL RBC 4.39 4.75 (4.30-5.90) m/uL Hgb 12.9 L 14.4 (13.0-17.5) gm/dL Hct 41.1 45.4 (39.0-53.0) % Plt Count 188 192 (150-450) k/uL Comprehensive Metabolic Panel 06/14/18 06/15/18 Range/Units 10: 05:26 Sodium 142 140 (137-145) mmol/L Potassium 4.3 4.8 (3.5-5.1) mmol/L Chloride 108 H 107 (98-107) mmol/L Carbon Dioxide 24 25 (22-30) mmol/L BUN 13 13 (9-20) mg/dL Creatinine 0.87 0.89 (0.66-1.25) mg/dL Glucose 164 H 219 H (74-99) mg/dL Calcium 8.9 9.5 (8.4-10.2) mg/dL AST 23 22 (17-59) U/L ALT 26 32 (21-72) U/L Alkaline Phosphatase 50 52 (38-126) U/L Total Protein 6.6 7.2 (6.3-8.2) g/dL Albumin 3.8 4.4 (3.5-5.0) g/dL Current Medications Generic Name Dose Route Start Last Admin Trade Name Freq PRN Reason Stop Dose Admin Hydrocodone Bitart/Acetaminophen 1 each 06/14/18 15:16 06/14/18 20:14 [place] 10 PO 1 each TID PRN Administration Pain Albuterol/Ipratropium 3 ml 06/14/18 12:23 Duoneb 0.5 Mg-3 Mg/3 Ml Soln INHALATION RT-Q4H PRN Shortness Of Breath Or Wheezing Albuterol/Ipratropium 3 ml 06/14/18 16:00 06/15/18 07:37 Duoneb 0.5 Mg-3 Mg/3 Ml Soln INHALATION 3 ml RT-QID SANDY Administration Allopurinol 100 mg 06/15/18 09:00 Zyloprim PO DAILY [facility] Ascorbic Acid 1,000 mg 06/15/18 09:00 Vitamin C PO QAM [facility] Aspirin 81 mg 06/15/18 09:00 Aspirin PO DAILY [facility] Atorvastatin Calcium 80 mg 06/14/18 21:00 06/14/18 20:14 Lipitor PO 80 mg HS [facility] Administration Clopidogrel Bisulfate 75 mg 06/15/18 09:00 Plavix PO DAILY [facility] Famotidine 20 mg 06/14/18 21:00 06/14/18 20:14 Pepcid PO 20 mg HS [facility] Administration Fluoxetine HCl 80 mg 06/15/18 09:00 Prozac PO DAILY [facility] Gabapentin 400 mg 06/14/18 18:00 06/14/18 20:16 Neurontin PO 400 mg QID [facility] Administration Guaifenesin 200 mg 06/15/18 00:29 06/15/18 02:57 Robitussin PO 200 mg Q6H PRN Administration Cough Hydrocortisone 1 applic 06/14/18 15:16 Hydrocortisone 1% Cream TOPICAL BID PRN Skin Irritation Ceftriaxone Sodium 1,000 mg/ 50 mls @ 100 mls/hr 06/14/18 17:00 06/14/18 17: 50 Sodium Chloride IVPB 100 mls/hr Q24H [facility] Administration Insulin Aspart 10 unit 06/15/18 09:00 Novolog Mix 70-30 Vial SQ DAILY [facility] Insulin Aspart 26 unit 06/14/18 21:00 06/14/18 20:15 Novolog Mix 70-30 Vial SQ 26 unit HS [facility] Administration Isosorbide Mononitrate 120 mg 06/15/18 09:00 Imdur PO DAILY [facility] Methylprednisolone Sodium Succinate 60 mg 06/14/18 18:00 06/15/18 06:01 Solu-Medrol IV 60 mg Q6HR [facility] Administration Metoprolol Tartrate 12.5 mg 06/14/18 21:00 06/14/18 20:15 Lopressor PO 12.5 mg BID [facility] Administration Morphine Sulfate 1 mg 06/15/18 02:25 06/15/18 06:01 Morphine Sulfate (Inj) IVP 1 mg Q2H PRN Administration Pain/Discomfort Multivitamins 1 each 06/15/18 12:00 Theragran PO DAILY@1200 [facility] Nitroglycerin 0.4 mg 06/14/18 15:16 06/14/18 23:52 Nitrostat SUBLINGUAL 0.4 mg Q5M PRN Administration Chest Pain Pantoprazole Sodium 40 mg 06/15/18 07:30 Protonix PO AC-BRKFST SANDY Ranolazine 1,000 mg 06/14/18 21:00 06/14/18 20:15 Ranexa PO 1,000 mg Q12HR SANDY Administration Topiramate 100 mg 06/14/18 21:00 06/14/18 20:15 Topamax PO 100 mg HS SANDY Administration Intake and Output 06/14/18 06/15/18 06/15/18 22:59 06:59 14:59 Other: Voiding Method Toilet Toilet # Voids 1 1 06/15/18 05:26 06/15/18 05:26
[2018-06-15] MEDS: INSULIN ASPART 100 UNIT/ML 1 ML 10 ML VIAL SQ SCH ×3 (13:19→20:42)
[2018-06-15] MEDS ORDERED: RX INFO: IV CONTRAST WAS GIVEN 1 EACH MISC MISCELLANE PRN (16:03)
--- NOTE | 2018-06-15 16:33 | CT ---
EXAMINATION TYPE: CT angio chest DATE OF EXAM: 06/15/2018 COMPARISON: NONE HISTORY: R/O PE, SOB, chest pain CT DLP: 446 mGycm. Automated Exposure Control for Dose Reduction was Utilized. CONTRAST: CTA scan of the thorax is performed with IV Contrast, patient injected with 100 mL of Isovue 370, pul monary embolism protocol. MIP Images are created on CT scanner and reviewed. FINDINGS: LUNGS: The lungs are grossly clear, there is no concerning parenchymal mass identified. There is a 2 mm pulmonary nodule at the distal aspect of a pulmonary vessel on lung algorithm image 64 in the righ t upper lobe. Similarly another 3 mm pulmonary nodule seen at the distal aspect of a pulmonary vessel on image 89 in the right lower lobe. These both appear solid in composition. Multifocal linear pleur al parenchymal scarring is seen. There is no pleural effusion or pneumothorax seen. The tracheobronc hial tree is patent. MEDIASTINUM: There is satisfactory enhancement of the pulmonary artery and its branches, there is no CT evidence for pulmonary embolism. There are no greater than 1 cm hilar or mediastinal lymph nodes. No cardiomegaly or pericardial effusion is seen. Moderate to severe three-vessel coronary artery c alcifications are noted. Median sternotomy wires are present. OTHER: Postsurgical repair from a prior Semaj fundoplication is noted with surgical sutures at the g astroesophageal junction. Mild multilevel degenerative changes of the thoracic spine are identified. IMPRESSION: 1. No evidence of pulmonary embolus. 2. Subcentimeter right-sided pulmonary nodules for which follow-up CT in 12 months is recommended to ensure stability. 3. Postsurgical changes of a prior Semaj fundoplication.
[2018-06-15 16:51] LABS: Glucose,Whole Blood 258 mg/dL (75-99)
[2018-06-15 20:19] LABS: Glucose,Whole Blood 236 mg/dL (75-99)
[2018-06-15] MEDS: ATORVASTATIN 80 MG TAB PO SCH (20:42)
[2018-06-15] MEDS: TOPIRAMATE 100 MG TAB PO SCH (20:42)
[2018-06-15] MEDS: FAMOTIDINE 20 MG TAB PO SCH (20:42)
[2018-06-16] MEDS: methylPREDNISolone SOD SUCCI 125 MG/2 ML VIAL IV SCH ×2 (00:39→06:21)
[2018-06-16] MEDS: MORPHINE SULFATE 2 MG/ML SYRINGE IVP PRN ×2 (00:40→08:24)
[2018-06-16 06:40] LABS: Glucose,Whole Blood 228 mg/dL (75-99)
[2018-06-16 06:57] LABS: Basophils % (A) 0 %; Eosinophils % (A) 0 %; HCT 42.4 % (39.0-53.0); HGB 13.5 gm/dL (13.0-17.5); Lymphocytes # (A) 0.7 k/uL (1.0-4.8); Lymphocytes % (A) 5 %; MCHC 31.9 g/dL (31.0-37.0); MCV 94.2 fL (80.0-100.0); Mean Platelet Volume 7.7; Monocytes # (A) 0.4 k/uL (0-1.0); Monocytes % (A) 3 %; Neutrophils # (A) 11.9 k/uL (1.3-7.7); Neutrophils % (A) 91 %; Platelet Count 186 k/uL (150-450); RDW 14.3 % (11.5-15.5); WBC 13.1 k/uL (3.8-10.6)
[2018-06-16 07:04] LABS: Calcium 9.2 mg/dL (8.4-10.2); Potassium 4.7 mmol/L (3.5-5.1); Total Bilirubin 0.5 mg/dL (0.2-1.3); Total Protein 6.8 g/dL (6.3-8.2)
[2018-06-16] MEDS: IPRATROPIUM-ALBUTEROL 3 ML NEB INHALATION SCH ×2 (07:39→11:16)
[2018-06-16] MEDS: ALLOPURINOL 100 MG TAB PO SCH (08:22)
[2018-06-16] MEDS: RANOLAZINE 500 MG TAB.ER.12H PO SCH (08:22)
[2018-06-16] MEDS: GABAPENTIN 400 MG CAP PO SCH ×2 (08:22→14:14)
[2018-06-16] MEDS: PANTOPRAZOLE 40 MG TABLET PO SCH (08:22)
[2018-06-16] MEDS: ASPIRIN 81 MG PO SCH (08:22)
[2018-06-16] MEDS: METOPROLOL TARTRATE 12.5 MG TAB PO SCH (08:22)
[2018-06-16] MEDS: CLOPIDOGREL 75 MG TAB PO SCH (08:22)
[2018-06-16] MEDS: FLUoxetine HCL 20 MG CAP PO SCH (08:22)
[2018-06-16] MEDS: INSULN ASP PRT/INSULIN ASPART 100 UNIT/ML 10 ML VIAL SQ SCH (08:23)
[2018-06-16] MEDS: INSULIN ASPART 100 UNIT/ML 1 ML 10 ML VIAL SQ SCH ×2 (08:31→12:28)
[2018-06-16] MEDS: ISOSORBIDE MONONITRATE ER 60 MG TAB.ER.24H PO SCH (08:31)
[2018-06-16] MEDS ORDERED: ENOXAPARIN 40 MG/0.4 ML SYRINGE SQ SCH (09:00)
[2018-06-16] MEDS ORDERED: FAMOTIDINE 20 MG TAB PO SCH (09:00)
--- NOTE | 2018-06-16 10:23 | P.PN ---
Subjective Progress Note Date: 06/16/18 Principal diagnosis: Acute exacerbation of COPD, atypical chest pain. History of present illness: This is a 68-year-old white male patient of Dr. Argentina Garza with past medical history of diabetes mellitus type 2, hypertension, hyperlipidemia, coronary artery disease with previous bypass grafting in 2004, previous RI in 2016, and history of 12 coronary stent placements, who presents to the emergency department on 06/14/2017 at 9:30 in the morning for evaluation of cough, dyspnea, and chest discomfort in the mid sternum, and on the left side of the chest anteriorly. Patient states he has had the symptoms for last 4 days , his cough has been productive with green colored sputum, patient had some subjective chills but no fevers. His chest pain was worse with deep breathing and coughing. He states he was a little diaphoretic at times, but denies any radiating pain. Patient is a former smoker, he quit smoking in June 1989, prior to that smoked a pack a day for 25 years. 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 Other medical history includes GERD/reflux, previous history of GI bleeding, sleep apnea on CPAP, spinal lumbar stenosis with radiculopathy, chronic back pain, depression. Chest x-ray did not show any acute pulmonary process, it showed hyperinflation and flattening of the diaphragms consistent with COPD. No leukocytosis, WBC is 5.0, hemoglobin is 12.9, electrolytes and renal profile unremarkable, troponins are negative 3, proBNP within normal limits at 157, influenza screen was negative, EKG showed sinus bradycardia with right bundle branch block, and a possible inferior infarct of undetermined age. Last echocardiogram was on 04/29/2018 and showed EF between 50-55%, no pulmonary hypertension, trace tricuspid regurg. Last cardiac catheterization was in January 2018 and showed a patent vein graft to the RCA, disease free left main, no significant disease in LAD, posterior circumflex. Patient was seen today on 06/16/2018, feeling better, breathing easier, no cough no wheezing no shortness of breath. Patient denies any chest pain, his CT angiogram of the chest was reviewed with the patient today, and felt that the patient clearly had no evidence of thromboembolic disease. Patient remains on bronchodilators, and he was seen by cardiology yesterday who felt that his pain was not cardiac in nature. WBC count today is 13.1 hemoglobin is 13.5. Basic metabolic profile is normal renal profile is normal. Last cardiac catheterization report from January 13 was reviewed again. Objective - Vital Signs Vital signs: Vital Signs Temp 97.9 F 06/16/18 08:00 Pulse 67 06/16/18 08:00 Resp 18 06/16/18 08:00 BP 161/85 06/16/18 08:00 Pulse Ox 94 L 06/16/18 08:00 Intake & Output 06/15/18 06/16/18 06/16/18 18:59 06:59 18:59 Intake Total 636 Balance 636 Weight 98 kg Intake: Oral 636 Other: Voiding Method Toilet Toilet # Voids 1 - Exam Physical Exam: Revealed a 68-year-old white male in no distress. Head: Atraumatic, normocephalic. HEENT:[Neck is supple.] [No neck masses.] [No thyromegaly.] [No JVD.] Chest: [Clear throughout, no crackles, no rhonchi, no wheezes. Slightly diminished breath sounds at the bases. No chest wall tenderness.] Cardiac Exam: [Normal S1 and S2, no S3 gallop, no murmur.] Abdomen: [Soft, nontender, no megaly, no rebound, no guarding, normal bowel sounds.] Extremities: [No clubbing, no edema, no cyanosis.] Neurological Exam: [No focal neurologic deficit. Psychiatric: Normal mood, affect and mental status examination. Skin: No rashes.] - Labs CBC & Chem 7: 06/16/18 06:28 06/16/18 06:28 Labs: Abnormal Lab Results - Last 24 Hours (Table) 06/15/18 06/15/18 06/15/18 Range/Units 12:05 15:06 16:45 WBC (3.8-10.6) k/uL Neutrophils # (1.3-7.7) k/uL Lymphocytes # (1.0-4.8) k/uL D-Dimer 0.68 H (<0.60) mg/L FEU BUN (9-20) mg/dL Glucose (74-99) mg/dL POC Glucose (mg/dL) 226 H 258 H (75-99) mg/dL 06/15/18 06/16/18 06/16/18 Range/Units 20:18 06:28 06:28 WBC 13.1 H (3.8-10.6) k/uL Neutrophils # 11.9 H (1.3-7.7) k/uL Lymphocytes # 0.7 L (1.0-4.8) k/uL D-Dimer (<0.60) mg/L FEU BUN 22 H (9-20) mg/dL Glucose 244 H (74-99) mg/dL POC Glucose (mg/dL) 236 H (75-99) mg/dL 06/16/18 Range/Units 06:39 WBC (3.8-10.6) k/uL Neutrophils # (1.3-7.7) k/uL Lymphocytes # (1.0-4.8) k/uL D-Dimer (<0.60) mg/L FEU BUN (9-20) mg/dL Glucose (74-99) mg/dL POC Glucose (mg/dL) 228 H (75-99) mg/dL Microbiology - Last 24 Hours (Table) 06/14/18 15:00 Gram Stain - Preliminary Sputum 06/14/18 10:01 Blood Culture - Preliminary Blood No Growth after 24 hours Assessment and Plan Assessment: Impression: 1 acute exacerbation of COPD 2 acute braulio-event tracheobronchitis 3 atypical chest pain, positive d-dimer but negative CT angiogram of the chest. 4 history of coronary artery disease and previous one-vessel bypass grafting in 2003. Multiple stents in the past. 5 multiple comorbidities including diabetes, hypertension, chronic back pain and spinal stenosis, osteoarthritis, obstructive sleep apnea syndrome, nicotine dependence presently in remission. Quit smoking in 1989. Recommendation: Suggest placing the patient on prednisone 30 mg tapered over the next 2 weeks, albuterol with Atrovent updrafts 4 times a day when necessary , Symbicort 160/4.52 puffs twice a day, Ceftin 500 mg by mouth twice a day for 10 days, patient could be cleared from my perspective to go home today, and follow-up with me on outpatient basis. Time with Patient: Less than 30
[2018-06-16] MEDS ORDERED: predniSONE 10 MG TAB PO SCH (10:30)
[2018-06-16] MEDS: guaiFENesin SYRUP 100MG/5ML 200 MG/10 ML CUP PO PRN (11:03)
[2018-06-16 11:38] LABS: Glucose,Whole Blood 267 mg/dL (75-99)
[2018-06-16 12:18] VITALS: BP 131/72; PULSE 76; TEMP 98.3
[2018-06-16] MEDS: MULTIVITAMINS, THERA 1 EACH TAB PO SCH (12:27)
[2018-06-16] MEDS: ASCORBIC ACID 500 MG TAB PO SCH (12:27)
--- NOTE | 2018-06-16 13:38 | P.DS ---
Providers Date of admission: 06/14/18 12:25 Expected date of discharge: 06/16/18 Attending physician: Tisha Tang Consults: 06/14/18 15:14 Consult Physician Routine Consulting Provider: Paul Henao Consult Reason/Comments: COPD exacerbation Do you want consulting provider notified?: Yes 06/14/18 15:15 Consult Physician Routine Consulting Provider: Fabio Simmons Consult Reason/Comments: Cardiac history and chest pain Do you want consulting provider notified?: Yes Primary care physician: Argentina Garza Hospital Course: Discharge diagnosis 1. Chest pain. Troponin negative. EKG showing sinus bradycardia with right bundle branch block. Per cardiology surfaces symptoms are not suggestive an acute coronary syndrome. Chest discomfort is associated with coughing and deep breathing. An acute coronary event has been ruled out. Patient to follow-up with Dr. Jiménez upon discharge 2. Acute exacerbation of COPD with dyspnea cough and phlegm production. Chest x-ray completed showing no acute pulmonary process. Correlate for COPD. Patient started on IV steroids, DuoNeb breathing treatments and Rocephin Sputum culture ordered. CTA performed showing no evidence for pulmonary embolism. Discussed case with pulmonary services. Patient has been cleared for discharge. We'll be discharged home on Ceftin antibiotic and steroid Dosepak 3. History of heart disease with coronary artery bypass graft surgery. 4. Angina. Patient recently started on Ranexa. Ranexa resumed. Antibiotic switched to Rocephin. Patient be discharged on Ceftin 5. Diabetes mellitus. Home medications resumed 6. Essential hypertension 7. Hyperlipidemia 8. History of GI bleed 9. History of sleep apnea 10. History of myocardial infections with multiple stents Hospital course This 68-year-old male patient of Dr. Garza who presented to emergency room with complaints of chest pain and cough. Patient states for the past 3 days he has had a productive cough that she had in chest pain that occurs with coughing. She has known past medical history of myocardial infarction, coronary artery disease with multiple cardiac stents and previous CABG, diabetes mellitus, hypertension and depression patient was recently discharged from the hospital and started on Ranexa. Patient does report Ranexa has been helping with his chest pain. Chest x-ray completed in emergency room showing no acute pulmonary process. Correlate for a COPD. CT completed showing sinus bradycardia with right bundle branch block. Cardiology services have been consulted. Initial troponin negative. Pulmonary services Dr. Henao consulted. Blood and sputum culture ordered. Patient started on Zithromax and Solu-Medrol. At this time patient denies chest pain. Patient shortness breath with cough. Patient denies any urinary burning or frequency. Patient denies nausea vomiting or diarrhea On 06/15/2018 patient is currently resting in bed. Patient does report he feels slightly improved from yesterday. At this time patient does report chest pain with coughing. Patient denies nausea vomiting or diarrhea. Patient denies any urinary burning or frequency. Pulmonary and cardiology services have been consulted On 06/16/2018 patient is currently resting in bed. Patient states he feels improved. Patient has been ambulating without oxygen. Patient does report some chest discomfort with coughing. Cardiology has cleared patient for acute coronary event. Patient to follow-up outpatient with cardiology services. Also discussed case with pulmonary services. Patient has been cleared for discharge. Will be discharged on antibiotic and prednisone taper. Patient to follow-up closely with primary care provider and consulting providers. I performed an examination of the patient and discussed their management with the Nurse Practitioner. I have reviewed the Nurse Practitioner's notes and agree with the documented findings and plan of care Patient Condition at Discharge: Stable Plan - Discharge Summary New Discharge Prescriptions: New Cefuroxime Axetil [Ceftin] 500 mg PO BID 7 Days #14 tab predniSONE 10 mg PO DIRECTED 9 Days #18 tab Continue Pantoprazole Sodium 40 mg PO DAILY Allopurinol [Zyloprim] 100 mg PO DAILY Topiramate [Topamax] 100 mg PO HS Aspirin EC [Ecotrin Low Dose] 81 mg PO DAILY #30 tablet. Ascorbic Acid [Vitamin C] 1,000 mg PO QAM [place]-3 Fatty Acids/Fish Oil [Fish Oil 1,000 mg Softgel] 1 cap PO W/SUPPER Multivitamins, Thera [Multivitamin (formulary)] 1 tab PO DAILY Clopidogrel [Plavix] 75 mg PO DAILY Gabapentin [Neurontin] 400 mg PO QID Insulin NPH Hum/Reg Insulin Hm [NovoLIN 70-30 100 UNIT/ML VIAL] 10 unit SQ DAILY Metoprolol Tartrate [Lopressor] 12.5 mg PO BID Insulin NPH Hum/Reg Insulin Hm [NovoLIN 70-30 100 UNIT/ML VIAL] 26 unit SQ HS Nitroglycerin Sl Tabs [Nitrostat] 0.4 mg SUBLINGUAL Q5M PRN tab PRN Reason: Chest Pain Atorvastatin Calcium [Lipitor] 80 mg PO HS Famotidine [Pepcid] 20 mg PO HS FLUoxetine HCL [PROzac] 80 mg PO DAILY metFORMIN HCL 1,000 mg PO BID Pioglitazone [Actos] 30 mg PO DAILY Hydrocortisone Cream [Hydrocortisone 1% Cream] 1 applic TOPICAL BID PRN applic PRN Reason: Skin Irritation Isosorbide Mononitrate ER [Imdur] 120 mg PO DAILY tab.er.24h Ranolazine [Ranexa] 1,000 mg PO Q12HR tab.er.12h HYDROcodone/APAP 10-325MG [[place] 10-325] 1 tab PO TID PRN PRN Reason: Pain Discharge Medication List Allopurinol [Zyloprim] 100 mg PO DAILY 11/07/13 [History] Pantoprazole Sodium 40 mg PO DAILY 11/07/13 [History] Topiramate [Topamax] 100 mg PO HS 11/07/13 [History] Aspirin EC [Ecotrin Low Dose] 81 mg PO DAILY #30 tablet. 10/21/15 [Rx] Ascorbic Acid [Vitamin C] 1,000 mg PO QAM 05/25/16 [History] [place]-3 Fatty Acids/Fish Oil [Fish Oil 1,000 mg Softgel] 1 cap PO W/SUPPER 05/25 [History] Clopidogrel [Plavix] 75 mg PO DAILY 10/14/16 [History] Gabapentin [Neurontin] 400 mg PO QID 10/14/16 [History] Multivitamins, Thera [Multivitamin (formulary)] 1 tab PO DAILY 10/14/16 [History ] Insulin NPH Hum/Reg Insulin Hm [NovoLIN 70-30 100 UNIT/ML VIAL] 10 unit SQ DAILY 07/12/17 [History] Insulin NPH Hum/Reg Insulin Hm [NovoLIN 70-30 100 UNIT/ML VIAL] 26 unit SQ HS [History] Metoprolol Tartrate [Lopressor] 12.5 mg PO BID 07/12/17 [History] Nitroglycerin Sl Tabs [Nitrostat] 0.4 mg SUBLINGUAL Q5M PRN tab 07/14/17 [Rx] Atorvastatin Calcium [Lipitor] 80 mg PO HS 01/27/18 [History] FLUoxetine HCL [PROzac] 80 mg PO DAILY 01/27/18 [History] Famotidine [Pepcid] 20 mg PO HS 01/27/18 [History] Pioglitazone [Actos] 30 mg PO DAILY 01/27/18 [History] metFORMIN HCL 1,000 mg PO BID 01/27/18 [History] Hydrocortisone Cream [Hydrocortisone 1% Cream] 1 applic TOPICAL BID PRN applic 05/01/18 [Rx] Isosorbide Mononitrate ER [Imdur] 120 mg PO DAILY tab.er.24h 05/01/18 [Rx] Ranolazine [Ranexa] 1,000 mg PO Q12HR tab.er.12h 05/01/18 [Rx] HYDROcodone/APAP 10-325MG [[place] 10-325] 1 tab PO TID PRN 06/14/18 [History] Cefuroxime Axetil [Ceftin] 500 mg PO BID 7 Days #14 tab 06/16/18 [Rx] predniSONE 10 mg PO DIRECTED 9 Days #18 tab 06/16/18 [Rx] Follow up Appointment(s)/Referral(s): Paul Henao MD [STAFF PHYSICIAN] - 1 Week Dima Garza DO [REFERRING] - 1-2 days Kinsey Jiménez MD [STAFF PHYSICIAN] - 1 Week Activity/Diet/Wound Care/Special Instructions: Activity as tolerated Diet regular Discharge Disposition: HOME SELF-CARE
== END 2018-06-16 14:40 | disposition home or self-care (01) ==
LOC: EC 09:35 → 1SOBS 12:25
PROVIDERS: ADMIT Internal Medicine; ATTEND Internal Medicine
DX: J44.1 Chronic obstructive pulmonary disease with (acute) exacerbation (principal); E11.9 Type 2 diabetes mellitus without complications; I10 Essential (primary) hypertension; E78.5 Hyperlipidemia, unspecified; K21.9 Gastro-esophageal reflux disease without esophagitis; I45.10 Unspecified right bundle-branch block; M10.9 Gout, unspecified; I25.82 Chronic total occlusion of coronary artery; K44.9 Diaphragmatic hernia without obstruction or gangrene; L40.9 Psoriasis, unspecified; G47.33 Obstructive sleep apnea (adult) (pediatric); I25.119 Atherosclerotic heart disease of native coronary artery with unspecified angina pectoris; M48.061 Spinal stenosis, lumbar region without neurogenic claudication; M19.90 Unspecified osteoarthritis, unspecified site; F17.211 Nicotine dependence, cigarettes, in remission; F32.9 Major depressive disorder, single episode, unspecified; Z99.81 Dependence on supplemental oxygen; Z95.1 Presence of aortocoronary bypass graft; Z95.5 Presence of coronary angioplasty implant and graft; I25.2 Old myocardial infarction; Z79.899 Other long term (current) drug therapy; Z79.82 Long term (current) use of aspirin; Z79.4 Long term (current) use of insulin; Z82.49 Family history of ischemic heart disease and other diseases of the circulatory system
CPT/HCPCS: 93005; 96365; 96366; 96372; 96375 ×3; 96376 ×2; 99285; 36415; 94640 ×5; 94760; 85379; 83880; 80053 ×3; 82550; 82553; 83605; 83735; 84484 ×2; 85025 ×3; 85610; 85730; 87040; 87070; 87205; 87502; 83036; 71046; 71275; G0378 ×3; J1100; J2930 ×3; J1650; J0696 ×2; J2270 ×2; J7512; Q9967

== ENCOUNTER 2018-08-10 22:31 | Inpatient (IN) | payer MEDICARE ==
[2018-08-10] MEDS ORDERED: ASPIRIN 81 MG PO STA (23:08)
[2018-08-10] MEDS ORDERED: MORPHINE SULFATE 4 MG/ML SYRINGE IV STA (23:08)
[2018-08-10] MEDS ORDERED: NITROGLYCERIN OINT 1 INCH/GM PACKET TOPICAL STA (23:08)
--- NOTE | 2018-08-10 23:10 | ED ---
General Adult HPI - General Chief complaint: Chest Pain Stated complaint: Chest pain Time Seen by Provider: 08/10/18 22:37 Source: patient, family, RN notes reviewed Mode of arrival: ambulatory Limitations: no limitations - History of Present Illness Initial comments: Patient is a pleasant 68-year-old male presenting to the emergency Department with complaints of chest discomfort. Onset was several hours ago while shoveling snow. Patient has pressure and sharp discomfort in his anterior chest. There is some radiation towards her right arm and right jaw. Patient does have a history of similar symptoms previously associated with cardiac disease. Patient did have some mild associated dyspnea, that has resolved. No nausea. Patient was sweaty earlier. Discomfort is currently rated 7 or 8/10. Patient did take a couple of nitroglycerin without much improvement of discomfort. - Related Data Home Medications Medication Instructions Recorded Confirmed Allopurinol [Zyloprim] 100 mg PO DAILY 11/07/13 08/10/18 Pantoprazole Sodium 40 mg PO DAILY 11/07/13 08/10/18 Topiramate [Topamax] 100 mg PO HS 11/07/13 08/10/18 Ascorbic Acid [Vitamin C] 1,000 mg PO QAM 05/25/16 08/10/18 [place]-3 Fatty Acids/Fish Oil [Fish 1 cap PO W/SUPPER 05/25/16 08/10/18 Oil 1,000 mg Softgel] Clopidogrel [Plavix] 75 mg PO DAILY 10/14/16 08/10/18 Gabapentin [Neurontin] 400 mg PO QID 10/14/16 08/10/18 Multivitamins, Thera [Multivitamin 1 tab PO DAILY 10/14/16 08/10/18 (formulary)] Insulin NPH Hum/Reg Insulin Hm 10 unit SQ DAILY 07/12/17 08/10/18 [NovoLIN 70-30 100 UNIT/ML VIAL] Insulin NPH Hum/Reg Insulin Hm 26 unit SQ HS 07/12/17 08/10/18 [NovoLIN 70-30 100 UNIT/ML VIAL] Metoprolol Tartrate [Lopressor] 12.5 mg PO BID 07/12/17 08/10/18 Atorvastatin Calcium [Lipitor] 80 mg PO HS 01/27/18 08/10/18 FLUoxetine HCL [PROzac] 80 mg PO DAILY 01/27/18 08/10/18 Famotidine [Pepcid] 20 mg PO HS 01/27/18 08/10/18 Pioglitazone [Actos] 30 mg PO DAILY 01/27/18 08/10/18 metFORMIN HCL 1,000 mg PO BID 01/27/18 08/10/18 HYDROcodone/APAP 10-325MG [[place] 1 tab PO TID PRN 06/14/18 08/10/18 10-325] Clobetasol Propionate [[place]ov[place] 1 applic TOPICAL BID 08/10/18 08/10/18 0.05% Cream] Isosorbide Mononitrate [Imdur] 120 mg PO DAILY 08/10/18 08/10/18 Previous Rx's Medication Instructions Recorded Aspirin EC [Ecotrin Low Dose] 81 mg PO DAILY #30 tablet. 10/21/15 Nitroglycerin Sl Tabs [Nitrostat] 0.4 mg SUBLINGUAL Q5M PRN tab 07/14/17 Ranolazine [Ranexa] 1,000 mg PO Q12HR tab.er.12h 05/01/18 Allergies Allergy/AdvReac Type Severity Reaction Status Date / Time No Known Allergies Allergy Verified 08/10/18 23:08 Review of Systems ROS Statement: Those systems with pertinent positive or pertinent negative responses have been documented in the HPI. ROS Other: All systems not noted in ROS Statement are negative. Constitutional: Denies: fever Eyes: Denies: eye pain ENT: Denies: ear pain Respiratory: Denies: cough Cardiovascular: Reports: chest pain Endocrine: Denies: fatigue Gastrointestinal: Denies: abdominal pain Genitourinary: Denies: dysuria Musculoskeletal: Denies: back pain Skin: Denies: rash Neurological: Denies: weakness Past Medical History Past Medical History: Coronary Artery Disease (CAD), Chest Pain / Angina, Diabetes Mellitus, GERD/Reflux, GI Bleed, Hyperlipidemia, Hypertension, Myocardial Infarction (PA), Musculoskeletal Disorder, Osteoarthritis (OA), Skin Disorder, Sleep Apnea/CPAP/BIPAP Additional Past Medical History / Comment(s): Pt recently admitted to [facility] on with chest pain, echo showed EF of 50-55%, nausea and vomiting past 2 weeks, discharged on Renexa. Other hx: NIDDM type II, chronic back pain, spinal lumbar stenosis with radiculopathy, R arm tremors, gout, hiatal hernia, BIANCA with Cpap, psoriasis. Last Myocardial Infarction Date:: OCTOBER 2015 History of Any Multi-Drug Resistant Organisms: None Reported Past Surgical History: Back Surgery, Coronary Bypass/CABG, Heart Catheterization , Heart Catheterization With Stent, Hernia Repair, Orthopedic Surgery Additional Past Surgical History / Comment(s): REPAIR STOMACH ULCER 10/2012; ORIF LT ANKLE; REPAIR RT 5TH FINGER D/T TRAUMA; PAIN PROC X2; HERNIA SURG X5 - 1 UMB, 1 HIATAL, 3 INGUINAL; CABG X1, 6-2003 had posterior lateral decompression and fusion, transforaminal lumbar interbody fusion L4-L5.LT ROTATOR CUFF REPAIR,EGD/COLONOSCOPY,NERVE BLOCK. 12 cardiac stents. Past Anesthesia/Blood Transfusion Reactions: No Reported Reaction Additional Past Anesthesia/Blood Transfusion Reaction / Comment(s): no blood transfusions before Date of Last Stent Placement:: November 2017 Past Psychological History: Depression Smoking Status: Former smoker Past Alcohol Use History: None Reported Past Drug Use History: None Reported - Past Family History Father Additional Family Medical History / Comment(s): BRAIN TUMOR Mother Family Medical History: Myocardial Infarction ([place]) Additional Family Medical History / Comment(s): FROM [place] AGE 70 General Exam Limitations: no limitations General appearance: alert, in no apparent distress Head exam: Present: atraumatic Eye exam: Present: normal appearance, PERRL ENT exam: Present: normal oropharynx Neck exam: Present: normal inspection Respiratory exam: Present: normal lung sounds bilaterally. Absent: chest wall tenderness Cardiovascular Exam: Present: regular rate, normal rhythm Expanded Peripheral pulses: 2+: Radial (R), Radial (L), Posterior Tibialis (R), Posterior Tibialis (L), Dorsalis Pedis (R), Dorsalis Pedis (L) GI/Abdominal exam: Present: soft. Absent: distended, tenderness Extremities exam: Present: normal inspection. Absent: pedal edema, calf tenderness Neurological exam: Present: alert Psychiatric exam: Present: normal affect, normal mood Skin exam: Present: normal color Course Vital Signs 08/10/18 08/10/18 22:31 23:00 Temperature 98.3 F Pulse Rate 76 60 Respiratory 18 12 Rate Blood Pressure 130/75 133/71 O2 Sat by Pulse 95 94 L Oximetry EKG Findings - EKG Comments: EKG Findings:: Normal sinus rhythm 67. AL 152. QRS 160. QT 468. QTC 494. Normal axis. Right bundle branch block. No acute ST change. Medical Decision Making - Medical Decision Making Patient reevaluated and resting comfortably in bed. Symptoms have improved however not completely resolved. Patient is updated on results and plan. Dr. Tang has been paged for admission for Dr. Garza. - Lab Data Result diagrams: 08/10/18 22:46 08/10/18 22:46 Lab Results 08/10/18 08/10/18 08/10/18 Range/Units 22:46 22:46 22:46 WBC 6.3 (3.8-10.6) k/uL RBC 4.34 (4.30-5.90) m/uL Hgb 13.3 (13.0-17.5) gm/dL Hct 41.8 (39.0-53.0) % MCV 96.5 (80.0-100.0) fL MCH 30.6 (25.0-35.0) pg MCHC 31.7 (31.0-37.0) g/dL RDW 14.1 (11.5-15.5) % Plt Count 199 (150-450) k/uL Neutrophils % 54 % Lymphocytes % 31 % Monocytes % 7 % Eosinophils % 6 % Basophils % 1 % Neutrophils # 3.3 (1.3-7.7) k/uL Lymphocytes # 1.9 (1.0-4.8) k/uL Monocytes # 0.5 (0-1.0) k/uL Eosinophils # 0.4 (0-0.7) k/uL Basophils # 0.0 (0-0.2) k/uL PT (9.0-12.0) sec INR (<1.2) APTT (22.0-30.0) sec Sodium 144 (137-145) mmol/L Potassium 4.1 (3.5-5.1) mmol/L Chloride 109 H (98-107) mmol/L Carbon Dioxide 26 (22-30) mmol/L Anion Gap 9 mmol/L BUN 16 (9-20) mg/dL Creatinine 1.07 (0.66-1.25) mg/dL Est GFR (CKD-EPI)AfAm 82 (>60 ml/min/1.73 sqM) Est GFR (CKD-EPI)NonAf 71 (>60 ml/min/1.73 sqM) Glucose 88 (74-99) mg/dL Calcium 9.1 (8.4-10.2) mg/dL Magnesium 1.7 (1.6-2.3) mg/dL Total Bilirubin 0.4 (0.2-1.3) mg/dL AST 21 (17-59) U/L ALT 27 (21-72) U/L Alkaline Phosphatase 52 (38-126) U/L Creatine Kinase 69 (55-170) U/L CK-MB (CK-2) 1.1 (0.0-2.4) ng/mL Troponin I <0.012 (0.000-0.034) ng/mL Total Protein 6.4 (6.3-8.2) g/dL Albumin 3.8 (3.5-5.0) g/dL 08/10/18 Range/Units 22:46 WBC (3.8-10.6) k/uL RBC (4.30-5.90) m/uL Hgb (13.0-17.5) gm/dL Hct (39.0-53.0) % MCV (80.0-100.0) fL MCH (25.0-35.0) pg MCHC (31.0-37.0) g/dL RDW (11.5-15.5) % Plt Count (150-450) k/uL Neutrophils % % Lymphocytes % % Monocytes % % Eosinophils % % Basophils % % Neutrophils # (1.3-7.7) k/uL Lymphocytes # (1.0-4.8) k/uL Monocytes # (0-1.0) k/uL Eosinophils # (0-0.7) k/uL Basophils # (0-0.2) k/uL PT 10.2 (9.0-12.0) sec INR 0.9 (<1.2) APTT 25.0 (22.0-30.0) sec Sodium (137-145) mmol/L Potassium (3.5-5.1) mmol/L Chloride (98-107) mmol/L Carbon Dioxide (22-30) mmol/L Anion Gap mmol/L BUN (9-20) mg/dL Creatinine (0.66-1.25) mg/dL Est GFR (CKD-EPI)AfAm (>60 ml/min/1.73 sqM) Est GFR (CKD-EPI)NonAf (>60 ml/min/1.73 sqM) Glucose (74-99) mg/dL Calcium (8.4-10.2) mg/dL Magnesium (1.6-2.3) mg/dL Total Bilirubin (0.2-1.3) mg/dL AST (17-59) U/L ALT (21-72) U/L Alkaline Phosphatase (38-126) U/L Creatine Kinase (55-170) U/L CK-MB (CK-2) (0.0-2.4) ng/mL Troponin I (0.000-0.034) ng/mL Total Protein (6.3-8.2) g/dL Albumin (3.5-5.0) g/dL - Radiology Data Interpreted by me: Chest x-ray shows no acute process. Postoperative sternotomy wires are present. Disposition Clinical Impression: Chest pain Disposition: ADMITTED IP TO THIS HOSP Is patient prescribed a controlled substance at d/c from ED?: No Referrals: Argentina Garza DO [Primary Care Provider] - 1-2 days Decision Time: 00:18
[2018-08-10 23:27] LABS: Basophils % (A) 1 %; Eosinophils # (A) 0.4 k/uL (0-0.7); Eosinophils % (A) 6 %; HCT 41.8 % (39.0-53.0); HGB 13.3 gm/dL (13.0-17.5); Lymphocytes # (A) 1.9 k/uL (1.0-4.8); Lymphocytes % (A) 31 %; MCH 30.6 pg (25.0-35.0); MCHC 31.7 g/dL (31.0-37.0); MCV 96.5 fL (80.0-100.0); Mean Platelet Volume 7.5; Monocytes # (A) 0.5 k/uL (0-1.0); Monocytes % (A) 7 %; Neutrophils # (A) 3.3 k/uL (1.3-7.7); Neutrophils % (A) 54 %; Platelet Count 199 k/uL (150-450); RBC 4.34 m/uL (4.30-5.90); RDW 14.1 % (11.5-15.5); WBC 6.3 k/uL (3.8-10.6)
[2018-08-10 23:36] LABS: INR 0.9 (<1.2); Prothrombin Time 10.2 sec (9.0-12.0)
[2018-08-10 23:42] LABS: Albumin 3.8 g/dL (3.5-5.0); Calcium 9.1 mg/dL (8.4-10.2); Magnesium 1.7 mg/dL (1.6-2.3); Potassium 4.1 mmol/L (3.5-5.1); Total Bilirubin 0.4 mg/dL (0.2-1.3); Total Protein 6.4 g/dL (6.3-8.2)
[2018-08-11] LABS: Creatine Kinase MB 1.1 ng/mL (0.0-2.4); Troponin I <0.012 ng/mL (0.000-0.034)
--- NOTE | 2018-08-11 01:18 | XR ---
EXAM: XR Chest, 2 Views CLINICAL HISTORY: Chest pain. TECHNIQUE: Frontal and lateral views of the chest. COMPARISON: CXR dated 06/14/2018. FINDINGS: Lungs: No evidence of focal consolidation. No evidence of pulmonary edema. Pleural space: No pleural effusion. No pneumothorax. Heart: Stable cardiac silhouette size. Mediastinum: Unremarkable. Stable postsurgical changes of the chest. Bones/joints: Unremarkable. IMPRESSION: 1. No radiographic evidence of acute cardiopulmonary process. 2. Postsurgical changes of the chest.
[2018-08-11] MEDS ORDERED: HYDROcodone/APAP 10-325MG 1 EACH TAB PO ONE (05:06)
[2018-08-11] MEDS ORDERED: NITROGLYCERIN OINT 1 INCH/GM PACKET TOPICAL SCH (06:00)
[2018-08-11] MEDS: NITROGLYCERIN SL TABS 0.4 MG TAB SUBLINGUAL PRN ×2 (08:12→08:26)
[2018-08-11] MEDS ORDERED: NITROGLYCERIN SL TABS 0.4 MG TAB SUBLINGUAL PRN (08:15)
[2018-08-11] MEDS: HYDROcodone/APAP 10-325MG 1 EACH TAB PO PRN (08:58)
[2018-08-11] MEDS ORDERED: NON-FORMULARY DRUG (Aspirin Ec 81 MG) PO SCH (09:00)
[2018-08-11] MEDS ORDERED: ISOSORBIDE MONONITRATE ER 60 MG TAB.ER.24H PO SCH (09:00)
--- NOTE | 2018-08-11 09:46 | P.HPIM ---
History of Present Illness H&P Date: 08/11/18 This is a 68-year-old male patient of Dr. Garza. Patient presented to the ER with complaints of chest pain. Patient reports he's been out of his right neck supple for 1 week. Patient does follow with cardiology services in which she's been receiving free samples. Patient does report some shortness of breath occurring with chest pain. Patient denies radiation to neck jaw or arm. Patient has Medical history of coronary artery disease chest pain, diabetes mellitus, GERD, GI bleed, hyperlipidemia, hypertension, myocardial infarction, musculoskeletal disorder, osteoarthritis, sleep apnea. Patient had recent 2-D echo showing an EF of 50-55%. Patient also has past medical history of coronary artery bypass graft surgery and heart cath with stents. Patient is maintained on Plavix. Chest x-ray completed in ER showing no radiographic evidence of acute cardiopulmonary disease. Postsurgical changes of the chest. EKG completed showing normal sinus rhythm, right bundle branch block. Troponins negative. Cardiology services have been consulted. At this time patient is still complaining of mild chest pain. Patient denies nausea vomiting or diarrhea. Patient denies shortness of breath. Patient denies any urinary burning or frequency. Review of Systems please refer to HPI otherwise unremarkable Past Medical History Past Medical History: Coronary Artery Disease (CAD), Chest Pain / Angina, Diabetes Mellitus, GERD/Reflux, GI Bleed, Hyperlipidemia, Hypertension, Myocardial Infarction ([place]), Musculoskeletal Disorder, Osteoarthritis (OA), Skin Disorder, Sleep Apnea/CPAP/BIPAP Additional Past Medical History / Comment(s): Pt recently admitted to [facility] on with chest pain, echo showed EF of 50-55%, nausea and vomiting past 2 weeks, discharged on Renexa. Other hx: NIDDM type II, chronic back pain, spinal lumbar stenosis with radiculopathy, R arm tremors, gout, hiatal hernia, BIANCA with Cpap, psoriasis. Last Myocardial Infarction Date:: OCTOBER 2015 History of Any Multi-Drug Resistant Organisms: None Reported Past Surgical History: Back Surgery, Coronary Bypass/CABG, Heart Catheterization , Heart Catheterization With Stent, Hernia Repair, Orthopedic Surgery Additional Past Surgical History / Comment(s): REPAIR STOMACH ULCER 10/2012; ORIF LT ANKLE; REPAIR RT 5TH FINGER D/T TRAUMA; PAIN PROC X2; HERNIA SURG X5 - 1 UMB, 1 HIATAL, 3 INGUINAL; CABG X1, 6-2003 had posterior lateral decompression and fusion, transforaminal lumbar interbody fusion L4-L5.LT ROTATOR CUFF REPAIR,EGD/COLONOSCOPY,NERVE BLOCK. 12 cardiac stents. Past Anesthesia/Blood Transfusion Reactions: No Reported Reaction Additional Past Anesthesia/Blood Transfusion Reaction / Comment(s): no blood transfusions before Date of Last Stent Placement:: November 2017 Past Psychological History: Depression Smoking Status: Former smoker Past Alcohol Use History: None Reported Past Drug Use History: None Reported - Past Family History Father Additional Family Medical History / Comment(s): BRAIN TUMOR Mother Family Medical History: Myocardial Infarction ([place]) Additional Family Medical History / Comment(s): FROM [place] AGE 70 Medications and Allergies Home Medications Medication Instructions Recorded Confirmed Type Allopurinol [Zyloprim] 100 mg PO DAILY 11/07/13 08/10/18 History Pantoprazole Sodium 40 mg PO DAILY 11/07/13 08/10/18 History Topiramate [Topamax] 100 mg PO HS 11/07/13 08/10/18 History Aspirin EC [Ecotrin Low Dose] 81 mg PO DAILY #30 tablet. 10/21/15 08/10/18 Rx Ascorbic Acid [Vitamin C] 1,000 mg PO QAM 05/25/16 08/10/18 History [place]-3 Fatty Acids/Fish Oil [Fish 1 cap PO W/SUPPER 05/25/16 08/10/18 History Oil 1,000 mg Softgel] Clopidogrel [Plavix] 75 mg PO DAILY 10/14/16 08/10/18 History Gabapentin [Neurontin] 400 mg PO QID 10/14/16 08/10/18 History Multivitamins, Thera [Multivitamin 1 tab PO DAILY 10/14/16 08/10/18 History (formulary)] Insulin NPH Hum/Reg Insulin Hm 10 unit SQ DAILY 07/12/17 08/10/18 History [NovoLIN 70-30 100 UNIT/ML VIAL] Insulin NPH Hum/Reg Insulin Hm 26 unit SQ HS 07/12/17 08/10/18 History [NovoLIN 70-30 100 UNIT/ML VIAL] Metoprolol Tartrate [Lopressor] 12.5 mg PO BID 07/12/17 08/10/18 History Nitroglycerin Sl Tabs [Nitrostat] 0.4 mg SUBLINGUAL Q5M PRN tab 07/14/17 Rx Atorvastatin Calcium [Lipitor] 80 mg PO HS 01/27/18 08/10/18 History FLUoxetine HCL [PROzac] 80 mg PO DAILY 01/27/18 08/10/18 History Famotidine [Pepcid] 20 mg PO HS 01/27/18 08/10/18 History Pioglitazone [Actos] 30 mg PO DAILY 01/27/18 08/10/18 History metFORMIN HCL 1,000 mg PO BID 01/27/18 08/10/18 History Ranolazine [Ranexa] 1,000 mg PO Q12HR tab.er.12h 05/01/18 08/10/18 Rx HYDROcodone/APAP 10-325MG [[place] 1 tab PO TID PRN 06/14/18 08/10/18 History 10-325] Clobetasol Propionate [Temovate 1 applic TOPICAL BID 08/10/18 08/10/18 History 0.05% Cream] Isosorbide Mononitrate [Imdur] 120 mg PO DAILY 08/10/18 08/10/18 History Allergies Allergy/AdvReac Type Severity Reaction Status Date / Time No Known Allergies Allergy Verified 08/10/18 23:08 Physical Exam Vitals: Vital Signs Temp Pulse Resp BP Pulse Ox 08/11/18 08:56 55 L 138/76 08/11/18 08:13 57 L 16 173/80 96 08/11/18 05:00 65 13 141/79 96 08/11/18 04:30 56 L 9 L 142/86 95 08/11/18 04:00 56 L 12 141/75 95 08/11/18 03:30 55 L 12 149/86 95 08/11/18 03:00 55 L 13 134/65 92 L 08/11/18 02:30 55 L 15 139/71 93 L 08/11/18 02:00 55 L 13 121/61 94 L 08/11/18 01:30 52 L 16 128/60 94 L 08/11/18 01:00 56 L 16 146/81 91 L 08/11/18 00:30 61 15 137/73 94 L 08/11/18 00:00 63 10 L 130/65 94 L 08/10/18 23:30 61 17 110/59 94 L 08/10/18 23:29 65 15 110/59 94 L 08/10/18 23:00 60 12 133/71 94 L 08/10/18 22:31 98.3 F 76 18 130/75 95 Intake and Output 08/10/18 08/11/18 08/11/18 22:59 06:59 14:59 Other: Weight 102.058 kg Head normocephalic Neck supple Lungs clear to auscultation bilaterally no wheezing or crackles Heart regular rate and rhythm S1-S2, no rub or gallop Abdomen is soft nontender nondistended positive bowel sounds no hepatosplenomegaly Extremities no edema Neuro alert and orientated to 3 Results CBC & Chem 7: 08/10/18 22:46 08/10/18 22:46 Labs: Abnormal Lab Results - Last 24 Hours (Table) 08/10/18 Range/Units 22:46 Chloride 109 H (98-107) mmol/L Assessment and Plan Assessment: 1. Chest pain. Troponins negative. Chest x-ray completed in ER showing no radiographic evidence of acute cardiopulmonary process. Postsurgical changes of the chest. EKG completed showing normal sinus rhythm, right bundle branch block. Cardiology has been consulted. Patient does report he has not been taking aspirin for 1 week due to him running out 2. History of COPD. No exacerbation at this time 3. History of heart disease with coronary artery bypass graft surgery 4. History of angina. Patient recently started on Ranexa. Patient reports he ran out of free samples and has not been on it for 1 week 5. Diabetes mellitus. Home medications resumed 6. Essential hypertension 7. Hyperlipidemia 8. History of GI bleed 9. History of sleep apnea 10. History of myocardial infarction with multiple stents. Plavix resumed ETT prophylaxis Lovenox. GI prophylaxis Pepcid Time with Patient: Greater than 30 (Greater than 60% of the total time spent in counseling and coordination of care. I performed an examination of the patient and discussed their management with the Nurse Practitioner. I have reviewed the Nurse Practitioner's notes and agree with the documented findings and plan of care)
[2018-08-11] MEDS: ASCORBIC ACID 500 MG TAB PO SCH (12:02)
[2018-08-11] MEDS: ALLOPURINOL 100 MG TAB PO SCH (12:02)
[2018-08-11] MEDS: CLOPIDOGREL 75 MG TAB PO SCH (12:02)
[2018-08-11] MEDS: FLUoxetine HCL 20 MG CAP PO SCH (12:02)
[2018-08-11] MEDS: PANTOPRAZOLE 40 MG TABLET PO SCH (12:03)
[2018-08-11] MEDS: METOPROLOL TARTRATE 12.5 MG TAB PO SCH ×2 (12:03→21:57)
[2018-08-11] MEDS: RANOLAZINE 500 MG TAB.ER.12H PO SCH ×2 (12:04→22:17)
[2018-08-11] MEDS: GABAPENTIN 400 MG CAP PO SCH ×4 (12:05→22:17)
[2018-08-11] MEDS: CLOBETASOL PROP 0.05% CR 15GM TOPICAL SCH ×2 (13:20→22:18)
[2018-08-11] MEDS: INSULN ASP PRT/INSULIN ASPART 100 UNIT/ML 10 ML VIAL SQ SCH ×2 (13:20→22:34)
[2018-08-11] MEDS: MULTIVITAMINS, THERA 1 EACH TAB PO SCH (13:38)
--- NOTE | 2018-08-11 14:17 | P.CRDCN ---
History of Present Illness History of present illness: This is a pleasant 68-year-old male past medical history significant for coronary artery disease status post single-vessel bypass grafting with a SVG to RCA, hypertension, dyslipidemia, diabetes mellitus, COPD, obstructive sleep apnea and former nicotine dependence. He follows in the office with Dr. Jiménez. We have been asked to see him in consultation for symptoms of chest discomfort. He states he was outside shoveling snow yesterday for approximately 60 minutes and then he started feeling a heavy pressure sensation in the left precordial region with radiation down the right arm and into the right jaw. He went in the house and took a sublingual nitroglycerin. This did not relieve his chest discomfort. He lay down and was able to fall asleep off- and-on for the next 6 hours. He woke up couple of times during his sleep with ongoing chest discomfort. Ultimately when he woke up after 6 hours he continued to have the chest discomfort and some became to the hospital for further evaluation. At the time of my exam he is seen resting comfortably in bed in no acute distress. He has a nitro patch in place however he continues to complain of chest heaviness rated at a 6 out of 10. He most recently underwent cardiac catheterization in January 2018 revealing a widely patent SVG to RCA, chronically occluded RCA, circumflex with minor irregularities, patent stent in the first OM, LAD with minor irregularities and overall no significant progression of his coronary artery disease. Prior to that in June 2017 he had a cath with identical findings. In october 2016 he underwent stenting of the SVG -RCA at the ostium and midportion. Most recent echocardiogram obtained April 2018 reveals preserved left ventricular systolic function with ejection fraction 50-55%. He is currently maintained on Ranexa 1000 mg twice a day and Imdur 120 mg daily. EKG on arrival reveals right bundle branch block pattern. Chest x-ray is negative for an acute cardiopulmonary process. Laboratory data reviewed, WBC 6.3, hemoglobin 13.3, platelets 199, sodium 144, potassium 4.1, creatinine 1.07, magnesium 1.7, cardiac enzymes negative 3. Current cardiac medications include Ranexa 1000 mg twice a day, Imdur 120 mg daily, aspirin 81 mg daily, atorvastatin 80 mg daily, Plavix 75 mg daily and Lopressor 12.5 mg twice a day. At the time of my exam: CONSTITUTIONAL: Denies fever. Denies chills. EYES: Denies blurred vision. Denies vision changes. Denies eye pain. EARS, NOSE, MOUTH & THROAT: Denies headache. Denies sore throat. Denies ear pain. CARDIOVASCULAR: Complains of chest pain. Denies shortness of breath. Denies orthopnea. Denies PND. Denies palpitations. RESPIRATORY: Denies cough. GASTROINTESTINAL: Denies abdominal pain. Denies diarrhea. Denies constipation. Denies nausea. Denies vomiting. MUSCULOSKELETAL: Denies myalgias. INTEGUMENTARY: Denies pruitis. Denies rash. NEUROLOGIC: Denies numbness. Denies tingling. Denies weakness. PSYCHIATRIC: Denies anxiety. Denies depression. ENDOCRINE: Denies fatigue. Denies weight change. Denies polydipsia. Denies polyurina. GENITOURINARY: Denies burning, hematuria or urgency with micturation. HEMATOLOGIC: Denies history of anemia. Denies bleeding. Blood pressure 138/76 heart rate 55 afebrile maintaining oxygen saturation on room air GENERAL: This is a 68-year-old male in no apparent distress at the time of my examination. HEENT: Head is atraumatic, normocephalic. Pupils are equal, round. Sclerae anicteric. Conjunctivae are clear. Mucous membranes of the mouth are moist. Neck is supple. There is no jugular venous distention. No carotid bruit is heard. LUNGS: Clear to auscultation no wheezes, rales or rhonchi. No chest wall tenderness is noted on palpation or with deep breathing. HEART: Regular rate and rhythm without murmurs, rubs or gallops. S1 and S2 heard. ABDOMEN: Soft, nontender. Bowel sounds are heard. No organomegaly noted. EXTREMITIES: No evidence of peripheral edema and no calf tenderness noted. VASCULAR: Radial and dorsalis pedis pulses palpated, no evidence of clubbing. NEUROLOGIC: Patient is awake, alert and oriented x3. ASSESSMENT Precordial chest pain, an acute coronary event has been ruled out. History of coronary artery disease s/p bypass grafting. Hypertension Dyslipidemia Diabetes mellitus PLAN An acute coronary event has been ruled out. Obtain limited echo assessing the LV function for any significant changes from baseline. Increase activity and assess for exertional chest pain. Monitor overnight, NPO after midnight in case for further cardiac testing in the morning. Thank you kindly for this consultation. Nurse Practitioner note has been reviewed, I agree with a documented findings and plan of care. Patient was seen and examined. Past Medical History Past Medical History: Coronary Artery Disease (CAD), Chest Pain / Angina, COPD, Diabetes Mellitus, GERD/Reflux, GI Bleed, Hyperlipidemia, Hypertension, Myocardial Infarction ([place]), Musculoskeletal Disorder, Osteoarthritis (OA), Skin Disorder, Sleep Apnea/CPAP/BIPAP Additional Past Medical History / Comment(s): NIDDM type II, neuropathy bilateral hands/feet, chronic back pain, spinal lumbar stenosis with radiculopathy/bilateral sciatica,L/R arm tremors unknown cause, gout, past gastric ulcer with repair, hiatal hernia with repair, BIANCA with Cpap, psoriasis. Pt states he has lost 20# over the past couple months. Last Myocardial Infarction Date:: OCTOBER 2015 History of Any Multi-Drug Resistant Organisms: None Reported Past Surgical History: Appendectomy, Back Surgery, Coronary Bypass/CABG, Heart Catheterization, Heart Catheterization With Stent, Hernia Repair, Orthopedic Surgery Additional Past Surgical History / Comment(s): Posterior/lateral decompression/ fusion, PCI with a total of 12 stents, CABG 1 vessel in 2003, stomach ulcer repair, umbilical hernia repair, hiatal hernia surgery, bilateral inguinal hernias with one side done twice, EGD, colonoscopy with benign polyp, pain clinic procedures, bilateral cataract removals, L rotator cuff repair, ORIF L ankle d/t fracture with plate/pins, 5th finger R hand surgery d/t trauma Past Anesthesia/Blood Transfusion Reactions: No Reported Reaction Additional Past Anesthesia/Blood Transfusion Reaction / Comment(s): Pt states he believe he received blood when he had repair of gastric ulcer. Date of Last Stent Placement:: October 2017 Smoking Status: Former smoker - Past Family History Father Additional Family Medical History / Comment(s): CANCEROUS BRAIN TUMOR Mother Family Medical History: Myocardial Infarction ([place]) Additional Family Medical History / Comment(s): FROM [place] AGE 70 Medications and Allergies Home Medications Medication Instructions Recorded Confirmed Type Allopurinol [Zyloprim] 100 mg PO DAILY 11/07/13 08/10/18 History Pantoprazole Sodium 40 mg PO DAILY 11/07/13 08/10/18 History Topiramate [Topamax] 100 mg PO HS 11/07/13 08/10/18 History Aspirin EC [Ecotrin Low Dose] 81 mg PO DAILY #30 tablet. 10/21/15 08/10/18 Rx Ascorbic Acid [Vitamin C] 1,000 mg PO QAM 05/25/16 08/10/18 History [place]-3 Fatty Acids/Fish Oil [Fish 1 cap PO W/SUPPER 05/25/16 08/10/18 History Oil 1,000 mg Softgel] Clopidogrel [Plavix] 75 mg PO DAILY 10/14/16 08/10/18 History Gabapentin [Neurontin] 400 mg PO QID 10/14/16 08/10/18 History Multivitamins, Thera [Multivitamin 1 tab PO DAILY 10/14/16 08/10/18 History (formulary)] Insulin NPH Hum/Reg Insulin Hm 10 unit SQ DAILY 07/12/17 08/10/18 History [NovoLIN 70-30 100 UNIT/ML VIAL] Insulin NPH Hum/Reg Insulin Hm 26 unit SQ HS 07/12/17 08/10/18 History [NovoLIN 70-30 100 UNIT/ML VIAL] Metoprolol Tartrate [Lopressor] 12.5 mg PO BID 07/12/17 08/10/18 History Nitroglycerin Sl Tabs [Nitrostat] 0.4 mg SUBLINGUAL Q5M PRN tab 07/14/17 Rx Atorvastatin Calcium [Lipitor] 80 mg PO HS 01/27/18 08/10/18 History FLUoxetine HCL [PROzac] 80 mg PO DAILY 01/27/18 08/10/18 History Famotidine [Pepcid] 20 mg PO HS 01/27/18 08/10/18 History Pioglitazone [Actos] 30 mg PO DAILY 01/27/18 08/10/18 History metFORMIN HCL 1,000 mg PO BID 01/27/18 08/10/18 History Ranolazine [Ranexa] 1,000 mg PO Q12HR tab.er.12h 05/01/18 08/10/18 Rx HYDROcodone/APAP 10-325MG [[place] 1 tab PO TID PRN 06/14/18 08/10/18 History 10-325] Clobetasol Propionate [Temovate 1 applic TOPICAL BID 08/10/18 08/10/18 History 0.05% Cream] Isosorbide Mononitrate [Imdur] 120 mg PO DAILY 08/10/18 08/10/18 History Allergies Allergy/AdvReac Type Severity Reaction Status Date / Time No Known Allergies Allergy Verified 08/10/18 23:08 Physical Exam Vitals: Vital Signs Temp Pulse Resp BP Pulse Ox 08/11/18 08:56 55 L 138/76 08/11/18 08:13 57 L 16 173/80 96 08/11/18 05:00 65 13 141/79 96 08/11/18 04:30 56 L 9 L 142/86 95 08/11/18 04:00 56 L 12 141/75 95 08/11/18 03:30 55 L 12 149/86 95 08/11/18 03:00 55 L 13 134/65 92 L 08/11/18 02:30 55 L 15 139/71 93 L 08/11/18 02:00 55 L 13 121/61 94 L 08/11/18 01:30 52 L 16 128/60 94 L 08/11/18 01:00 56 L 16 146/81 91 L 08/11/18 00:30 61 15 137/73 94 L 08/11/18 00:00 63 10 L 130/65 94 L 08/10/18 23:30 61 17 110/59 94 L 08/10/18 23:29 65 15 110/59 94 L 08/10/18 23:00 60 12 133/71 94 L 08/10/18 22:31 98.3 F 76 18 130/75 95 Intake and Output 08/10/18 08/11/18 08/11/18 22:59 06:59 14:59 Other: Weight 102.058 kg Results 08/10/18 22:46 08/10/18 22:46 Cardiac Enzymes 08/10/18 08/10/18 08/11/18 Range/Units 22:46 22:46 01:20 AST 21 (17-59) U/L CK-MB (CK-2) 1.1 (0.0-2.4) ng/mL Troponin I <0.012 <0.012 (0.000-0.034) ng/mL 08/11/18 Range/Units 08:35 AST (17-59) U/L CK-MB (CK-2) (0.0-2.4) ng/mL Troponin I <0.012 (0.000-0.034) ng/mL Coagulation 08/10/18 Range/Units 22:46 PT 10.2 (9.0-12.0) sec APTT 25.0 (22.0-30.0) sec CBC 08/10/18 Range/Units 22:46 WBC 6.3 (3.8-10.6) k/uL RBC 4.34 (4.30-5.90) m/uL Hgb 13.3 (13.0-17.5) gm/dL Hct 41.8 (39.0-53.0) % Plt Count 199 (150-450) k/uL Comprehensive Metabolic Panel 08/10/18 Range/Units 22:46 Sodium 144 (137-145) mmol/L Potassium 4.1 (3.5-5.1) mmol/L Chloride 109 H (98-107) mmol/L Carbon Dioxide 26 (22-30) mmol/L BUN 16 (9-20) mg/dL Creatinine 1.07 (0.66-1.25) mg/dL Glucose 88 (74-99) mg/dL Calcium 9.1 (8.4-10.2) mg/dL AST 21 (17-59) U/L ALT 27 (21-72) U/L Alkaline Phosphatase 52 (38-126) U/L Total Protein 6.4 (6.3-8.2) g/dL Albumin 3.8 (3.5-5.0) g/dL Current Medications Generic Name Dose Route Start Last Admin Trade Name Freq PRN Reason Stop Dose Admin Hydrocodone Bitart/Acetaminophen 1 each 08/11/18 08:15 08/11/18 08:58 [place] 10 PO 1 each TID PRN Administration Pain Allopurinol 100 mg 08/11/18 09:00 08/11/18 12:02 Zyloprim PO 100 mg DAILY [facility] Administration Ascorbic Acid 1,000 mg 08/11/18 09:00 08/11/18 12:02 Vitamin C PO 1,000 mg QAM [facility] Administration Aspirin 325 mg 08/12/18 09:00 Aspirin PO DAILY [facility] Atorvastatin Calcium 80 mg 08/11/18 21:00 Lipitor PO HS [facility] Clobetasol Propionate 1 applic 08/11/18 09:00 Temovate TOPICAL BID [facility] Clopidogrel Bisulfate 75 mg 08/11/18 09:00 08/11/18 12:02 Plavix PO 75 mg DAILY [facility] Administration Enoxaparin Sodium 40 mg 08/12/18 09:00 Lovenox SQ DAILY [facility] Famotidine 20 mg 08/11/18 21:00 Pepcid PO HS [facility] Fluoxetine HCl 80 mg 08/11/18 09:00 08/11/18 12:02 Prozac PO 80 mg DAILY [facility] Administration Gabapentin 400 mg 08/11/18 09:00 08/11/18 12:06 Neurontin PO Not Given QID [facility] Insulin Aspart 10 unit 08/11/18 09:00 Novolog Mix 70-30 Vial SQ DAILY [facility] Insulin Aspart 26 unit 08/11/18 21:00 Novolog Mix 70-30 Vial SQ HS [facility] Isosorbide Mononitrate 120 mg 08/11/18 09:00 08/11/18 12:03 Imdur PO 120 mg DAILY [facility] Administration Metoprolol Tartrate 12.5 mg 08/11/18 09:00 08/11/18 12:03 Lopressor PO 12.5 mg BID [facility] Administration Multivitamins 1 each 08/11/18 12:00 Theragran PO 1200 [facility] Nitroglycerin 0.4 mg 08/11/18 08:15 Nitrostat SUBLINGUAL Q5M PRN Chest Pain Non-Formulary Medication 1 cap 08/11/18 17:30 [place]-3 Fatty Acids/Fish Oil [Fish Oil 1,000 Mg Softgel] PO W/SUPPER [facility] Pantoprazole Sodium 40 mg 08/11/18 09:00 08/11/18 12:03 Protonix PO 40 mg DAILY [facility] Administration Ranolazine 1,000 mg 08/11/18 09:00 08/11/18 12:04 Ranexa PO 1,000 mg Q12HR [facility] Administration Sodium Chloride 10 ml 08/11/18 09:00 08/11/18 12:04 Saline Flush IV 10 ml BID [facility] Administration Topiramate 100 mg 08/11/18 21:00 Topamax PO HS [facility] Intake and Output 08/10/18 08/11/18 08/11/18 22:59 06:59 14:59 Other: Weight 102.058 kg 08/10/18 22:46 08/10/18 22:46
[2018-08-11] MEDS: NON-FORMULARY DRUG (Omega-3 Fatty Acids/Fish Oil [Fish Oil 1,000 Mg Softgel] 1 CAP) PO SCH (15:56)
--- NOTE | 2018-08-11 16:18 | ECHOF ---
Referral Reason:LV function MEASUREMENTS -------- HEIGHT: 165.1 cm WEIGHT: 102.1 kg BP: FINDINGS -------- Echo done 05/01: Limited Echo for lv function. Overall left ventricular systolic function is normal with, an EF between 55 - 60 %. There is no pericardial effusion. CONCLUSIONS -------- 1. Echo done 05/01: Limited Echo for lv function. 2. Overall left ventricular systolic function is normal with, an EF between 55 - 60 %. 3. There is no pericardial effusion. GERIATRIC AIDE: Gogo Pinto RDCS
[2018-08-11 16:45] LABS: Glucose,Whole Blood 210 mg/dL (75-99)
[2018-08-11 20:32] LABS: Glucose,Whole Blood 157 mg/dL (75-99)
[2018-08-11] MEDS: ATORVASTATIN 80 MG TAB PO SCH (22:17)
[2018-08-11] MEDS: FAMOTIDINE 20 MG TAB PO SCH (22:17)
[2018-08-11] MEDS: TOPIRAMATE 100 MG TAB PO SCH (22:17)
[2018-08-12 06:52] LABS: Glucose,Whole Blood 82 mg/dL (75-99)
[2018-08-12] MEDS: ASCORBIC ACID 500 MG TAB PO SCH (08:38)
[2018-08-12] MEDS: CLOPIDOGREL 75 MG TAB PO SCH (08:38)
[2018-08-12] MEDS: ASPIRIN 325 MG TAB PO SCH (08:38)
[2018-08-12] MEDS: ALLOPURINOL 100 MG TAB PO SCH (08:38)
[2018-08-12] MEDS: GABAPENTIN 400 MG CAP PO SCH ×4 (08:38→20:32)
[2018-08-12] MEDS: FLUoxetine HCL 20 MG CAP PO SCH (08:38)
[2018-08-12] MEDS: INSULN ASP PRT/INSULIN ASPART 100 UNIT/ML 10 ML VIAL SQ SCH ×2 (08:38→22:07)
[2018-08-12] MEDS: PANTOPRAZOLE 40 MG TABLET PO SCH (08:39)
[2018-08-12 10:05] LABS: Basophils % (A) 0 %; Eosinophils # (A) 0.2 k/uL (0-0.7); Eosinophils % (A) 3 %; HCT 41.8 % (39.0-53.0); HGB 13.3 gm/dL (13.0-17.5); Lymphocytes # (A) 1.1 k/uL (1.0-4.8); Lymphocytes % (A) 17 %; MCH 30.5 pg (25.0-35.0); MCHC 31.9 g/dL (31.0-37.0); MCV 95.6 fL (80.0-100.0); Mean Platelet Volume 7.7; Monocytes # (A) 0.3 k/uL (0-1.0); Monocytes % (A) 5 %; Neutrophils # (A) 4.5 k/uL (1.3-7.7); Neutrophils % (A) 73 %; Platelet Count 196 k/uL (150-450); RBC 4.37 m/uL (4.30-5.90); RDW 13.8 % (11.5-15.5); WBC 6.1 k/uL (3.8-10.6)
[2018-08-12 10:20] LABS: Albumin 3.8 g/dL (3.5-5.0); Calcium 9.1 mg/dL (8.4-10.2); Potassium 4.5 mmol/L (3.5-5.1); Total Bilirubin 0.5 mg/dL (0.2-1.3); Total Protein 6.4 g/dL (6.3-8.2)
[2018-08-12] MEDS: CLOBETASOL PROP 0.05% CR 15GM TOPICAL SCH ×2 (11:39→20:32)
[2018-08-12] MEDS: RANOLAZINE 500 MG TAB.ER.12H PO SCH ×2 (11:40→20:31)
[2018-08-12] MEDS: ENOXAPARIN 40 MG/0.4 ML SYRINGE SQ SCH (11:40)
[2018-08-12] MEDS: ISOSORBIDE MONONITRATE ER 60 MG TAB.ER.24H PO SCH (11:40)
[2018-08-12] MEDS: METOPROLOL TARTRATE 12.5 MG TAB PO SCH ×2 (11:40→20:31)
[2018-08-12] MEDS: MULTIVITAMINS, THERA 1 EACH TAB PO SCH (11:41)
[2018-08-12] MEDS: HYDROcodone/APAP 10-325MG 1 EACH TAB PO PRN ×2 (11:45→20:32)
[2018-08-12 11:50] LABS: Glucose,Whole Blood 282 mg/dL (75-99)
--- NOTE | 2018-08-12 12:23 | P.PN ---
Subjective Progress Note Date: 08/12/18 This is a 68-year-old male patient of Dr. Garza. Patient presented to the ER with complaints of chest pain. Patient reports he's been out of his right neck supple for 1 week. Patient does follow with cardiology services in which she's been receiving free samples. Patient does report some shortness of breath occurring with chest pain. Patient denies radiation to neck jaw or arm. Patient has Medical history of coronary artery disease chest pain, diabetes mellitus, GERD, GI bleed, hyperlipidemia, hypertension, myocardial infarction, musculoskeletal disorder, osteoarthritis, sleep apnea. Patient had recent 2-D echo showing an EF of 50-55%. Patient also has past medical history of coronary artery bypass graft surgery and heart cath with stents. Patient is maintained on Plavix. Chest x-ray completed in ER showing no radiographic evidence of acute cardiopulmonary disease. Postsurgical changes of the chest. EKG completed showing normal sinus rhythm, right bundle branch block. Troponins negative. Cardiology services have been consulted. At this time patient is still complaining of mild chest pain. Patient denies nausea vomiting or diarrhea. Patient denies shortness of breath. Patient denies any urinary burning or frequency. On 08/12/2018 patient is alert and oriented 3 resting comfortably in bed. 2-D echocardiogram has been completed. At this time patient is still having some chest pain. Possible stress test tomorrow per cardiology. At this time patient denies nausea vomiting or diarrhea. Patient denies any urinary burning or frequency Objective - Vital Signs Vital signs: Vital Signs Temp 98.8 F 08/12/18 08:00 Pulse 62 08/12/18 08:00 Resp 18 08/12/18 08:00 BP 151/87 08/12/18 08:00 Pulse Ox 95 08/12/18 08:00 Intake & Output 08/11/18 08/12/18 08/12/18 18:59 06:59 18:59 Intake Total 940 Balance 940 Intake: Oral 240 Other 700 Other: Voiding Method Toilet Toilet Toilet # Voids 1 - Exam Head normocephalic Neck supple Lungs clear to auscultation bilaterally no wheezing or crackles Heart regular rate and rhythm S1-S2, no rub or gallop Abdomen is soft nontender nondistended positive bowel sounds no hepatosplenomegaly Extremities no edema Neuro alert and orientated to 3 - Labs CBC & Chem 7: 03/01/19 09:31 08/12/18 09:31 Labs: Abnormal Lab Results - Last 24 Hours (Table) 08/11/18 08/11/18 08/12/18 Range/Units 16:43 20:18 09:31 Chloride 110 H (98-107) mmol/L Glucose 115 H (74-99) mg/dL POC Glucose (mg/dL) 210 H 157 H (75-99) mg/dL 08/12/18 Range/Units 11:49 Chloride (98-107) mmol/L Glucose (74-99) mg/dL POC Glucose (mg/dL) 282 H (75-99) mg/dL Assessment and Plan Assessment: 1. Chest pain. Troponins negative. Chest x-ray completed in ER showing no radiographic evidence of acute cardiopulmonary process. Postsurgical changes of the chest. EKG completed showing normal sinus rhythm, right bundle branch block. Cardiology has been consulted. Patient does report he has not been taking Ranexa for 1 week due to him running out. 2-D echocardiogram showing an EF of 55-60%. Possible stress test per cardiology 2. History of COPD. No exacerbation at this time 3. History of heart disease with coronary artery bypass graft surgery 4. History of angina. Patient recently started on Ranexa. Patient reports he ran out of free samples and has not been on it for 1 week 5. Diabetes mellitus. Home medications resumed 6. Essential hypertension 7. Hyperlipidemia 8. History of GI bleed 9. History of sleep apnea 10. History of myocardial infarction with multiple stents. Plavix resumed DVY prophylaxis Lovenox. GI prophylaxis Pepcid I performed an examination of the patient and discussed their management with the Nurse Practitioner. I have reviewed the Nurse Practitioner's notes and agree with the documented findings and plan of care
[2018-08-12] MEDS: INSULIN ASPART (NovoLOG) 100 UNIT/ML VIAL SQ SCH ×3 (12:30→22:07)
[2018-08-12] MEDS ORDERED: ASPIRIN 325 MG TAB PO STA (12:43)
[2018-08-12] MEDS ORDERED: SODIUM CHLORIDE 0.9% 1,000 ML in EMPTY BAG 1 BAG IV ONE (12:46)
[2018-08-12] MEDS ORDERED: ALPRAZolam 0.25 MG TAB PO PRN (12:46)
[2018-08-12] MEDS ORDERED: ALPRAZolam 0.5 MG TAB PO PRN (12:46)
--- NOTE | 2018-08-12 12:55 | P.PN ---
Subjective This is a pleasant 68-year-old male past medical history significant for coronary artery disease status post single-vessel bypass grafting with a SVG to RCA, hypertension, dyslipidemia, diabetes mellitus, COPD, obstructive sleep apnea and former nicotine dependence. He follows in the office with Dr. Jiménez. We have been asked to see him in consultation for symptoms of chest discomfort. He is seen and examined sitting up in bed in no acute distress earlier this morning. He continues to complain of chest pain with exertion. He currently has a nitro patch in place. Limited echo obtained yesterday reveals preserved LV systolic function with ejection fraction 55-60%. Blood pressure 166 /81 heart rate afebrile maintaining oxygen saturation on room air. Laboratory data reviewed, WBC 6.1, hemoglobin 13.3, platelets 196, sodium 143, potassium 4.5, creatinine 1.0, cardiac enzymes negative 3, LDL 60 and HDL 43. GENERAL: This is a 68-year-old male in no apparent distress at the time of my examination. HEENT: Head is atraumatic, normocephalic. Pupils are equal, round. Sclerae anicteric. Conjunctivae are clear. Mucous membranes of the mouth are moist. Neck is supple. There is no jugular venous distention. No carotid bruit is heard. LUNGS: Clear to auscultation no wheezes, rales or rhonchi. No chest wall tenderness is noted on palpation or with deep breathing. HEART: Regular rate and rhythm without murmurs, rubs or gallops. S1 and S2 heard. EXTREMITIES: No evidence of peripheral edema and no calf tenderness noted. ASSESSMENT Precordial chest pain, an acute coronary event has been ruled out. History of coronary artery disease s/p bypass grafting. Hypertension Dyslipidemia Diabetes mellitus PLAN We have walked the patient in the hallway and he is complaining of chest pain. Given his history and symptoms of unstable angina on maximum medical therapy, we recommend proceeding with cardiac catheterization to further assess for progression of coronary artery disease. I have discussed the risks, benefits and alternative therapies for the above-mentioned procedure and for both sedation/analgesia as well as necessary blood product administration, if indicated, as they pertain to this patient. The patient has indicated understanding and acceptance of the risks and procedures discussed. If there is no progression of his coronary artery disease he may be up to be discharged home this evening. Further recommendations to follow based upon clinical course. Nurse Practitioner note has been reviewed, I agree with a documented findings and plan of care. Patient was seen and examined. Objective - Vital Signs Vital signs: Vital Signs Temp 98.2 F 08/12/18 12:00 Pulse 85 08/12/18 12:00 Resp 18 08/12/18 12:00 BP 166/81 08/12/18 12:00 Pulse Ox 96 08/12/18 12:00 Intake & Output 08/11/18 08/12/18 08/12/18 18:59 06:59 18:59 Intake Total 940 Balance 940 Intake: Oral 240 Other 700 Other: Voiding Method Toilet Toilet Toilet # Voids 1 - Labs CBC & Chem 7: 08/12/18 09:31 08/12/18 09:31 Labs: Abnormal Lab Results - Last 24 Hours (Table) 08/11/18 08/11/18 08/12/18 Range/Units 16:43 20:18 09:31 Chloride 110 H (98-107) mmol/L Glucose 115 H (74-99) mg/dL POC Glucose (mg/dL) 210 H 157 H (75-99) mg/dL 08/12/18 Range/Units 11:49 Chloride (98-107) mmol/L Glucose (74-99) mg/dL POC Glucose (mg/dL) 282 H (75-99) mg/dL
[2018-08-12 14:27] VITALS: BMI 37.4
[2018-08-12] MEDS ORDERED: IV FLUID CONTINUATION 500 ML IV ONE (15:15)
[2018-08-12 16:26] LABS: Glucose,Whole Blood 82 mg/dL (75-99)
[2018-08-12] MEDS ORDERED: LIDOCAINE 1% INJ 10MG/ML (20 ML MDV) ONE (16:57)
[2018-08-12] MEDS ORDERED: MIDAZOLAM 2 MG/2 ML VIAL IV ONE (17:35)
[2018-08-12] MEDS ORDERED: LIDOCAINE 1% INJ 10MG/ML (20 ML MDV) SQ ONE (17:37)
[2018-08-12] MEDS ORDERED: IOPAMIDOL-370 150ML BTL INJ ONE (17:49)
[2018-08-12] MEDS ORDERED: RX INFO: IV CONTRAST WAS GIVEN 1 EACH MISC MISCELLANE PRN (17:54)
[2018-08-12] MEDS ORDERED: SODIUM CHLORIDE 0.9% 1,000 ML IV SCH (18:00)
[2018-08-12] MEDS: NON-FORMULARY DRUG (Omega-3 Fatty Acids/Fish Oil [Fish Oil 1,000 Mg Softgel] 1 CAP) PO SCH (18:37)
[2018-08-12] MEDS: TOPIRAMATE 100 MG TAB PO SCH (20:31)
[2018-08-12] MEDS: ATORVASTATIN 80 MG TAB PO SCH (20:31)
[2018-08-12] MEDS: FAMOTIDINE 20 MG TAB PO SCH (20:31)
[2018-08-12] MEDS ORDERED: HYDROmorphone 1 MG/ML 1 ML SYRINGE IVP STA (21:22)
[2018-08-12 21:41] LABS: Glucose,Whole Blood 213 mg/dL (75-99)
--- NOTE | 2018-08-12 22:11 | CC ---
CARDIAC CATHETERIZATION REPORT DATE IS SERVICE: August 12, 2018. PERFORMING PHYSICIAN: Chai Krueger MD, sql report developer. PROCEDURE PERFORMED: 1. Selective left and right coronary angiogram. 2. SVG to RCA angiogram. 3. Left heart catheterization. INDICATION: This is a pleasant 68-year-old gentleman who sees Dr. Ina Jiménez in the office as an outpatient with known history of coronary artery disease, was admitted to the observational unit at [facility] with chest discomfort. He continues to have chest discomfort, worse with exertion and better with resting. Because of that, a heart catheterization was advised. The patient does have coronary artery disease with known chronic total occlusion of the RCA and known SVG to RCA which was stented multiple times before. APPROACH: Right common femoral artery. COMPLICATION: None. LEVEL OF SEDATION: Moderate with sedation length of 50 minutes. PROCEDURE DESCRIPTION: After obtaining an informed consent, the patient was brought to the cardiac labor operator. The right common femoral artery was cannulated using micropuncture technique, the micropuncture wire passed easily. Then I placed a 6-[place] sheath in the right common femoral artery. I did selective right and left coronary angiogram using JR4 and JL4 catheters. SVG to RCA angiogram was performed using Dontrell Edwards catheter. Left heart catheterization was performed using 6-[place] pigtail catheter. The procedure was completed without any complication. SELECTIVE CORONARY ANGIOGRAM: 1. The left main is a short left main but appeared to be angiographically normal. It bifurcates into left circumflex and left anterior descending artery. 2. The left circumflex is a large caliber vessel. The proximal circumflex is normal and gives rise into a large first OM branch which appeared to have mild disease only. The mid circumflex is normal and the circumflex distally appeared to be normal. 3. The LAD: The proximal LAD appeared to be angiographically normal. It gives rise into first diagonal branch which appeared to be normal. The mid LAD is normal as well and gives rise into a second diagonal branch which seems to be normal. The LAD distally appeared to be normal. 4. The RCA is chronically occluded in the midportion. CORONARY BYPASS ANGIOGRAM: The SVG to RCA is stented and the stent appeared to be patent. HEMODYNAMICS: The left ventricular end-diastolic pressure was 12 mmHg without significant gradient across the aortic valve. CONCLUSION: 1. Severe coronary artery disease with chronic total occlusion of the right coronary artery. 2. Patent SVG to right coronary artery. POSTPROCEDURE MANAGEMENT: 1. Given the above anatomy and the patency of the SVG graft to the RCA as well as the absence of any coronary artery disease involving the left coronary system, I did recommend maximized medical treatment. 2. The patient can be discharged home in the next 12 to 24 hours. VENITA / GABRIELLE: [id number] /
--- NOTE | 2018-08-12 22:23 | LTR ---
DATE OF SERVICE: August 12, 2018 Dr. Argentina Garza Dear Dr. Garza: Mr. Dontrell Raymond was admitted to [facility] with chest discomfort and he underwent heart catheterization which showed patency of his of his bypass to the right coronary artery without any disease involving the left coronary system. I want to thank you for allowing us to participate in his care and please do not hesitate to call with any questions or concerns. MMODL / IJN: [id number] /
[2018-08-13 06:09] LABS: Basophils % (A) 0 %; Eosinophils # (A) 0.2 k/uL (0-0.7); Eosinophils % (A) 4 %; HCT 37.9 % (39.0-53.0); HGB 11.8 gm/dL (13.0-17.5); Hypochromasia Slight; Lymphocytes # (A) 1.3 k/uL (1.0-4.8); Lymphocytes % (A) 27 %; MCHC 31.1 g/dL (31.0-37.0); MCV 96.5 fL (80.0-100.0); Mean Platelet Volume 7.7; Monocytes # (A) 0.3 k/uL (0-1.0); Monocytes % (A) 7 %; Neutrophils # (A) 2.8 k/uL (1.3-7.7); Neutrophils % (A) 59 %; Platelet Count 172 k/uL (150-450); RBC 3.92 m/uL (4.30-5.90); RDW 14.1 % (11.5-15.5); WBC 4.8 k/uL (3.8-10.6)
[2018-08-13 06:27] LABS: ALT 28 U/L (21-72); AST 17 U/L (17-59); Albumin 3.4 g/dL (3.5-5.0); Alkaline Phosphatase 55 U/L (38-126); Anion Gap 7 mmol/L; Blood Urea Nitrogen 18 mg/dL (9-20); Calcium 8.8 mg/dL (8.4-10.2); Carbon Dioxide 25 mmol/L (22-30); Chloride 109 mmol/L (98-107); Glucose 150 mg/dL (74-99); Potassium 4.5 mmol/L (3.5-5.1); Sodium 141 mmol/L (137-145); Total Bilirubin 0.3 mg/dL (0.2-1.3); Total Protein 5.9 g/dL (6.3-8.2)
[2018-08-13 06:39] LABS: Glucose,Whole Blood 136 mg/dL (75-99)
[2018-08-13] MEDS: FLUoxetine HCL 20 MG CAP PO SCH (08:01)
[2018-08-13] MEDS: METOPROLOL TARTRATE 12.5 MG TAB PO SCH (08:01)
[2018-08-13] MEDS: CLOPIDOGREL 75 MG TAB PO SCH (08:01)
[2018-08-13] MEDS: ENOXAPARIN 40 MG/0.4 ML SYRINGE SQ SCH (08:01)
[2018-08-13] MEDS: RANOLAZINE 500 MG TAB.ER.12H PO SCH (08:02)
[2018-08-13] MEDS: ASCORBIC ACID 500 MG TAB PO SCH (08:02)
[2018-08-13] MEDS: ALLOPURINOL 100 MG TAB PO SCH (08:02)
[2018-08-13] MEDS: INSULIN ASPART (NovoLOG) 100 UNIT/ML VIAL SQ SCH ×2 (08:02→11:38)
[2018-08-13] MEDS: PANTOPRAZOLE 40 MG TABLET PO SCH (08:02)
[2018-08-13] MEDS: ASPIRIN 325 MG TAB PO SCH (08:02)
[2018-08-13] MEDS: MULTIVITAMINS, THERA 1 EACH TAB PO SCH (08:02)
[2018-08-13] MEDS: ISOSORBIDE MONONITRATE ER 60 MG TAB.ER.24H PO SCH (08:03)
[2018-08-13] MEDS: CLOBETASOL PROP 0.05% CR 15GM TOPICAL SCH (08:05)
[2018-08-13] MEDS: GABAPENTIN 400 MG CAP PO SCH (08:08)
[2018-08-13] MEDS: INSULN ASP PRT/INSULIN ASPART 100 UNIT/ML 10 ML VIAL SQ SCH (08:08)
[2018-08-13] MEDS: HYDROcodone/APAP 10-325MG 1 EACH TAB PO PRN (11:37)
[2018-08-13 11:40] LABS: Glucose,Whole Blood 92 mg/dL (75-99)
[2018-08-13 12:14] VITALS: BP 132/80; PULSE 59; RESP 16; TEMP 98
--- NOTE | 2018-08-13 12:27 | P.DS ---
Providers Date of admission: 08/12/18 14:48 Expected date of discharge: 08/13/18 Attending physician: Tisha Tang Consults: 08/11/18 00:19 Consult Physician Urgent Consulting Provider: Chai Krueger Consult Reason/Comments: cp Do you want consulting provider notified?: Yes Primary care physician: Argentina Garza [facility] Course: Diagnosis on discharge: 1. Chest pain. Troponins negative. Chest x-ray completed in ER showing no radiographic evidence of acute cardiopulmonary process. Postsurgical changes of the chest. EKG completed showing normal sinus rhythm, right bundle branch block. Cardiology has been consulted. Patient does report he has not been taking Ranexa for 1 week due to him running out. 2-D echocardiogram showing an EF of 55-60%. Possible stress test per cardiology 2. History of COPD. No exacerbation at this time 3. History of heart disease with coronary artery bypass graft surgery 4. History of angina. Patient recently started on Ranexa. Patient reports he ran out of free samples and has not been on it for 1 week 5. Diabetes mellitus. Home medications resumed 6. Essential hypertension 7. Hyperlipidemia 8. History of GI bleed 9. History of sleep apnea 10. History of myocardial infarction with multiple stents. Plavix resumed Hospital course: This is a 68-year-old male patient of Dr. Garza. Patient presented to the ER with complaints of chest pain. Patient reports he's been out of his right neck supple for 1 week. Patient does follow with cardiology services in which she's been receiving free samples. Patient does report some shortness of breath occurring with chest pain. Patient denies radiation to neck jaw or arm. Patient has Medical history of coronary artery disease chest pain, diabetes mellitus, GERD, GI bleed, hyperlipidemia, hypertension, myocardial infarction, musculoskeletal disorder, osteoarthritis, sleep apnea. Patient had recent 2-D echo showing an EF of 50-55%. Patient also has past medical history of coronary artery bypass graft surgery and heart cath with stents. Patient is maintained on Plavix. Chest x-ray completed in ER showing no radiographic evidence of acute cardiopulmonary disease. Postsurgical changes of the chest. EKG completed showing normal sinus rhythm, right bundle branch block. Troponins negative. Cardiology services have been consulted. At this time patient is still complaining of mild chest pain. Patient denies nausea vomiting or diarrhea. Patient denies shortness of breath. Patient denies any urinary burning or frequency. Patient was admitted to 24-hour observation unit serial EKG and cardiac enzymes were negative for myocardial infarction was ruled out patient underwent cardiac catheterization during this visit that did not reveal any evidence of progression of his coronary disease there was no need for any intervention at this time recommendation was to continue with maximizing medical therapy. During this admission dose of Imdur was increased by cardiology to 240 mg daily patient did not have any recurrence of his chest pain he was discharged home on 08/13/2018 Follow-up with his primary care physician within one week Dr. Argentina Garza Follow-up with cardiology in 1-2 weeks Plan - Discharge Summary Discharge Rx Participant: No New Discharge Prescriptions: New Isosorbide Mononitrate ER [Imdur] 240 mg PO DAILY tab.er.24h Continue Pantoprazole Sodium 40 mg PO DAILY Allopurinol [Zyloprim] 100 mg PO DAILY Topiramate [Topamax] 100 mg PO HS Aspirin EC [Ecotrin Low Dose] 81 mg PO DAILY #30 tablet. Ascorbic Acid [Vitamin C] 1,000 mg PO QAM [place]-3 Fatty Acids/Fish Oil [Fish Oil 1,000 mg Softgel] 1 cap PO W/SUPPER Multivitamins, Thera [Multivitamin (formulary)] 1 tab PO DAILY Clopidogrel [Plavix] 75 mg PO DAILY Gabapentin [Neurontin] 400 mg PO QID Insulin NPH Hum/Reg Insulin Hm [NovoLIN 70-30 100 UNIT/ML VIAL] 10 unit SQ DAILY Metoprolol Tartrate [Lopressor] 12.5 mg PO BID Insulin NPH Hum/Reg Insulin Hm [NovoLIN 70-30 100 UNIT/ML VIAL] 26 unit SQ HS Nitroglycerin Sl Tabs [Nitrostat] 0.4 mg SUBLINGUAL Q5M PRN tab PRN Reason: Chest Pain Atorvastatin Calcium [Lipitor] 80 mg PO HS Famotidine [Pepcid] 20 mg PO HS FLUoxetine HCL [PROzac] 80 mg PO DAILY metFORMIN HCL 1,000 mg PO BID Pioglitazone [Actos] 30 mg PO DAILY Ranolazine [Ranexa] 1,000 mg PO Q12HR tab.er.12h HYDROcodone/APAP 10-325MG [[place] 10-325] 1 tab PO TID PRN PRN Reason: Pain Clobetasol Propionate [Temovate 0.05% Cream] 1 applic TOPICAL BID Discontinued Isosorbide Mononitrate [Imdur] 120 mg PO DAILY Discharge Medication List Allopurinol [Zyloprim] 100 mg PO DAILY 11/07/13 [History] Pantoprazole Sodium 40 mg PO DAILY 11/07/13 [History] Topiramate [Topamax] 100 mg PO HS 11/07/13 [History] Aspirin EC [Ecotrin Low Dose] 81 mg PO DAILY #30 tablet. 10/21/15 [Rx] Ascorbic Acid [Vitamin C] 1,000 mg PO QAM 05/25/16 [History] [place]-3 Fatty Acids/Fish Oil [Fish Oil 1,000 mg Softgel] 1 cap PO W/SUPPER 05/25 [History] Clopidogrel [Plavix] 75 mg PO DAILY 10/14/16 [History] Gabapentin [Neurontin] 400 mg PO QID 10/14/16 [History] Multivitamins, Thera [Multivitamin (formulary)] 1 tab PO DAILY 10/14/16 [History ] Insulin NPH Hum/Reg Insulin Hm [NovoLIN 70-30 100 UNIT/ML VIAL] 10 unit SQ DAILY 07/12/17 [History] Insulin NPH Hum/Reg Insulin Hm [NovoLIN 70-30 100 UNIT/ML VIAL] 26 unit SQ HS [History] Metoprolol Tartrate [Lopressor] 12.5 mg PO BID 07/12/17 [History] Nitroglycerin Sl Tabs [Nitrostat] 0.4 mg SUBLINGUAL Q5M PRN tab 07/14/17 [Rx] Atorvastatin Calcium [Lipitor] 80 mg PO HS 01/27/18 [History] FLUoxetine HCL [PROzac] 80 mg PO DAILY 01/27/18 [History] Famotidine [Pepcid] 20 mg PO HS 01/27/18 [History] Pioglitazone [Actos] 30 mg PO DAILY 01/27/18 [History] metFORMIN HCL 1,000 mg PO BID 01/27/18 [History] Ranolazine [Ranexa] 1,000 mg PO Q12HR tab.er.12h 05/01/18 [Rx] HYDROcodone/APAP 10-325MG [[place] 10-325] 1 tab PO TID PRN 06/14/18 [History] Clobetasol Propionate [Temovate 0.05% Cream] 1 applic TOPICAL BID 08/10/18 [ History] Isosorbide Mononitrate ER [Imdur] 240 mg PO DAILY tab.er.24h 08/13/18 [Rx] Follow up Appointment(s)/Referral(s): Chai Krueger MD [STAFF PHYSICIAN] - 1 Week (groin check) Argentina Garza DO [Primary Care Provider] - 1-2 days Patient Instructions/Handouts: Chest Pain (DC)
--- NOTE | 2018-08-13 14:57 | P.PN ---
Subjective Progress Note Date: 08/13/18 This is a 68-year-old gentleman with history of ischemic heart disease status post single-vessel bypass grafting with vein graft to the RCA. Patient was admitted to the hospital with chest pains. Patient had a cardiac catheterization yesterday by Dr. Ramos. Patient was found have patent vein graft to the RCA without any significant disease in the left system. Patient was advised medical therapy. Patient has remained stable. Complaining of some discomfort in the groin. The groin seems to be soft without any hematoma. No bruit heard. Patient's pedal pulses were preserved. The patient is being discharged home in stable condition. Patient will have follow-up with Dr. Ramos as an outpatient. Continue current medical therapy Objective - Vital Signs Vital signs: Vital Signs Temp 98.0 F 08/13/18 12:00 Pulse 59 L 08/13/18 12:00 Resp 16 08/13/18 12:00 BP 132/80 08/13/18 12:00 Pulse Ox 95 08/13/18 12:00 Intake & Output 08/12/18 08/13/18 08/13/18 18:59 06:59 18:59 Intake Total 336 Balance 336 Weight 102.058 kg Intake: IV 100 Oral 236 Other: Voiding Method Toilet Toilet Toilet # Voids 1 - Exam GENERAL EXAM: Patient is alert and oriented and doesn't appear to be in any acute distress HEENT: Normocephalic. Normal reaction of pupils, equal size, normal range of extraocular motion. No erythema or exudates in the throat. NECK: No masses, no nuchal rigidity. CHEST: No chest wall deformity. LUNGS: Equal air entry with no crackles or wheeze. HEART: S1 and S2 normal with no audible mumurs or gallops. Regular rhythm, femorals equal on both sides.. ABDOMEN: No hepatosplenomegaly, normal bowel sounds, no guarding or rigidity. SKIN: No rashes CENTRAL NERVOUS SYSTEM: No focal deficits. EXTREMITIES: No cyanosis, clubbing or edema. PUNCTURE SITE: Soft without any hematoma - Labs CBC & Chem 7: 08/13/18 05:32 08/13/18 05:32 Labs: Abnormal Lab Results - Last 24 Hours (Table) 08/12/18 08/13/18 08/13/18 Range/Units 21:29 05:32 05:32 RBC 3.92 L (4.30-5.90) m/uL Hgb 11.8 L (13.0-17.5) gm/dL Hct 37.9 L (39.0-53.0) % Chloride 109 H (98-107) mmol/L Glucose 150 H (74-99) mg/dL POC Glucose (mg/dL) 213 H (75-99) mg/dL Total Protein 5.9 L (6.3-8.2) g/dL Albumin 3.4 L (3.5-5.0) g/dL 08/13/18 Range/Units 06:37 RBC (4.30-5.90) m/uL Hgb (13.0-17.5) gm/dL Hct (39.0-53.0) % Chloride (98-107) mmol/L Glucose (74-99) mg/dL POC Glucose (mg/dL) 136 H (75-99) mg/dL Total Protein (6.3-8.2) g/dL Albumin (3.5-5.0) g/dL Assessment and Plan (1) History of coronary artery bypass graft Status: Acute Code(s): Z95.1 - PRESENCE OF AORTOCORONARY BYPASS GRAFT SNOMED Code(s): 070115245 (2) Chest pain Status: Acute Code(s): R07.9 - CHEST PAIN, UNSPECIFIED SNOMED Code(s): 10965486 (3) COPD (chronic obstructive pulmonary disease) Status: Acute Code(s): J44.9 - CHRONIC OBSTRUCTIVE PULMONARY DISEASE, UNSPECIFIED SNOMED Code(s): 62085350 (4) Diabetes mellitus Status: Acute Code(s): E11.9 - TYPE 2 DIABETES MELLITUS WITHOUT COMPLICATIONS SNOMED Code(s): 96327886 Plan: Patient is critically stable. Groin is soft without any hematoma. Patient could be discharged home. Follow-up with Dr. Ramos as an outpatient
== END 2018-08-13 13:00 | disposition home or self-care (01) | DRG 287 ==
LOC: EC 22:31 → 1SOBS 08-11 00:20 → OBSVTOIN 08-12 14:48
PROVIDERS: ADMIT Internal Medicine; ATTEND Internal Medicine
PROC: B2111ZZ Fluoroscopy of Multiple Coronary Arteries using Low Osmolar Contrast (ICD-10-PCS; principal; 2018-08-12 17:12)
PROC: B2121ZZ Fluoroscopy of Single Coronary Artery Bypass Graft using Low Osmolar Contrast (ICD-10-PCS; principal; 2018-08-12 17:12)
PROC: 4A023N7 Measurement of Cardiac Sampling and Pressure, Left Heart, Percutaneous Approach (ICD-10-PCS; principal; 2018-08-12 17:12)
PROC: B2151ZZ Fluoroscopy of Left Heart using Low Osmolar Contrast (ICD-10-PCS; principal; 2018-08-12 17:12)
DX: R07.9 Chest pain, unspecified (principal); E11.9 Type 2 diabetes mellitus without complications; E78.5 Hyperlipidemia, unspecified; F32.9 Major depressive disorder, single episode, unspecified; G47.33 Obstructive sleep apnea (adult) (pediatric); I10 Essential (primary) hypertension; I25.10 Atherosclerotic heart disease of native coronary artery without angina pectoris; I25.2 Old myocardial infarction; I25.82 Chronic total occlusion of coronary artery; I45.10 Unspecified right bundle-branch block; J44.9 Chronic obstructive pulmonary disease, unspecified; K21.9 Gastro-esophageal reflux disease without esophagitis; Z79.02 Long term (current) use of antithrombotics/antiplatelets; Z79.4 Long term (current) use of insulin; Z79.82 Long term (current) use of aspirin; Z79.899 Other long term (current) drug therapy; Z82.49 Family history of ischemic heart disease and other diseases of the circulatory system; Z87.11 Personal history of peptic ulcer disease; Z87.891 Personal history of nicotine dependence; Z95.1 Presence of aortocoronary bypass graft; Z95.5 Presence of coronary angioplasty implant and graft; Y63.6 Underdosing and nonadministration of necessary drug, medicament or biological substance
CPT/HCPCS: 36415; 71046; 80053; 80061; 82550; 82553; 83735; 84484; 85025; 85610; 85730; 93005; 93308; 93459; 96374; 99285

== ENCOUNTER 2018-12-19 13:32 | Emergency (ER) | payer MEDICARE ==
[2018-12-19 15:06] LABS: Appearance,Urine Clear (Clear); Bilirubin,Urine Negative (Negative); Blood,Urine Negative (Negative); Color,Urine Yellow; Glucose,Urine (UA) Negative (Negative); Ketones,Urine Negative (Negative); Leukocyte Esterase,Urine Negative (Negative); Nitrite,Urine Negative (Negative); Protein,Urine Trace (Negative); Specific Gravity,Urine 1.018 (1.001-1.035); Urobilinogen,Urine <2.0 mg/dL (<2.0)
[2018-12-19] MEDS ORDERED: MORPHINE SULFATE 4 MG/ML SYRINGE IVP STA (16:38)
[2018-12-19 16:39] LABS: Basophils % (A) 1 %; Eosinophils # (A) 0.1 k/uL (0-0.7); Eosinophils % (A) 2 %; HCT 36.7 % (39.0-53.0); HGB 9.1 gm/dL (13.0-17.5); Lymphocytes # (A) 1.1 k/uL (1.0-4.8); Lymphocytes % (A) 22 %; MCH 22.6 pg (25.0-35.0); MCHC 24.8 g/dL (31.0-37.0); Mean Platelet Volume 7.7; Monocytes # (A) 0.3 k/uL (0-1.0); Monocytes % (A) 7 %; Neutrophils # (A) 3.2 k/uL (1.3-7.7); Neutrophils % (A) 66 %; Platelet Count 133 k/uL (150-450); RBC 4.03 m/uL (4.30-5.90); RDW 14.5 % (11.5-15.5); WBC 4.8 k/uL (3.8-10.6)
--- NOTE | 2018-12-19 16:42 | ED ---
General Adult HPI - General Chief complaint: Abdominal Pain Stated complaint: Trouble Urinating, groin pain Time Seen by Provider: 12/19/18 16:07 Source: patient Mode of arrival: ambulatory Limitations: no limitations - History of Present Illness Initial comments: Dictation was produced using [employer] dictation software. please excuse any grammatical, word or spelling errors. Chief Complaint: 68-year-old male with multiple comorbid is presents with right groin pain. History of Present Illness:-year-old male he was recently diagnosed with right inguinal hernia seen on an outpatient CT performed by his primary care physi boom. Patient said he found out that started recently within the last several days. He was referred to general surgeon for hernia repair surgery in one week. Patient is here today because he is having worsening groin pain. Patient states she's been having pain for the last several months over the last week his pain has been increasing in intensity and frequency. Patient reports that his pain has been progressive. He localizes the pain to his right groin and right testicle area. Patient states his symptoms are exacerbated suspicion with ambulating and moving that right lower extremity. Patient came to the emergency department because his pain is out of control. He does report that this pain is different from his previous hernia studies had in the past. Denies any abdominal pain. Patient complains of some mild nausea however no vomiting. Patient had a regular bowel movements. Patient states that her last week with the increasing intensity of his pain is been having difficulty with urinating. The ROS documented in this emergency department record has been reviewed and con firmed by me. Those systems with pertinent positive or negative responses have been documented in the HPI. All other systems are other negative and/or noncontributory. PHYSICAL EXAM: General Impression: Alert and oriented x3, not in acute distress HEENT: Normocephalic atraumatic, extra-ocular movements intact, pupils equal and reactive to light bilaterally, mucous membranes moist. Cardiovascular: Heart regular rate and rhythm, S1&S2 audible, no murmurs, rubs or gallops Chest: Lungs clear to auscultation bilaterally, no rhonchi, no wheeze, no rales Abdomen: Bowel sounds present, abdomen soft, non-tender, non-distended, no organomegaly Musculoskeletal: Pulses present and equal in all extremities, no peripheral edema, tenderness with manipulation of the right hip in flexion, and rotation. Motor: no focal deficits noted Neurological: CN II-XII grossly intact, no focal motor or sensory deficits noted Skin: Intact with no visualized rashes Psych: Normal affect and mood exam: Tenderness to palpation of the right testicle. No palpable scrotal mass. No significant mass palpated with Valsalva maneuver. ED course: Patient 68-year-old male presents today with worsening hernia pain. Signs upon arrival are within acceptable limits. Patient also reports difficulty urinating. Patient did urinate completely at bedside. Physical examination elicited pain with manipulation of the right hip and palpation to the right testicle. She is complaining that his symptoms are different compared to his hernia pain. There is concern that patient's symptoms could be secondary to testicular pain versus right hip pain. Patient given IV analgesia. Labs obtained. Ultrasound and plain films are ordered. Post void residual is 51 mL.Return evaluation obtained. CBC, metabolic panel, urinalysis is unremarkable. Scrotal ultrasound did not show any acute findings. There was incidental finding of lobulated hypoechoic area of the left testicle. Patient suffered this results. There is trace hydrocele on the right. KUB shows nonobstructive bowel gas pattern, pelvis of the right hip shows mild bilateral hip osteoarthritis. Discussed patient case with Dr. Thibodeaux who was a patient. He requested a CT be performed. There is a fat containing umbilical hernia measuring 5.3 cm wide no identifiable inguinal hernia. There is findings of an upward retracted left testicle. Patient denies any symptoms at the left inguinal or left testicular region. Patient is able urinate at bedside. Patient reevaluated found with stable medical condition. At this point it is unclear what is causing patient's symptoms. There is high likelihood that given his clinical presentation's likely secondary to right hip strain. Patient notified of the results. He is told to follow-up with his private care physician. Patient is encouraged to follow-up with Dr. Thibodeaux and discuss his CT prior to committing to surgery. Patient understandable agreeable to plan. - Related Data Home Medications Medication Instructions Recorded Confirmed Allopurinol [Zyloprim] 100 mg PO DAILY 11/07/13 08/10/18 Pantoprazole Sodium 40 mg PO DAILY 11/07/13 08/10/18 Topiramate [Topamax] 100 mg PO HS 11/07/13 08/10/18 Ascorbic Acid [Vitamin C] 1,000 mg PO QAM 05/25/16 08/10/18 [place]-3 Fatty Acids/Fish Oil [Fish 1 cap PO W/SUPPER 05/25/16 08/10/18 Oil 1,000 mg Softgel] Clopidogrel [Plavix] 75 mg PO DAILY 10/14/16 08/10/18 Gabapentin [Neurontin] 400 mg PO QID 10/14/16 08/10/18 Multivitamins, Thera [Multivitamin 1 tab PO DAILY 10/14/16 08/10/18 (formulary)] Insulin NPH Hum/Reg Insulin Hm 10 unit SQ DAILY 07/12/17 08/10/18 [NovoLIN 70-30 100 UNIT/ML VIAL] Insulin NPH Hum/Reg Insulin Hm 26 unit SQ HS 07/12/17 08/10/18 [NovoLIN 70-30 100 UNIT/ML VIAL] Metoprolol Tartrate [Lopressor] 12.5 mg PO BID 07/12/17 08/10/18 Atorvastatin Calcium [Lipitor] 80 mg PO HS 01/27/18 08/10/18 FLUoxetine HCL [PROzac] 80 mg PO DAILY 01/27/18 08/10/18 Famotidine [Pepcid] 20 mg PO HS 01/27/18 08/10/18 Pioglitazone [Actos] 30 mg PO DAILY 01/27/18 08/10/18 metFORMIN HCL 1,000 mg PO BID 01/27/18 08/10/18 HYDROcodone/APAP 10-325MG [[place] 1 tab PO TID PRN 06/14/18 08/10/18 10-325] Clobetasol Propionate [Temovate 1 applic TOPICAL BID 08/10/18 08/10/18 0.05% Cream] Previous Rx's Medication Instructions Recorded Aspirin EC [Ecotrin Low Dose] 81 mg PO DAILY #30 tablet.dr 10/21/15 Nitroglycerin Sl Tabs [Nitrostat] 0.4 mg SUBLINGUAL Q5M PRN tab 07/14/17 Ranolazine [Ranexa] 1,000 mg PO Q12HR tab.er.12h 05/01/18 Isosorbide Mononitrate ER [Imdur] 240 mg PO DAILY tab.er.24h 08/13/18 Allergies Allergy/AdvReac Type Severity Reaction Status Date / Time No Known Allergies Allergy Verified 12/19/18 14:05 Review of Systems ROS Statement: Those systems with pertinent positive or pertinent negative responses have been documented in the HPI. ROS Other: All systems not noted in ROS Statement are negative. Past Medical History Past Medical History: Coronary Artery Disease (CAD), Chest Pain / Angina, COPD, Diabetes Mellitus, GERD/Reflux, GI Bleed, Hyperlipidemia, Hypertension, Myocardial Infarction (ID), Musculoskeletal Disorder, Osteoarthritis (OA), Skin Disorder, Sleep Apnea/CPAP/BIPAP Additional Past Medical History / Comment(s): NIDDM type II, neuropathy bilateral hands/feet, chronic back pain, spinal lumbar stenosis with radiculopathy/bilateral sciatica,L/R arm tremors unknown cause, gout, past gastric ulcer with repair, hiatal hernia with repair, BIANCA with Cpap, psoriasis. Pt states he has lost 20# over the past couple months. Last Myocardial Infarction Date:: OCTOBER 2015 History of Any Multi-Drug Resistant Organisms: None Reported Past Surgical History: Appendectomy, Back Surgery, Coronary Bypass/CABG, Heart Catheterization, Heart Catheterization With Stent, Hernia Repair, Orthopedic Surgery Additional Past Surgical History / Comment(s): Posterior/lateral decompression/fusion, PCI with a total of 12 stents, CABG 1 vessel in 2003, stomach ulcer repair, umbilical hernia repair, hiatal hernia surgery, bilateral inguinal hernias with one side done twice, EGD, colonoscopy with benign polyp, pain clinic procedures, bilateral cataract removals, L rotator cuff repair, ORIF L ankle d/t fracture with plate/pins, 5th finger R hand surgery d/t trauma Past Anesthesia/Blood Transfusion Reactions: No Reported Reaction Additional Past Anesthesia/Blood Transfusion Reaction / Comment(s): Pt states he believe he received blood when he had repair of gastric ulcer. Date of Last Stent Placement:: October 2017 Past Psychological History: Depression Smoking Status: Former smoker - Past Family History Father Additional Family Medical History / Comment(s): CANCEROUS BRAIN TUMOR Mother Family Medical History: Myocardial Infarction (ID) Additional Family Medical History / Comment(s): FROM [place] AGE 70 General Exam Limitations: no limitations Course Vital Signs 12/19/18 12/19/18 14:00 19:24 Temperature 98.3 F 97.8 F Pulse Rate 56 L 58 L Respiratory 16 18 Rate Blood Pressure 141/68 150/75 O2 Sat by Pulse 97 100 Oximetry Medical Decision Making - Lab Data Result diagrams: 12/19/18 16:20 12/19/18 16:20 Lab Results 12/19/18 12/19/18 12/19/18 Range/Units 14:44 16:20 16:20 WBC 4.8 (3.8-10.6) k/uL RBC 4.03 L (4.30-5.90) m/uL Hgb 9.1 L (13.0-17.5) gm/dL Hct 36.7 L (39.0-53.0) % MCV 91.0 (80.0-100.0) fL MCH 22.6 L (25.0-35.0) pg MCHC 24.8 L (31.0-37.0) g/dL RDW 14.5 (11.5-15.5) % Plt Count 133 L (150-450) k/uL Neutrophils % 66 % Lymphocytes % 22 % Monocytes % 7 % Eosinophils % 2 % Basophils % 1 % Neutrophils # 3.2 (1.3-7.7) k/uL Lymphocytes # 1.1 (1.0-4.8) k/uL Monocytes # 0.3 (0-1.0) k/uL Eosinophils # 0.1 (0-0.7) k/uL Basophils # 0.0 (0-0.2) k/uL Sodium 140 (137-145) mmol/L Potassium 4.4 (3.5-5.1) mmol/L Chloride 106 (98-107) mmol/L Carbon Dioxide 23 (22-30) mmol/L Anion Gap 11 mmol/L BUN 14 (9-20) mg/dL Creatinine 1.02 (0.66-1.25) mg/dL Est GFR (CKD-EPI)AfAm 86 (>60 ml/min/1.73 sqM) Est GFR (CKD-EPI)NonAf 74 (>60 ml/min/1.73 sqM) Glucose 98 (74-99) mg/dL Calcium 9.2 (8.4-10.2) mg/dL Total Bilirubin 0.5 (0.2-1.3) mg/dL AST 21 (17-59) U/L ALT 18 L (21-72) U/L Alkaline Phosphatase 55 (38-126) U/L Total Protein 7.0 (6.3-8.2) g/dL Albumin 4.3 (3.5-5.0) g/dL Lipase 34 (23-300) U/L Urine Color Yellow Urine Appearance Clear (Clear) Urine pH 6.0 (5.0-8.0) Ur Specific [place] 1.018 (1.001-1.035) Urine Protein Trace H (Negative) Urine Glucose (UA) Negative (Negative) Urine Ketones Negative (Negative) Urine Blood Negative (Negative) Urine Nitrite Negative (Negative) Urine Bilirubin Negative (Negative) Urine Urobilinogen <2.0 (<2.0) mg/dL Ur Leukocyte Esterase Negative (Negative) Disposition Clinical Impression: Right groin pain Disposition: HOME SELF-CARE Condition: Good Instructions (If sedation given, give patient instructions): Groin Pain (ED) Is patient prescribed a controlled substance at d/c from ED?: No Referrals: Argentina Garza DO [Primary Care Provider] - 1-2 days Time of Disposition: 21:06
[2018-12-19 16:54] LABS: Albumin 4.3 g/dL (3.5-5.0); Calcium 9.2 mg/dL (8.4-10.2); Potassium 4.4 mmol/L (3.5-5.1); Total Bilirubin 0.5 mg/dL (0.2-1.3)
--- NOTE | 2018-12-19 18:21 | XR ---
EXAMINATION TYPE: XR KUB, AP view pelvis and 2 views right hip DATE OF EXAM: 12/19/2018 CLINICAL DATA: 68 year-old male abdominal pain and hernia, PHH COMPARISON: None FINDINGS: KUB: Median sternotomy wires. Lung bases appear clear. No evidence for free intraperitoneal air. Mildly di lated small bowel loop in the left upper quadrant measures 3.4 cm. Moderate stool in the right side o f the abdomen. No differential air-fluid levels are seen. L4-L5 posterior and interbody lumbar fusion . Pelvis and right hip: Mild degenerative spurring at both hips. SI joints appear symmetric and intact as does the pubic symp hysis. No acute fracture, subluxation, or dislocation seen. IMPRESSION: 1. KUB: Nonspecific mildly distended small bowel loop in the left upper quadrant measures 3.4 cm. 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 Overall nonobstructive bowel gas pattern at this time. Radiograp hic follow-up can be performed. Moderate stool in the right side of the abdomen. 2. Pelvis and right hip: Mild bilateral hip OA. No acute osseous abnormality seen.
--- NOTE | 2018-12-19 19:34 | US ---
EXAMINATION TYPE: US scrotum with doppler. TECHNIQUE: Grayscale and color Doppler Duplex imaging performed of the scrotum. DATE OF EXAM: 12/19/2018 COMPARISON: NONE CLINICAL HISTORY: 68-year-old male with pain right testicle x 3 weeks. Hx bilateral groin hernia surg hans; patient states there were complications. Last surgery 10 years ago. FINDINGS: EXAM MEASUREMENTS: TESTICLES: Right Testicle: 3.0 x 2.2 x 1.9 cm Left Testicle: 3.0 x 1.6 x 1.3 cm EPIDIDYMIS HEAD: Right Epididymis: 1.0 x 0.7 x 0.8 cm Left Epididymis: Not seen Doppler performed to assess for testicular vascularity; good bilateral color flow and waveforms are s een. There is no evidence of testicular torsion. Presence of hydroceles: anechoic area seen medial to right testicle measurin.7 x 0.7 x 0.6 cm. 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 Left testicle appears to be superior in comparison to right testicle. Limited visib ility of left testicle and no visibility of left epididymis. Left testicle appears to have irregular contour. Small calcifications appear in left testicle. Heterogeneous indistinct area without vascular ity seen inferior to left testicle measuring 2.3 x 0.8 x 1.4 cm. IMPRESSION: 1. No sonographic evidence for testicular torsion. 2. High riding left testicle which may be transient. Correlate for appropriate scrotal location of th e left testicle. 3. Lobulated hypoechoic area measuring 2.3 x 1.4 x 0.8 cm inferior to the left testicle. This could b e part of the epididymis or could represent varicocele. Short interval follow-up recommended 4. Trace hydrocele on the right.
--- NOTE | 2018-12-19 20:56 | CT ---
EXAMINATION TYPE: CT abdomen pelvis w con DATE OF EXAM: 12/19/2018 COMPARISON: NONE HISTORY: 68-year-old male Right inguinal pain. TECHNIQUE: Contiguous axial scanning of the abdomen and pelvis following administration of 100 ml Iso morales 300 IV contrast. Delayed images through the kidneys and coronal/sagittal reconstructions perform ed. CT DLP: 1358.5 mGycm Automated exposure control for dose reduction was used. FINDINGS: Heart upper limits of normal in size without pericardial effusion. Median sternotomy wires are presen t. Mild dependent atelectasis lower lungs. No pleural effusion. Post surgical changes at the GE junction, likely Radha fundoplication with a recurrent moderate-size d hernia. No focal liver lesion or biliary ductal dilatation. Portal venous system is patent. Gallbladder, adrenal glands, kidneys, spleen, and pancreas appear within normal limits. No dilated small bowel, free fluid, or free air. No mesenteric or retroperitoneal lymphadenopathy. There is a small umbilical hernia containing abdominal wall defect measures 1.4 cm wide. The hernia s ac measures 5.3 cm wide. Retroaortic left renal vein. Mild overall stool burden, particularly on the right side of the abdomen. No pericolonic inflammatory change. Redundant sigmoid colon. Prominent distention of the urinary bladder to 14.5 cm. Soft tissue density along the left inguinal canal could represent a canalicular left testicle. No siz able inguinal hernia is seen. No abnormal fluid collection in the pelvis or pelvic lymphadenopathy. P rostate gland mildly enlarged at 4.4 cm wide. Bones: Mild degenerative changes of the hips and right greater than left SI joints. Prior L4-L5 posterior and interbody fusion. Degenerative changes above at L3-L4 with grade 1 retrolis thesis at L2-L3 and L3-L4. IMPRESSION: 1. A FAT CONTAINING UMBILICAL HERNIA MEASURING 5.3 CM WIDE. 2. NO INGUINAL HERNIA IDENTIFIED. THERE IS SOFT TISSUE DENSITY ALONG THE LEFT FEMORAL CANAL. THIS MAY REPRESENT A CANALICULAR OR UPWARD RETRACTED LEFT TESTICLE ESPECIALLY GIVEN FINDINGS ON PATIENT'S ULT RASOUND TODAY. CLINICAL CORRELATION RECOMMENDED. 3. SUSPECT PRIOR RADHA FUNDOPLICATION BUT WITH SLIPPAGE AND RECURRENT MODERATE-SIZED HIATAL HERNIA. 4. PROMINENT DISTENTION OF THE URINARY BLADDER NEARLY UP TO 15 CM. PLEASE CORRELATE TO ENSURE THAT TH IS REPRESENTS VOLUNTARY RETENTION.
[2018-12-19 21:24] VITALS: BP 139/78; PULSE 46; RESP 17; TEMP 97.7
== END 2018-12-19 21:32 | disposition home or self-care (01) ==
LOC: EC 13:32
DX: R10.31 Right lower quadrant pain (principal); K42.9 Umbilical hernia without obstruction or gangrene; R39.198 Other difficulties with micturition; N43.3 Hydrocele, unspecified; M16.0 Bilateral primary osteoarthritis of hip; R93.812 Abnormal radiologic findings on diagnostic imaging of left testicle; K21.9 Gastro-esophageal reflux disease without esophagitis; M10.9 Gout, unspecified; F32.9 Major depressive disorder, single episode, unspecified; E78.5 Hyperlipidemia, unspecified; I10 Essential (primary) hypertension; I25.119 Atherosclerotic heart disease of native coronary artery with unspecified angina pectoris; I25.2 Old myocardial infarction; E11.40 Type 2 diabetes mellitus with diabetic neuropathy, unspecified; G47.33 Obstructive sleep apnea (adult) (pediatric); G89.29 Other chronic pain; M54.9 Dorsalgia, unspecified; L40.9 Psoriasis, unspecified; Z87.891 Personal history of nicotine dependence; Z79.02 Long term (current) use of antithrombotics/antiplatelets; Z79.4 Long term (current) use of insulin; Z79.891 Long term (current) use of opiate analgesic; Z79.899 Other long term (current) drug therapy; Z99.89 Dependence on other enabling machines and devices; Z95.5 Presence of coronary angioplasty implant and graft; Z95.1 Presence of aortocoronary bypass graft; Z90.89 Acquired absence of other organs; Z98.890 Other specified postprocedural states; Z87.11 Personal history of peptic ulcer disease
CPT/HCPCS: 99284; 96374; 36415; 80053; 83690; 85025; 81003; 87086; 73502; 74018; 93975; 76870; 74177; J2270; Q9967

== ENCOUNTER 2018-12-28 11:45 | Day surgery (SDC) | payer MEDICARE ==
[~2018-12-28 11:45] MED LIST: DEXAMETHASONE SOD PHOSPHATE 10 MG/ML 1 ML VIAL IV ONE; HEPARIN SODIUM,PORCINE 5,000 UNIT/ML 1 ML VIAL SQ ONE; MIDAZOLAM 2 MG/2 ML VIAL IV PRN
[2018-12-28] MEDS: LIDOCAINE 1% 20 ML VIAL (10MG/ML) FOR IV START INTRADERMA PRN ×2 (12:15→12:21)
[2018-12-28] MEDS: LACTATED RINGERS 1,000 ML IV SCH ×2 (12:15→12:20)
[2018-12-28 12:20] LABS: Glucose,Whole Blood 139 mg/dL (75-99)
[2018-12-28] MEDS ORDERED: GLYCOPYRROLATE 0.2 MG/ML 2 ML VIAL ONE (13:06)
[2018-12-28] MEDS ORDERED: PROPOFOL 10 MG/ML 20 ML VIAL IV ONE (13:06)
[2018-12-28] MEDS ORDERED: LIDOCAINE 1% INJ 10MG/ML (20 ML MDV) ONE (13:06)
[2018-12-28] MEDS ORDERED: HYDROmorphone (PF) 1 MG/ML ONE (13:06)
[2018-12-28] MEDS ORDERED: fentaNYL (PF) 50 MCG/ML 2 ML AMP ONE (13:06)
[2018-12-28] MEDS ORDERED: NEOSTIGMINE 1 MG/ML 10 ML VIAL ONE (13:06)
[2018-12-28] MEDS ORDERED: SUCCINYLCHOLINE CHLORIDE 100 MG/5 ML SYR IV ONE (13:06)
[2018-12-28] MEDS ORDERED: ePHEDrine SULFATE/0.9% NACL/PF 50 MG/5 ML SYRINGE IV ONE (13:06)
[2018-12-28] MEDS ORDERED: ROCURONIUM BROMIDE 10 MG/ML 10 ML VIAL IV ONE (13:06)
[2018-12-28] MEDS ORDERED: MIDAZOLAM 2 MG/2 ML VIAL ONE (13:06)
[2018-12-28] MEDS ORDERED: BUPIVACAINE (PF) 0.5% 30 ML VIAL SQ ONE (13:48)
--- NOTE | 2018-12-28 14:24 | P.GSHP ---
History of Present Illness H&P Date: 12/28/18 Chief Complaint: Right inguinal hernia This is a 68-year-old male who has developed a recurrent right inguinal hernia. Patient presents today for laparoscopic robotic system repair. Past Medical History Past Medical History: Coronary Artery Disease (CAD), Chest Pain / Angina, COPD, Diabetes Mellitus, GERD/Reflux, GI Bleed, Hyperlipidemia, Hypertension, Myocardial Infarction (SC), Musculoskeletal Disorder, Osteoarthritis (OA), Skin Disorder, Sleep Apnea/CPAP/BIPAP Additional Past Medical History / Comment(s): NIDDM type II, neuropathy bilateral hands/feet, chronic back pain, spinal lumbar stenosis with radiculopathy/bilateral sciatica,L/R arm tremors unknown cause, gout, past gastric ulcer with repair, hiatal hernia with repair. DOESN'T USE CPAP. Psoriasis. Pt states he has lost 20# over the past couple months. Last Myocardial Infarction Date:: OCTOBER 2015 History of Any Multi-Drug Resistant Organisms: None Reported Past Surgical History: Appendectomy, Back Surgery, Coronary Bypass/CABG, Heart Catheterization, Heart Catheterization With Stent, Hernia Repair, Orthopedic Surgery Additional Past Surgical History / Comment(s): Posterior/lateral decompression/fusion. PCI with a total of 12 stents. CABG 1 vessel in 2003. Stomach ulcer repair. Umbilical hernia repair. Hiatal hernia surgery. Bi lateral inguinal hernias with one side done twice. EGD, colonoscopy with benign polyp. Pain clinic procedures. Bilateral cataract removals. L rotator cuff repair. ORIF L ankle d/t fracture with plate/pins. 5th finger R hand surgery d/t trauma Past Anesthesia/Blood Transfusion Reactions: No Reported Reaction Additional Past Anesthesia/Blood Transfusion Reaction / Comment(s): Pt states he believe he received blood when he had repair of gastric ulcer. Date of Last Stent Placement:: October 2017 Past Psychological History: Depression Additional Psychological History / Comment(s): PT LIVES AT HOME WITH HIS . Pt uses glucometer Smoking Status: Former smoker Past Alcohol Use History: None Reported Additional Past Alcohol Use History / Comment(s): STARTED SMOKING AT AGE 14, SMOKED 2 PPD, QUIT 1989. pt stated quit drinking alcohol 1997 used to drink 6-8 or more beer per day. Past Drug Use History: None Reported - Past Family History Father Additional Family Medical History / Comment(s): CANCEROUS BRAIN TUMOR Mother Family Medical History: Myocardial Infarction (SC) Additional Family Medical History / Comment(s): FROM [place] AGE 70 Medications and Allergies Home Medications Medication Instructions Recorded Confirmed Type Allopurinol [Zyloprim] 100 mg PO QAM 11/07/13 12/28/18 History Pantoprazole Sodium 40 mg PO QAM 11/07/13 12/28/18 History Topiramate [Topamax] 100 mg PO HS 11/07/13 12/28/18 History Aspirin EC [Ecotrin Low Dose] 81 mg PO DAILY #30 tablet. 10/21/15 12/28/18 Rx Ascorbic Acid [Vitamin C] 1,000 mg PO QAM 05/25/16 12/28/18 History [place]-3 Fatty Acids/Fish Oil [Fish 1 cap PO W/SUPPER 05/25/16 12/28/18 History Oil 1,000 mg Softgel] Clopidogrel [Plavix] 75 mg PO QAM 10/14/16 12/28/18 History Gabapentin [Neurontin] 400 mg PO TID 10/14/16 12/28/18 History Multivitamins, Thera [Multivitamin 1 tab PO DAILY 10/14/16 12/28/18 History (formulary)] Insulin NPH Hum/Reg Insulin Hm 10 unit SQ QA 07/12/17 12/28/18 History [NovoLIN 70-30 100 UNIT/ML VIAL] Insulin NPH Hum/Reg Insulin Hm 20 unit SQ HS 07/12/17 12/28/18 History [NovoLIN 70-30 100 UNIT/ML VIAL] Metoprolol Tartrate [Lopressor] 12.5 mg PO 07/12/17 12/28/18 History Nitroglycerin Sl Tabs [Nitrostat] 0.4 mg SUBLINGUAL Q5M PRN tab 07/14/17 12/28/18 Rx Atorvastatin Calcium [Lipitor] 80 mg PO HS 01/27/18 12/28/18 History FLUoxetine HCL [PROzac] 80 mg PO QAM 01/27/18 12/28/18 History Famotidine [Pepcid] 20 mg PO HS 01/27/18 12/28/18 History Pioglitazone [Actos] 30 mg PO QAM 01/27/18 12/28/18 History metFORMIN HCL 1,000 mg PO BID 01/27/18 12/28/18 History HYDROcodone/APAP 10-325MG [[place] 1 tab PO TID PRN 06/14/18 12/28/18 History 10-325] Clobetasol Propionate [Temovate 1 applic TOPICAL BID 08/10/18 12/28/18 History 0.05% Cream] Isosorbide Mononitrate ER [Imdur] 240 mg PO QAM 12/26/18 12/28/18 History Metoprolol Tartrate [Lopressor] 25 mg PO QAM 12/26/18 12/28/18 History Allergies Allergy/AdvReac Type Severity Reaction Status Date / Time No Known Allergies Allergy Verified 12/28/18 12:11 Surgical - Exam Vital Signs Temp Pulse Resp BP Pulse Ox 98.6 F 52 L 16 133/64 94 L 12/28/18 12:10 12/28/18 12:10 12/28/18 12:10 12/28/18 12:10 12/28/18 12:10 - General well developed, well nourished, no distress - Eyes PERRL - ENT normal pinna - Neck no masses - Respiratory normal expansion - Cardiovascular Rhythm: regular - Abdomen Abdomen: soft, non tender Hernia: inguinal (Right) Results - Labs Abnormal Lab Results - Last 24 Hours (Table) 12/28/18 Range/Units 12:12 POC Glucose (mg/dL) 139 H (75-99) mg/dL Assessment and Plan Assessment: Recurrent right internal hernia we'll perform laparoscopic robotic system repair.
[2018-12-28 14:35] VITALS: TEMP 97.7
[2018-12-28] MEDS ORDERED: ONDANSETRON 4 MG/2 ML VIAL IVP ONE (14:40)
[2018-12-28] MEDS: fentaNYL (PF) 50 MCG/ML 2 ML AMP IV PRN ×2 (14:40→14:44)
--- NOTE | 2018-12-28 14:42 | P.OP ---
Date of Procedure: 12/28/18 Preoperative Diagnosis: Recurrent right inguinal hernia Postoperative Diagnosis: Recurrent right inguinal hernia Procedure(s) Performed: Laparoscopic robotic-assisted repair of recurrent right inguinal hernia Anesthesia: SANGEETA Surgeon: Roldan Lock Estimated Blood Loss (ml): 5 Pathology: other Condition: stable Disposition: PACU Description of Procedure: The patient was placed on the operating table in the supine position. The patient received general anesthesia. The patient's abdomen was prepped and draped in usual sterile fashion. The skin was anesthetized 1% local Xylocaine at the incision sites. Using an 11 blade a skin incision was made at the umbilicus. The fascia was grasped with a Merrick and then the peritoneal cavity was entered with the Veress needle. Position of the Veress needle was confirmed with a positive drop test. After adequate insufflation a 5 mm trocar was placed into the peritoneal cavity. The Laparoscope was placed the peritoneal cavity. And a robotic 8 mm trocar was placed in the right lateral position and then another 8 mm robotic trochars placed in the left lateral position. The original 5 mm trocar was exchanged for a 12 mm trocar. The patient was placed in reverse Trendelenburg and then the patient was docked to the robot. Next the peritoneum over top of the hernia was incised and then using blunt and sharp dissection and electrocautery the hernia sac was dissected free from the floor of the inguinal canal. The hernia sac was completely reduced into the peritoneal cavity. And then using the Pro lead android developer mesh the hernia was repaired. The peritoneum was then sutured with 2-0V lock suture. The patient was then u ndocked the robot. The needle was withdrawn from the peritoneal cavity. The umbilical trocar site was closed with 0 Ethibond suture. The skin was closed interrupted 3-0 Monocryl suture. Dermabond dressing was applied. Patient was sent to recovery in stable condition.
[2018-12-28 15:18] LABS: Glucose,Whole Blood 164 mg/dL (75-99)
[2018-12-28 15:26] VITALS: RESP 18
[2018-12-28] MEDS ORDERED: HYDROcodone/APAP 5-325MG 1 EACH TAB PO ONE (15:40)
[2018-12-28 17:13] VITALS: BP 115/69; PULSE 69
== END 2018-12-28 17:20 | disposition home or self-care (01) ==
LOC: OR 11:45
PROVIDERS: ATTEND Surgery
DX: K40.91 Unilateral inguinal hernia, without obstruction or gangrene, recurrent (principal); I10 Essential (primary) hypertension; E78.5 Hyperlipidemia, unspecified; Z95.1 Presence of aortocoronary bypass graft; K21.9 Gastro-esophageal reflux disease without esophagitis; E11.40 Type 2 diabetes mellitus with diabetic neuropathy, unspecified; D64.9 Anemia, unspecified; Z98.1 Arthrodesis status; Z95.5 Presence of coronary angioplasty implant and graft; I25.10 Atherosclerotic heart disease of native coronary artery without angina pectoris; Z87.891 Personal history of nicotine dependence; J44.9 Chronic obstructive pulmonary disease, unspecified; I25.2 Old myocardial infarction; F32.9 Major depressive disorder, single episode, unspecified; M19.90 Unspecified osteoarthritis, unspecified site; L40.9 Psoriasis, unspecified; G89.29 Other chronic pain; M54.9 Dorsalgia, unspecified; G47.30 Sleep apnea, unspecified; M10.9 Gout, unspecified; Z79.02 Long term (current) use of antithrombotics/antiplatelets; Z79.4 Long term (current) use of insulin; Z79.891 Long term (current) use of opiate analgesic; Z79.899 Other long term (current) drug therapy
CPT/HCPCS: 49651; C1781; J2250; J1644; J1100; J2710; J0690; J2405; J2001; J3010; J1170; J0330; J2704

== ENCOUNTER 2019-01-23 14:56 | Observation (INO) | payer MEDICARE ==
[2019-01-23 15:05] VITALS: RESP 18
[2019-01-23] MEDS ORDERED: ASPIRIN 81 MG PO STA (16:35)
--- NOTE | 2019-01-23 16:38 | ED ---
General Adult HPI - General Chief complaint: Chest Pain Stated complaint: chest pain Source: patient Mode of arrival: wheelchair Limitations: no limitations - History of Present Illness Initial comments: Dictation was produced using [employer] dictation software. please excuse any grammatical, word or spelling errors. Chief Complaint: 68-year-old male with past medical history of 20 coronary artery stents, CABG presents with chest pain. History of Present Illness:-year-old male he has extensive cardiac history. Patient states he has approximately 20 coronary artery stents. He also has history of CABG. Patient reports that since 11 AM he's been having substernal chest pressure. Describes it as squeezing pressure with radiation to the left s houlder and left jaw. No associated diaphoresis. Patient states he took 4 nitroglycerin today with minimal resolution of symptoms. Patient does not know when his last cardiac catheterization was. Patient has any history of blood clot. He does report some mild shortness of breath. Patient denies any cough. No leg symptoms. Denies any anticoagulation medications. The ROS documented in this emergency department record has been reviewed and confirmed by me. Those systems with pertinent positive or negative responses have been documented in the HPI. All other systems are other negative and/or noncontributory. PHYSICAL EXAM: General Impression: Alert and oriented x3, not in acute distress HEENT: Normocephalic atraumatic, extra-ocular movements intact, pupils equal and reactive to light bilaterally, mucous membranes moist. Cardiovascular: Heart regular rate and rhythm, S1&S2 audible, no murmurs, rubs or gallops Chest: Lungs clear to auscultation bilaterally, no rhonchi, no wheeze, no rales Abdomen: Bowel sounds present, abdomen soft, non-tender, non-distended, no organomegaly Musculoskeletal: Pulses present and equal in all extremities, no peripheral edema Motor: no focal deficits noted Neurological: CN II-XII grossly intact, no focal motor or sensory deficits noted Skin: Intact with no visualized rashes Psych: Normal affect and mood ED course: 68-year-old male with extensive history of coronary artery disease presents with chief complaint of chest pain. Clinical presentation consistent with atypical chest pain with typical features. Vital signs upon arrival are within acceptable limits. EKG does not show any signs of ST segment elevation [place]. Patient's EKG compared to EKG in July with no acute changes. Patient appears [place] bedside. Physical examination is benign.Patient is well- appearing at this time he is smiling. Laboratory evaluation obtained. CBC, coag panel, metabolic panel is unremarkable. Cardiac enzymes negative. Chest x-ray is nonacute. Patient's well-appearing and has no chest pain at this time. Patient be admitted observation with cardiology consultation and serial troponins. We'll also have cardiac monitoring. Patient understandable and agreeable to disposition. He is given aspirin 3-24 mg. EKG interpretation: Ventricular rate 57, sinus bradycardia, RI 162, QS 156, QTC 465, right bundle branch block. No RI prolongation, no QTC prolongation, no ST or T-wave changes noted. EKG compared to 08/11/2018 showing no changes. Overall, this EKG is unremarkable - Related Data Home Medications Medication Instructions Recorded Confirmed Allopurinol [Zyloprim] 100 mg PO QAM 11/07/13 01/23/19 Pantoprazole Sodium 40 mg PO QA 11/07/13 01/23/19 Topiramate [Topamax] 100 mg PO 11/07/13 01/23/19 Ascorbic Acid [Vitamin C] 1,000 mg PO QAM 05/25/16 01/23/19 [place]-3 Fatty Acids/Fish Oil [Fish 1 cap PO W/SUPPER 05/25/16 01/23/19 Oil 1,000 mg Softgel] Clopidogrel [Plavix] 75 mg PO QAM 10/14/16 01/23/19 Gabapentin [Neurontin] 400 mg PO TID 10/14/16 01/23/19 Multivitamins, Thera [Multivitamin 1 tab PO DAILY 10/14/16 01/23/19 (formulary)] Insulin NPH Hum/Reg Insulin Hm 10 unit SQ QA 07/12/17 01/23/19 [NovoLIN 70-30 100 UNIT/ML VIAL] Insulin NPH Hum/Reg Insulin Hm 20 unit SQ 07/12/17 01/23/19 [NovoLIN 70-30 100 UNIT/ML VIAL] Metoprolol Tartrate [Lopressor] 12.5 mg PO 07/12/17 01/23/19 Atorvastatin Calcium [Lipitor] 80 mg PO 01/27/18 01/23/19 FLUoxetine HCL [PROzac] 80 mg PO QAM 01/27/18 01/23/19 Famotidine [Pepcid] 20 mg PO HS 01/27/18 01/23/19 Pioglitazone [Actos] 30 mg PO QAM 01/27/18 01/23/19 metFORMIN HCL 1,000 mg PO BID 01/27/18 01/23/19 HYDROcodone/APAP 10-325MG [[place] 1 tab PO TID 06/14/18 01/23/19 10-325] Clobetasol Propionate [Temovate 1 applic TOPICAL BID 08/10/18 01/23/19 0.05% Cream] Isosorbide Mononitrate ER [Imdur] 240 mg PO QAM 12/26/18 01/23/19 Metoprolol Tartrate [Lopressor] 25 mg PO QAM 12/26/18 01/23/19 Previous Rx's Medication Instructions Recorded Aspirin EC [Ecotrin Low Dose] 81 mg PO DAILY #30 tablet. 10/21/15 Nitroglycerin Sl Tabs [Nitrostat] 0.4 mg SUBLINGUAL Q5M PRN tab 07/14/17 Docusate [Colace] 100 mg PO BID #20 capsule 12/28/18 Allergies Allergy/AdvReac Type Severity Reaction Status Date / Time No Known Allergies Allergy Verified 01/23/19 16:01 Review of Systems ROS Statement: Those systems with pertinent positive or pertinent negative responses have been documented in the HPI. ROS Other: All systems not noted in ROS Statement are negative. Past Medical History Past Medical History: Coronary Artery Disease (CAD), Chest Pain / Angina, COPD, Diabetes Mellitus, GERD/Reflux, GI Bleed, Hyperlipidemia, Hypertension, Myocardial Infarction ([place]), Musculoskeletal Disorder, Osteoarthritis (OA), Skin Disorder, Sleep Apnea/CPAP/BIPAP Additional Past Medical History / Comment(s): NIDDM type II, neuropathy bilateral hands/feet, chronic back pain, spinal lumbar stenosis with radiculopathy/bilateral sciatica,L/R arm tremors unknown cause, gout, past gastric ulcer with repair, hiatal hernia with repair, BIANCA with Cpap, psoriasis. Pt states he has lost 20# over the past couple months. Last Myocardial Infarction Date:: OCTOBER 2015 History of Any Multi-Drug Resistant Organisms: None Reported Past Surgical History: Hernia Repair Additional Past Surgical History / Comment(s): Posterior/lateral decompression/fusion, PCI with a total of 12 stents, CABG 1 vessel in 2003, stomach ulcer repair, umbilical hernia repair, hiatal hernia surgery, bilateral inguinal hernias with one side done twice, EGD, colonoscopy with benign polyp, pain clinic procedures, bilateral cataract removals, L rotator cuff repair, ORIF L ankle d/t fracture with plate/pins, 5th finger R hand surgery d/t trauma Past Anesthesia/Blood Transfusion Reactions: No Reported Reaction Additional Past Anesthesia/Blood Transfusion Reaction / Comment(s): Pt states he believe he received blood when he had repair of gastric ulcer. Date of Last Stent Placement:: October 2017 Past Psychological History: Depression Smoking Status: Former smoker Past Alcohol Use History: None Reported Past Drug Use History: None Reported - Past Family History Father Additional Family Medical History / Comment(s): CANCEROUS BRAIN TUMOR Mother Family Medical History: Myocardial Infarction ([place]) Additional Family Medical History / Comment(s): FROM [place] AGE 70 General Exam Limitations: no limitations Course Vital Signs 01/23/19 15:02 Temperature 98.4 F Pulse Rate 62 Respiratory 18 Rate Blood Pressure 130/81 O2 Sat by Pulse 96 Oximetry Medical Decision Making - Lab Data Result diagrams: 01/23/19 15:43 01/23/19 15:43 Lab Results 01/23/19 01/23/19 01/23/19 Range/Units 15:43 15:43 15:43 WBC 5.1 (3.8-10.6) k/uL RBC 4.17 L (4.30-5.90) m/uL Hgb 12.3 L D (13.0-17.5) gm/dL Hct 37.8 L (39.0-53.0) % MCV 90.7 (80.0-100.0) fL MCH 29.5 (25.0-35.0) pg MCHC 32.5 (31.0-37.0) g/dL RDW 15.2 (11.5-15.5) % Plt Count 183 (150-450) k/uL Neutrophils % 59 % Lymphocytes % 26 % Monocytes % 8 % Eosinophils % 4 % Basophils % 0 % Neutrophils # 3.0 (1.3-7.7) k/uL Lymphocytes # 1.3 (1.0-4.8) k/uL Monocytes # 0.4 (0-1.0) k/uL Eosinophils # 0.2 (0-0.7) k/uL Basophils # 0.0 (0-0.2) k/uL PT 10.7 (9.0-12.0) sec INR 1.0 (<1.2) APTT 23.9 (22.0-30.0) sec Sodium 141 (137-145) mmol/L Potassium 4.1 (3.5-5.1) mmol/L Chloride 107 (98-107) mmol/L Carbon Dioxide 25 (22-30) mmol/L Anion Gap 9 mmol/L BUN 16 (9-20) mg/dL Creatinine 1.03 (0.66-1.25) mg/dL Est GFR (CKD-EPI)AfAm 85 (>60 ml/min/1.73 sqM) Est GFR (CKD-EPI)NonAf 74 (>60 ml/min/1.73 sqM) Glucose 96 (74-99) mg/dL Calcium 9.0 (8.4-10.2) mg/dL Magnesium 1.9 (1.6-2.3) mg/dL Total Bilirubin 0.3 (0.2-1.3) mg/dL AST 18 (17-59) U/L ALT 20 L (21-72) U/L Alkaline Phosphatase 63 (38-126) U/L Troponin I (0.000-0.034) ng/mL Total Protein 6.5 (6.3-8.2) g/dL Albumin 3.9 (3.5-5.0) g/dL 01/23/19 Range/Units 15:43 WBC (3.8-10.6) k/uL RBC (4.30-5.90) m/uL Hgb (13.0-17.5) gm/dL Hct (39.0-53.0) % MCV (80.0-100.0) fL MCH (25.0-35.0) pg MCHC (31.0-37.0) g/dL RDW (11.5-15.5) % Plt Count (150-450) k/uL Neutrophils % % Lymphocytes % % Monocytes % % Eosinophils % % Basophils % % Neutrophils # (1.3-7.7) k/uL Lymphocytes # (1.0-4.8) k/uL Monocytes # (0-1.0) k/uL Eosinophils # (0-0.7) k/uL Basophils # (0-0.2) k/uL PT (9.0-12.0) sec INR (<1.2) APTT (22.0-30.0) sec Sodium (137-145) mmol/L Potassium (3.5-5.1) mmol/L Chloride (98-107) mmol/L Carbon Dioxide (22-30) mmol/L Anion Gap mmol/L BUN (9-20) mg/dL Creatinine (0.66-1.25) mg/dL Est GFR (CKD-EPI)AfAm (>60 ml/min/1.73 sqM) Est GFR (CKD-EPI)NonAf (>60 ml/min/1.73 sqM) Glucose (74-99) mg/dL Calcium (8.4-10.2) mg/dL Magnesium (1.6-2.3) mg/dL Total Bilirubin (0.2-1.3) mg/dL AST (17-59) U/L ALT (21-72) U/L Alkaline Phosphatase (38-126) U/L Troponin I <0.012 (0.000-0.034) ng/mL Total Protein (6.3-8.2) g/dL Albumin (3.5-5.0) g/dL Disposition Clinical Impression: Chest pain Disposition: ADMITTED IP TO THIS HOSP Condition: Fair Referrals: Argentina Garza DO [Primary Care Provider] - 1-2 days Decision Time: 18:19
[2019-01-23 16:53] LABS: Basophils % (A) 0 %; Eosinophils # (A) 0.2 k/uL (0-0.7); Eosinophils % (A) 4 %; HCT 37.8 % (39.0-53.0); Lymphocytes # (A) 1.3 k/uL (1.0-4.8); Lymphocytes % (A) 26 %; MCH 29.5 pg (25.0-35.0); MCHC 32.5 g/dL (31.0-37.0); MCV 90.7 fL (80.0-100.0); Mean Platelet Volume 7.9; Monocytes # (A) 0.4 k/uL (0-1.0); Monocytes % (A) 8 %; Neutrophils % (A) 59 %; Platelet Count 183 k/uL (150-450); RBC 4.17 m/uL (4.30-5.90); RDW 15.2 % (11.5-15.5); WBC 5.1 k/uL (3.8-10.6)
[2019-01-23 17:00] LABS: HGB 12.3 gm/dL (13.0-17.5)
[2019-01-23 17:01] LABS: Partial Thromboplastin Time 23.9 sec (22.0-30.0); Prothrombin Time 10.7 sec (9.0-12.0)
[2019-01-23 17:03] LABS: Albumin 3.9 g/dL (3.5-5.0); Magnesium 1.9 mg/dL (1.6-2.3); Potassium 4.1 mmol/L (3.5-5.1); Total Bilirubin 0.3 mg/dL (0.2-1.3); Total Protein 6.5 g/dL (6.3-8.2)
--- NOTE | 2019-01-23 17:13 | XR ---
EXAMINATION TYPE: XR chest 2V DATE OF EXAM: 01/23/2019 COMPARISON: 08/10/2018 HISTORY: Chest pain TECHNIQUE: Frontal and lateral views of the chest are obtained. FINDINGS: There is no heart failure nor confluent pneumonic infiltrate. There are sternal wires. Cos tophrenic angles are clear. There are chest leads. IMPRESSION: No active cardiopulmonary disease. Normal heart. No change.
[2019-01-23] MEDS ORDERED: NITROGLYCERIN SL TABS 0.4 MG TAB SUBLINGUAL PRN (18:20)
[2019-01-23] MEDS ORDERED: ATORVASTATIN 80 MG TAB PO SCH (21:00)
[2019-01-23] MEDS ORDERED: METOPROLOL TARTRATE 12.5 MG TAB PO SCH (21:00)
[2019-01-23] MEDS ORDERED: TOPIRAMATE 100 MG TAB PO SCH (21:15)
[2019-01-23 22:22] LABS: Glucose,Whole Blood 81 mg/dL (75-99)
[2019-01-23] MEDS ORDERED: DOCUSATE 100 MG CAP PO SCH (22:58)
[2019-01-23] MEDS: GABAPENTIN 400 MG CAP PO SCH (23:12)
[2019-01-23] MEDS: HYDROcodone/APAP 10-325MG 1 EACH TAB PO PRN (23:12)
[2019-01-24] MEDS: CLOBETASOL PROP 0.05% CR 15GM TOPICAL SCH ×2 (00:04→08:28)
[2019-01-24] MEDS ORDERED: MORPHINE SULFATE 4 MG/ML SYRINGE IVP PRN (01:52)
[2019-01-24 04:00] LABS: Cholesterol 111 mg/dL (<200); HDL Cholesterol 38 mg/dL (40-60); LDL Cholesterol,Calculated 58 mg/dL (0-99); Triglycerides 75 mg/dL (<150)
[2019-01-24 06:43] LABS: Glucose,Whole Blood 140 mg/dL (75-99)
[2019-01-24] MEDS ORDERED: INSULN ASP PRT/INSULIN ASPART 100 UNIT/ML 10 ML VIAL SQ SCH ×3 (07:30→21:00)
[2019-01-24] MEDS: INSULIN ASPART (NovoLOG) 100 UNIT/ML VIAL SQ SCH ×2 (08:22→11:49)
[2019-01-24] MEDS: HYDROcodone/APAP 10-325MG 1 EACH TAB PO PRN (08:27)
[2019-01-24] MEDS: GABAPENTIN 400 MG CAP PO SCH (08:28)
[2019-01-24] MEDS ORDERED: DOCUSATE 100 MG CAP PO SCH (09:00)
[2019-01-24] MEDS ORDERED: NON-FORMULARY DRUG (Aspirin Ec 81 MG) PO SCH (09:00)
[2019-01-24] MEDS ORDERED: PANTOPRAZOLE 40 MG TABLET PO SCH (09:00)
[2019-01-24] MEDS ORDERED: FLUoxetine HCL 20 MG CAP PO SCH (09:00)
[2019-01-24] MEDS ORDERED: ALLOPURINOL 100 MG TAB PO SCH (09:00)
[2019-01-24] MEDS ORDERED: METOPROLOL TARTRATE 25 MG TAB PO SCH (09:00)
[2019-01-24] MEDS ORDERED: LOSARTAN 25 MG TAB PO SCH (09:00)
[2019-01-24] MEDS ORDERED: CLOPIDOGREL 75 MG TAB PO SCH (09:00)
[2019-01-24] MEDS ORDERED: ASPIRIN 325 MG TAB PO SCH (09:00)
[2019-01-24] MEDS ORDERED: ISOSORBIDE MONONITRATE ER 60 MG TAB.ER.24H PO SCH (09:15)
[2019-01-24] MEDS ORDERED: MAG HYDROX/AL HYDROX/SIMETH 30 ML, HYOSCYAMINE ELIXIR 10 ML, CIMETIDINE HCL 300 MG, LID... PO ONE ×4 (09:30)
--- NOTE | 2019-01-24 09:49 | P.CRDCN ---
History of Present Illness History of present illness: This is a pleasant 68-year-old male past medical history significant for coronary artery disease status post bypass grafting with an SVG to RCA, diabetes mellitus, hypertension, dyslipidemia, COPD, obstructive sleep apnea and former nicotine dependence. He follows in the office with Dr. Jiménez. We have been asked to see him in consultation secondary to chest discomfort. He states yesterday while he was doing some grocery shopping he had an acute onset of a heavy pressure sensation in the left precordial region with radiation to the left shoulder and up into the left side jaw and neck. He felt acutely dizzy like the room was spinning, diaphoretic and short of breath. He took one sublingual nitroglycerin which mildly took the edge of his discomfort however it did persist. He went home and took a total of 4 nitroglycerin with no relief of his chest discomfort. He continues to have intermittent episodes of chest heaviness through the night ongoing and actually has chest discomfort as at this time. In the past he has been prescribed ranexa however he cannot afford this medication. He frequently has episodes of chest discomfort. Most recently in August of last year prompting him to undergo a catheterization revealing no progression of disease. EKG reveals right bundle branch block pattern heart rate of 57. Chest x-rays negative for an acute cardiopulmonary process. Laboratory data reviewed, cardiac enzymes negative 3, d-dimer 0.6, LDL 58. Current cardiac medications include Imdur 240 mg daily, Lopressor 25 mg in the morning and 12.5 mg at bedtime, Plavix 75 mg daily, atorvastatin 80 mg daily and aspirin 81 mg daily. Most recent cardiac catheterization August 2018 revealed chronic total occlusion of the mid RCA, patent SVG to RCA and moderate residual coronary artery disease. At the time of my exam: CONSTITUTIONAL: Denies fever. Denies chills. EYES: Denies blurred vision. Denies vision changes. Denies eye pain. EARS, NOSE, MOUTH & THROAT: Denies headache. Denies sore throat. Denies ear pain. CARDIOVASCULAR: Complains of chest pain. Denies shortness of breath. Denies orthopnea. Denies PND. Denies palpitations. RESPIRATORY: Denies cough. GASTROINTESTINAL: Denies abdominal pain. Denies diarrhea. Denies constipation. Denies nausea. Denies vomiting. MUSCULOSKELETAL: Denies myalgias. INTEGUMENTARY: Denies pruitis. Denies rash. NEUROLOGIC: Denies numbness. Denies tingling. Denies weakness. PSYCHIATRIC: Denies anxiety. Denies depression. ENDOCRINE: Denies fatigue. Denies weight change. Denies polydipsia. Denies polyurina. GENITOURINARY: Denies burning, hematuria or urgency with micturation. HEMATOLOGIC: Denies history of anemia. Denies bleeding. Blood pressure 130/70 heart rate 52 afebrile maintaining oxygen saturation on room air GENERAL: This is a 68-year-old male in no apparent distress at the time of my examination. HEENT: Head is atraumatic, normocephalic. Pupils are equal, round. Sclerae anicteric. Conjunctivae are clear. Mucous membranes of the mouth are moist. Neck is supple. There is no jugular venous distention. No carotid bruit is heard. LUNGS: Clear to auscultation no wheezes, rales or rhonchi. No chest wall tenderness is noted on palpation or with deep breathing. HEART: Regular rate and rhythm with short systolic ejection murmur at the left sternal border, no rubs or gallops. S1 and S2 heard. ABDOMEN: Soft, nontender. Bowel sounds are heard. No organomegaly noted. EXTREMITIES: No evidence of peripheral edema and no calf tenderness noted. VASCULAR: Radial and dorsalis pedis pulses palpated, no evidence of clubbing. NEUROLOGIC: Patient is awake, alert and oriented x3. ASSESSMENT Chest pain, persistent. An acute coronary event has been ruled out. Consider other etiologies for pain as nitro does not resolve pain, recent cath with no progression of disease and ongoing with no relief. Coronary artery disease s/p bypass grafting and subsequent stent placement to the SVG-RCA Diabetes mellitus Hypertension Dyslipidemia COPD Obstructive sleep apnea Former nicotine dependence PLAN REsume imdur 240 mg daily. Give GI cocktail and evaluate effectiveness. D-dimer chest and unremarkable for his age. An acute coronary event has been ruled out. Other etiologies to be considered for cause of pain. Thank you kindly for this consultation. Nurse Practitioner note has been reviewed, I agree with a documented findings and plan of care. Patient was seen and examined. Past Medical History Past Medical History: Coronary Artery Disease (CAD), Chest Pain / Angina, COPD, Diabetes Mellitus, GERD/Reflux, GI Bleed, Hyperlipidemia, Hypertension, Myocardi al Infarction ([place]), Musculoskeletal Disorder, Osteoarthritis (OA), Skin Disorder, Sleep Apnea/CPAP/BIPAP Additional Past Medical History / Comment(s): NIDDM type II, neuropathy bilateral hands/feet, chronic back pain, spinal lumbar stenosis with radiculopathy/bilateral sciatica,L/R arm tremors unknown cause, gout, past gastric ulcer with repair, hiatal hernia with repair, BIANCA with Cpap, psoriasis. Pt states he has lost 20# over the past couple months. Last Myocardial Infarction Date:: OCTOBER 2015 History of Any Multi-Drug Resistant Organisms: None Reported Past Surgical History: Hernia Repair Additional Past Surgical History / Comment(s): Posterior/lateral decompressio n/fusion, PCI with a total of 12 stents, CABG 1 vessel in 2003, stomach ulcer repair, umbilical hernia repair, hiatal hernia surgery, bilateral inguinal hernias with one side done twice, EGD, colonoscopy with benign polyp, pain clinic procedures, bilateral cataract removals, L rotator cuff repair, ORIF L ankle d/t fracture with plate/pins, 5th finger R hand surgery d/t trauma Past Anesthesia/Blood Transfusion Reactions: No Reported Reaction Additional Past Anesthesia/Blood Transfusion Reaction / Comment(s): Pt states he believe he received blood when he had repair of gastric ulcer. Date of Last Stent Placement:: October 2017 Past Psychological History: Depression Additional Psychological History / Comment(s): PT LIVES AT HOME WITH HIS . 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 pt uses glucometer Smoking Status: Former smoker Past Alcohol Use History: None Reported Past Drug Use History: None Reported - Past Family History Father Additional Family Medical History / Comment(s): CANCEROUS BRAIN TUMOR Mother Family Medical History: Myocardial Infarction ([place]) Additional Family Medical History / Comment(s): FROM [place] AGE 70 Medications and Allergies Home Medications Medication Instructions Recorded Confirmed Type Allopurinol [Zyloprim] 100 mg PO QAM 11/07/13 01/23/19 History Pantoprazole Sodium 40 mg PO QAM 11/07/13 01/23/19 History Topiramate [Topamax] 100 mg PO 11/07/13 01/23/19 History Aspirin EC [Ecotrin Low Dose] 81 mg PO DAILY #30 tablet. 10/21/15 01/23/19 Rx Ascorbic Acid [Vitamin C] 1,000 mg PO QAM 05/25/16 01/23/19 History [place]-3 Fatty Acids/Fish Oil [Fish 1 cap PO W/SUPPER 05/25/16 01/23/19 History Oil 1,000 mg Softgel] Clopidogrel [Plavix] 75 mg PO QAM 10/14/16 01/23/19 History Gabapentin [Neurontin] 400 mg PO TID 10/14/16 01/23/19 History Multivitamins, Thera [Multivitamin 1 tab PO DAILY 10/14/16 01/23/19 History (formulary)] Insulin NPH Hum/Reg Insulin Hm 10 unit SQ QAM 07/12/17 01/23/19 History [NovoLIN 70-30 100 UNIT/ML VIAL] Insulin NPH Hum/Reg Insulin Hm 20 unit SQ 07/12/17 01/23/19 History [NovoLIN 70-30 100 UNIT/ML VIAL] Metoprolol Tartrate [Lopressor] 12.5 mg PO HS 07/12/17 01/23/19 History Nitroglycerin Sl Tabs [Nitrostat] 0.4 mg SUBLINGUAL Q5M PRN tab 07/14/17 01/23/19 Rx Atorvastatin Calcium [Lipitor] 80 mg PO HS 01/27/18 01/23/19 History FLUoxetine HCL [PROzac] 80 mg PO QAM 01/27/18 01/23/19 History Famotidine [Pepcid] 20 mg PO HS 01/27/18 01/23/19 History Pioglitazone [Actos] 30 mg PO QAM 01/27/18 01/23/19 History metFORMIN HCL 1,000 mg PO BID 01/27/18 01/23/19 History HYDROcodone/APAP 10-325MG [[place] 1 tab PO TID 06/14/18 01/23/19 History 10-325] Clobetasol Propionate [Temovate 1 applic TOPICAL BID 08/10/18 01/23/19 History 0.05% Cream] Isosorbide Mononitrate ER [Imdur] 240 mg PO QAM 12/26/18 01/23/19 History Metoprolol Tartrate [Lopressor] 25 mg PO QAM 12/26/18 01/23/19 History Docusate [Colace] 100 mg PO BID #20 capsule 12/28/18 01/23/19 Rx Allergies Allergy/AdvReac Type Severity Reaction Status Date / Time No Known Allergies Allergy Verified 01/23/19 21:34 Physical Exam Vitals: Vital Signs Temp Pulse Pulse Resp BP BP Pulse Ox 01/24/19 04:00 97.6 F 54 L 18 111/67 94 L 01/24/19 00:00 97.6 F 61 18 106/61 94 L 01/23/19 20:47 98 F 52 L 18 147/72 97 01/23/19 19:57 98.6 F 61 18 150/87 99 01/23/19 18:25 52 L 18 146/75 97 01/23/19 17:30 58 L 18 124/75 97 01/23/19 16:30 60 18 120/73 98 01/23/19 15:02 98.4 F 62 18 130/81 96 Intake and Output 01/23/19 01/24/19 01/24/19 22:59 06:59 14:59 Other: Voiding Method Toilet Toilet # Voids 1 Weight 97.522 kg Results 01/23/19 15:43 01/23/19 15:43 Cardiac Enzymes 01/23/19 01/23/19 01/23/19 Range/Units 15:43 15:43 21:25 AST 18 (17-59) U/L Troponin I <0.012 <0.012 (0.000-0.034) ng/mL 01/24/19 Range/Units 03:35 AST (17-59) U/L Troponin I <0.012 (0.000-0.034) ng/mL Coagulation 01/23/19 Range/Units 15:43 PT 10.7 (9.0-12.0) sec APTT 23.9 (22.0-30.0) sec Lipids 01/24/19 Range/Units 03:35 Triglycerides 75 (<150) mg/dL Cholesterol 111 (<200) mg/dL HDL Cholesterol 38 L (40-60) mg/dL CBC 01/23/19 Range/Units 15:43 WBC 5.1 (3.8-10.6) k/uL RBC 4.17 L (4.30-5.90) m/uL Hgb 12.3 L D (13.0-17.5) gm/dL Hct 37.8 L (39.0-53.0) % Plt Count 183 (150-450) k/uL Comprehensive Metabolic Panel 01/23/19 Range/Units 15:43 Sodium 141 (137-145) mmol/L Potassium 4.1 (3.5-5.1) mmol/L Chloride 107 (98-107) mmol/L Carbon Dioxide 25 (22-30) mmol/L BUN 16 (9-20) mg/dL Creatinine 1.03 (0.66-1.25) mg/dL Glucose 96 (74-99) mg/dL Calcium 9.0 (8.4-10.2) mg/dL AST 18 (17-59) U/L ALT 20 L (21-72) U/L Alkaline Phosphatase 63 (38-126) U/L Total Protein 6.5 (6.3-8.2) g/dL Albumin 3.9 (3.5-5.0) g/dL Current Medications Generic Name Dose Route Start Last Admin Trade Name Freq PRN Reason Stop Dose Admin Hydrocodone Bitart/Acetaminophen 1 each 01/23/19 21:08 01/23/19 23:12 [place] 10 PO 1 each TID PRN Administration Pain Allopurinol 100 mg 01/24/19 09:00 Zyloprim PO QAM [facility] Aspirin 325 mg 01/24/19 09:00 Aspirin PO DAILY [facility] Atorvastatin Calcium 80 mg 01/23/19 21:00 01/23/19 23:12 Lipitor PO 80 mg HS [facility] Administration Clobetasol Propionate 1 applic 01/23/19 23:30 01/24/19 00:04 Temovate TOPICAL 1 applic BID SANDY Administration Clopidogrel Bisulfate 75 mg 01/24/19 09:00 Plavix PO QAM [facility] Fluoxetine HCl 80 mg 01/24/19 09:00 Prozac PO QAM [facility] Gabapentin 400 mg 01/23/19 22:00 01/23/19 23:12 Neurontin PO 400 mg TID SANDY Administration Insulin Aspart 10 unit 01/24/19 07:30 Novolog Mix 70-30 Vial SQ AC-BRKFST [facility] Insulin Aspart 0 unit 01/24/19 07:30 Novolog SQ ACHS [facility] Protocol Insulin Aspart 20 unit 01/24/19 21:00 Novolog Mix 70-30 Vial SQ AC-SUPPER [facility] Metoprolol Tartrate 12.5 mg 01/23/19 21:00 01/23/19 23:12 Lopressor PO 12.5 mg HS SANDY Administration Metoprolol Tartrate 25 mg 01/24/19 09:00 Lopressor PO QAM SANDY Morphine Sulfate 4 mg 01/24/19 01:52 01/24/19 02:01 Morphine Sulfate (Inj) IVP 4 mg Q4HR PRN Administration Pain Nitroglycerin 0.4 mg 01/23/19 18:20 Nitrostat SUBLINGUAL Q5M PRN Chest Pain Pantoprazole Sodium 40 mg 01/24/19 09:00 Protonix PO QAM SANDY Topiramate 100 mg 01/23/19 21:15 01/24/19 00:04 Topamax PO 100 mg HS SANDY Administration Intake and Output 01/23/19 01/24/19 01/24/19 22:59 06:59 14:59 Other: Voiding Method Toilet Toilet # Voids 1 Weight 97.522 kg 01/23/19 15:43 01/23/19 15:43
[2019-01-24 11:21] VITALS: BP 104/62; PULSE 56; TEMP 98.1
[2019-01-24 11:39] LABS: Glucose,Whole Blood 164 mg/dL (75-99)
--- NOTE | 2019-01-24 15:08 | P.DS ---
Providers Date of admission: 01/23/19 18:20 Expected date of discharge: 01/24/19 Attending physician: Benito Gonzales MD Consults: 01/23/19 18:20 Consult Physician Urgent Consulting Provider: Chai Krueger Consult Reason/Comments: chest pain Do you want consulting provider notified?: Yes Primary care physician: Argentina Garza [facility] Course: Final Diagnoses: -Atypical chest pain, in a patient with recent cath. reporting no progression ,acute coronary event ruled out as per cardiology. -CAD, history of CABG, stents -Gastroesophageal reflux disease -Diabetes mellitus -Hypertension -Hyperlipidemia -COPD, stable -Obstructive sleep apnea -History of nicotine dependence Hospital course this 68-year-old gentleman with history of CAD, recent cardiac catheterization in August 2018 reporting no progression, hypertension, hyperlipidemia, COPD, nicotine dependence and multiple other medical issues, presented to the ER with complaints of chest pain. Troponins negative 3, EKG reporting right bundle branch block, chest x-ray nonacute. Evaluated by cardiology, no acute EKG changes, Cozaar ordered. No further recommendations this time and cleared by cardiology for discharge. Significant clinical improvement. Patient is being discharged home in stable condition with guarded prognosis. EXAM: GENERAL: Sitting up in bed, no acute distress CARDIOVASCULAR: S1, S2 regular.. No murmur RESPIRATION: Breath sounds diminished in the bases. No rhonchi or crackles. ABDOMEN: Soft, nontender . No guarding. no masses palpable. Bowel sounds heard. NERVOUS SYSTEM: No focal deficits. The impression and plan of care has been dictated as directed. : I performed a history and examination of this patient, discussed the same with the dictator. I agree with the dictator's note ,documented as a scribe. Any additional findings or plans will be noted. Time taken: 35 min Patient Condition at Discharge: Stable Plan - Discharge Summary Discharge Rx Participant: No New Discharge Prescriptions: New Losartan [Cozaar] 25 mg PO DAILY #30 tab Continue Pantoprazole Sodium 40 mg PO QAM Allopurinol [Zyloprim] 100 mg PO QAM Topiramate [Topamax] 100 mg PO HS Aspirin EC [Ecotrin Low Dose] 81 mg PO DAILY #30 tablet. Ascorbic Acid [Vitamin C] 1,000 mg PO QAM [place]-3 Fatty Acids/Fish Oil [Fish Oil 1,000 mg Softgel] 1 cap PO W/SUPPER Multivitamins, Thera [Multivitamin (formulary)] 1 tab PO DAILY Clopidogrel [Plavix] 75 mg PO QAM Gabapentin [Neurontin] 400 mg PO TID Insulin NPH Hum/Reg Insulin Hm [NovoLIN 70-30 100 UNIT/ML VIAL] 10 unit SQ QAM Metoprolol Tartrate [Lopressor] 12.5 mg PO HS Insulin NPH Hum/Reg Insulin Hm [NovoLIN 70-30 100 UNIT/ML VIAL] 20 unit SQ HS Nitroglycerin Sl Tabs [Nitrostat] 0.4 mg SUBLINGUAL Q5M PRN tab PRN Reason: Chest Pain Atorvastatin Calcium [Lipitor] 80 mg PO HS Famotidine [Pepcid] 20 mg PO HS FLUoxetine HCL [PROzac] 80 mg PO QAM metFORMIN HCL 1,000 mg PO BID Pioglitazone [Actos] 30 mg PO QAM HYDROcodone/APAP 10-325MG [[place] 10-325] 1 tab PO TID Clobetasol Propionate [Temovate 0.05% Cream] 1 applic TOPICAL BID Isosorbide Mononitrate ER [Imdur] 240 mg PO QAM Metoprolol Tartrate [Lopressor] 25 mg PO QAM Docusate [Colace] 100 mg PO BID #20 capsule Discharge Medication List Allopurinol [Zyloprim] 100 mg PO QAM 11/07/13 [History] Pantoprazole Sodium 40 mg PO QAM 11/07/13 [History] Topiramate [Topamax] 100 mg PO HS 11/07/13 [History] Aspirin EC [Ecotrin Low Dose] 81 mg PO DAILY #30 tablet. 10/21/15 [Rx] Ascorbic Acid [Vitamin C] 1,000 mg PO QAM 05/25/16 [History] [place]-3 Fatty Acids/Fish Oil [Fish Oil 1,000 mg Softgel] 1 cap PO W/SUPPER 05/25/16 [History] Clopidogrel [Plavix] 75 mg PO QAM 10/14/16 [History] Gabapentin [Neurontin] 400 mg PO TID 10/14/16 [History] Multivitamins, Thera [Multivitamin (formulary)] 1 tab PO DAILY 10/14/16 [History] Insulin NPH Hum/Reg Insulin Hm [NovoLIN 70-30 100 UNIT/ML VIAL] 10 unit SQ QAM 07/12/17 [History] Insulin NPH Hum/Reg Insulin Hm [NovoLIN 70-30 100 UNIT/ML VIAL] 20 unit SQ HS 07/12/17 [History] Metoprolol Tartrate [Lopressor] 12.5 mg PO HS 07/12/17 [History] Nitroglycerin Sl Tabs [Nitrostat] 0.4 mg SUBLINGUAL Q5M PRN tab 07/14/17 [Rx] Atorvastatin Calcium [Lipitor] 80 mg PO HS 01/27/18 [History] FLUoxetine HCL [PROzac] 80 mg PO QAM 01/27/18 [History] Famotidine [Pepcid] 20 mg PO HS 01/27/18 [History] Pioglitazone [Actos] 30 mg PO QAM 01/27/18 [History] metFORMIN HCL 1,000 mg PO BID 01/27/18 [History] HYDROcodone/APAP 10-325MG [[place] 10-325] 1 tab PO TID 06/14/18 [History] Clobetasol Propionate [Temovate 0.05% Cream] 1 applic TOPICAL BID 08/10/18 [History] Isosorbide Mononitrate ER [Imdur] 240 mg PO QAM 12/26/18 [History] Metoprolol Tartrate [Lopressor] 25 mg PO QAM 12/26/18 [History] Docusate [Colace] 100 mg PO BID #20 capsule 12/28/18 [Rx] Losartan [Cozaar] 25 mg PO DAILY #30 tab 01/24/19 [Rx] Follow up Appointment(s)/Referral(s): Kinsey Jiménez MD [STAFF PHYSICIAN] - 2 Weeks Argentina Garza DO [Primary Care Provider] - 3 Days Ambulatory/Diagnostic Orders: Complete Blood Count w/diff [LAB.AMB] Time Frame: 3 Days, Location: None Selected
--- NOTE | 2019-01-24 15:42 | P.HPIM ---
History of Present Illness H&P Date: 01/24/19 68 yo M with PMH CAD, previous PCI and CABG, last cath in August 2018 presents with chest pain x1 day. States was outside at a birthday constitution party and began to experience substernal chest pain and pressure along with diaphoresis. He went home and tried taking nitroglycerin without relief. Pt then presented to the ED. Since coming in to the hospital he has continued to feel a chest heaviness and denies shortness of breath. He has followed with cardiology outpatient regarding this issue and last catheterization in August 2018 demonstrated no progression of disease. EKG and troponin x3 negative for ACS. Review of Systems All systems: negative Constitutional: Reports sweats, Denies chills, Denies fever Eyes: denies blurred vision, denies pain Ears, nose, mouth and throat: Denies headache, Denies sore throat Cardiovascular: Reports chest pain, Reports decreased exercise tolerance, Reports lightheadedness, Denies edema, Denies irregular heart beat, Denies leg edema, Denies shortness of breath Respiratory: Denies cough Gastrointestinal: Denies abdominal pain, Denies diarrhea, Denies nausea, Denies vomiting Musculoskeletal: Denies myalgias Integumentary: Denies pruritus, Denies rash Neurological: Denies numbness, Denies weakness Psychiatric: Denies anxiety, Denies depression Endocrine: Denies fatigue, Denies weight change Past Medical History Past Medical History: Coronary Artery Disease (CAD), Chest Pain / Angina, COPD, Diabetes Mellitus, GERD/Reflux, GI Bleed, Hyperlipidemia, Hypertension, Myocardial Infarction ([place]), Musculoskeletal Disorder, Osteoarthritis (OA), Skin Disorder, Sleep Apnea/CPAP/BIPAP Additional Past Medical History / Comment(s): NIDDM type II, neuropathy bilateral hands/feet, chronic back pain, spinal lumbar stenosis with radiculopathy/bilateral sciatica,L/R arm tremors unknown cause, gout, past gastric ulcer with repair, hiatal hernia with repair, BIANCA with Cpap, psoriasis. Pt states he has lost 20# over the past couple months. Last Myocardial Infarction Date:: OCTOBER 2015 History of Any Multi-Drug Resistant Organisms: None Reported Past Surgical History: Hernia Repair Additional Past Surgical History / Comment(s): Posterior/lateral decompression/fusion, PCI with a total of 12 stents, CABG 1 vessel in 2003, stomach ulcer repair, umbilical hernia repair, hiatal hernia surgery, bilateral inguinal hernias with one side done twice, EGD, colonoscopy with benign polyp, pain clinic procedures, bilateral cataract removals, L rotator cuff repair, ORIF L ankle d/t fracture with plate/pins, 5th finger R hand surgery d/t trauma Past Anesthesia/Blood Transfusion Reactions: No Reported Reaction Additional Past Anesthesia/Blood Transfusion Reaction / Comment(s): Pt states he believe he received blood when he had repair of gastric ulcer. Date of Last Stent Placement:: October 2017 Past Psychological History: Depression Additional Psychological History / Comment(s): PT LIVES AT HOME WITH HIS . 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 pt uses glucometer Smoking Status: Former smoker Past Alcohol Use History: None Reported Past Drug Use History: None Reported - Past Family History Father Additional Family Medical History / Comment(s): CANCEROUS BRAIN TUMOR Mother Family Medical History: Myocardial Infarction ([place]) Additional Family Medical History / Comment(s): FROM IN AGE 70 Medications and Allergies Home Medications Medication Instructions Recorded Confirmed Type Allopurinol [Zyloprim] 100 mg PO QAM 11/07/13 01/23/19 History Pantoprazole Sodium 40 mg PO QAM 11/07/13 01/23/19 History Topiramate [Topamax] 100 mg PO 11/07/13 01/23/19 History Aspirin EC [Ecotrin Low Dose] 81 mg PO DAILY #30 tablet. 10/21/15 01/23/19 Rx Ascorbic Acid [Vitamin C] 1,000 mg PO QAM 05/25/16 01/23/19 History [place]-3 Fatty Acids/Fish Oil [Fish 1 cap PO W/SUPPER 05/25/16 01/23/19 History Oil 1,000 mg Softgel] Clopidogrel [Plavix] 75 mg PO QAM 10/14/16 01/23/19 History Gabapentin [Neurontin] 400 mg PO TID 10/14/16 01/23/19 History Multivitamins, Thera [Multivitamin 1 tab PO DAILY 10/14/16 01/23/19 History (formulary)] Insulin NPH Hum/Reg Insulin Hm 10 unit SQ QAM 07/12/17 01/23/19 History [NovoLIN 70-30 100 UNIT/ML VIAL] Insulin NPH Hum/Reg Insulin Hm 20 unit SQ 07/12/17 01/23/19 History [NovoLIN 70-30 100 UNIT/ML VIAL] Metoprolol Tartrate [Lopressor] 12.5 mg PO HS 07/12/17 01/23/19 History Nitroglycerin Sl Tabs [Nitrostat] 0.4 mg SUBLINGUAL Q5M PRN tab 07/14/17 01/23/19 Rx Atorvastatin Calcium [Lipitor] 80 mg PO HS 01/27/18 01/23/19 History FLUoxetine HCL [PROzac] 80 mg PO QAM 01/27/18 01/23/19 History Famotidine [Pepcid] 20 mg PO HS 01/27/18 01/23/19 History Pioglitazone [Actos] 30 mg PO QAM 01/27/18 01/23/19 History metFORMIN HCL 1,000 mg PO BID 01/27/18 01/23/19 History HYDROcodone/APAP 10-325MG [[place] 1 tab PO TID 06/14/18 01/23/19 History 10-325] Clobetasol Propionate [Temovate 1 applic TOPICAL BID 08/10/18 01/23/19 History 0.05% Cream] Isosorbide Mononitrate ER [Imdur] 240 mg PO QAM 12/26/18 01/23/19 History Metoprolol Tartrate [Lopressor] 25 mg PO QAM 12/26/18 01/23/19 History Docusate [Colace] 100 mg PO BID #20 capsule 12/28/18 01/23/19 Rx Losartan [Cozaar] 25 mg PO DAILY #30 tab 01/24/19 Rx Allergies Allergy/AdvReac Type Severity Reaction Status Date / Time No Known Allergies Allergy Verified 01/23/19 21:34 Physical Exam Vitals: Vital Signs Temp Pulse Pulse Resp BP BP BP 01/24/19 12:00 56 L 18 01/24/19 11:20 98.1 F 56 L 18 104/62 01/24/19 08:00 97.8 F 52 L 18 130/70 01/24/19 04:00 97.6 F 54 L 18 111/67 01/24/19 00:00 97.6 F 61 18 106/61 01/23/19 20:47 98 F 52 L 18 147/72 01/23/19 19:57 98.6 F 61 18 150/87 01/23/19 18:25 52 L 18 146/75 01/23/19 17:30 58 L 18 124/75 01/23/19 16:30 60 18 120/73 Pulse Ox 01/24/19 12:00 01/24/19 11:20 93 L 01/24/19 08:00 94 L 01/24/19 04:00 94 L 01/24/19 00:00 94 L 01/23/19 20:47 97 01/23/19 19:57 99 01/23/19 18:25 97 01/23/19 17:30 97 01/23/19 16:30 98 Intake and Output 01/24/19 01/24/19 01/24/19 06:59 14:59 22:59 Intake Total 100 Balance 100 Intake: Other 100 Other: Voiding Method Toilet Toilet # Voids 1 General: well nourished, well developed, NAD. Vitals reviewed Eyes: PERRL, EOMI, conjunctiva normal HENT: normocephalic, mucus membranes moist Neck: supple, no JVD Lungs: normal respiratory effort, no wheezes or rales CV: Regular rate and rhythm, no murmur. Peripheral pulses 2+ Abdomen: soft, nondistended, no organomegaly Lymph: no cervical or axillary LAD Skin: warm and diaphoretic Neuro: A&Ox3, normal mood and affect Results CBC & Chem 7: 01/23/19 15:43 01/23/19 15:43 Labs: Abnormal Lab Results - Last 24 Hours (Table) 01/23/19 01/23/19 01/24/19 Range/Units 15:43 15:43 03:35 RBC 4.17 L (4.30-5.90) m/uL Hgb 12.3 L D (13.0-17.5) gm/dL Hct 37.8 L (39.0-53.0) % D-Dimer (<0.60) mg/L FEU POC Glucose (mg/dL) (75-99) mg/dL ALT 20 L (21-72) U/L HDL Cholesterol 38 L (40-60) mg/dL 01/24/19 01/24/19 01/24/19 Range/Units 06:42 09:06 11:38 RBC (4.30-5.90) m/uL Hgb (13.0-17.5) gm/dL Hct (39.0-53.0) % D-Dimer 0.60 H (<0.60) mg/L FEU POC Glucose (mg/dL) 140 H 164 H (75-99) mg/dL ALT (21-72) U/L HDL Cholesterol (40-60) mg/dL Thrombosis Risk Factor Assmnt - Choose All That Apply Any of the Below Risk Factors Present?: Yes Each Factor Represents 1 point: Abnormal pulmonary function (COPD), Obesity (BMI >25) Other Risk Factors: Yes Each Risk Factor Represents 2 Points: Age 61-74 years Other congenital or acquired thrombophilia - If yes, enter type in comment: No Thrombosis Risk Factor Assessment Total Risk Factor Score: 4 Thrombosis Risk Factor Assessment Level: Moderate Risk Assessment and Plan (1) Angina pectoris Status: Acute Code(s): I20.9 - ANGINA PECTORIS, UNSPECIFIED SNOMED Code(s): 439121485 Plan: 1. Angina pectoris. EKG and troponin negative. Pt given IV morphine with resolution of chest discomfort. Cardiology consult. Continue ASA and statin. NPO
== END 2019-01-24 13:16 ==
LOC: EC 14:56 → 1SOBS 18:20
PROVIDERS: ADMIT Family Medicine; ATTEND Family Medicine
DX: R07.89 Other chest pain (principal); I25.119 Atherosclerotic heart disease of native coronary artery with unspecified angina pectoris; I25.82 Chronic total occlusion of coronary artery; I45.10 Unspecified right bundle-branch block; K21.9 Gastro-esophageal reflux disease without esophagitis; I10 Essential (primary) hypertension; E78.5 Hyperlipidemia, unspecified; J44.9 Chronic obstructive pulmonary disease, unspecified; G47.33 Obstructive sleep apnea (adult) (pediatric); E11.42 Type 2 diabetes mellitus with diabetic polyneuropathy; M19.90 Unspecified osteoarthritis, unspecified site; L40.9 Psoriasis, unspecified; M10.9 Gout, unspecified; G89.29 Other chronic pain; M54.9 Dorsalgia, unspecified; R25.1 Tremor, unspecified; M54.16 Radiculopathy, lumbar region; M48.061 Spinal stenosis, lumbar region without neurogenic claudication; F32.9 Major depressive disorder, single episode, unspecified; E66.9 Obesity, unspecified; Z68.35 Body mass index [BMI] 35.0-35.9, adult; Z79.02 Long term (current) use of antithrombotics/antiplatelets; Z79.4 Long term (current) use of insulin; Z79.891 Long term (current) use of opiate analgesic; Z79.82 Long term (current) use of aspirin; Z79.899 Other long term (current) drug therapy; Z95.1 Presence of aortocoronary bypass graft; Z95.5 Presence of coronary angioplasty implant and graft; Z87.891 Personal history of nicotine dependence; I25.2 Old myocardial infarction; Z99.89 Dependence on other enabling machines and devices; Z87.11 Personal history of peptic ulcer disease; Z87.19 Personal history of other diseases of the digestive system; Z98.1 Arthrodesis status; Z86.010 Personal history of colon polyps; Z98.42 Cataract extraction status, left eye; Z98.41 Cataract extraction status, right eye; Z87.81 Personal history of (healed) traumatic fracture; Z82.49 Family history of ischemic heart disease and other diseases of the circulatory system; Z80.8 Family history of malignant neoplasm of other organs or systems
CPT/HCPCS: 96374; 99285; 36415; 93005; 85379; 80061; 80053; 83735; 84484 ×2; 85025; 85610; 85730; 71046; G0378 ×2; J2270